=== PATIENT | male | born 1960 | race Caucasian/White ===

== ENCOUNTER 2017-09-08 15:10 | Inpatient (IN) | payer MEDICARE, OTHER ==
[2017-09-08 15:58] LABS: % BASOPHILS 0.9 % (0.0-2.0); % LYMPHOCYTES 25.8 % (20.0-50.0); % MONOCYTES 7.9 % (2.0-10.0); % NEUTROPHILS 64.4 % (40.0-80.0); HEMATOCRIT 43.3 % (41.0-60); HEMOGLOBIN 14.8 gm/dL (12-16); MEAN CELL VOLUME 91.2 fl (80-99); MEAN CORPUSCULAR HEMOGLOBIN 31.1 pg (26.0-30.0); MEAN CORPUSCULAR HGB CONC 34.1 pg (28.0-36.0); PLATELET COUNT 166 Th/cmm (150-400); RED BLOOD COUNT 4.75 Mil/cmm (4.30-5.70); RED CELL DISTRIBUTION WIDTH 12.4 % (11.5-20.0); WHITE BLOOD COUNT 9.5 Th/cmm (4.8-10.8)
--- NOTE | 2017-09-08 16:01 | ED Physician Chart ---
ED Chief Complaint/HPI - Patient Information Date Seen:: 09/08/17 Time Seen:: 15:30 Chief Complaint:: Agitation History of Present Illness:: onset x one day of aggression, anxiety, combativeness, and agitation; no SIs, hallucinations, H/As, neck pain, C/P, SOB, Abd/flank pain, or urinary s/s Allergies:: Allergies Allergy/AdvReac Type Severity Reaction Status Date / Time cefazolin Allergy Verified 09/08/17 15:22 gemfibrozil Allergy Verified 09/08/17 15:24 simvastatin Allergy Verified 09/08/17 15:23 Vitals:: Vital Signs - 8 hr 09/08/17 15:30 Temp 98.3 F HR 68 RR 16 BP 174/98 O2 Sat % 96 Historian:: Patient Review:: Nurse's Note Reviewed, Old Chart Reviewed ED Review of Systems - Review of Systems General/Constitutional: No fever, No chills, No weight loss, No weakness, No diaphoresis, No edema, No loss of appetite Skin: No skin lesions, No rash, No bruising Head: No headache, No light-headedness Eyes: No loss of vision, No pain, No diplopia ENT: No earache, No nasal drainage, No sore throat, No tinnitus Neck: No neck pain, No swelling, No thyromegaly, No stiffness, No mass noted Cardio Vascular: No chest pain, No palpitations, No PND, No orthopnea, No edema Pulmonary: No SOB, No cough, No sputum, No wheezing GI: Nausea, Vomiting, Diarrhea, Pain, No melena, No hematochezia, No constipation, No hematemesis G/U: No dysuria, No frequency, No hematuria Musculoskeletal: No bone or joint pain, No back pain, No muscle pain Endocrine: No polyuria, No polydipsia Psychiatric: Prior psych history, Depression, Anxiety, No suicidal ideation, No homicidal ideation, Auditory hallucination, No visual hallucination Hematopoietic: No bruising, No lymphadenopathy Allergic/Immuno: No urticaria, No angioedema Neurological: No syncope, No focal symptoms, No weakness, No paresthesia, No headache, No seizure, No dizziness, No confusion, No vertigo ED Past Medical History - Past Medical History Obtainable: Yes Past Medical History: HTN, Dyslipidemia, PUD/GERD, Dementia Family History: Diabetes Melitus, HTN Social History: Smoker, Alcohol, No Drug Use, Single Surgical History: None Psychiatricy History: Depression, Schizophrenia, Bipolar, Dementia Medication: Reviewed Family Medical History - Family Member Mother History Unknown: Yes ED Physical Exam - Physical Examination General/Constitutional: Awake, Well-developed, well-nourished, Alert, No distress, GCS 15, Non-toxic appearing, Ambulatory Head: Atraumatic Eyes: Lids, conjuctiva normal, PERRL, EOMI Skin: Nl inspection, No rash, No skin lesions, No ecchymosis, Well hydrated, No lymphadenopathy ENMT: External ears, nose nl, Nasal exam nl, Lips, teeth, gums nl Neck: Nontender, Full ROM w/o pain, No JVD, No nuchal rigidity, No bruit, No mass, No stridor Respiratory: Nl effort/Exclusion, Clear to Auscultation, No Wheeze/Rhonchi/Rales Cardio Vascular: RRR, No murmur, gallop, rubs, NL S1 S2 GI: No tenderness/rebounding/guarding, No organomegaly, No hernia, Normal BS's, Nondistended, No mass/bruits, No McBurney tenderness : No CVA tenderness Extremities: No tenderness or effusion, Full ROM, normal strength in all extremities, No edema, Normal digits & nails Neuro/Psych: Alert/oriented, DTR's symmetric, Normal sensory exam, Normal motor strength, Judgement/insight normal, Normal gait, No focal deficits Other Neuro/Psych comments:: + Psychomotor Agitation; Mood/Affect: Labile; no SIs Misc: Normal back, No paraspinal tenderness ED Labs/Radiology/EKG Results - Lab Results Comments:: unremarkable - EKG Interpretations Rate & Rhythm: NSR Comments:: non-specific st-t changes ED Septic Shock - . Is Septic Shock (SBP<90, OR Lactate>4 mmol\L) present?: No - <6hrs of presentation: Vital Signs: Vital Signs - 8 hr 09/08/17 15:30 Temp 98.3 F HR 68 RR 16 BP 174/98 O2 Sat % 96 ED Reassessment (Disposition) - Reassessment Reassessment Condition:: Improved - Diagnosis Diagnosis:: Agitation; BiPolar Disoder; Manic-Depression - Aftercare/Follow up Instructions Aftercare/Follow-Up Instructions:: Counseled pt regarding lab results/diagnosis & need follow up, Counseled pt & family regarding lab results/diagnosis & need follow up - Patient Disposition Discharge/Transfer:: Acute Care w/in this hosp Admitted to:: [facility] Condition at Disposition:: Stable, Improved
[2017-09-08 16:11] LABS: URINE BILIRUBIN NEGATIVE (NEGATIVE); URINE BLOOD NEGATIVE (NEGATIVE); URINE GLUCOSE (UA) NEGATIVE (NEGATIVE); URINE KETONE NEGATIVE (NEGATIVE); URINE PROTEIN NEGATIVE (NEGATIVE); URINE UROBILINOGEN 0.2 E.U./dL (0.2 - 1.0)
[2017-09-08 16:14] LABS: URINE COLOR YELLOW
[2017-09-08 16:16] LABS: URINE BACTERIA NONE SEEN /hpf (NONE SEEN); URINE EPITHELIAL CELLS NONE SEEN /lpf (FEW); URINE RBC NONE SEEN /hpf (0-5); URINE WBC NONE SEEN /hpf (0-5)
[2017-09-08 16:21] LABS: ALB/GLOB RATIO 1.5 (1.0-1.8); ALKALINE PHOSPHATASE 119 U/L (34-104); ANION GAP 9.3 (7.0-16.0); BILIRUBIN,TOTAL 0.5 mg/dL (0.3-1.0); BUN - UREA NITROGEN 21 mg/dL (7-25); BUN/CREATININE RATIO 26.3; CARBON DIOXIDE 26.7 mEq/L (21.0-31.0); CHLORIDE 105 mEq/L (98-107); CHOLESTEROL 116 mg/dL (<200); CREATININE - SERUM 0.8 mg/dL (0.7-1.3); GLUCOSE 132 mg/dL (70-105); SGOT 27 U/L (13-39); SGPT/ALT 23 U/L (7-52); SODIUM SERUM 137 mEq/L (136-145); TRIGLYCERIDES 77 mg/dL (<150)
[2017-09-08 18:32] VITALS: BP 179/86
[2017-09-08] MEDS ORDERED: Magnesium Hydroxide (MOM) 30 mL UDC PO PRN (20:32)
[2017-09-08] MEDS ORDERED: Maalox 30 mL Cup PO PRN (20:32)
[2017-09-09] MEDS: Multivitamin Tab PO SCH (08:56)
[2017-09-09] MEDS ORDERED: Non-Formulary Item 1 EA (Acetaminophen [Acetaminophen Er] 650 MG) PO PRN (22:52)
[2017-09-09] MEDS ORDERED: Magnesium Hydroxide (MOM) 30 mL UDC PO PRN (22:52)
[2017-09-09] MEDS ORDERED: Fleet Enema 135 mL RC PRN (22:52)
--- NOTE | 2017-09-10 00:47 | History & Physical ---
ADMIT DATE: 09/08/2017 HISTORY OF PRESENT ILLNESS: The patient is a 57-year-old male with long history of hypertension, benign prostatic hypertrophy, degenerative joint disease, chronic constipation, dementia, psychosis, admitted to Geropsych Department at [facility] under Dr. Franklin's service. The patient resumed his medication and diet. PAST MEDICAL HISTORY: Significant for hypertension, benign prostatic hypertrophy, degenerative joint disease, dementia, and psychosis. PAST SURGICAL HISTORY: No recent surgery. ALLERGIES: CEFAZOLIN, GEMFIBROZIL, SIMVASTATIN. SOCIAL HISTORY: No smoking, alcohol or drug use. FAMILY HISTORY: Noncontributory. MEDICATIONS: Follow admission reconciliation. REVIEW OF SYSTEMS: RENAL SYSTEM: No history of chronic renal disorder. CARDIOVASCULAR SYSTEM: He has history of hypertension. ENDOCRINE SYSTEM: No diabetes or thyroid problem. GASTROINTESTINAL SYSTEM: No upper or lower gastrointestinal bleed. NEUROLOGICAL: He has history of dementia, psychosis. PHYSICAL EXAMINATION: GENERAL: He is awake, not coherent. VITAL SIGNS: Temperature 97.8, heart rate 61, blood pressure 135/85. HEENT: Normocephalic. Pupils reactive to light and accommodation. Sclerae clear. NECK: Supple. Negative for lymphadenopathy, JVD or bruit. CHEST: ____ bilateral normal. No rhonchi or wheezing. HEART: S1, S2 normal. ABDOMEN: Soft, bowel sounds positive. EXTREMITIES: No edema. NEUROLOGIC: Awake, not fully oriented. LABORATORY DATA: White blood cells 9.5, hemoglobin is 14.8, hematocrit 43.3, platelet is 166. Sodium 132, potassium ____, BUN is 21, creatinine 0.9. Urinalysis within normal limits, RPR is negative. ASSESSMENT: 1. Hypertension. 2. Benign prostatic hypertrophy. 3. Hyponatremia. 4. Dementia. 5. Psychosis. PLAN: The patient is in the hospital under Dr. Franklin's service. PROBLEMS TO BE ADDRESSED DURING THE HOSPITALIZATION: Psychosis, dementia. MEDICAL PROBLEMS TO BE ADDRESSED AT DISCHARGE: Hypertension, benign prostatic hypertrophy. The patient is medically stable for activity. The patient is a full code. Thank you, Dr. Franklin for asking me to see your patient. JOB# [id number]
--- NOTE | 2017-09-10 01:49 | Psychosocial Evaluation ---
DATE OF SERVICE: 09/09/2017 IDENTIFYING DATA: The patient is a 57-year-old male resident of a jail facility. Information obtained by directly interviewing the patient as well as papers and they are reliable. JUSTIFICATION OF HOSPITALIZATION: The patient is admitted here on a voluntary basis in view of his acute agitation. CHIEF COMPLAINT: "I am having some problems at the facility, I don't know what to do." HISTORY OF PRESENT ILLNESS: This is the first psychiatric hospitalization to [facility] for this patient who is reported to have been asked is a resident of the jail facility. The patient is reported to have been getting easily agitated, screaming and yelling and hence he has been transferred over here for stabilization. Prior to the hospitalization, the patient has been getting the Depakote and Seroquel. The patient has been able to tolerate the medication. The patient's mother has been stating that the patient needs to be refer to a jail facility close to the hospital and she does not want to go back to the same facility. PAST PSYCHIATRIC HISTORY: The patient is not able to provide much of information. The patient stating that he has been diagnosed with dementia. MEDICAL HISTORY AND PHYSICAL EXAMINATION: Requested to be done by Dr. Alves. SUBSTANCE ABUSE HISTORY: None. PHYSICAL OR SEXUAL ABUSE HISTORY: None. LEGAL PROBLEMS: None at this time. STRENGTH AND ASSETS: The patient is motivated. MENTAL STATUS EXAMINATION: The patient is a 57-year-old, looking his stated age, well built, superficially cooperative. Eye contact is poor. Mood is noted to be irritable. Affect is constricted. Insight and judgment at this time are noted to be still impaired. Impulse control is noted to be limited. The patient is insisting that he has to go to a different place and he is not able to get along with the people at the facility. The patient coping skills at this time are noted to be very poor. The patient has been denying any paranoia, delusions noted, no hallucinations are reported. The patient, however, has been mentioned repeatedly that he has dementia. The patient, however, is noted to be alert and is fully aware that he is in the hospital. DIAGNOSTIC IMPRESSION: 1a. Psychotic disorder, not otherwise specified. 1b. Dementia and behavioral changes secondary to it. AXIS II: None. AXIS III: As per Dr. Alves. IMMEDIATE TREATMENT PLAN: The patient is going to be continued with the current medications and encouraged to participate in the groups and verbalize the concerns. Once stabilized, the patient is going to be discharged to self to be followed up on an outpatient basis. [facility]# [id number]
[2017-09-10] MEDS: Multivitamin Tab PO SCH (09:36)
--- NOTE | 2017-09-10 19:14 | Internal Medicine Prog Note ---
Internal Medicine Subjective - Subjective Service Date: 09/10/17 Patient seen and examined:: with staff Patient is:: awake, in bed, confused Per staff patient has:: no adverse event Internal Medicine Objective - Results Result Diagrams: 09/08/17 15:51 09/08/17 15:51 Recent Labs: Laboratory Last Values WBC 9.5 Th/cmm (4.8-10.8) 09/08/17 15:51 RBC 4.75 Mil/cmm (4.30-5.70) 09/08/17 15:51 Hgb 14.8 gm/dL (12-16) 09/08/17 15:51 Hct 43.3 % (41.0-60) 09/08/17 15:51 MCV 91.2 fl (80-99) 09/08/17 15:51 MCH 31.1 pg (26.0-30.0) H 09/08/17 15:51 MCHC Differential 34.1 pg (28.0-36.0) 09/08/17 15:51 RDW 12.4 % (11.5-20.0) 09/08/17 15:51 Plt Count 166 Th/cmm (150-400) 09/08/17 15:51 MPV 10.0 fl 09/08/17 15:51 Neutrophils % 64.4 % (40.0-80.0) 09/08/17 15:51 Lymphocytes % 25.8 % (20.0-50.0) 09/08/17 15:51 Monocytes % 7.9 % (2.0-10.0) 09/08/17 15:51 Eosinophils % 1.0 % (0.0-5.0) 09/08/17 15:51 Basophils % 0.9 % (0.0-2.0) 09/08/17 15:51 Sodium 137 mEq/L (136-145) 09/08/17 15:51 Potassium 4.0 mEq/L (3.5-5.1) 09/08/17 15:51 Chloride 105 mEq/L (98-107) 09/08/17 15:51 Carbon Dioxide 26.7 mEq/L (21.0-31.0) 09/08/17 15:51 Anion Gap 9.3 (7.0-16.0) 09/08/17 15:51 BUN 21 mg/dL (7-25) 09/08/17 15:51 Creatinine 0.8 mg/dL (0.7-1.3) 09/08/17 15:51 Est GFR ( Amer) > 60.0 ml/min (>90) 09/08/17 15:51 Est GFR (Non-Af Amer) > 60.0 ml/min 09/08/17 15:51 BUN/Creatinine Ratio 26.3 09/08/17 15:51 Glucose 132 mg/dL (70-105) H 09/08/17 15:51 Calcium 9.0 mg/dL (8.6-10.3) 09/08/17 15:51 Total Bilirubin 0.5 mg/dL (0.3-1.0) 09/08/17 15:51 AST 27 U/L (13-39) 09/08/17 15:51 ALT 23 U/L (7-52) 09/08/17 15:51 Alkaline Phosphatase 119 U/L (34-104) H 09/08/17 15:51 Total Protein 7.1 gm/dL (6.0-8.3) 09/08/17 15:51 Albumin 4.2 gm/dL (4.2-5.5) 09/08/17 15:51 Globulin 2.9 gm/dL 09/08/17 15:51 Albumin/Globulin Ratio 1.5 (1.0-1.8) 09/08/17 15:51 Triglycerides 77 mg/dL (<150) 09/08/17 15:51 Cholesterol 116 mg/dL (<200) 09/08/17 15:51 LDL Cholesterol Direct 65 mg/dL (75-193) L 09/08/17 15:51 HDL Cholesterol 41 mg/dL (23-92) 09/08/17 15:51 TSH 2.37 uIU/ml (0.34-5.60) 09/08/17 15:51 Urine Source CLEAN C 09/08/17 15:45 Urine Color YELLOW 09/08/17 15:45 Urine Clarity CLEAR (CLEAR) 09/08/17 15:45 Urine pH 6.0 (4.6 - 8.0) 09/08/17 15:45 Ur Specific [place] >= 1.030 (1.005-1.030) 09/08/17 15:45 Urine Protein NEGATIVE mg/dL (NEGATIVE) 09/08/17 15:45 Urine Glucose (UA) NEGATIVE mg/dL (NEGATIVE) 09/08/17 15:45 Urine Ketones NEGATIVE mg/dL (NEGATIVE) 09/08/17 15:45 Urine Blood NEGATIVE (NEGATIVE) 09/08/17 15:45 Urine Nitrate NEGATIVE (NEGATIVE) 09/08/17 15:45 Urine Bilirubin NEGATIVE (NEGATIVE) 09/08/17 15:45 Urine Urobilinogen 0.2 E.U./dL (0.2 - 1.0) 09/08/17 15:45 Ur Leukocyte Esterase NEGATIVE (NEGATIVE) 09/08/17 15:45 Urine RBC NONE SEEN /hpf (0-5) 09/08/17 15:45 Urine WBC NONE SEEN /hpf (0-5) 09/08/17 15:45 Ur Epithelial Cells NONE SEEN /lpf (FEW) 09/08/17 15:45 Urine Bacteria NONE SEEN /hpf (NONE SEEN) 09/08/17 15:45 RPR NONREACTIVE (NONREACTIVE) 09/08/17 15:51 - Physical Exam Vitals and I&O: Vital Signs Temp 97.9 F 09/10/17 06:31 Pulse 64 09/10/17 17:22 Resp 20 09/10/17 06:31 BP 128/75 09/10/17 17:22 Pulse Ox 96 09/10/17 06:31 Intake & Output 09/10/17 09/10/17 09/11/17 06:59 18:59 06:59 Intake Total 120 Balance 120 Intake: Oral 120 Other: # Voids 3 Active Medications: Current Medications Acetaminophen (Tylenol) 650 mg PO Q4HR PRN PRN Reason: Mild Pain / Temp above 100 Stop: 11/07/17 20:31 Al Hydrox/Mg Hydrox/Simethicone (Maalox) 30 ml PO Q4HR PRN PRN Reason: GI DISTRESS Stop: 11/07/17 20:31 Amlodipine Besylate (Norvasc) 10 mg PO DAILY [facility] Stop: 11/08/17 11:29 Last Admin: 09/10/17 09:33 Dose: 10 mg Aspirin (Aspirin) 325 mg PO DAILY [facility] Stop: 11/09/17 08:59 Last Admin: 09/10/17 09:34 Dose: 325 mg Bisacodyl (Dulcolax 10 Mg Supp) 10 mg RC DAILY PRN PRN Reason: Constipation Stop: 11/08/17 22:51 Divalproex Sodium (Depakote Sprinkle) 250 mg PO BID [facility] PRN Reason: Protocol Stop: 11/08/17 08:59 Last Admin: 09/09/17 16:36 Dose: 250 mg Divalproex Sodium (Depakote Sprinkle) 125 mg PO BID [facility] PRN Reason: Protocol Stop: 11/09/17 08:59 Last Admin: 09/10/17 17:23 Dose: 125 mg Docusate Sodium (Colace) 100 mg PO DAILY [facility] Stop: 11/08/17 08:59 Last Admin: 09/10/17 09:34 Dose: 100 mg Donepezil HCl (Aricept) 10 mg PO HS [facility] Stop: 11/07/17 20:59 Last Admin: 09/09/17 20:35 Dose: 10 mg Lorazepam (Ativan) 0.5 mg PO Q4HR PRN; Protocol PRN Reason: anxiety and agitation Stop: 10/08/17 20:31 Last Admin: 09/08/17 21:40 Dose: 0.5 mg Magnesium Hydroxide (Milk Of Magnesia) 30 ml PO HS PRN PRN Reason: Constipation Magnesium Hydroxide (Milk Of Magnesia) 30 ml PO HS PRN PRN Reason: Constipation Stop: 11/08/17 22:51 Memantine (Namenda) 10 mg PO Q12HR [facility] Stop: 11/07/17 20:59 Last Admin: 09/10/17 09:34 Dose: 10 mg Metoprolol Tartrate (Lopressor) 12.5 mg PO BID [facility] Stop: 11/09/17 08:59 Last Admin: 09/10/17 17:22 Dose: 12.5 mg Morphine Sulfate (Ms-Contin) 30 mg PO Q12HR [facility] Stop: 11/07/17 20:59 Last Admin: 09/10/17 09:36 Dose: 30 mg Multivitamins/Vitamin C (Theragran) 1 tab PO DAILY [facility] Stop: 11/08/17 08:59 Last Admin: 09/10/17 09:36 Dose: 1 tab Nitroglycerin (Nitrostat) 0.4 mg SL Q5MIN PRN PRN Reason: Chest Pain Stop: 11/08/17 22:51 Quetiapine Fumarate (Seroquel) 100 mg PO HS [facility] PRN Reason: Protocol Stop: 11/07/17 20:59 Last Admin: 09/09/17 20:37 Dose: 100 mg Quetiapine Fumarate (Seroquel) 25 mg PO DAILY [facility] PRN Reason: Protocol Stop: 11/08/17 08:59 Last Admin: 09/10/17 09:36 Dose: 25 mg Sodium Phosphate (Fleet Enema) 135 ml RC Q2D PRN PRN Reason: Constipation Stop: 11/08/17 22:51 Tamsulosin HCl (Flomax) 0.4 mg PO HS [facility] Stop: 11/08/17 20:59 Last Admin: 09/09/17 20:37 Dose: 0.4 mg Thiamine HCl (Vitamin B1) 200 mg PO DAILY [facility] Stop: 11/09/17 08:59 Last Admin: 09/10/17 09:34 Dose: 200 mg Zolpidem Tartrate (Ambien) 5 mg PO HS PRN PRN Reason: Insomnia Stop: 11/07/17 20:31 General: demented HEENT: NC/AT, PERRLA, EOMI, anicteric sclerae, throat clear Neck: Supple, No JVD, No thyromegaly Lungs: CTAB Cardiovascular: RRR, Normal S1, Normal S2, without murmur Abdomen: soft, non-tender, non-distended Extremities: clear Neurological: no change Internal Medicine Assmt/Plan - Assessment Assessment: 1.HTN. 2.BPH. 3.DEMENTIA. - Plan Plan: CONTINUE ON CURRENT MEDICATION AND DIET.
--- NOTE | 2017-09-11 04:41 | Progress Notes ---
DATE: 09/10/2017 SUBJECTIVE: Staff was spoken to. The patient is interviewed. Mood is noted to be irritable. Affect is constricted. Insight and judgment at this time are noted to be still impaired. Impulse control seems to be poor. Coping skills are also noted to be poor. The patient has been having difficult time to cope with the stress. The patient is currently on 25 mg of the Seroquel in the morning, 100 mg at bedtime and is also receiving Depakote 125 mg twice a day. Mood swings are still a concern and the patient is being closely monitored. ASSESSMENT: The patient is still impulsive and is not able to contract for safety. PLAN: To continue the patient with the current medications. I encouraged the patient to verbalize the concerns rather than to act out. JOB# [id number]
[2017-09-11] MEDS: Multivitamin Tab PO SCH (08:09)
--- NOTE | 2017-09-11 13:54 | Internal Medicine Prog Note ---
Internal Medicine Subjective - Subjective Service Date: 09/11/17 Patient seen and examined:: with staff Patient is:: awake, in bed, confused Per staff patient has:: no adverse event Internal Medicine Objective - Results Result Diagrams: 09/08/17 15:51 09/08/17 15:51 Recent Labs: Laboratory Last Values WBC 9.5 Th/cmm (4.8-10.8) 09/08/17 15:51 RBC 4.75 Mil/cmm (4.30-5.70) 09/08/17 15:51 Hgb 14.8 gm/dL (12-16) 09/08/17 15:51 Hct 43.3 % (41.0-60) 09/08/17 15:51 MCV 91.2 fl (80-99) 09/08/17 15:51 MCH 31.1 pg (26.0-30.0) H 09/08/17 15:51 MCHC Differential 34.1 pg (28.0-36.0) 09/08/17 15:51 RDW 12.4 % (11.5-20.0) 09/08/17 15:51 Plt Count 166 Th/cmm (150-400) 09/08/17 15:51 MPV 10.0 fl 09/08/17 15:51 Neutrophils % 64.4 % (40.0-80.0) 09/08/17 15:51 Lymphocytes % 25.8 % (20.0-50.0) 09/08/17 15:51 Monocytes % 7.9 % (2.0-10.0) 09/08/17 15:51 Eosinophils % 1.0 % (0.0-5.0) 09/08/17 15:51 Basophils % 0.9 % (0.0-2.0) 09/08/17 15:51 Sodium 137 mEq/L (136-145) 09/08/17 15:51 Potassium 4.0 mEq/L (3.5-5.1) 09/08/17 15:51 Chloride 105 mEq/L (98-107) 09/08/17 15:51 Carbon Dioxide 26.7 mEq/L (21.0-31.0) 09/08/17 15:51 Anion Gap 9.3 (7.0-16.0) 09/08/17 15:51 BUN 21 mg/dL (7-25) 09/08/17 15:51 Creatinine 0.8 mg/dL (0.7-1.3) 09/08/17 15:51 Est GFR ( Amer) > 60.0 ml/min (>90) 09/08/17 15:51 Est GFR (Non-Af Amer) > 60.0 ml/min 09/08/17 15:51 BUN/Creatinine Ratio 26.3 09/08/17 15:51 Glucose 132 mg/dL (70-105) H 09/08/17 15:51 Calcium 9.0 mg/dL (8.6-10.3) 09/08/17 15:51 Total Bilirubin 0.5 mg/dL (0.3-1.0) 09/08/17 15:51 AST 27 U/L (13-39) 09/08/17 15:51 ALT 23 U/L (7-52) 09/08/17 15:51 Alkaline Phosphatase 119 U/L (34-104) H 09/08/17 15:51 Total Protein 7.1 gm/dL (6.0-8.3) 09/08/17 15:51 Albumin 4.2 gm/dL (4.2-5.5) 09/08/17 15:51 Globulin 2.9 gm/dL 09/08/17 15:51 Albumin/Globulin Ratio 1.5 (1.0-1.8) 09/08/17 15:51 Triglycerides 77 mg/dL (<150) 09/08/17 15:51 Cholesterol 116 mg/dL (<200) 09/08/17 15:51 LDL Cholesterol Direct 65 mg/dL (75-193) L 09/08/17 15:51 HDL Cholesterol 41 mg/dL (23-92) 09/08/17 15:51 TSH 2.37 uIU/ml (0.34-5.60) 09/08/17 15:51 Urine Source CLEAN C 09/08/17 15:45 Urine Color YELLOW 09/08/17 15:45 Urine Clarity CLEAR (CLEAR) 09/08/17 15:45 Urine pH 6.0 (4.6 - 8.0) 09/08/17 15:45 Ur Specific [place] >= 1.030 (1.005-1.030) 09/08/17 15:45 Urine Protein NEGATIVE mg/dL (NEGATIVE) 09/08/17 15:45 Urine Glucose (UA) NEGATIVE mg/dL (NEGATIVE) 09/08/17 15:45 Urine Ketones NEGATIVE mg/dL (NEGATIVE) 09/08/17 15:45 Urine Blood NEGATIVE (NEGATIVE) 09/08/17 15:45 Urine Nitrate NEGATIVE (NEGATIVE) 09/08/17 15:45 Urine Bilirubin NEGATIVE (NEGATIVE) 09/08/17 15:45 Urine Urobilinogen 0.2 E.U./dL (0.2 - 1.0) 09/08/17 15:45 Ur Leukocyte Esterase NEGATIVE (NEGATIVE) 09/08/17 15:45 Urine RBC NONE SEEN /hpf (0-5) 09/08/17 15:45 Urine WBC NONE SEEN /hpf (0-5) 09/08/17 15:45 Ur Epithelial Cells NONE SEEN /lpf (FEW) 09/08/17 15:45 Urine Bacteria NONE SEEN /hpf (NONE SEEN) 09/08/17 15:45 RPR NONREACTIVE (NONREACTIVE) 09/08/17 15:51 - Physical Exam Vitals and I&O: Vital Signs Temp 98 F 09/11/17 06:46 Pulse 60 09/11/17 13:04 Resp 20 09/11/17 13:04 BP 156/85 09/11/17 08:10 Pulse Ox 98 09/11/17 06:46 Intake & Output 09/10/17 09/11/17 09/11/17 18:59 06:59 18:59 Intake Total 120 Balance 120 Intake: Oral 120 Other: # Voids 3 Active Medications: Current Medications Acetaminophen (Tylenol) 650 mg PO Q4HR PRN PRN Reason: Mild Pain / Temp above 100 Stop: 11/07/17 20:31 Al Hydrox/Mg Hydrox/Simethicone (Maalox) 30 ml PO Q4HR PRN PRN Reason: GI DISTRESS Stop: 11/07/17 20:31 Amlodipine Besylate (Norvasc) 10 mg PO DAILY [facility] Stop: 11/08/17 11:29 Last Admin: 09/11/17 08:10 Dose: 10 mg Aspirin (Aspirin) 325 mg PO DAILY [facility] Stop: 11/09/17 08:59 Last Admin: 09/11/17 08:09 Dose: 325 mg Bisacodyl (Dulcolax 10 Mg Supp) 10 mg RC DAILY PRN PRN Reason: Constipation Stop: 11/08/17 22:51 Divalproex Sodium (Depakote Sprinkle) 250 mg PO BID [facility] PRN Reason: Protocol Stop: 11/08/17 08:59 Last Admin: 09/11/17 08:11 Dose: 250 mg Divalproex Sodium (Depakote Sprinkle) 125 mg PO BID [facility] PRN Reason: Protocol Stop: 11/09/17 08:59 Last Admin: 09/10/17 17:23 Dose: 125 mg Docusate Sodium (Colace) 100 mg PO DAILY [facility] Stop: 11/08/17 08:59 Last Admin: 09/11/17 08:09 Dose: 100 mg Donepezil HCl (Aricept) 10 mg PO HS [facility] Stop: 11/07/17 20:59 Last Admin: 09/10/17 21:23 Dose: 10 mg Lorazepam (Ativan) 0.5 mg PO Q4HR PRN; Protocol PRN Reason: anxiety and agitation Stop: 10/08/17 20:31 Last Admin: 09/08/17 21:40 Dose: 0.5 mg Magnesium Hydroxide (Milk Of Magnesia) 30 ml PO HS PRN PRN Reason: Constipation Magnesium Hydroxide (Milk Of Magnesia) 30 ml PO HS PRN PRN Reason: Constipation Stop: 11/08/17 22:51 Memantine (Namenda) 10 mg PO Q12HR [facility] Stop: 11/07/17 20:59 Last Admin: 09/11/17 08:09 Dose: 10 mg Metoprolol Tartrate (Lopressor) 12.5 mg PO BID [facility] Stop: 11/09/17 08:59 Last Admin: 09/11/17 08:09 Dose: 12.5 mg Morphine Sulfate (Ms-Contin) 30 mg PO Q12HR [facility] Stop: 11/07/17 20:59 Last Admin: 09/11/17 08:11 Dose: 30 mg Multivitamins/Vitamin C (Theragran) 1 tab PO DAILY [facility] Stop: 11/08/17 08:59 Last Admin: 09/11/17 08:09 Dose: 1 tab Nitroglycerin (Nitrostat) 0.4 mg SL Q5MIN PRN PRN Reason: Chest Pain Stop: 11/08/17 22:51 Quetiapine Fumarate (Seroquel) 100 mg PO HS [facility] PRN Reason: Protocol Stop: 11/07/17 20:59 Last Admin: 09/10/17 21:23 Dose: 100 mg Quetiapine Fumarate (Seroquel) 25 mg PO DAILY [facility] PRN Reason: Protocol Stop: 11/08/17 08:59 Last Admin: 09/11/17 08:09 Dose: 25 mg Sodium Phosphate (Fleet Enema) 135 ml RC Q2D PRN PRN Reason: Constipation Stop: 11/08/17 22:51 Tamsulosin HCl (Flomax) 0.4 mg PO HS [facility] Stop: 11/08/17 20:59 Last Admin: 09/10/17 21:23 Dose: 0.4 mg Thiamine HCl (Vitamin B1) 200 mg PO DAILY [facility] Stop: 11/09/17 08:59 Last Admin: 09/11/17 08:09 Dose: 200 mg Zolpidem Tartrate (Ambien) 5 mg PO HS PRN PRN Reason: Insomnia Stop: 11/07/17 20:31 General: demented HEENT: NC/AT, PERRLA, EOMI, anicteric sclerae, throat clear Neck: Supple, No JVD, No thyromegaly Lungs: CTAB Cardiovascular: RRR, Normal S1, Normal S2, without murmur Abdomen: soft, non-tender, non-distended Extremities: clear Neurological: no change Internal Medicine Assmt/Plan - Assessment Assessment: 1.HTN. 2.BPH. 3.DEMENTIA. - Plan Plan: CONTINUE ON CURRENT MEDICATION AND DIET.
[2017-09-12] MEDS: Multivitamin Tab PO SCH (08:17)
--- NOTE | 2017-09-12 15:05 | Progress Notes ---
DATE: 09/11/2017 SUBJECTIVE: Staff was spoken to. The patient is interviewed. Mood is noted to be irritable. Affect is constricted. Insight and judgment are noted to be still impaired. Impulse control seems to be limited. Coping skills are also noted to be poor. No side effects to the medications are noted. The patient has been having difficult time to cope with the stress at this time. The patient has been stating he wants to go back and what is not very clear that he is going to be welcomed over there. The patient's mother has been requesting for the patient to be transferred to a different facility close to the [facility]. manager mba has been working on the same. The patient at this time is not able to contract for safety, continues to be paranoid and hence it is decided to increase the dose on the Seroquel by another 25 mg, make it 50 mg in the morning and continued at 100 mg at bedtime. JOB# [id number]
--- NOTE | 2017-09-13 01:19 | Progress Notes ---
DATE: 09/12/2017 SUBJECTIVE: Staff was spoken to. The patient is interviewed. Mood is noted to be irritable. Affect is constricted. The patient is demanding that he should be discharged. He can be there in his trailer and close to his mother. The patient is stating that mother is mainly concerned that he is going to be taking alcohol. The patient has been very belligerent last night and wanting that he should be discharged right away. ASSESSMENT: The patient is still impulsive. PLAN: To continue the patient with the supportive therapy and current medications and followup. JOB# [id number]
[2017-09-13] MEDS: Multivitamin Tab PO SCH (08:18)
[2017-09-13] MEDS ORDERED: Magnesium Hydroxide (MOM) 30 mL UDC PO PRN ×2 (15:55)
--- NOTE | 2017-09-13 20:54 | General Progress Note ---
Subjective - Review of Systems Service Date: 09/13/17 Subjective: resting comfortably no distress Objective - Results Result Diagrams: 09/08/17 15:51 09/08/17 15:51 Recent Labs: Laboratory Last Values WBC 9.5 Th/cmm (4.8-10.8) 09/08/17 15:51 RBC 4.75 Mil/cmm (4.30-5.70) 09/08/17 15:51 Hgb 14.8 gm/dL (12-16) 09/08/17 15:51 Hct 43.3 % (41.0-60) 09/08/17 15:51 MCV 91.2 fl (80-99) 09/08/17 15:51 MCH 31.1 pg (26.0-30.0) H 09/08/17 15:51 MCHC Differential 34.1 pg (28.0-36.0) 09/08/17 15:51 RDW 12.4 % (11.5-20.0) 09/08/17 15:51 Plt Count 166 Th/cmm (150-400) 09/08/17 15:51 MPV 10.0 fl 09/08/17 15:51 Neutrophils % 64.4 % (40.0-80.0) 09/08/17 15:51 Lymphocytes % 25.8 % (20.0-50.0) 09/08/17 15:51 Monocytes % 7.9 % (2.0-10.0) 09/08/17 15:51 Eosinophils % 1.0 % (0.0-5.0) 09/08/17 15:51 Basophils % 0.9 % (0.0-2.0) 09/08/17 15:51 Sodium 137 mEq/L (136-145) 09/08/17 15:51 Potassium 4.0 mEq/L (3.5-5.1) 09/08/17 15:51 Chloride 105 mEq/L (98-107) 09/08/17 15:51 Carbon Dioxide 26.7 mEq/L (21.0-31.0) 09/08/17 15:51 Anion Gap 9.3 (7.0-16.0) 09/08/17 15:51 BUN 21 mg/dL (7-25) 09/08/17 15:51 Creatinine 0.8 mg/dL (0.7-1.3) 09/08/17 15:51 Est GFR ( Amer) > 60.0 ml/min (>90) 09/08/17 15:51 Est GFR (Non-Af Amer) > 60.0 ml/min 09/08/17 15:51 BUN/Creatinine Ratio 26.3 09/08/17 15:51 Glucose 132 mg/dL (70-105) H 09/08/17 15:51 Calcium 9.0 mg/dL (8.6-10.3) 09/08/17 15:51 Total Bilirubin 0.5 mg/dL (0.3-1.0) 09/08/17 15:51 AST 27 U/L (13-39) 09/08/17 15:51 ALT 23 U/L (7-52) 09/08/17 15:51 Alkaline Phosphatase 119 U/L (34-104) H 09/08/17 15:51 Total Protein 7.1 gm/dL (6.0-8.3) 09/08/17 15:51 Albumin 4.2 gm/dL (4.2-5.5) 09/08/17 15:51 Globulin 2.9 gm/dL 09/08/17 15:51 Albumin/Globulin Ratio 1.5 (1.0-1.8) 09/08/17 15:51 Triglycerides 77 mg/dL (<150) 09/08/17 15:51 Cholesterol 116 mg/dL (<200) 09/08/17 15:51 LDL Cholesterol Direct 65 mg/dL (75-193) L 09/08/17 15:51 HDL Cholesterol 41 mg/dL (23-92) 09/08/17 15:51 TSH 2.37 uIU/ml (0.34-5.60) 09/08/17 15:51 Urine Source CLEAN C 09/08/17 15:45 Urine Color YELLOW 09/08/17 15:45 Urine Clarity CLEAR (CLEAR) 09/08/17 15:45 Urine pH 6.0 (4.6 - 8.0) 09/08/17 15:45 Ur Specific [place] >= 1.030 (1.005-1.030) 09/08/17 15:45 Urine Protein NEGATIVE mg/dL (NEGATIVE) 09/08/17 15:45 Urine Glucose (UA) NEGATIVE mg/dL (NEGATIVE) 09/08/17 15:45 Urine Ketones NEGATIVE mg/dL (NEGATIVE) 09/08/17 15:45 Urine Blood NEGATIVE (NEGATIVE) 09/08/17 15:45 Urine Nitrate NEGATIVE (NEGATIVE) 09/08/17 15:45 Urine Bilirubin NEGATIVE (NEGATIVE) 09/08/17 15:45 Urine Urobilinogen 0.2 E.U./dL (0.2 - 1.0) 09/08/17 15:45 Ur Leukocyte Esterase NEGATIVE (NEGATIVE) 09/08/17 15:45 Urine RBC NONE SEEN /hpf (0-5) 09/08/17 15:45 Urine WBC NONE SEEN /hpf (0-5) 09/08/17 15:45 Ur Epithelial Cells NONE SEEN /lpf (FEW) 09/08/17 15:45 Urine Bacteria NONE SEEN /hpf (NONE SEEN) 09/08/17 15:45 RPR NONREACTIVE (NONREACTIVE) 09/08/17 15:51 - Physical Exam Vitals and I&O: Vital Signs Temp 98.3 F 09/13/17 20:16 Pulse 61 09/13/17 20:16 Resp 20 09/13/17 20:16 BP 133/85 09/13/17 20:16 Pulse Ox 98 09/13/17 20:16 Intake & Output 09/13/17 09/13/17 09/14/17 06:59 18:59 06:59 Intake Total 720 1000 240 Balance 720 1000 240 Intake: Oral 720 1000 240 Other: # Voids 2 3 1 # Bowel Movements 1 Stool Characteristics Soft Formed Active Medications: Current Medications Acetaminophen (Tylenol) 650 mg PO Q4HR PRN PRN Reason: Mild Pain / Temp above 100 Stop: 11/07/17 20:31 Al Hydrox/Mg Hydrox/Simethicone (Maalox) 30 ml PO Q4HR PRN PRN Reason: GI DISTRESS Stop: 11/07/17 20:31 Amlodipine Besylate (Norvasc) 10 mg PO DAILY [facility] Stop: 11/08/17 11:29 Last Admin: 09/13/17 08:20 Dose: 10 mg Aspirin (Aspirin) 325 mg PO DAILY [facility] Stop: 11/09/17 08:59 Last Admin: 09/13/17 08:19 Dose: 325 mg Bisacodyl (Dulcolax 10 Mg Supp) 10 mg RC DAILY PRN PRN Reason: Constipation Stop: 11/08/17 22:51 Divalproex Sodium (Depakote Sprinkle) 500 mg PO BID [facility] PRN Reason: Protocol Stop: 11/08/17 08:59 Last Admin: 09/13/17 16:55 Dose: 500 mg Docusate Sodium (Colace) 100 mg PO DAILY [facility] Stop: 11/08/17 08:59 Last Admin: 09/13/17 08:19 Dose: 100 mg Donepezil HCl (Aricept) 10 mg PO HS [facility] Stop: 11/07/17 20:59 Last Admin: 09/13/17 20:25 Dose: 10 mg Lorazepam (Ativan) 0.5 mg PO Q4HR PRN; Protocol PRN Reason: anxiety and agitation Stop: 10/08/17 20:31 Last Admin: 09/08/17 21:40 Dose: 0.5 mg Magnesium Hydroxide (Milk Of Magnesia) 30 ml PO DAILY PRN PRN Reason: Constipation Magnesium Hydroxide (Milk Of Magnesia) 30 ml PO DAILY PRN PRN Reason: Constipation Stop: 11/12/17 15:52 Memantine (Namenda) 10 mg PO Q12HR [facility] Stop: 11/07/17 20:59 Last Admin: 09/13/17 20:25 Dose: 10 mg Metoprolol Tartrate (Lopressor) 12.5 mg PO BID [facility] Stop: 11/09/17 08:59 Last Admin: 09/13/17 16:56 Dose: 12.5 mg Morphine Sulfate (Ms-Contin) 30 mg PO Q12HR [facility] Stop: 11/07/17 20:59 Last Admin: 09/13/17 20:25 Dose: 30 mg Multivitamins/Vitamin C (Theragran) 1 tab PO DAILY [facility] Stop: 11/08/17 08:59 Last Admin: 09/13/17 08:18 Dose: 1 tab Nitroglycerin (Nitrostat) 0.4 mg SL Q5MIN PRN PRN Reason: Chest Pain Stop: 11/08/17 22:51 Quetiapine Fumarate (Seroquel) 100 mg PO HS [facility] PRN Reason: Protocol Stop: 11/07/17 20:59 Last Admin: 09/13/17 20:26 Dose: 100 mg Quetiapine Fumarate (Seroquel) 100 mg PO DAILY [facility] PRN Reason: Protocol Stop: 11/08/17 08:59 Sodium Phosphate (Fleet Enema) 135 ml RC Q2D PRN PRN Reason: Constipation Stop: 11/08/17 22:51 Tamsulosin HCl (Flomax) 0.4 mg PO HS [facility] Stop: 11/08/17 20:59 Last Admin: 09/13/17 20:26 Dose: 0.4 mg Thiamine HCl (Vitamin B1) 200 mg PO DAILY [facility] Stop: 11/09/17 08:59 Last Admin: 09/13/17 08:19 Dose: 200 mg Zolpidem Tartrate (Ambien) 5 mg PO HS PRN PRN Reason: Insomnia Stop: 11/07/17 20:31 General: Alert, No acute distress HEENT: Atraumatic, PERRLA Neck: Supple, JVD Cardiovascular: Regular rate, Normal S1, Normal S2 Lungs: Clear to auscultation Abdomen: Bowel sounds, Soft Assessment/Plan - Assessment Assessment: 1.HTN. 2.BPH. 3.DEMENTIA. - Plan Plan: cont current treatment
[2017-09-14] MEDS: Multivitamin Tab PO SCH (08:30)
--- NOTE | 2017-09-14 11:10 | Progress Notes ---
DATE: 09/13/2017 PSYCHIATRIC PROGRESS NOTE Staff was spoken to. The patient is interviewed. Mood is noted to be irritable. Affect is constricted. Insight and judgment are noted to be still impaired. Impulse control seems to be poor. Coping skills are also noted to be poor. The patient has been having difficult time to cope with the stress. The patient is still screaming and yelling in here stating that he needs to be discharged and his mother is okay with him coming home. The patient has no place to return to. health program manager is looking for placement for this patient. The patient's mother wants to be close to a [facility]. The patient has been presenting with the same question over and over. The patient is getting easily frustrated and agitated and hence it is decided to increase the dose on the Seroquel 200 mg twice a day and continue the Depakote at 500 mg twice a day and follow the patient with supportive therapy. JOB# [id number]
--- NOTE | 2017-09-14 18:51 | Internal Medicine Prog Note ---
Internal Medicine Subjective - Subjective Service Date: 09/14/17 Patient seen and examined:: without staff Patient is:: awake, in bed, confused Per staff patient has:: no adverse event Internal Medicine Objective - Results Result Diagrams: 09/08/17 15:51 09/08/17 15:51 Recent Labs: Laboratory Last Values WBC 9.5 Th/cmm (4.8-10.8) 09/08/17 15:51 RBC 4.75 Mil/cmm (4.30-5.70) 09/08/17 15:51 Hgb 14.8 gm/dL (12-16) 09/08/17 15:51 Hct 43.3 % (41.0-60) 09/08/17 15:51 MCV 91.2 fl (80-99) 09/08/17 15:51 MCH 31.1 pg (26.0-30.0) H 09/08/17 15:51 MCHC Differential 34.1 pg (28.0-36.0) 09/08/17 15:51 RDW 12.4 % (11.5-20.0) 09/08/17 15:51 Plt Count 166 Th/cmm (150-400) 09/08/17 15:51 MPV 10.0 fl 09/08/17 15:51 Neutrophils % 64.4 % (40.0-80.0) 09/08/17 15:51 Lymphocytes % 25.8 % (20.0-50.0) 09/08/17 15:51 Monocytes % 7.9 % (2.0-10.0) 09/08/17 15:51 Eosinophils % 1.0 % (0.0-5.0) 09/08/17 15:51 Basophils % 0.9 % (0.0-2.0) 09/08/17 15:51 Sodium 137 mEq/L (136-145) 09/08/17 15:51 Potassium 4.0 mEq/L (3.5-5.1) 09/08/17 15:51 Chloride 105 mEq/L (98-107) 09/08/17 15:51 Carbon Dioxide 26.7 mEq/L (21.0-31.0) 09/08/17 15:51 Anion Gap 9.3 (7.0-16.0) 09/08/17 15:51 BUN 21 mg/dL (7-25) 09/08/17 15:51 Creatinine 0.8 mg/dL (0.7-1.3) 09/08/17 15:51 Est GFR ( Amer) > 60.0 ml/min (>90) 09/08/17 15:51 Est GFR (Non-Af Amer) > 60.0 ml/min 09/08/17 15:51 BUN/Creatinine Ratio 26.3 09/08/17 15:51 Glucose 132 mg/dL (70-105) H 09/08/17 15:51 Calcium 9.0 mg/dL (8.6-10.3) 09/08/17 15:51 Total Bilirubin 0.5 mg/dL (0.3-1.0) 09/08/17 15:51 AST 27 U/L (13-39) 09/08/17 15:51 ALT 23 U/L (7-52) 09/08/17 15:51 Alkaline Phosphatase 119 U/L (34-104) H 09/08/17 15:51 Total Protein 7.1 gm/dL (6.0-8.3) 09/08/17 15:51 Albumin 4.2 gm/dL (4.2-5.5) 09/08/17 15:51 Globulin 2.9 gm/dL 09/08/17 15:51 Albumin/Globulin Ratio 1.5 (1.0-1.8) 09/08/17 15:51 Triglycerides 77 mg/dL (<150) 09/08/17 15:51 Cholesterol 116 mg/dL (<200) 09/08/17 15:51 LDL Cholesterol Direct 65 mg/dL (75-193) L 09/08/17 15:51 HDL Cholesterol 41 mg/dL (23-92) 09/08/17 15:51 TSH 2.37 uIU/ml (0.34-5.60) 09/08/17 15:51 Urine Source CLEAN C 09/08/17 15:45 Urine Color YELLOW 09/08/17 15:45 Urine Clarity CLEAR (CLEAR) 09/08/17 15:45 Urine pH 6.0 (4.6 - 8.0) 09/08/17 15:45 Ur Specific [place] >= 1.030 (1.005-1.030) 09/08/17 15:45 Urine Protein NEGATIVE mg/dL (NEGATIVE) 09/08/17 15:45 Urine Glucose (UA) NEGATIVE mg/dL (NEGATIVE) 09/08/17 15:45 Urine Ketones NEGATIVE mg/dL (NEGATIVE) 09/08/17 15:45 Urine Blood NEGATIVE (NEGATIVE) 09/08/17 15:45 Urine Nitrate NEGATIVE (NEGATIVE) 09/08/17 15:45 Urine Bilirubin NEGATIVE (NEGATIVE) 09/08/17 15:45 Urine Urobilinogen 0.2 E.U./dL (0.2 - 1.0) 09/08/17 15:45 Ur Leukocyte Esterase NEGATIVE (NEGATIVE) 09/08/17 15:45 Urine RBC NONE SEEN /hpf (0-5) 09/08/17 15:45 Urine WBC NONE SEEN /hpf (0-5) 09/08/17 15:45 Ur Epithelial Cells NONE SEEN /lpf (FEW) 09/08/17 15:45 Urine Bacteria NONE SEEN /hpf (NONE SEEN) 09/08/17 15:45 RPR NONREACTIVE (NONREACTIVE) 09/08/17 15:51 - Physical Exam Vitals and I&O: Vital Signs Temp 98.1 F 09/14/17 15:37 Pulse 60 09/14/17 17:20 Resp 19 09/14/17 15:37 BP 131/74 09/14/17 17:20 Pulse Ox 96 09/14/17 15:37 Intake & Output 09/13/17 09/14/17 09/14/17 18:59 06:59 18:59 Intake Total 9542 364 6871 Balance 0210 248 8641 Intake: Oral 0426 645 9417 Other: # Voids 3 3 4 # Bowel Movements 1 0 1 Stool Characteristics Soft Soft Soft Formed Formed Formed Active Medications: Current Medications Acetaminophen (Tylenol) 650 mg PO Q4HR PRN PRN Reason: Mild Pain / Temp above 100 Stop: 11/07/17 20:31 Al Hydrox/Mg Hydrox/Simethicone (Maalox) 30 ml PO Q4HR PRN PRN Reason: GI DISTRESS Stop: 11/07/17 20:31 Amlodipine Besylate (Norvasc) 10 mg PO DAILY [facility] Stop: 11/08/17 11:29 Last Admin: 09/14/17 08:31 Dose: 10 mg Aspirin (Aspirin) 325 mg PO DAILY [facility] Stop: 11/09/17 08:59 Last Admin: 09/14/17 08:30 Dose: 325 mg Bisacodyl (Dulcolax 10 Mg Supp) 10 mg RC DAILY PRN PRN Reason: Constipation Stop: 11/08/17 22:51 Divalproex Sodium (Depakote Sprinkle) 500 mg PO BID [facility] PRN Reason: Protocol Stop: 11/08/17 08:59 Last Admin: 09/14/17 17:20 Dose: 500 mg Docusate Sodium (Colace) 100 mg PO DAILY [facility] Stop: 11/08/17 08:59 Last Admin: 09/14/17 08:30 Dose: 100 mg Donepezil HCl (Aricept) 10 mg PO HS [facility] Stop: 11/07/17 20:59 Last Admin: 09/13/17 20:25 Dose: 10 mg Lorazepam (Ativan) 0.5 mg PO Q4HR PRN; Protocol PRN Reason: anxiety and agitation Stop: 10/08/17 20:31 Last Admin: 09/08/17 21:40 Dose: 0.5 mg Magnesium Hydroxide (Milk Of Magnesia) 30 ml PO DAILY PRN PRN Reason: Constipation Magnesium Hydroxide (Milk Of Magnesia) 30 ml PO DAILY PRN PRN Reason: Constipation Stop: 11/12/17 15:52 Memantine (Namenda) 10 mg PO Q12HR [facility] Stop: 11/07/17 20:59 Last Admin: 09/14/17 08:30 Dose: 10 mg Metoprolol Tartrate (Lopressor) 12.5 mg PO BID [facility] Stop: 11/09/17 08:59 Last Admin: 09/14/17 17:20 Dose: 12.5 mg Morphine Sulfate (Ms-Contin) 30 mg PO Q12HR [facility] Stop: 11/07/17 20:59 Last Admin: 09/14/17 08:28 Dose: 30 mg Multivitamins/Vitamin C (Theragran) 1 tab PO DAILY [facility] Stop: 11/08/17 08:59 Last Admin: 09/14/17 08:30 Dose: 1 tab Nitroglycerin (Nitrostat) 0.4 mg SL Q5MIN PRN PRN Reason: Chest Pain Stop: 11/08/17 22:51 Quetiapine Fumarate (Seroquel) 100 mg PO HS [facility] PRN Reason: Protocol Stop: 11/07/17 20:59 Last Admin: 09/13/17 20:26 Dose: 100 mg Quetiapine Fumarate (Seroquel) 100 mg PO DAILY [facility] PRN Reason: Protocol Stop: 11/08/17 08:59 Last Admin: 09/14/17 08:30 Dose: 100 mg Sodium Phosphate (Fleet Enema) 135 ml RC Q2D PRN PRN Reason: Constipation Stop: 11/08/17 22:51 Tamsulosin HCl (Flomax) 0.4 mg PO HS [facility] Stop: 11/08/17 20:59 Last Admin: 09/13/17 20:26 Dose: 0.4 mg Thiamine HCl (Vitamin B1) 200 mg PO DAILY [facility] Stop: 11/09/17 08:59 Last Admin: 09/14/17 08:30 Dose: 200 mg Zolpidem Tartrate (Ambien) 5 mg PO HS PRN PRN Reason: Insomnia Stop: 11/07/17 20:31 General: demented HEENT: NC/AT, PERRLA, EOMI, anicteric sclerae, throat clear Neck: Supple, No JVD, No thyromegaly Lungs: CTAB Cardiovascular: RRR, Normal S1, Normal S2, without murmur Abdomen: soft, non-tender, non-distended Extremities: clear Neurological: no change Internal Medicine Assmt/Plan - Assessment Assessment: 1.HTN. 2.BPH. 3.DEMENTIA. - Plan Plan: CONTINUE ON CURRENT MEDICATION AND DIET.
--- NOTE | 2017-09-15 07:13 | Progress Notes ---
DATE: 09/14/2017 PSYCHIATRIC PROGRESS NOTE SUBJECTIVE: Staff was spoken to. The patient is interviewed. Mood is noted to be irritable. Affect is constricted. Insight and judgment at this time are noted to be still impaired. Impulse control seems to be limited. Coping skills are noted to be limited. The patient is very irritable and angry and demanding that he should be discharged. The patient has a very ____ alcohol. ASSESSMENT: The patient is still impulsive. PLAN: To continue the patient with Depakote and Seroquel and follow him up. JOB# [id number]
[2017-09-15] MEDS: Multivitamin Tab PO SCH (08:34)
--- NOTE | 2017-09-15 19:21 | Internal Medicine Prog Note ---
Internal Medicine Subjective - Subjective Service Date: 09/15/17 Patient seen and examined:: without staff Patient is:: awake, in bed, confused Per staff patient has:: no adverse event Internal Medicine Objective - Results Result Diagrams: 09/08/17 15:51 09/08/17 15:51 Recent Labs: Laboratory Last Values WBC 9.5 Th/cmm (4.8-10.8) 09/08/17 15:51 RBC 4.75 Mil/cmm (4.30-5.70) 09/08/17 15:51 Hgb 14.8 gm/dL (12-16) 09/08/17 15:51 Hct 43.3 % (41.0-60) 09/08/17 15:51 MCV 91.2 fl (80-99) 09/08/17 15:51 MCH 31.1 pg (26.0-30.0) H 09/08/17 15:51 MCHC Differential 34.1 pg (28.0-36.0) 09/08/17 15:51 RDW 12.4 % (11.5-20.0) 09/08/17 15:51 Plt Count 166 Th/cmm (150-400) 09/08/17 15:51 MPV 10.0 fl 09/08/17 15:51 Neutrophils % 64.4 % (40.0-80.0) 09/08/17 15:51 Lymphocytes % 25.8 % (20.0-50.0) 09/08/17 15:51 Monocytes % 7.9 % (2.0-10.0) 09/08/17 15:51 Eosinophils % 1.0 % (0.0-5.0) 09/08/17 15:51 Basophils % 0.9 % (0.0-2.0) 09/08/17 15:51 Sodium 137 mEq/L (136-145) 09/08/17 15:51 Potassium 4.0 mEq/L (3.5-5.1) 09/08/17 15:51 Chloride 105 mEq/L (98-107) 09/08/17 15:51 Carbon Dioxide 26.7 mEq/L (21.0-31.0) 09/08/17 15:51 Anion Gap 9.3 (7.0-16.0) 09/08/17 15:51 BUN 21 mg/dL (7-25) 09/08/17 15:51 Creatinine 0.8 mg/dL (0.7-1.3) 09/08/17 15:51 Est GFR ( Amer) > 60.0 ml/min (>90) 09/08/17 15:51 Est GFR (Non-Af Amer) > 60.0 ml/min 09/08/17 15:51 BUN/Creatinine Ratio 26.3 09/08/17 15:51 Glucose 132 mg/dL (70-105) H 09/08/17 15:51 Calcium 9.0 mg/dL (8.6-10.3) 09/08/17 15:51 Total Bilirubin 0.5 mg/dL (0.3-1.0) 09/08/17 15:51 AST 27 U/L (13-39) 09/08/17 15:51 ALT 23 U/L (7-52) 09/08/17 15:51 Alkaline Phosphatase 119 U/L (34-104) H 09/08/17 15:51 Total Protein 7.1 gm/dL (6.0-8.3) 09/08/17 15:51 Albumin 4.2 gm/dL (4.2-5.5) 09/08/17 15:51 Globulin 2.9 gm/dL 09/08/17 15:51 Albumin/Globulin Ratio 1.5 (1.0-1.8) 09/08/17 15:51 Triglycerides 77 mg/dL (<150) 09/08/17 15:51 Cholesterol 116 mg/dL (<200) 09/08/17 15:51 LDL Cholesterol Direct 65 mg/dL (75-193) L 09/08/17 15:51 HDL Cholesterol 41 mg/dL (23-92) 09/08/17 15:51 TSH 2.37 uIU/ml (0.34-5.60) 09/08/17 15:51 Urine Source CLEAN C 09/08/17 15:45 Urine Color YELLOW 09/08/17 15:45 Urine Clarity CLEAR (CLEAR) 09/08/17 15:45 Urine pH 6.0 (4.6 - 8.0) 09/08/17 15:45 Ur Specific [place] >= 1.030 (1.005-1.030) 09/08/17 15:45 Urine Protein NEGATIVE mg/dL (NEGATIVE) 09/08/17 15:45 Urine Glucose (UA) NEGATIVE mg/dL (NEGATIVE) 09/08/17 15:45 Urine Ketones NEGATIVE mg/dL (NEGATIVE) 09/08/17 15:45 Urine Blood NEGATIVE (NEGATIVE) 09/08/17 15:45 Urine Nitrate NEGATIVE (NEGATIVE) 09/08/17 15:45 Urine Bilirubin NEGATIVE (NEGATIVE) 09/08/17 15:45 Urine Urobilinogen 0.2 E.U./dL (0.2 - 1.0) 09/08/17 15:45 Ur Leukocyte Esterase NEGATIVE (NEGATIVE) 09/08/17 15:45 Urine RBC NONE SEEN /hpf (0-5) 09/08/17 15:45 Urine WBC NONE SEEN /hpf (0-5) 09/08/17 15:45 Ur Epithelial Cells NONE SEEN /lpf (FEW) 09/08/17 15:45 Urine Bacteria NONE SEEN /hpf (NONE SEEN) 09/08/17 15:45 RPR NONREACTIVE (NONREACTIVE) 09/08/17 15:51 - Physical Exam Vitals and I&O: Vital Signs Temp 98.4 F 09/15/17 06:18 Pulse 58 09/15/17 16:32 Resp 18 09/15/17 06:18 BP 126/77 09/15/17 16:32 Pulse Ox 98 09/15/17 06:18 Intake & Output 09/15/17 09/15/17 09/16/17 06:59 18:59 06:59 Intake Total 240 Balance 240 Intake: Oral 240 Other: # Voids 2 Active Medications: Current Medications Acetaminophen (Tylenol) 650 mg PO Q4HR PRN PRN Reason: Mild Pain / Temp above 100 Stop: 11/07/17 20:31 Al Hydrox/Mg Hydrox/Simethicone (Maalox) 30 ml PO Q4HR PRN PRN Reason: GI DISTRESS Stop: 11/07/17 20:31 Amlodipine Besylate (Norvasc) 10 mg PO DAILY [facility] Stop: 11/08/17 11:29 Last Admin: 09/15/17 08:39 Dose: 10 mg Aspirin (Aspirin) 325 mg PO DAILY [facility] Stop: 11/09/17 08:59 Last Admin: 09/15/17 08:34 Dose: 325 mg Bisacodyl (Dulcolax 10 Mg Supp) 10 mg RC DAILY PRN PRN Reason: Constipation Stop: 11/08/17 22:51 Divalproex Sodium (Depakote Sprinkle) 500 mg PO BID [facility] PRN Reason: Protocol Stop: 11/08/17 08:59 Last Admin: 09/15/17 16:31 Dose: 500 mg Docusate Sodium (Colace) 100 mg PO DAILY [facility] Stop: 11/08/17 08:59 Last Admin: 09/15/17 08:36 Dose: 100 mg Donepezil HCl (Aricept) 10 mg PO HS [facility] Stop: 11/07/17 20:59 Last Admin: 09/14/17 21:10 Dose: Not Given Lorazepam (Ativan) 0.5 mg PO Q4HR PRN; Protocol PRN Reason: anxiety and agitation Stop: 10/08/17 20:31 Last Admin: 09/08/17 21:40 Dose: 0.5 mg Magnesium Hydroxide (Milk Of Magnesia) 30 ml PO DAILY PRN PRN Reason: Constipation Magnesium Hydroxide (Milk Of Magnesia) 30 ml PO DAILY PRN PRN Reason: Constipation Stop: 11/12/17 15:52 Memantine (Namenda) 10 mg PO Q12HR [facility] Stop: 11/07/17 20:59 Last Admin: 09/15/17 08:36 Dose: 10 mg Metoprolol Tartrate (Lopressor) 12.5 mg PO BID [facility] Stop: 11/09/17 08:59 Last Admin: 09/15/17 16:32 Dose: 12.5 mg Morphine Sulfate (Ms-Contin) 30 mg PO Q12HR [facility] Stop: 11/07/17 20:59 Last Admin: 09/15/17 08:35 Dose: 30 mg Multivitamins/Vitamin C (Theragran) 1 tab PO DAILY [facility] Stop: 11/08/17 08:59 Last Admin: 09/15/17 08:34 Dose: 1 tab Nitroglycerin (Nitrostat) 0.4 mg SL Q5MIN PRN PRN Reason: Chest Pain Stop: 11/08/17 22:51 Quetiapine Fumarate (Seroquel) 100 mg PO HS [facility] PRN Reason: Protocol Stop: 11/07/17 20:59 Last Admin: 09/14/17 21:10 Dose: Not Given Quetiapine Fumarate (Seroquel) 100 mg PO DAILY [facility] PRN Reason: Protocol Stop: 11/08/17 08:59 Last Admin: 09/15/17 08:35 Dose: 100 mg Sodium Phosphate (Fleet Enema) 135 ml RC Q2D PRN PRN Reason: Constipation Stop: 11/08/17 22:51 Tamsulosin HCl (Flomax) 0.4 mg PO HS [facility] Stop: 11/08/17 20:59 Last Admin: 09/14/17 21:10 Dose: Not Given Thiamine HCl (Vitamin B1) 200 mg PO DAILY [facility] Stop: 11/09/17 08:59 Last Admin: 09/15/17 08:36 Dose: 200 mg Zolpidem Tartrate (Ambien) 5 mg PO HS PRN PRN Reason: Insomnia Stop: 11/07/17 20:31 General: demented HEENT: NC/AT, PERRLA, EOMI, anicteric sclerae, throat clear Neck: Supple, No JVD, No thyromegaly Lungs: CTAB Cardiovascular: RRR, Normal S1, Normal S2, without murmur Abdomen: soft, non-tender, non-distended Extremities: clear Neurological: no change Internal Medicine Assmt/Plan - Assessment Assessment: 1.HTN. 2.BPH. 3.DEMENTIA. - Plan Plan: CONTINUE ON CURRENT MEDICATION AND DIET.
--- NOTE | 2017-09-16 02:45 | Progress Notes ---
DATE: 09/15/2017 PSYCHIATRIC PROGRESS NOTE SUBJECTIVE: Staff was spoken to. The patient is interviewed. Mood is noted to be irritable. Affect is constricted. The patient constantly demanding, stating that something or other is not going right in the facility. The patient has no insight into his illness. The patient has been having mood swings. The patient has been currently on Depakote 500 mg twice a day and the patient is also on Seroquel 100 mg twice a day. The patient with these medications have been able to tolerate. No side effects to the medications are noted at this time. ASSESSMENT: The patient is still impulsive. The patient has been awaiting placement. PLAN: To continue the patient with the supportive therapy. I encouraged the patient to verbalize the concerns rather than to act out. The patient is going to be scheduled to have a valproic acid level, this is going to be ordered for tomorrow. JOB# [id number]
[2017-09-16] MEDS: Multivitamin Tab PO SCH (08:26)
--- NOTE | 2017-09-16 19:34 | Internal Medicine Prog Note ---
Internal Medicine Subjective - Subjective Service Date: 09/16/17 Patient seen and examined:: without staff Patient is:: awake, in bed, confused Per staff patient has:: no adverse event Internal Medicine Objective - Results Result Diagrams: 09/08/17 15:51 09/08/17 15:51 Recent Labs: Laboratory Last Values WBC 9.5 Th/cmm (4.8-10.8) 09/08/17 15:51 RBC 4.75 Mil/cmm (4.30-5.70) 09/08/17 15:51 Hgb 14.8 gm/dL (12-16) 09/08/17 15:51 Hct 43.3 % (41.0-60) 09/08/17 15:51 MCV 91.2 fl (80-99) 09/08/17 15:51 MCH 31.1 pg (26.0-30.0) H 09/08/17 15:51 MCHC Differential 34.1 pg (28.0-36.0) 09/08/17 15:51 RDW 12.4 % (11.5-20.0) 09/08/17 15:51 Plt Count 166 Th/cmm (150-400) 09/08/17 15:51 MPV 10.0 fl 09/08/17 15:51 Neutrophils % 64.4 % (40.0-80.0) 09/08/17 15:51 Lymphocytes % 25.8 % (20.0-50.0) 09/08/17 15:51 Monocytes % 7.9 % (2.0-10.0) 09/08/17 15:51 Eosinophils % 1.0 % (0.0-5.0) 09/08/17 15:51 Basophils % 0.9 % (0.0-2.0) 09/08/17 15:51 Sodium 137 mEq/L (136-145) 09/08/17 15:51 Potassium 4.0 mEq/L (3.5-5.1) 09/08/17 15:51 Chloride 105 mEq/L (98-107) 09/08/17 15:51 Carbon Dioxide 26.7 mEq/L (21.0-31.0) 09/08/17 15:51 Anion Gap 9.3 (7.0-16.0) 09/08/17 15:51 BUN 21 mg/dL (7-25) 09/08/17 15:51 Creatinine 0.8 mg/dL (0.7-1.3) 09/08/17 15:51 Est GFR ( Amer) > 60.0 ml/min (>90) 09/08/17 15:51 Est GFR (Non-Af Amer) > 60.0 ml/min 09/08/17 15:51 BUN/Creatinine Ratio 26.3 09/08/17 15:51 Glucose 132 mg/dL (70-105) H 09/08/17 15:51 Calcium 9.0 mg/dL (8.6-10.3) 09/08/17 15:51 Total Bilirubin 0.5 mg/dL (0.3-1.0) 09/08/17 15:51 AST 27 U/L (13-39) 09/08/17 15:51 ALT 23 U/L (7-52) 09/08/17 15:51 Alkaline Phosphatase 119 U/L (34-104) H 09/08/17 15:51 Total Protein 7.1 gm/dL (6.0-8.3) 09/08/17 15:51 Albumin 4.2 gm/dL (4.2-5.5) 09/08/17 15:51 Globulin 2.9 gm/dL 09/08/17 15:51 Albumin/Globulin Ratio 1.5 (1.0-1.8) 09/08/17 15:51 Triglycerides 77 mg/dL (<150) 09/08/17 15:51 Cholesterol 116 mg/dL (<200) 09/08/17 15:51 LDL Cholesterol Direct 65 mg/dL (75-193) L 09/08/17 15:51 HDL Cholesterol 41 mg/dL (23-92) 09/08/17 15:51 TSH 2.37 uIU/ml (0.34-5.60) 09/08/17 15:51 Urine Source CLEAN C 09/08/17 15:45 Urine Color YELLOW 09/08/17 15:45 Urine Clarity CLEAR (CLEAR) 09/08/17 15:45 Urine pH 6.0 (4.6 - 8.0) 09/08/17 15:45 Ur Specific [place] >= 1.030 (1.005-1.030) 09/08/17 15:45 Urine Protein NEGATIVE mg/dL (NEGATIVE) 09/08/17 15:45 Urine Glucose (UA) NEGATIVE mg/dL (NEGATIVE) 09/08/17 15:45 Urine Ketones NEGATIVE mg/dL (NEGATIVE) 09/08/17 15:45 Urine Blood NEGATIVE (NEGATIVE) 09/08/17 15:45 Urine Nitrate NEGATIVE (NEGATIVE) 09/08/17 15:45 Urine Bilirubin NEGATIVE (NEGATIVE) 09/08/17 15:45 Urine Urobilinogen 0.2 E.U./dL (0.2 - 1.0) 09/08/17 15:45 Ur Leukocyte Esterase NEGATIVE (NEGATIVE) 09/08/17 15:45 Urine RBC NONE SEEN /hpf (0-5) 09/08/17 15:45 Urine WBC NONE SEEN /hpf (0-5) 09/08/17 15:45 Ur Epithelial Cells NONE SEEN /lpf (FEW) 09/08/17 15:45 Urine Bacteria NONE SEEN /hpf (NONE SEEN) 09/08/17 15:45 Valproic Acid 56.1 ug/mL (50.0-100.0) 09/15/17 19:50 RPR NONREACTIVE (NONREACTIVE) 09/08/17 15:51 - Physical Exam Vitals and I&O: Vital Signs Temp 97.9 F 09/16/17 14:00 Pulse 53 09/16/17 16:42 Resp 20 09/16/17 14:00 BP 127/72 09/16/17 16:42 Pulse Ox 97 09/16/17 14:00 Intake & Output 09/16/17 09/16/17 09/17/17 06:59 18:59 06:59 Intake Total 120 1200 Balance 120 1200 Intake: Oral 120 1200 Other: # Voids 3 # Bowel Movements 1 Active Medications: Current Medications Acetaminophen (Tylenol) 650 mg PO Q4HR PRN PRN Reason: Mild Pain / Temp above 100 Stop: 11/07/17 20:31 Al Hydrox/Mg Hydrox/Simethicone (Maalox) 30 ml PO Q4HR PRN PRN Reason: GI DISTRESS Stop: 11/07/17 20:31 Amlodipine Besylate (Norvasc) 10 mg PO DAILY [facility] Stop: 11/08/17 11:29 Last Admin: 09/16/17 08:26 Dose: 10 mg Aspirin (Aspirin) 325 mg PO DAILY [facility] Stop: 11/09/17 08:59 Last Admin: 09/16/17 08:26 Dose: 325 mg Bisacodyl (Dulcolax 10 Mg Supp) 10 mg RC DAILY PRN PRN Reason: Constipation Stop: 11/08/17 22:51 Divalproex Sodium (Depakote Sprinkle) 500 mg PO BID [facility] PRN Reason: Protocol Stop: 11/08/17 08:59 Last Admin: 09/16/17 16:41 Dose: 500 mg Docusate Sodium (Colace) 100 mg PO DAILY [facility] Stop: 11/08/17 08:59 Last Admin: 09/16/17 08:24 Dose: 100 mg Donepezil HCl (Aricept) 10 mg PO HS [facility] Stop: 11/07/17 20:59 Last Admin: 09/15/17 20:46 Dose: 10 mg Lorazepam (Ativan) 0.5 mg PO Q4HR PRN; Protocol PRN Reason: anxiety and agitation Stop: 10/08/17 20:31 Last Admin: 09/08/17 21:40 Dose: 0.5 mg Magnesium Hydroxide (Milk Of Magnesia) 30 ml PO DAILY PRN PRN Reason: Constipation Magnesium Hydroxide (Milk Of Magnesia) 30 ml PO DAILY PRN PRN Reason: Constipation Stop: 11/12/17 15:52 Memantine (Namenda) 10 mg PO Q12HR [facility] Stop: 11/07/17 20:59 Last Admin: 09/16/17 08:25 Dose: 10 mg Metoprolol Tartrate (Lopressor) 12.5 mg PO BID [facility] Stop: 11/09/17 08:59 Last Admin: 09/16/17 16:42 Dose: 12.5 mg Morphine Sulfate (Ms-Contin) 30 mg PO Q12HR [facility] Stop: 11/07/17 20:59 Last Admin: 09/16/17 08:26 Dose: 30 mg Multivitamins/Vitamin C (Theragran) 1 tab PO DAILY [facility] Stop: 11/08/17 08:59 Last Admin: 09/16/17 08:26 Dose: 1 tab Nitroglycerin (Nitrostat) 0.4 mg SL Q5MIN PRN PRN Reason: Chest Pain Stop: 11/08/17 22:51 Quetiapine Fumarate (Seroquel) 100 mg PO HS [facility] PRN Reason: Protocol Stop: 11/07/17 20:59 Last Admin: 09/15/17 20:46 Dose: 100 mg Quetiapine Fumarate (Seroquel) 100 mg PO DAILY [facility] PRN Reason: Protocol Stop: 11/08/17 08:59 Last Admin: 09/16/17 08:23 Dose: 100 mg Sodium Phosphate (Fleet Enema) 135 ml RC Q2D PRN PRN Reason: Constipation Stop: 11/08/17 22:51 Tamsulosin HCl (Flomax) 0.4 mg PO HS [facility] Stop: 11/08/17 20:59 Last Admin: 09/15/17 20:47 Dose: 0.4 mg Thiamine HCl (Vitamin B1) 200 mg PO DAILY [facility] Stop: 11/09/17 08:59 Last Admin: 09/16/17 08:27 Dose: 200 mg Zolpidem Tartrate (Ambien) 5 mg PO HS PRN PRN Reason: Insomnia Stop: 11/07/17 20:31 General: demented HEENT: NC/AT, PERRLA, EOMI, anicteric sclerae, throat clear Neck: Supple, No JVD, No thyromegaly Lungs: CTAB Cardiovascular: RRR, Normal S1, Normal S2, without murmur Abdomen: soft, non-tender, non-distended Extremities: clear Neurological: no change Internal Medicine Assmt/Plan - Assessment Assessment: 1.HTN. 2.BPH. 3.DEMENTIA. - Plan Plan: CONTINUE ON CURRENT MEDICATION AND DIET.
--- NOTE | 2017-09-16 20:53 | Progress Notes ---
DATE: 09/16/2017 PSYCHIATRIC PROGRESS NOTE TIME PATIENT SEEN: Staff was spoken to. Patient is interviewed. Mood is very irritable. Affect is constricted. The patient's coping skills are noted to be a concern. The patient has been demanding that he should be discharged, but mother wants him to be closer to a [facility]. public relations manager has been trying to look for placement for him. ASSESSMENT: The patient's mood swings are still a concern. PLAN: To continue the patient with Depakote and Seroquel. I encouraged the patient to verbalize the concerns rather than to act out. JOB# [id number]
[2017-09-17] MEDS: Multivitamin Tab PO SCH (08:45)
[2017-09-17] MEDS ORDERED: Haloperidol Lactate 5 mg/mL 1mL Vial IM ONE (15:47)
[2017-09-17] MEDS ORDERED: Haloperidol Lactate 5 mg/mL 1mL Vial ONE (15:47)
--- NOTE | 2017-09-17 17:38 | Internal Medicine Prog Note ---
Internal Medicine Subjective - Subjective Service Date: 09/17/17 Patient seen and examined:: with staff (HE IS DOING WELL) Patient is:: awake, in bed, confused Per staff patient has:: no adverse event Internal Medicine Objective - Results Result Diagrams: 09/08/17 15:51 09/08/17 15:51 Recent Labs: Laboratory Last Values WBC 9.5 Th/cmm (4.8-10.8) 09/08/17 15:51 RBC 4.75 Mil/cmm (4.30-5.70) 09/08/17 15:51 Hgb 14.8 gm/dL (12-16) 09/08/17 15:51 Hct 43.3 % (41.0-60) 09/08/17 15:51 MCV 91.2 fl (80-99) 09/08/17 15:51 MCH 31.1 pg (26.0-30.0) H 09/08/17 15:51 MCHC Differential 34.1 pg (28.0-36.0) 09/08/17 15:51 RDW 12.4 % (11.5-20.0) 09/08/17 15:51 Plt Count 166 Th/cmm (150-400) 09/08/17 15:51 MPV 10.0 fl 09/08/17 15:51 Neutrophils % 64.4 % (40.0-80.0) 09/08/17 15:51 Lymphocytes % 25.8 % (20.0-50.0) 09/08/17 15:51 Monocytes % 7.9 % (2.0-10.0) 09/08/17 15:51 Eosinophils % 1.0 % (0.0-5.0) 09/08/17 15:51 Basophils % 0.9 % (0.0-2.0) 09/08/17 15:51 Sodium 137 mEq/L (136-145) 09/08/17 15:51 Potassium 4.0 mEq/L (3.5-5.1) 09/08/17 15:51 Chloride 105 mEq/L (98-107) 09/08/17 15:51 Carbon Dioxide 26.7 mEq/L (21.0-31.0) 09/08/17 15:51 Anion Gap 9.3 (7.0-16.0) 09/08/17 15:51 BUN 21 mg/dL (7-25) 09/08/17 15:51 Creatinine 0.8 mg/dL (0.7-1.3) 09/08/17 15:51 Est GFR ( Amer) > 60.0 ml/min (>90) 09/08/17 15:51 Est GFR (Non-Af Amer) > 60.0 ml/min 09/08/17 15:51 BUN/Creatinine Ratio 26.3 09/08/17 15:51 Glucose 132 mg/dL (70-105) H 09/08/17 15:51 Calcium 9.0 mg/dL (8.6-10.3) 09/08/17 15:51 Total Bilirubin 0.5 mg/dL (0.3-1.0) 09/08/17 15:51 AST 27 U/L (13-39) 09/08/17 15:51 ALT 23 U/L (7-52) 09/08/17 15:51 Alkaline Phosphatase 119 U/L (34-104) H 09/08/17 15:51 Total Protein 7.1 gm/dL (6.0-8.3) 09/08/17 15:51 Albumin 4.2 gm/dL (4.2-5.5) 09/08/17 15:51 Globulin 2.9 gm/dL 09/08/17 15:51 Albumin/Globulin Ratio 1.5 (1.0-1.8) 09/08/17 15:51 Triglycerides 77 mg/dL (<150) 09/08/17 15:51 Cholesterol 116 mg/dL (<200) 09/08/17 15:51 LDL Cholesterol Direct 65 mg/dL (75-193) L 09/08/17 15:51 HDL Cholesterol 41 mg/dL (23-92) 09/08/17 15:51 TSH 2.37 uIU/ml (0.34-5.60) 09/08/17 15:51 Urine Source CLEAN C 09/08/17 15:45 Urine Color YELLOW 09/08/17 15:45 Urine Clarity CLEAR (CLEAR) 09/08/17 15:45 Urine pH 6.0 (4.6 - 8.0) 09/08/17 15:45 Ur Specific [place] >= 1.030 (1.005-1.030) 09/08/17 15:45 Urine Protein NEGATIVE mg/dL (NEGATIVE) 09/08/17 15:45 Urine Glucose (UA) NEGATIVE mg/dL (NEGATIVE) 09/08/17 15:45 Urine Ketones NEGATIVE mg/dL (NEGATIVE) 09/08/17 15:45 Urine Blood NEGATIVE (NEGATIVE) 09/08/17 15:45 Urine Nitrate NEGATIVE (NEGATIVE) 09/08/17 15:45 Urine Bilirubin NEGATIVE (NEGATIVE) 09/08/17 15:45 Urine Urobilinogen 0.2 E.U./dL (0.2 - 1.0) 09/08/17 15:45 Ur Leukocyte Esterase NEGATIVE (NEGATIVE) 09/08/17 15:45 Urine RBC NONE SEEN /hpf (0-5) 09/08/17 15:45 Urine WBC NONE SEEN /hpf (0-5) 09/08/17 15:45 Ur Epithelial Cells NONE SEEN /lpf (FEW) 09/08/17 15:45 Urine Bacteria NONE SEEN /hpf (NONE SEEN) 09/08/17 15:45 Valproic Acid 56.1 ug/mL (50.0-100.0) 09/15/17 19:50 RPR NONREACTIVE (NONREACTIVE) 09/08/17 15:51 - Physical Exam Vitals and I&O: Vital Signs Temp 98.2 F 09/17/17 14:00 Pulse 65 09/17/17 16:31 Resp 20 09/17/17 14:00 BP 120/74 09/17/17 16:31 Pulse Ox 96 09/17/17 14:00 Intake & Output 09/16/17 09/17/17 09/17/17 18:59 06:59 18:59 Intake Total 1200 120 Balance 1200 120 Weight (lbs) 117.208 kg Intake: Oral 1200 120 Other: # Voids 3 # Bowel Movements 1 Active Medications: Current Medications Acetaminophen (Tylenol) 650 mg PO Q4HR PRN PRN Reason: Mild Pain / Temp above 100 Stop: 11/07/17 20:31 Al Hydrox/Mg Hydrox/Simethicone (Maalox) 30 ml PO Q4HR PRN PRN Reason: GI DISTRESS Stop: 11/07/17 20:31 Amlodipine Besylate (Norvasc) 10 mg PO DAILY [facility] Stop: 11/08/17 11:29 Last Admin: 09/17/17 08:45 Dose: 10 mg Aspirin (Aspirin) 325 mg PO DAILY [facility] Stop: 11/09/17 08:59 Last Admin: 09/17/17 08:45 Dose: 325 mg Bisacodyl (Dulcolax 10 Mg Supp) 10 mg RC DAILY PRN PRN Reason: Constipation Stop: 11/08/17 22:51 Divalproex Sodium (Depakote Sprinkle) 500 mg PO BID [facility] PRN Reason: Protocol Stop: 11/08/17 08:59 Last Admin: 09/17/17 16:31 Dose: 500 mg Docusate Sodium (Colace) 100 mg PO DAILY [facility] Stop: 11/08/17 08:59 Last Admin: 09/17/17 08:45 Dose: 100 mg Donepezil HCl (Aricept) 10 mg PO HS [facility] Stop: 11/07/17 20:59 Last Admin: 09/16/17 21:10 Dose: 10 mg Lorazepam (Ativan) 0.5 mg PO Q4HR PRN; Protocol PRN Reason: anxiety and agitation Stop: 10/08/17 20:31 Last Admin: 09/08/17 21:40 Dose: 0.5 mg Magnesium Hydroxide (Milk Of Magnesia) 30 ml PO DAILY PRN PRN Reason: Constipation Magnesium Hydroxide (Milk Of Magnesia) 30 ml PO DAILY PRN PRN Reason: Constipation Stop: 11/12/17 15:52 Memantine (Namenda) 10 mg PO Q12HR [facility] Stop: 11/07/17 20:59 Last Admin: 09/17/17 08:46 Dose: 10 mg Metoprolol Tartrate (Lopressor) 12.5 mg PO BID [facility] Stop: 11/09/17 08:59 Last Admin: 09/17/17 16:31 Dose: 12.5 mg Morphine Sulfate (Ms-Contin) 30 mg PO Q12HR [facility] Stop: 11/07/17 20:59 Last Admin: 09/17/17 08:46 Dose: 30 mg Multivitamins/Vitamin C (Theragran) 1 tab PO DAILY [facility] Stop: 11/08/17 08:59 Last Admin: 09/17/17 08:45 Dose: 1 tab Nitroglycerin (Nitrostat) 0.4 mg SL Q5MIN PRN PRN Reason: Chest Pain Stop: 11/08/17 22:51 Quetiapine Fumarate (Seroquel) 100 mg PO HS [facility] PRN Reason: Protocol Stop: 11/07/17 20:59 Last Admin: 09/16/17 21:10 Dose: 100 mg Quetiapine Fumarate (Seroquel) 100 mg PO DAILY [facility] PRN Reason: Protocol Stop: 11/08/17 08:59 Last Admin: 09/17/17 09:46 Dose: 100 mg Sodium Phosphate (Fleet Enema) 135 ml RC Q2D PRN PRN Reason: Constipation Stop: 11/08/17 22:51 Tamsulosin HCl (Flomax) 0.4 mg PO HS [facility] Stop: 11/08/17 20:59 Last Admin: 09/16/17 21:10 Dose: 0.4 mg Thiamine HCl (Vitamin B1) 200 mg PO DAILY [facility] Stop: 11/09/17 08:59 Last Admin: 09/17/17 08:46 Dose: 200 mg Zolpidem Tartrate (Ambien) 5 mg PO HS PRN PRN Reason: Insomnia Stop: 11/07/17 20:31 General: demented HEENT: NC/AT, PERRLA, EOMI, anicteric sclerae, throat clear Neck: Supple, No JVD, No thyromegaly Lungs: CTAB Cardiovascular: RRR, Normal S1, Normal S2, without murmur Abdomen: soft, non-tender, non-distended Extremities: clear Neurological: no change Internal Medicine Assmt/Plan - Assessment Assessment: 1.HTN. 2.BPH. 3.DEMENTIA. - Plan Plan: CONTINUE ON CURRENT MEDICATION AND DIET. Nutritional Asmnt/Malnutr-PDOC - Dietary Evaluation Malnutrition Findings (Please click <Entered> for more info): Nutritional Asmnt/Malnutrition Start: 09/17/17 11: 20 Text: Status: Complete Freq: Document 09/17/17 11:20 GSUN (Rec: 09/17/17 11:36 [email or web address]) Nutritional Asmnt/Malnutrition Patient General Information Nutritional Screening Diagnosis Diagnosis Psychotic disorder NOS, dementia and behavioral changes Pertinent Medical Hx/Surgical Hx HTN, benign prostatic hypertrophy, DJD, chronic constipation, dementia, psychosis Subjective Information 57 year old male. Pt is ambulatory and alert. Per nursing staff, pt may be violent at times. Spoke to pt in rec room, pt was pleasant. Pt denied nutritinoal concerns , stated food is good, good appetite, denied GI problems, denied difficulties eating. Accompanied pt to room, [facility] calibrated, CBW 258. 4lb. Pt does appear obese with big belly, no wasting noted. Avg PO intake 100% of meals since adm, meeting nturitinoal needs. Current Diet Order/ Nutrition Support Regular Pertinent Medications Dulcolax, Colace, MOM, Theragran, Ms-Contin, Seroquel , Fleet Enema, vitamin B1 Pertinent Labs 09/08: glucose 132H Nutritional Hx/Data Height 1.73 m Height (Calculated Centimeters) 172.7 Current Weight (lbs) 117.208 kg Weight (Calculated Kilograms) 117.2 Weight (Calculated Grams) 184918.3 [place] Body Weight 154 Recent Weight Change No Weight Status Obese GI Symptoms Food Allergies No Skin Integrity/Comment: Esdras Salazar. Skin intact. Current %PO Good (75-100%) Estimated Nutritional Goals BEE in Kcals: Adj wt of IBW Calories/Kcals/Kg AdjBW 180.1lb/81.9kg Kcals Calculated 2048-2457kcal (25-30kcal/kg) Protein: Adj wt of IBW Protein Calculated 82g (1g/kg) Fluid: ml 2048-2457ml (1ml/kcal) Nutritional Problem 1. Problem Problem Overweight related to Etiology unknwon, energy imablance, possibly excessive PO intake aeb Signs/Symptoms: BMI 39.9, avg PO intake 100 of meals sicne adm Intervention/Recommendation Comments 1. Continue with current diet order. Avg PO intake is adequate. 2. Monitor weight, BMI 39.3. Expected Outcomes/Goals Expected Outcomes/Goals 1. PO intake continue to meet at least 75% of estimated nutritinoal needs.
--- NOTE | 2017-09-17 23:03 | Progress Notes ---
DATE: 09/17/[address] Franklin. SUBJECTIVE: The patient is currently in the hospital with history of violent and aggressive behaviors. He tells me that he has a history of dementia. Per documentation, the patient was agitated, yelling, and screaming. Apparently, the patient has been physical and violent toward others. On [id number], the patient is angry and upset. He is going to get a Haldol injection because he is escalating, threatening staff, and staff concerned of his escalations. The patient notes he is sleeping well, eating well. He states he is upset right now because of "mom problems." Apparently, he speaks with his mother and is quite close with his mother. ASSESSMENT: The patient remains symptomatic, irritable, wants to go, but staff is stating that he still has mood swings, aggressive behaviors, requiring emergency medications. PLAN: We will continue to monitor. The patient will be getting Haldol today x 1, continue Seroquel and Depakote. JOB# [id number]
[2017-09-18] MEDS: Multivitamin Tab PO SCH (08:36)
--- NOTE | 2017-09-18 20:32 | Internal Medicine Prog Note ---
Internal Medicine Subjective - Subjective Service Date: 09/18/17 Patient seen and examined:: without staff Patient is:: awake, in bed, confused Per staff patient has:: no adverse event Internal Medicine Objective - Results Result Diagrams: 09/08/17 15:51 09/08/17 15:51 Recent Labs: Laboratory Last Values WBC 9.5 Th/cmm (4.8-10.8) 09/08/17 15:51 RBC 4.75 Mil/cmm (4.30-5.70) 09/08/17 15:51 Hgb 14.8 gm/dL (12-16) 09/08/17 15:51 Hct 43.3 % (41.0-60) 09/08/17 15:51 MCV 91.2 fl (80-99) 09/08/17 15:51 MCH 31.1 pg (26.0-30.0) H 09/08/17 15:51 MCHC Differential 34.1 pg (28.0-36.0) 09/08/17 15:51 RDW 12.4 % (11.5-20.0) 09/08/17 15:51 Plt Count 166 Th/cmm (150-400) 09/08/17 15:51 MPV 10.0 fl 09/08/17 15:51 Neutrophils % 64.4 % (40.0-80.0) 09/08/17 15:51 Lymphocytes % 25.8 % (20.0-50.0) 09/08/17 15:51 Monocytes % 7.9 % (2.0-10.0) 09/08/17 15:51 Eosinophils % 1.0 % (0.0-5.0) 09/08/17 15:51 Basophils % 0.9 % (0.0-2.0) 09/08/17 15:51 Sodium 137 mEq/L (136-145) 09/08/17 15:51 Potassium 4.0 mEq/L (3.5-5.1) 09/08/17 15:51 Chloride 105 mEq/L (98-107) 09/08/17 15:51 Carbon Dioxide 26.7 mEq/L (21.0-31.0) 09/08/17 15:51 Anion Gap 9.3 (7.0-16.0) 09/08/17 15:51 BUN 21 mg/dL (7-25) 09/08/17 15:51 Creatinine 0.8 mg/dL (0.7-1.3) 09/08/17 15:51 Est GFR ( Amer) > 60.0 ml/min (>90) 09/08/17 15:51 Est GFR (Non-Af Amer) > 60.0 ml/min 09/08/17 15:51 BUN/Creatinine Ratio 26.3 09/08/17 15:51 Glucose 132 mg/dL (70-105) H 09/08/17 15:51 Calcium 9.0 mg/dL (8.6-10.3) 09/08/17 15:51 Total Bilirubin 0.5 mg/dL (0.3-1.0) 09/08/17 15:51 AST 27 U/L (13-39) 09/08/17 15:51 ALT 23 U/L (7-52) 09/08/17 15:51 Alkaline Phosphatase 119 U/L (34-104) H 09/08/17 15:51 Total Protein 7.1 gm/dL (6.0-8.3) 09/08/17 15:51 Albumin 4.2 gm/dL (4.2-5.5) 09/08/17 15:51 Globulin 2.9 gm/dL 09/08/17 15:51 Albumin/Globulin Ratio 1.5 (1.0-1.8) 09/08/17 15:51 Triglycerides 77 mg/dL (<150) 09/08/17 15:51 Cholesterol 116 mg/dL (<200) 09/08/17 15:51 LDL Cholesterol Direct 65 mg/dL (75-193) L 09/08/17 15:51 HDL Cholesterol 41 mg/dL (23-92) 09/08/17 15:51 TSH 2.37 uIU/ml (0.34-5.60) 09/08/17 15:51 Urine Source CLEAN C 09/08/17 15:45 Urine Color YELLOW 09/08/17 15:45 Urine Clarity CLEAR (CLEAR) 09/08/17 15:45 Urine pH 6.0 (4.6 - 8.0) 09/08/17 15:45 Ur Specific [place] >= 1.030 (1.005-1.030) 09/08/17 15:45 Urine Protein NEGATIVE mg/dL (NEGATIVE) 09/08/17 15:45 Urine Glucose (UA) NEGATIVE mg/dL (NEGATIVE) 09/08/17 15:45 Urine Ketones NEGATIVE mg/dL (NEGATIVE) 09/08/17 15:45 Urine Blood NEGATIVE (NEGATIVE) 09/08/17 15:45 Urine Nitrate NEGATIVE (NEGATIVE) 09/08/17 15:45 Urine Bilirubin NEGATIVE (NEGATIVE) 09/08/17 15:45 Urine Urobilinogen 0.2 E.U./dL (0.2 - 1.0) 09/08/17 15:45 Ur Leukocyte Esterase NEGATIVE (NEGATIVE) 09/08/17 15:45 Urine RBC NONE SEEN /hpf (0-5) 09/08/17 15:45 Urine WBC NONE SEEN /hpf (0-5) 09/08/17 15:45 Ur Epithelial Cells NONE SEEN /lpf (FEW) 09/08/17 15:45 Urine Bacteria NONE SEEN /hpf (NONE SEEN) 09/08/17 15:45 Valproic Acid 56.1 ug/mL (50.0-100.0) 09/15/17 19:50 RPR NONREACTIVE (NONREACTIVE) 09/08/17 15:51 - Physical Exam Vitals and I&O: Vital Signs Temp 98.2 F 09/18/17 16:11 Pulse 60 09/18/17 16:25 Resp 20 09/18/17 16:11 BP 139/72 09/18/17 16:25 Pulse Ox 97 09/18/17 16:11 Intake & Output 09/18/17 09/18/17 09/19/17 06:59 18:59 06:59 Intake Total 1200 Balance 1200 Intake: Oral 1200 Other: # Voids 4 # Bowel Movements 1 Active Medications: Current Medications Acetaminophen (Tylenol) 650 mg PO Q4HR PRN PRN Reason: Mild Pain / Temp above 100 Stop: 11/07/17 20:31 Al Hydrox/Mg Hydrox/Simethicone (Maalox) 30 ml PO Q4HR PRN PRN Reason: GI DISTRESS Stop: 11/07/17 20:31 Amlodipine Besylate (Norvasc) 10 mg PO DAILY [facility] Stop: 11/08/17 11:29 Last Admin: 09/18/17 08:37 Dose: 10 mg Aspirin (Aspirin) 325 mg PO DAILY [facility] Stop: 11/09/17 08:59 Last Admin: 09/18/17 08:36 Dose: 325 mg Bisacodyl (Dulcolax 10 Mg Supp) 10 mg RC DAILY PRN PRN Reason: Constipation Stop: 11/08/17 22:51 Divalproex Sodium (Depakote Sprinkle) 500 mg PO BID [facility] PRN Reason: Protocol Stop: 11/08/17 08:59 Last Admin: 09/18/17 16:25 Dose: 500 mg Docusate Sodium (Colace) 100 mg PO DAILY [facility] Stop: 11/08/17 08:59 Last Admin: 09/18/17 08:36 Dose: 100 mg Donepezil HCl (Aricept) 10 mg PO HS [facility] Stop: 11/07/17 20:59 Last Admin: 09/17/17 21:23 Dose: 10 mg Lorazepam (Ativan) 0.5 mg PO Q4HR PRN; Protocol PRN Reason: anxiety and agitation Stop: 10/08/17 20:31 Last Admin: 09/08/17 21:40 Dose: 0.5 mg Magnesium Hydroxide (Milk Of Magnesia) 30 ml PO DAILY PRN PRN Reason: Constipation Stop: 11/12/17 15:52 Memantine (Namenda) 10 mg PO Q12HR [facility] Stop: 11/07/17 20:59 Last Admin: 09/18/17 08:30 Dose: 10 mg Metoprolol Tartrate (Lopressor) 12.5 mg PO BID [facility] Stop: 11/09/17 08:59 Last Admin: 09/18/17 16:25 Dose: 12.5 mg Morphine Sulfate (Ms-Contin) 30 mg PO Q12HR [facility] Stop: 11/07/17 20:59 Last Admin: 09/18/17 08:33 Dose: 30 mg Multivitamins/Vitamin C (Theragran) 1 tab PO DAILY [facility] Stop: 11/08/17 08:59 Last Admin: 09/18/17 08:36 Dose: 1 tab Nitroglycerin (Nitrostat) 0.4 mg SL Q5MIN PRN PRN Reason: Chest Pain Stop: 11/08/17 22:51 Quetiapine Fumarate (Seroquel) 100 mg PO HS [facility] PRN Reason: Protocol Stop: 11/07/17 20:59 Last Admin: 09/17/17 21:23 Dose: 100 mg Quetiapine Fumarate (Seroquel) 100 mg PO DAILY [facility] Stop: 11/17/17 08:59 Last Admin: 09/18/17 08:35 Dose: 100 mg Sodium Phosphate (Fleet Enema) 135 ml RC Q2D PRN PRN Reason: Constipation Stop: 11/08/17 22:51 Tamsulosin HCl (Flomax) 0.4 mg PO HS [facility] Stop: 11/08/17 20:59 Last Admin: 09/17/17 21:23 Dose: 0.4 mg Thiamine HCl (Vitamin B1) 200 mg PO DAILY [facility] Stop: 11/09/17 08:59 Last Admin: 09/18/17 08:34 Dose: 200 mg Zolpidem Tartrate (Ambien) 5 mg PO HS PRN PRN Reason: Insomnia Stop: 11/07/17 20:31 General: demented HEENT: NC/AT, PERRLA, EOMI, anicteric sclerae, throat clear Neck: Supple, No JVD, No thyromegaly Lungs: CTAB Cardiovascular: RRR, Normal S1, Normal S2, without murmur Abdomen: soft, non-tender, non-distended Extremities: clear Neurological: no change Internal Medicine Assmt/Plan - Assessment Assessment: 1.HTN. 2.BPH. 3.DEMENTIA.. - Plan Plan: CONTINUE ON CURRENT MEDICATION AND DIET. Nutritional Asmnt/Malnutr-PDOC - Dietary Evaluation Malnutrition Findings (Please click <Entered> for more info): Nutritional Asmnt/Malnutrition Start: 09/17/17 11: 20 Text: Status: Complete Freq: Document 09/17/17 11:20 GSUN (Rec: 09/17/17 11:36 GSUN [email or web address]) Nutritional Asmnt/Malnutrition Patient General Information Nutritional Screening Diagnosis Diagnosis Psychotic disorder NOS, dementia and behavioral changes Pertinent Medical Hx/Surgical Hx HTN, benign prostatic hypertrophy, DJD, chronic constipation, dementia, psychosis Subjective Information 57 year old male. Pt is ambulatory and alert. Per nursing staff, pt may be violent at times. Spoke to pt in rec room, pt was pleasant. Pt denied nutritinoal concerns , stated food is good, good appetite, denied GI problems, denied difficulties eating. Accompanied pt to room, bedscale calibrated, CBW 258. 4lb. Pt does appear obese with big belly, no wasting noted. Avg PO intake 100% of meals since adm, meeting nturitinoal needs. Current Diet Order/ Nutrition Support Regular Pertinent Medications Dulcolax, Colace, MOM, Theragran, Ms-Contin, Seroquel , Fleet Enema, vitamin B1 Pertinent Labs 09/08: glucose 132H Nutritional Hx/Data Height 1.73 m Height (Calculated Centimeters) 172.7 Current Weight (lbs) 117.208 kg Weight (Calculated Kilograms) 117.2 Weight (Calculated Grams) 838229.3 [place] Body Weight 154 Recent Weight Change No Weight Status Obese GI Symptoms Food Allergies No Skin Integrity/Comment: Esdras 22. Skin intact. Current %PO Good (75-100%) Estimated Nutritional Goals BEE in Kcals: Adj wt of IBW Calories/Kcals/Kg AdjBW 180.1lb/81.9kg Kcals Calculated 2048-2457kcal (25-30kcal/kg) Protein: Adj wt of IBW Protein Calculated 82g (1g/kg) Fluid: ml 2048-2457ml (1ml/kcal) Nutritional Problem 1. Problem Problem Overweight related to Etiology unknwon, energy imablance, possibly excessive PO intake aeb Signs/Symptoms: BMI 39.9, avg PO intake 100 of meals sicne adm Intervention/Recommendation Comments 1. Continue with current diet order. Avg PO intake is adequate. 2. Monitor weight, BMI 39.3. Expected Outcomes/Goals Expected Outcomes/Goals 1. PO intake continue to meet at least 75% of estimated nutritinoal needs.
--- NOTE | 2017-09-19 02:12 | Progress Notes ---
DATE: Covering for Dr. Franklin. SUBJECTIVE: The patient was seen, chart reviewed, and discussed with staff. The patient remains irritable, upset. He required emergency medications within the past 24 hours. He was agitated and combative. Staff was concerned. He has calmed down. He does have some bouts of confusion, poor memory, remains impulsive and unpredictable. Sleeping fairly well. Eating fairly well. He still _talks to___ his mother every day. He states that he lives in [place] near his mother and is visiting his mother quite often. The patient with an apparent history of aggressive behaviors before I came to the hospital. ASSESSMENT: The patient remains symptomatic, still with agitation, requiring emergency medications, still not safe for discharge, poor coping, and poor stress tolerance. PLAN: We will continue to monitor and titrate medications as needed. The patient is not safe for a lower level of care. JOB# [id number] DANIEL
[2017-09-19] MEDS: Multivitamin Tab PO SCH (09:14)
--- NOTE | 2017-09-19 10:41 | Progress Notes ---
DATE: SUBJECTIVE: The patient seen, chart reviewed, discussed with staff. The patient remains impulsive, unpredictable, but calmer, seems more redirectable, still talking to his mom. States he wants to go home soon, still with some bouts of confusion and poor memory. The patient has been aggressive in the hospital. However, at the same time, he has been taking his medications. No side effects noted and medications were reviewed. The patient is sleeping fairly well, eating well. No episodes last night. He needs some redirection. ASSESSMENT: The patient remains symptomatic, still impulsive, unpredictable, history of aggression. PLAN: We will continue to monitor given his ongoing symptoms, he is not safe for discharge, but improvement has been noted. [facility]# [id number]
--- NOTE | 2017-09-19 15:59 | Internal Medicine Prog Note ---
Internal Medicine Subjective - Subjective Service Date: 09/19/17 Patient seen and examined:: with staff Patient is:: awake, in bed, confused Per staff patient has:: no adverse event Internal Medicine Objective - Results Result Diagrams: 09/08/17 15:51 09/08/17 15:51 Recent Labs: Laboratory Last Values WBC 9.5 Th/cmm (4.8-10.8) 09/08/17 15:51 RBC 4.75 Mil/cmm (4.30-5.70) 09/08/17 15:51 Hgb 14.8 gm/dL (12-16) 09/08/17 15:51 Hct 43.3 % (41.0-60) 09/08/17 15:51 MCV 91.2 fl (80-99) 09/08/17 15:51 MCH 31.1 pg (26.0-30.0) H 09/08/17 15:51 MCHC Differential 34.1 pg (28.0-36.0) 09/08/17 15:51 RDW 12.4 % (11.5-20.0) 09/08/17 15:51 Plt Count 166 Th/cmm (150-400) 09/08/17 15:51 MPV 10.0 fl 09/08/17 15:51 Neutrophils % 64.4 % (40.0-80.0) 09/08/17 15:51 Lymphocytes % 25.8 % (20.0-50.0) 09/08/17 15:51 Monocytes % 7.9 % (2.0-10.0) 09/08/17 15:51 Eosinophils % 1.0 % (0.0-5.0) 09/08/17 15:51 Basophils % 0.9 % (0.0-2.0) 09/08/17 15:51 Sodium 137 mEq/L (136-145) 09/08/17 15:51 Potassium 4.0 mEq/L (3.5-5.1) 09/08/17 15:51 Chloride 105 mEq/L (98-107) 09/08/17 15:51 Carbon Dioxide 26.7 mEq/L (21.0-31.0) 09/08/17 15:51 Anion Gap 9.3 (7.0-16.0) 09/08/17 15:51 BUN 21 mg/dL (7-25) 09/08/17 15:51 Creatinine 0.8 mg/dL (0.7-1.3) 09/08/17 15:51 Est GFR ( Amer) > 60.0 ml/min (>90) 09/08/17 15:51 Est GFR (Non-Af Amer) > 60.0 ml/min 09/08/17 15:51 BUN/Creatinine Ratio 26.3 09/08/17 15:51 Glucose 132 mg/dL (70-105) H 09/08/17 15:51 Calcium 9.0 mg/dL (8.6-10.3) 09/08/17 15:51 Total Bilirubin 0.5 mg/dL (0.3-1.0) 09/08/17 15:51 AST 27 U/L (13-39) 09/08/17 15:51 ALT 23 U/L (7-52) 09/08/17 15:51 Alkaline Phosphatase 119 U/L (34-104) H 09/08/17 15:51 Total Protein 7.1 gm/dL (6.0-8.3) 09/08/17 15:51 Albumin 4.2 gm/dL (4.2-5.5) 09/08/17 15:51 Globulin 2.9 gm/dL 09/08/17 15:51 Albumin/Globulin Ratio 1.5 (1.0-1.8) 09/08/17 15:51 Triglycerides 77 mg/dL (<150) 09/08/17 15:51 Cholesterol 116 mg/dL (<200) 09/08/17 15:51 LDL Cholesterol Direct 65 mg/dL (75-193) L 09/08/17 15:51 HDL Cholesterol 41 mg/dL (23-92) 09/08/17 15:51 TSH 2.37 uIU/ml (0.34-5.60) 09/08/17 15:51 Urine Source CLEAN C 09/08/17 15:45 Urine Color YELLOW 09/08/17 15:45 Urine Clarity CLEAR (CLEAR) 09/08/17 15:45 Urine pH 6.0 (4.6 - 8.0) 09/08/17 15:45 Ur Specific [place] >= 1.030 (1.005-1.030) 09/08/17 15:45 Urine Protein NEGATIVE mg/dL (NEGATIVE) 09/08/17 15:45 Urine Glucose (UA) NEGATIVE mg/dL (NEGATIVE) 09/08/17 15:45 Urine Ketones NEGATIVE mg/dL (NEGATIVE) 09/08/17 15:45 Urine Blood NEGATIVE (NEGATIVE) 09/08/17 15:45 Urine Nitrate NEGATIVE (NEGATIVE) 09/08/17 15:45 Urine Bilirubin NEGATIVE (NEGATIVE) 09/08/17 15:45 Urine Urobilinogen 0.2 E.U./dL (0.2 - 1.0) 09/08/17 15:45 Ur Leukocyte Esterase NEGATIVE (NEGATIVE) 09/08/17 15:45 Urine RBC NONE SEEN /hpf (0-5) 09/08/17 15:45 Urine WBC NONE SEEN /hpf (0-5) 09/08/17 15:45 Ur Epithelial Cells NONE SEEN /lpf (FEW) 09/08/17 15:45 Urine Bacteria NONE SEEN /hpf (NONE SEEN) 09/08/17 15:45 Valproic Acid 56.1 ug/mL (50.0-100.0) 09/15/17 19:50 RPR NONREACTIVE (NONREACTIVE) 09/08/17 15:51 - Physical Exam Vitals and I&O: Vital Signs Temp 98.2 F 09/19/17 06:20 Pulse 54 09/19/17 09:12 Resp 17 09/19/17 06:20 BP 125/69 09/19/17 09:12 Pulse Ox 99 09/19/17 06:20 Intake & Output 09/18/17 09/19/17 09/19/17 18:59 06:59 18:59 Intake Total 1200 Balance 1200 Intake: Oral 1200 Other: # Voids 4 # Bowel Movements 1 Active Medications: Current Medications Acetaminophen (Tylenol) 650 mg PO Q4HR PRN PRN Reason: Mild Pain / Temp above 100 Stop: 11/07/17 20:31 Al Hydrox/Mg Hydrox/Simethicone (Maalox) 30 ml PO Q4HR PRN PRN Reason: GI DISTRESS Stop: 11/07/17 20:31 Amlodipine Besylate (Norvasc) 10 mg PO DAILY [facility] Stop: 11/08/17 11:29 Last Admin: 09/19/17 09:11 Dose: 10 mg Aspirin (Aspirin) 325 mg PO DAILY [facility] Stop: 11/09/17 08:59 Last Admin: 09/19/17 09:14 Dose: 325 mg Bisacodyl (Dulcolax 10 Mg Supp) 10 mg RC DAILY PRN PRN Reason: Constipation Stop: 11/08/17 22:51 Divalproex Sodium (Depakote Sprinkle) 500 mg PO BID [facility] PRN Reason: Protocol Stop: 11/08/17 08:59 Last Admin: 09/19/17 09:09 Dose: 500 mg Docusate Sodium (Colace) 100 mg PO DAILY [facility] Stop: 11/08/17 08:59 Last Admin: 09/19/17 09:09 Dose: 100 mg Donepezil HCl (Aricept) 10 mg PO HS [facility] Stop: 11/07/17 20:59 Last Admin: 09/18/17 20:53 Dose: 10 mg Lorazepam (Ativan) 0.5 mg PO Q4HR PRN; Protocol PRN Reason: anxiety and agitation Stop: 10/08/17 20:31 Last Admin: 09/08/17 21:40 Dose: 0.5 mg Magnesium Hydroxide (Milk Of Magnesia) 30 ml PO DAILY PRN PRN Reason: Constipation Stop: 11/12/17 15:52 Memantine (Namenda) 10 mg PO Q12HR [facility] Stop: 11/07/17 20:59 Last Admin: 09/19/17 09:11 Dose: 10 mg Metoprolol Tartrate (Lopressor) 12.5 mg PO BID [facility] Stop: 11/09/17 08:59 Last Admin: 09/19/17 09:12 Dose: 12.5 mg Morphine Sulfate (Ms-Contin) 30 mg PO Q12HR [facility] Stop: 11/07/17 20:59 Last Admin: 09/19/17 09:10 Dose: 30 mg Multivitamins/Vitamin C (Theragran) 1 tab PO DAILY [facility] Stop: 11/08/17 08:59 Last Admin: 09/19/17 09:14 Dose: 1 tab Nitroglycerin (Nitrostat) 0.4 mg SL Q5MIN PRN PRN Reason: Chest Pain Stop: 11/08/17 22:51 Quetiapine Fumarate (Seroquel) 100 mg PO HS [facility] PRN Reason: Protocol Stop: 11/07/17 20:59 Last Admin: 09/18/17 20:57 Dose: 100 mg Quetiapine Fumarate (Seroquel) 100 mg PO DAILY [facility] Stop: 11/17/17 08:59 Last Admin: 09/19/17 09:14 Dose: 100 mg Sodium Phosphate (Fleet Enema) 135 ml RC Q2D PRN PRN Reason: Constipation Stop: 11/08/17 22:51 Tamsulosin HCl (Flomax) 0.4 mg PO HS [facility] Stop: 11/08/17 20:59 Last Admin: 09/18/17 20:52 Dose: 0.4 mg Thiamine HCl (Vitamin B1) 200 mg PO DAILY [facility] Stop: 11/09/17 08:59 Last Admin: 09/19/17 09:14 Dose: 200 mg Zolpidem Tartrate (Ambien) 5 mg PO HS PRN PRN Reason: Insomnia Stop: 11/07/17 20:31 General: demented HEENT: NC/AT, PERRLA, EOMI, anicteric sclerae, throat clear Neck: Supple, No JVD, No thyromegaly Lungs: CTAB Cardiovascular: RRR, Normal S1, Normal S2, without murmur Abdomen: soft, non-tender, non-distended Extremities: clear Neurological: no change Internal Medicine Assmt/Plan - Assessment Assessment: 1.HTN. 2.BPH. 3.DEMENTIA.. - Plan Plan: CONTINUE ON CURRENT MEDICATION AND DIET. Nutritional Asmnt/Malnutr-PDOC - Dietary Evaluation Malnutrition Findings (Please click <Entered> for more info): Nutritional Asmnt/Malnutrition Start: 09/17/17 11: 20 Text: Status: Complete Freq: Document 09/17/17 11:20 GSUN (Rec: 09/17/17 11:36 GSUN [email or web address]) Nutritional Asmnt/Malnutrition Patient General Information Nutritional Screening Diagnosis Diagnosis Psychotic disorder NOS, dementia and behavioral changes Pertinent Medical Hx/Surgical Hx HTN, benign prostatic hypertrophy, DJD, chronic constipation, dementia, psychosis Subjective Information 57 year old male. Pt is ambulatory and alert. Per nursing staff, pt may be violent at times. Spoke to pt in rec room, pt was pleasant. Pt denied nutritinoal concerns , stated food is good, good appetite, denied GI problems, denied difficulties eating. Accompanied pt to room, bedscale calibrated, CBW 258. 4lb. Pt does appear obese with big belly, no wasting noted. Avg PO intake 100% of meals since adm, meeting nturitinoal needs. Current Diet Order/ Nutrition Support Regular Pertinent Medications Dulcolax, Colace, MOM, Theragran, Ms-Contin, Seroquel , Fleet Enema, vitamin B1 Pertinent Labs 09/08: glucose 132H Nutritional Hx/Data Height 1.73 m Height (Calculated Centimeters) 172.7 Current Weight (lbs) 117.208 kg Weight (Calculated Kilograms) 117.2 Weight (Calculated Grams) 086569.3 [place] Body Weight 154 Recent Weight Change No Weight Status Obese GI Symptoms Food Allergies No Skin Integrity/Comment: Esdras 22. Skin intact. Current %PO Good (75-100%) Estimated Nutritional Goals BEE in Kcals: Adj wt of IBW Calories/Kcals/Kg AdjBW 180.1lb/81.9kg Kcals Calculated 2048-2457kcal (25-30kcal/kg) Protein: Adj wt of IBW Protein Calculated 82g (1g/kg) Fluid: ml 2048-2457ml (1ml/kcal) Nutritional Problem 1. Problem Problem Overweight related to Etiology unknwon, energy imablance, possibly excessive PO intake aeb Signs/Symptoms: BMI 39.9, avg PO intake 100 of meals sicne adm Intervention/Recommendation Comments 1. Continue with current diet order. Avg PO intake is adequate. 2. Monitor weight, BMI 39.3. Expected Outcomes/Goals Expected Outcomes/Goals 1. PO intake continue to meet at least 75% of estimated nutritinoal needs.
[2017-09-20] MEDS: Multivitamin Tab PO SCH (08:59)
--- NOTE | 2017-09-20 11:59 | Progress Notes ---
DATE: SUBJECTIVE: The patient seen, chart reviewed, discussed with staff. The patient was in a residential, agitated, screaming, unruly yelling, transferred to the hospital, could not be cared for at a lower level of care. On [id number], the patient remains confused, impulsive behaviors, still unpredictable. He is calm at this time. He slept fairly well last night. He is taking his medications. No noted side effects. Currently on Seroquel. ASSESSMENT: The patient remains symptomatic, still impulsive, unpredictable, confusion, but calm this morning. PLAN: We will continue to monitor, given the patient's ongoing symptoms, he is not currently safe for discharge at this time. [facility]# [id number]
--- NOTE | 2017-09-20 17:43 | Internal Medicine Prog Note ---
Internal Medicine Subjective - Subjective Service Date: 09/20/17 Patient seen and examined:: without staff Patient is:: awake, in bed, confused Per staff patient has:: no adverse event Internal Medicine Objective - Results Result Diagrams: 09/08/17 15:51 09/08/17 15:51 Recent Labs: Laboratory Last Values WBC 9.5 Th/cmm (4.8-10.8) 09/08/17 15:51 RBC 4.75 Mil/cmm (4.30-5.70) 09/08/17 15:51 Hgb 14.8 gm/dL (12-16) 09/08/17 15:51 Hct 43.3 % (41.0-60) 09/08/17 15:51 MCV 91.2 fl (80-99) 09/08/17 15:51 MCH 31.1 pg (26.0-30.0) H 09/08/17 15:51 MCHC Differential 34.1 pg (28.0-36.0) 09/08/17 15:51 RDW 12.4 % (11.5-20.0) 09/08/17 15:51 Plt Count 166 Th/cmm (150-400) 09/08/17 15:51 MPV 10.0 fl 09/08/17 15:51 Neutrophils % 64.4 % (40.0-80.0) 09/08/17 15:51 Lymphocytes % 25.8 % (20.0-50.0) 09/08/17 15:51 Monocytes % 7.9 % (2.0-10.0) 09/08/17 15:51 Eosinophils % 1.0 % (0.0-5.0) 09/08/17 15:51 Basophils % 0.9 % (0.0-2.0) 09/08/17 15:51 Sodium 137 mEq/L (136-145) 09/08/17 15:51 Potassium 4.0 mEq/L (3.5-5.1) 09/08/17 15:51 Chloride 105 mEq/L (98-107) 09/08/17 15:51 Carbon Dioxide 26.7 mEq/L (21.0-31.0) 09/08/17 15:51 Anion Gap 9.3 (7.0-16.0) 09/08/17 15:51 BUN 21 mg/dL (7-25) 09/08/17 15:51 Creatinine 0.8 mg/dL (0.7-1.3) 09/08/17 15:51 Est GFR ( Amer) > 60.0 ml/min (>90) 09/08/17 15:51 Est GFR (Non-Af Amer) > 60.0 ml/min 09/08/17 15:51 BUN/Creatinine Ratio 26.3 09/08/17 15:51 Glucose 132 mg/dL (70-105) H 09/08/17 15:51 Calcium 9.0 mg/dL (8.6-10.3) 09/08/17 15:51 Total Bilirubin 0.5 mg/dL (0.3-1.0) 09/08/17 15:51 AST 27 U/L (13-39) 09/08/17 15:51 ALT 23 U/L (7-52) 09/08/17 15:51 Alkaline Phosphatase 119 U/L (34-104) H 09/08/17 15:51 Total Protein 7.1 gm/dL (6.0-8.3) 09/08/17 15:51 Albumin 4.2 gm/dL (4.2-5.5) 09/08/17 15:51 Globulin 2.9 gm/dL 09/08/17 15:51 Albumin/Globulin Ratio 1.5 (1.0-1.8) 09/08/17 15:51 Triglycerides 77 mg/dL (<150) 09/08/17 15:51 Cholesterol 116 mg/dL (<200) 09/08/17 15:51 LDL Cholesterol Direct 65 mg/dL (75-193) L 09/08/17 15:51 HDL Cholesterol 41 mg/dL (23-92) 09/08/17 15:51 TSH 2.37 uIU/ml (0.34-5.60) 09/08/17 15:51 Urine Source CLEAN C 09/08/17 15:45 Urine Color YELLOW 09/08/17 15:45 Urine Clarity CLEAR (CLEAR) 09/08/17 15:45 Urine pH 6.0 (4.6 - 8.0) 09/08/17 15:45 Ur Specific [place] >= 1.030 (1.005-1.030) 09/08/17 15:45 Urine Protein NEGATIVE mg/dL (NEGATIVE) 09/08/17 15:45 Urine Glucose (UA) NEGATIVE mg/dL (NEGATIVE) 09/08/17 15:45 Urine Ketones NEGATIVE mg/dL (NEGATIVE) 09/08/17 15:45 Urine Blood NEGATIVE (NEGATIVE) 09/08/17 15:45 Urine Nitrate NEGATIVE (NEGATIVE) 09/08/17 15:45 Urine Bilirubin NEGATIVE (NEGATIVE) 09/08/17 15:45 Urine Urobilinogen 0.2 E.U./dL (0.2 - 1.0) 09/08/17 15:45 Ur Leukocyte Esterase NEGATIVE (NEGATIVE) 09/08/17 15:45 Urine RBC NONE SEEN /hpf (0-5) 09/08/17 15:45 Urine WBC NONE SEEN /hpf (0-5) 09/08/17 15:45 Ur Epithelial Cells NONE SEEN /lpf (FEW) 09/08/17 15:45 Urine Bacteria NONE SEEN /hpf (NONE SEEN) 09/08/17 15:45 Valproic Acid 56.1 ug/mL (50.0-100.0) 09/15/17 19:50 RPR NONREACTIVE (NONREACTIVE) 09/08/17 15:51 - Physical Exam Vitals and I&O: Vital Signs Temp 98.2 F 09/20/17 14:59 Pulse 56 09/20/17 16:50 Resp 20 09/20/17 14:59 BP 125/70 09/20/17 16:50 Pulse Ox 97 09/20/17 14:59 Intake & Output 09/19/17 09/20/17 09/20/17 18:59 06:59 18:59 Intake Total 1200 Balance 1200 Intake: Oral 1200 Other: # Voids 4 # Bowel Movements 1 Active Medications: Current Medications Acetaminophen (Tylenol) 650 mg PO Q4HR PRN PRN Reason: Mild Pain / Temp above 100 Stop: 11/07/17 20:31 Al Hydrox/Mg Hydrox/Simethicone (Maalox) 30 ml PO Q4HR PRN PRN Reason: GI DISTRESS Stop: 11/07/17 20:31 Amlodipine Besylate (Norvasc) 10 mg PO DAILY [facility] Stop: 11/08/17 11:29 Last Admin: 09/20/17 09:03 Dose: 10 mg Aspirin (Aspirin) 325 mg PO DAILY [facility] Stop: 11/09/17 08:59 Last Admin: 09/20/17 09:00 Dose: 325 mg Bisacodyl (Dulcolax 10 Mg Supp) 10 mg RC DAILY PRN PRN Reason: Constipation Stop: 11/08/17 22:51 Divalproex Sodium (Depakote Sprinkle) 500 mg PO BID [facility] PRN Reason: Protocol Stop: 11/08/17 08:59 Last Admin: 09/20/17 16:48 Dose: 500 mg Docusate Sodium (Colace) 100 mg PO DAILY [facility] Stop: 11/08/17 08:59 Last Admin: 09/20/17 08:59 Dose: 100 mg Donepezil HCl (Aricept) 10 mg PO HS [facility] Stop: 11/07/17 20:59 Last Admin: 09/19/17 21:00 Dose: 10 mg Lorazepam (Ativan) 0.5 mg PO Q4HR PRN; Protocol PRN Reason: anxiety and agitation Stop: 10/08/17 20:31 Last Admin: 09/08/17 21:40 Dose: 0.5 mg Magnesium Hydroxide (Milk Of Magnesia) 30 ml PO DAILY PRN PRN Reason: Constipation Stop: 11/12/17 15:52 Memantine (Namenda) 10 mg PO Q12HR [facility] Stop: 11/07/17 20:59 Last Admin: 09/20/17 09:01 Dose: 10 mg Metoprolol Tartrate (Lopressor) 12.5 mg PO BID [facility] Stop: 11/09/17 08:59 Last Admin: 09/20/17 16:50 Dose: Not Given Morphine Sulfate (Ms-Contin) 30 mg PO Q12HR [facility] Stop: 11/07/17 20:59 Last Admin: 09/20/17 09:00 Dose: 30 mg Multivitamins/Vitamin C (Theragran) 1 tab PO DAILY [facility] Stop: 11/08/17 08:59 Last Admin: 09/20/17 08:59 Dose: 1 tab Nitroglycerin (Nitrostat) 0.4 mg SL Q5MIN PRN PRN Reason: Chest Pain Stop: 11/08/17 22:51 Quetiapine Fumarate (Seroquel) 100 mg PO HS [facility] PRN Reason: Protocol Stop: 11/07/17 20:59 Last Admin: 09/19/17 21:00 Dose: 100 mg Quetiapine Fumarate (Seroquel) 100 mg PO DAILY [facility] Stop: 11/17/17 08:59 Last Admin: 09/20/17 09:01 Dose: 100 mg Sodium Phosphate (Fleet Enema) 135 ml RC Q2D PRN PRN Reason: Constipation Stop: 11/08/17 22:51 Tamsulosin HCl (Flomax) 0.4 mg PO HS [facility] Stop: 11/08/17 20:59 Last Admin: 09/19/17 20:58 Dose: 0.4 mg Thiamine HCl (Vitamin B1) 200 mg PO DAILY [facility] Stop: 11/09/17 08:59 Last Admin: 09/20/17 09:02 Dose: 200 mg Zolpidem Tartrate (Ambien) 5 mg PO HS PRN PRN Reason: Insomnia Stop: 11/07/17 20:31 General: demented HEENT: NC/AT, PERRLA, EOMI, anicteric sclerae, throat clear Neck: Supple, No JVD, No thyromegaly Lungs: CTAB Cardiovascular: RRR, Normal S1, Normal S2, without murmur Abdomen: soft, non-tender, non-distended Extremities: clear Neurological: no change Internal Medicine Assmt/Plan - Assessment Assessment: 1.HTN. 2.BPH. 3.DEMENTIA.. - Plan Plan: CONTINUE ON CURRENT MEDICATION AND DIET. Nutritional Asmnt/Malnutr-PDOC - Dietary Evaluation Malnutrition Findings (Please click <Entered> for more info): Nutritional Asmnt/Malnutrition Start: 09/17/17 11: 20 Text: Status: Complete Freq: Document 09/17/17 11:20 GSUN (Rec: 09/17/17 11:36 [email or web address] [email or web address]) Nutritional Asmnt/Malnutrition Patient General Information Nutritional Screening Diagnosis Diagnosis Psychotic disorder NOS, dementia and behavioral changes Pertinent Medical Hx/Surgical Hx HTN, benign prostatic hypertrophy, DJD, chronic constipation, dementia, psychosis Subjective Information 57 year old male. Pt is ambulatory and alert. Per nursing staff, pt may be violent at times. Spoke to pt in rec room, pt was pleasant. Pt denied nutritinoal concerns , stated food is good, good appetite, denied GI problems, denied difficulties eating. Accompanied pt to room, bedscale calibrated, CBW 258. 4lb. Pt does appear obese with big belly, no wasting noted. Avg PO intake 100% of meals since adm, meeting nturitinoal needs. Current Diet Order/ Nutrition Support Regular Pertinent Medications Dulcolax, Colace, MOM, Theragran, Ms-Contin, Seroquel , Fleet Enema, vitamin B1 Pertinent Labs 09/08: glucose 132H Nutritional Hx/Data Height 1.73 m Height (Calculated Centimeters) 172.7 Current Weight (lbs) 117.208 kg Weight (Calculated Kilograms) 117.2 Weight (Calculated Grams) 796552.3 [place] Body Weight 154 Recent Weight Change No Weight Status Obese GI Symptoms Food Allergies No Skin Integrity/Comment: Esdras 22. Skin intact. Current %PO Good (75-100%) Estimated Nutritional Goals BEE in Kcals: Adj wt of IBW Calories/Kcals/Kg AdjBW 180.1lb/81.9kg Kcals Calculated 2048-2457kcal (25-30kcal/kg) Protein: Adj wt of IBW Protein Calculated 82g (1g/kg) Fluid: ml 2048-2457ml (1ml/kcal) Nutritional Problem 1. Problem Problem Overweight related to Etiology unknwon, energy imablance, possibly excessive PO intake aeb Signs/Symptoms: BMI 39.9, avg PO intake 100 of meals sicne adm Intervention/Recommendation Comments 1. Continue with current diet order. Avg PO intake is adequate. 2. Monitor weight, BMI 39.3. Expected Outcomes/Goals Expected Outcomes/Goals 1. PO intake continue to meet at least 75% of estimated nutritinoal needs.
[2017-09-21] MEDS: Multivitamin Tab PO SCH (09:24)
--- NOTE | 2017-09-21 17:22 | Internal Medicine Prog Note ---
Internal Medicine Subjective - Subjective Service Date: 09/21/17 Patient seen and examined:: without staff Patient is:: awake, in bed, confused Per staff patient has:: no adverse event Internal Medicine Objective - Results Result Diagrams: 09/08/17 15:51 09/08/17 15:51 Recent Labs: Laboratory Last Values WBC 9.5 Th/cmm (4.8-10.8) 09/08/17 15:51 RBC 4.75 Mil/cmm (4.30-5.70) 09/08/17 15:51 Hgb 14.8 gm/dL (12-16) 09/08/17 15:51 Hct 43.3 % (41.0-60) 09/08/17 15:51 MCV 91.2 fl (80-99) 09/08/17 15:51 MCH 31.1 pg (26.0-30.0) H 09/08/17 15:51 MCHC Differential 34.1 pg (28.0-36.0) 09/08/17 15:51 RDW 12.4 % (11.5-20.0) 09/08/17 15:51 Plt Count 166 Th/cmm (150-400) 09/08/17 15:51 MPV 10.0 fl 09/08/17 15:51 Neutrophils % 64.4 % (40.0-80.0) 09/08/17 15:51 Lymphocytes % 25.8 % (20.0-50.0) 09/08/17 15:51 Monocytes % 7.9 % (2.0-10.0) 09/08/17 15:51 Eosinophils % 1.0 % (0.0-5.0) 09/08/17 15:51 Basophils % 0.9 % (0.0-2.0) 09/08/17 15:51 Sodium 137 mEq/L (136-145) 09/08/17 15:51 Potassium 4.0 mEq/L (3.5-5.1) 09/08/17 15:51 Chloride 105 mEq/L (98-107) 09/08/17 15:51 Carbon Dioxide 26.7 mEq/L (21.0-31.0) 09/08/17 15:51 Anion Gap 9.3 (7.0-16.0) 09/08/17 15:51 BUN 21 mg/dL (7-25) 09/08/17 15:51 Creatinine 0.8 mg/dL (0.7-1.3) 09/08/17 15:51 Est GFR ( Amer) > 60.0 ml/min (>90) 09/08/17 15:51 Est GFR (Non-Af Amer) > 60.0 ml/min 09/08/17 15:51 BUN/Creatinine Ratio 26.3 09/08/17 15:51 Glucose 132 mg/dL (70-105) H 09/08/17 15:51 Calcium 9.0 mg/dL (8.6-10.3) 09/08/17 15:51 Total Bilirubin 0.5 mg/dL (0.3-1.0) 09/08/17 15:51 AST 27 U/L (13-39) 09/08/17 15:51 ALT 23 U/L (7-52) 09/08/17 15:51 Alkaline Phosphatase 119 U/L (34-104) H 09/08/17 15:51 Total Protein 7.1 gm/dL (6.0-8.3) 09/08/17 15:51 Albumin 4.2 gm/dL (4.2-5.5) 09/08/17 15:51 Globulin 2.9 gm/dL 09/08/17 15:51 Albumin/Globulin Ratio 1.5 (1.0-1.8) 09/08/17 15:51 Triglycerides 77 mg/dL (<150) 09/08/17 15:51 Cholesterol 116 mg/dL (<200) 09/08/17 15:51 LDL Cholesterol Direct 65 mg/dL (75-193) L 09/08/17 15:51 HDL Cholesterol 41 mg/dL (23-92) 09/08/17 15:51 TSH 2.37 uIU/ml (0.34-5.60) 09/08/17 15:51 Urine Source CLEAN C 09/08/17 15:45 Urine Color YELLOW 09/08/17 15:45 Urine Clarity CLEAR (CLEAR) 09/08/17 15:45 Urine pH 6.0 (4.6 - 8.0) 09/08/17 15:45 Ur Specific [place] >= 1.030 (1.005-1.030) 09/08/17 15:45 Urine Protein NEGATIVE mg/dL (NEGATIVE) 09/08/17 15:45 Urine Glucose (UA) NEGATIVE mg/dL (NEGATIVE) 09/08/17 15:45 Urine Ketones NEGATIVE mg/dL (NEGATIVE) 09/08/17 15:45 Urine Blood NEGATIVE (NEGATIVE) 09/08/17 15:45 Urine Nitrate NEGATIVE (NEGATIVE) 09/08/17 15:45 Urine Bilirubin NEGATIVE (NEGATIVE) 09/08/17 15:45 Urine Urobilinogen 0.2 E.U./dL (0.2 - 1.0) 09/08/17 15:45 Ur Leukocyte Esterase NEGATIVE (NEGATIVE) 09/08/17 15:45 Urine RBC NONE SEEN /hpf (0-5) 09/08/17 15:45 Urine WBC NONE SEEN /hpf (0-5) 09/08/17 15:45 Ur Epithelial Cells NONE SEEN /lpf (FEW) 09/08/17 15:45 Urine Bacteria NONE SEEN /hpf (NONE SEEN) 09/08/17 15:45 Valproic Acid 54.0 ug/mL (50.0-100.0) 09/21/17 11:30 RPR NONREACTIVE (NONREACTIVE) 09/08/17 15:51 - Physical Exam Vitals and I&O: Vital Signs Temp 98.4 F 09/21/17 15:22 Pulse 66 09/21/17 16:30 Resp 20 09/21/17 15:22 BP 154/80 09/21/17 16:30 Pulse Ox 97 09/21/17 15:22 Intake & Output 09/20/17 09/21/17 09/21/17 18:59 06:59 18:59 Intake Total 800 120 Balance 800 120 Intake: Oral 800 120 Other: # Voids 3 3 # Bowel Movements 2 0 Active Medications: Current Medications Acetaminophen (Tylenol) 650 mg PO Q4HR PRN PRN Reason: Mild Pain / Temp above 100 Stop: 11/07/17 20:31 Al Hydrox/Mg Hydrox/Simethicone (Maalox) 30 ml PO Q4HR PRN PRN Reason: GI DISTRESS Stop: 11/07/17 20:31 Amlodipine Besylate (Norvasc) 10 mg PO DAILY [facility] Stop: 11/08/17 11:29 Last Admin: 09/21/17 09:23 Dose: Not Given Aspirin (Aspirin) 325 mg PO DAILY [facility] Stop: 11/09/17 08:59 Last Admin: 09/21/17 09:23 Dose: 325 mg Bisacodyl (Dulcolax 10 Mg Supp) 10 mg RC DAILY PRN PRN Reason: Constipation Stop: 11/08/17 22:51 Divalproex Sodium (Depakote Sprinkle) 500 mg PO BID [facility] PRN Reason: Protocol Stop: 11/08/17 08:59 Last Admin: 09/21/17 16:30 Dose: 500 mg Docusate Sodium (Colace) 100 mg PO DAILY [facility] Stop: 11/08/17 08:59 Last Admin: 09/21/17 09:24 Dose: 100 mg Donepezil HCl (Aricept) 10 mg PO HS [facility] Stop: 11/07/17 20:59 Last Admin: 09/20/17 21:05 Dose: 10 mg Lorazepam (Ativan) 0.5 mg PO Q4HR PRN; Protocol PRN Reason: anxiety and agitation Stop: 10/08/17 20:31 Last Admin: 09/08/17 21:40 Dose: 0.5 mg Magnesium Hydroxide (Milk Of Magnesia) 30 ml PO DAILY PRN PRN Reason: Constipation Stop: 11/12/17 15:52 Memantine (Namenda) 10 mg PO Q12HR [facility] Stop: 11/07/17 20:59 Last Admin: 09/21/17 09:24 Dose: 10 mg Metoprolol Tartrate (Lopressor) 12.5 mg PO BID [facility] Stop: 11/09/17 08:59 Last Admin: 09/21/17 16:30 Dose: 12.5 mg Morphine Sulfate (Ms-Contin) 30 mg PO Q12HR [facility] Stop: 11/07/17 20:59 Last Admin: 09/21/17 09:24 Dose: 30 mg Multivitamins/Vitamin C (Theragran) 1 tab PO DAILY [facility] Stop: 11/08/17 08:59 Last Admin: 09/21/17 09:24 Dose: 1 tab Nitroglycerin (Nitrostat) 0.4 mg SL Q5MIN PRN PRN Reason: Chest Pain Stop: 11/08/17 22:51 Quetiapine Fumarate (Seroquel) 100 mg PO HS [facility] PRN Reason: Protocol Stop: 11/07/17 20:59 Last Admin: 09/20/17 21:06 Dose: 100 mg Quetiapine Fumarate (Seroquel) 100 mg PO DAILY [facility] Stop: 11/17/17 08:59 Last Admin: 09/21/17 09:25 Dose: 100 mg Sodium Phosphate (Fleet Enema) 135 ml RC Q2D PRN PRN Reason: Constipation Stop: 11/08/17 22:51 Tamsulosin HCl (Flomax) 0.4 mg PO HS [facility] Stop: 11/08/17 20:59 Last Admin: 09/20/17 21:06 Dose: 0.4 mg Thiamine HCl (Vitamin B1) 200 mg PO DAILY [facility] Stop: 11/09/17 08:59 Last Admin: 09/21/17 09:25 Dose: 200 mg Zolpidem Tartrate (Ambien) 5 mg PO HS PRN PRN Reason: Insomnia Stop: 11/07/17 20:31 General: demented HEENT: NC/AT, PERRLA, EOMI, anicteric sclerae, throat clear Neck: Supple, No JVD, No thyromegaly Lungs: CTAB Cardiovascular: RRR, Normal S1, Normal S2, without murmur Abdomen: soft, non-tender, non-distended Extremities: clear Neurological: no change Internal Medicine Assmt/Plan - Assessment Assessment: 1.HTN. 2.BPH. 3.DEMENTIA.. - Plan Plan: CONTINUE ON CURRENT MEDICATION AND DIET. Nutritional Asmnt/Malnutr-PDOC - Dietary Evaluation Malnutrition Findings (Please click <Entered> for more info): Nutritional Asmnt/Malnutrition Start: 09/17/17 11: 20 Text: Status: Complete Freq: Document 09/17/17 11:20 GSUN (Rec: 09/17/17 11:36 [email or web address] [email or web address]) Nutritional Asmnt/Malnutrition Patient General Information Nutritional Screening Diagnosis Diagnosis Psychotic disorder NOS, dementia and behavioral changes Pertinent Medical Hx/Surgical Hx HTN, benign prostatic hypertrophy, DJD, chronic constipation, dementia, psychosis Subjective Information 57 year old male. Pt is ambulatory and alert. Per nursing staff, pt may be violent at times. Spoke to pt in rec room, pt was pleasant. Pt denied nutritinoal concerns , stated food is good, good appetite, denied GI problems, denied difficulties eating. Accompanied pt to room, bedscale calibrated, CBW 258. 4lb. Pt does appear obese with big belly, no wasting noted. Avg PO intake 100% of meals since adm, meeting nturitinoal needs. Current Diet Order/ Nutrition Support Regular Pertinent Medications Dulcolax, Colace, MOM, Theragran, Ms-Contin, Seroquel , Fleet Enema, vitamin B1 Pertinent Labs 09/08: glucose 132H Nutritional Hx/Data Height 1.73 m Height (Calculated Centimeters) 172.7 Current Weight (lbs) 117.208 kg Weight (Calculated Kilograms) 117.2 Weight (Calculated Grams) 124130.3 [place] Body Weight 154 Recent Weight Change No Weight Status Obese GI Symptoms Food Allergies No Skin Integrity/Comment: Esdras 22. Skin intact. Current %PO Good (75-100%) Estimated Nutritional Goals BEE in Kcals: Adj wt of IBW Calories/Kcals/Kg AdjBW 180.1lb/81.9kg Kcals Calculated 2048-2457kcal (25-30kcal/kg) Protein: Adj wt of IBW Protein Calculated 82g (1g/kg) Fluid: ml 2048-2457ml (1ml/kcal) Nutritional Problem 1. Problem Problem Overweight related to Etiology unknwon, energy imablance, possibly excessive PO intake aeb Signs/Symptoms: BMI 39.9, avg PO intake 100 of meals sicne adm Intervention/Recommendation Comments 1. Continue with current diet order. Avg PO intake is adequate. 2. Monitor weight, BMI 39.3. Expected Outcomes/Goals Expected Outcomes/Goals 1. PO intake continue to meet at least 75% of estimated nutritinoal needs.
--- NOTE | 2017-09-21 23:44 | Progress Notes ---
DATE: 09/21/2017 SUBJECTIVE: Staff was spoken to. The patient is interviewed. Mood is noted to be depressed. Affect is constricted. The patient is isolative and withdrawn. The patient's coping skills at this time are noted to be very poor. The patient is stating that he has been trying to figure it out when he can be discharged, but he states that he is not getting any answers. The patient feels frustrated at this time. No side effects to the medications are noted at this time. The patient is being closely monitored. The patient's last valproic acid level on 09/15/2017 is noted to be 56.1. Plan to repeat the valproic acid level and work with the manager of case management with regards to placement options for this patient. ASSESSMENT: The patient is stabilizing and awaiting placement. PLAN: To continue the patient with the supportive therapy. I encouraged the patient to verbalize the concerns rather than to act out. JOB# [id number]
[2017-09-22] MEDS: Multivitamin Tab PO SCH (08:28)
--- NOTE | 2017-09-22 10:40 | Internal Medicine Prog Note ---
Internal Medicine Subjective - Subjective Service Date: 09/22/17 Patient seen and examined:: with staff (he is doing better.) Patient is:: awake, in bed, confused Per staff patient has:: no adverse event Internal Medicine Objective - Results Result Diagrams: 09/08/17 15:51 09/08/17 15:51 Recent Labs: Laboratory Last Values WBC 9.5 Th/cmm (4.8-10.8) 09/08/17 15:51 RBC 4.75 Mil/cmm (4.30-5.70) 09/08/17 15:51 Hgb 14.8 gm/dL (12-16) 09/08/17 15:51 Hct 43.3 % (41.0-60) 09/08/17 15:51 MCV 91.2 fl (80-99) 09/08/17 15:51 MCH 31.1 pg (26.0-30.0) H 09/08/17 15:51 MCHC Differential 34.1 pg (28.0-36.0) 09/08/17 15:51 RDW 12.4 % (11.5-20.0) 09/08/17 15:51 Plt Count 166 Th/cmm (150-400) 09/08/17 15:51 MPV 10.0 fl 09/08/17 15:51 Neutrophils % 64.4 % (40.0-80.0) 09/08/17 15:51 Lymphocytes % 25.8 % (20.0-50.0) 09/08/17 15:51 Monocytes % 7.9 % (2.0-10.0) 09/08/17 15:51 Eosinophils % 1.0 % (0.0-5.0) 09/08/17 15:51 Basophils % 0.9 % (0.0-2.0) 09/08/17 15:51 Sodium 137 mEq/L (136-145) 09/08/17 15:51 Potassium 4.0 mEq/L (3.5-5.1) 09/08/17 15:51 Chloride 105 mEq/L (98-107) 09/08/17 15:51 Carbon Dioxide 26.7 mEq/L (21.0-31.0) 09/08/17 15:51 Anion Gap 9.3 (7.0-16.0) 09/08/17 15:51 BUN 21 mg/dL (7-25) 09/08/17 15:51 Creatinine 0.8 mg/dL (0.7-1.3) 09/08/17 15:51 Est GFR ( Amer) > 60.0 ml/min (>90) 09/08/17 15:51 Est GFR (Non-Af Amer) > 60.0 ml/min 09/08/17 15:51 BUN/Creatinine Ratio 26.3 09/08/17 15:51 Glucose 132 mg/dL (70-105) H 09/08/17 15:51 Calcium 9.0 mg/dL (8.6-10.3) 09/08/17 15:51 Total Bilirubin 0.5 mg/dL (0.3-1.0) 09/08/17 15:51 AST 27 U/L (13-39) 09/08/17 15:51 ALT 23 U/L (7-52) 09/08/17 15:51 Alkaline Phosphatase 119 U/L (34-104) H 09/08/17 15:51 Total Protein 7.1 gm/dL (6.0-8.3) 09/08/17 15:51 Albumin 4.2 gm/dL (4.2-5.5) 09/08/17 15:51 Globulin 2.9 gm/dL 09/08/17 15:51 Albumin/Globulin Ratio 1.5 (1.0-1.8) 09/08/17 15:51 Triglycerides 77 mg/dL (<150) 09/08/17 15:51 Cholesterol 116 mg/dL (<200) 09/08/17 15:51 LDL Cholesterol Direct 65 mg/dL (75-193) L 09/08/17 15:51 HDL Cholesterol 41 mg/dL (23-92) 09/08/17 15:51 TSH 2.37 uIU/ml (0.34-5.60) 09/08/17 15:51 Urine Source CLEAN C 09/08/17 15:45 Urine Color YELLOW 09/08/17 15:45 Urine Clarity CLEAR (CLEAR) 09/08/17 15:45 Urine pH 6.0 (4.6 - 8.0) 09/08/17 15:45 Ur Specific [place] >= 1.030 (1.005-1.030) 09/08/17 15:45 Urine Protein NEGATIVE mg/dL (NEGATIVE) 09/08/17 15:45 Urine Glucose (UA) NEGATIVE mg/dL (NEGATIVE) 09/08/17 15:45 Urine Ketones NEGATIVE mg/dL (NEGATIVE) 09/08/17 15:45 Urine Blood NEGATIVE (NEGATIVE) 09/08/17 15:45 Urine Nitrate NEGATIVE (NEGATIVE) 09/08/17 15:45 Urine Bilirubin NEGATIVE (NEGATIVE) 09/08/17 15:45 Urine Urobilinogen 0.2 E.U./dL (0.2 - 1.0) 09/08/17 15:45 Ur Leukocyte Esterase NEGATIVE (NEGATIVE) 09/08/17 15:45 Urine RBC NONE SEEN /hpf (0-5) 09/08/17 15:45 Urine WBC NONE SEEN /hpf (0-5) 09/08/17 15:45 Ur Epithelial Cells NONE SEEN /lpf (FEW) 09/08/17 15:45 Urine Bacteria NONE SEEN /hpf (NONE SEEN) 09/08/17 15:45 Valproic Acid 54.0 ug/mL (50.0-100.0) 09/21/17 11:30 RPR NONREACTIVE (NONREACTIVE) 09/08/17 15:51 - Physical Exam Vitals and I&O: Vital Signs Temp 97.9 F 09/22/17 06:17 Pulse 50 09/22/17 06:17 Resp 20 09/22/17 06:17 BP 124/78 09/22/17 06:17 Pulse Ox 96 09/22/17 06:17 Intake & Output 09/21/17 09/22/17 09/22/17 18:59 06:59 18:59 Intake Total 700 360 Output Total 1 Balance 700 359 Intake: Oral 700 360 Output: Urine 1 Other: # Voids 4 1 # Bowel Movements 2 0 Active Medications: Current Medications Acetaminophen (Tylenol) 650 mg PO Q4HR PRN PRN Reason: Mild Pain / Temp above 100 Stop: 11/07/17 20:31 Al Hydrox/Mg Hydrox/Simethicone (Maalox) 30 ml PO Q4HR PRN PRN Reason: GI DISTRESS Stop: 11/07/17 20:31 Amlodipine Besylate (Norvasc) 10 mg PO DAILY [facility] Stop: 11/08/17 11:29 Last Admin: 09/22/17 08:28 Dose: Not Given Aspirin (Aspirin) 325 mg PO DAILY [facility] Stop: 11/09/17 08:59 Last Admin: 09/22/17 08:28 Dose: 325 mg Bisacodyl (Dulcolax 10 Mg Supp) 10 mg RC DAILY PRN PRN Reason: Constipation Stop: 11/08/17 22:51 Divalproex Sodium (Depakote Sprinkle) 500 mg PO BID [facility] PRN Reason: Protocol Stop: 11/08/17 08:59 Last Admin: 09/22/17 08:28 Dose: 500 mg Docusate Sodium (Colace) 100 mg PO DAILY [facility] Stop: 11/08/17 08:59 Last Admin: 09/22/17 08:28 Dose: 100 mg Donepezil HCl (Aricept) 10 mg PO HS [facility] Stop: 11/07/17 20:59 Last Admin: 09/21/17 20:57 Dose: 10 mg Lorazepam (Ativan) 0.5 mg PO Q4HR PRN; Protocol PRN Reason: anxiety and agitation Stop: 10/08/17 20:31 Last Admin: 09/08/17 21:40 Dose: 0.5 mg Magnesium Hydroxide (Milk Of Magnesia) 30 ml PO DAILY PRN PRN Reason: Constipation Stop: 11/12/17 15:52 Memantine (Namenda) 10 mg PO Q12HR [facility] Stop: 11/07/17 20:59 Last Admin: 09/22/17 08:28 Dose: 10 mg Metoprolol Tartrate (Lopressor) 12.5 mg PO BID [facility] Stop: 11/09/17 08:59 Last Admin: 09/22/17 08:29 Dose: Not Given Morphine Sulfate (Ms-Contin) 30 mg PO Q12HR [facility] Stop: 11/07/17 20:59 Last Admin: 09/22/17 08:28 Dose: 30 mg Multivitamins/Vitamin C (Theragran) 1 tab PO DAILY [facility] Stop: 11/08/17 08:59 Last Admin: 09/22/17 08:28 Dose: 1 tab Nitroglycerin (Nitrostat) 0.4 mg SL Q5MIN PRN PRN Reason: Chest Pain Stop: 11/08/17 22:51 Quetiapine Fumarate (Seroquel) 100 mg PO HS [facility] PRN Reason: Protocol Stop: 11/07/17 20:59 Last Admin: 09/21/17 20:57 Dose: 100 mg Quetiapine Fumarate (Seroquel) 100 mg PO DAILY [facility] Stop: 11/17/17 08:59 Last Admin: 09/22/17 08:28 Dose: 100 mg Sodium Phosphate (Fleet Enema) 135 ml RC Q2D PRN PRN Reason: Constipation Stop: 11/08/17 22:51 Tamsulosin HCl (Flomax) 0.4 mg PO HS [facility] Stop: 11/08/17 20:59 Last Admin: 09/21/17 20:57 Dose: 0.4 mg Thiamine HCl (Vitamin B1) 200 mg PO DAILY [facility] Stop: 11/09/17 08:59 Last Admin: 09/22/17 08:28 Dose: 200 mg Zolpidem Tartrate (Ambien) 5 mg PO HS PRN PRN Reason: Insomnia Stop: 11/07/17 20:31 General: demented HEENT: NC/AT, PERRLA, EOMI, anicteric sclerae, throat clear Neck: Supple, No JVD, No thyromegaly Lungs: CTAB Cardiovascular: RRR, Normal S1, Normal S2, without murmur Abdomen: soft, non-tender, non-distended Extremities: clear Neurological: no change Internal Medicine Assmt/Plan - Assessment Assessment: 1.HTN. 2.BPH. 3.DEMENTIA.. - Plan Plan: CONTINUE ON CURRENT MEDICATION AND DIET. Nutritional Asmnt/Malnutr-PDOC - Dietary Evaluation Malnutrition Findings (Please click <Entered> for more info): Nutritional Asmnt/Malnutrition Start: 09/17/17 11: 20 Text: Status: Complete Freq: Document 09/17/17 11:20 GSUN (Rec: 09/17/17 11:36 [email or web address] [email or web address]) Nutritional Asmnt/Malnutrition Patient General Information Nutritional Screening Diagnosis Diagnosis Psychotic disorder NOS, dementia and behavioral changes Pertinent Medical Hx/Surgical Hx HTN, benign prostatic hypertrophy, DJD, chronic constipation, dementia, psychosis Subjective Information 57 year old male. Pt is ambulatory and alert. Per nursing staff, pt may be violent at times. Spoke to pt in rec room, pt was pleasant. Pt denied nutritinoal concerns , stated food is good, good appetite, denied GI problems, denied difficulties eating. Accompanied pt to room, bedscale calibrated, CBW 258. 4lb. Pt does appear obese with big belly, no wasting noted. Avg PO intake 100% of meals since adm, meeting nturitinoal needs. Current Diet Order/ Nutrition Support Regular Pertinent Medications Dulcolax, Colace, MOM, Theragran, Ms-Contin, Seroquel , Fleet Enema, vitamin B1 Pertinent Labs 09/08: glucose 132H Nutritional Hx/Data Height 1.73 m Height (Calculated Centimeters) 172.7 Current Weight (lbs) 117.208 kg Weight (Calculated Kilograms) 117.2 Weight (Calculated Grams) 175090.3 [place] Body Weight 154 Recent Weight Change No Weight Status Obese GI Symptoms Food Allergies No Skin Integrity/Comment: Esdras 22. Skin intact. Current %PO Good (75-100%) Estimated Nutritional Goals BEE in Kcals: Adj wt of IBW Calories/Kcals/Kg AdjBW 180.1lb/81.9kg Kcals Calculated 2048-2457kcal (25-30kcal/kg) Protein: Adj wt of IBW Protein Calculated 82g (1g/kg) Fluid: ml 2048-2457ml (1ml/kcal) Nutritional Problem 1. Problem Problem Overweight related to Etiology unknwon, energy imablance, possibly excessive PO intake aeb Signs/Symptoms: BMI 39.9, avg PO intake 100 of meals sicne adm Intervention/Recommendation Comments 1. Continue with current diet order. Avg PO intake is adequate. 2. Monitor weight, BMI 39.3. Expected Outcomes/Goals Expected Outcomes/Goals 1. PO intake continue to meet at least 75% of estimated nutritinoal needs.
--- NOTE | 2017-09-23 02:06 | Progress Notes ---
DATE: 09/22/2017 SUBJECTIVE: Staff was spoken to. The patient is interviewed. Mood is noted to be anxious. Affect is appropriate. Not suicidal or homicidal. Insight and judgment noted to be improving. Impulse control seems to be fair. Coping skills are also noted fair. The patient is motivated for treatment. The patient has been able to verbalize the concerns rather than to act out at this time. ASSESSMENT: The patient is stabilizing. PLAN: To discharge the patient today for followup on outpatient basis. JOB# [id number]
--- NOTE | 2017-09-23 13:42 | Discharge Summary ---
DATE OF DISCHARGE: 09/22/2017 IDENTIFYING DATA: The patient is a 57-year-old male resident of a senior living facility. JUSTIFICATION OF HOSPITALIZATION: The patient is admitted on a voluntary basis in view of his acute agitation. CHIEF COMPLAINT: "I am having some problems at the facility, I do not know what I can do." DIAGNOSIS AT THE TIME OF ADMISSION: AXIS I: A. Psychotic disorder, not otherwise specified. B. Dementia and behavioral change secondary to it. AXIS II: None. AXIS III: As per Dr. Alves. HISTORY OF PRESENT ILLNESS: Please refer to the 09/09/2017 dictation done by me. Physical examination was done by Dr. Alves and is noted to be significant for hypertension, BPH and hyponatremia. HOSPITAL COURSE AND RESPONSE TO TREATMENT: The patient has been observed on the inpatient unit, provided with supportive psychotherapy. The patient has been closely monitored. The patient has been placed on the valproic acid, which was gradually increased to 500 mg twice a day in view of his mood swings. The patient also has been placed on the Seroquel, which was given at 100 mg twice a day. The patient has with these medications has been observed and placement became an issue. The patient was finally discharged with recommendation that he is going to be seeking treatment on an outpatient basis. MENTAL STATUS EXAMINATION: At the time of discharge, the patient noted to be less irritable. Affect is appropriate. Not suicidal or homicidal. Insight and judgment noted to be improving. Impulse control seems to be fair. Coping skills are also noted to be fair. No major concerns to the medications are noted at the time of the discharge. CONDITION: At the time of discharge is noted to be stable. DIAGNOSES AT THE TIME OF DISCHARGE: AXIS I: Psychotic disorder, not otherwise specified. AXIS II: None. AXIS III: Hypertension, benign prostatic hypertrophy. AFTERCARE PLAN: The patient is discharged to [facility], to be followed up on an outpatient basis. PROGNOSIS: At the time of discharge noted to be guarded. JOB# [id number]
== END 2017-09-22 18:20 | disposition home or self-care (01) | DRG 885 ==
LOC: ER 15:10 → GERO 17:30
PROVIDERS: ADMIT Psychiatry & Neurology Psychiatry; ATTEND Psychiatry & Neurology Psychiatry
DX: F29 Unspecified psychosis not due to a substance or known physiological condition (principal); F03.91 Unspecified dementia, unspecified severity, with behavioral disturbance; E87.1 Hypo-osmolality and hyponatremia; F20.9 Schizophrenia, unspecified; I10 Essential (primary) hypertension; N40.0 Benign prostatic hyperplasia without lower urinary tract symptoms; M19.90 Unspecified osteoarthritis, unspecified site; E78.5 Hyperlipidemia, unspecified; K21.9 Gastro-esophageal reflux disease without esophagitis; F17.210 Nicotine dependence, cigarettes, uncomplicated; F31.9 Bipolar disorder, unspecified; K59.00 Constipation, unspecified; Z88.8 Allergy status to other drugs, medicaments and biological substances; Z83.3 Family history of diabetes mellitus; Z82.49 Family history of ischemic heart disease and other diseases of the circulatory system
CPT/HCPCS: 36415-UA; 80053-TC; 80061-TC; 80164-TC; 81001-TC; 84443-TC; 85025-TC; 86592-TC; 90899; 93005; G0410; J1200; J1630; J2060; Z7610

== ENCOUNTER 2017-11-25 18:34 | Inpatient (IN) | payer MEDICARE, OTHER ==
--- NOTE | 2017-11-25 18:50 | ED Physician Chart ---
ED Chief Complaint/HPI - Patient Information Date Seen:: 11/25/17 Time Seen:: 18:45 Chief Complaint:: aggressive and disruptive behavior History of Present Illness:: Patient according to report has been exhibiting aggressive and disruptive behavior at his long-term care facility. Patient states he has a history of dementia but he knows exact date. Allergies:: Allergies Allergy/AdvReac Type Severity Reaction Status Date / Time cefazolin Allergy Verified 09/08/17 15:22 gemfibrozil Allergy Verified 09/08/17 15:24 simvastatin Allergy Verified 09/08/17 15:23 Historian:: Patient Review:: Nurse's Note Reviewed ED Review of Systems - Review of Systems General/Constitutional: No fever, No chills Skin: No skin lesions Head: No headache Eyes: No loss of vision ENT: No earache Neck: No neck pain Cardio Vascular: No chest pain Pulmonary: No SOB GI: No nausea, No vomiting, No diarrhea G/U: No dysuria Musculoskeletal: No bone or joint pain Endocrine: No polyuria, No polydipsia Psychiatric: Prior psych history Hematopoietic: No bruising ED Past Medical History - Past Medical History Past Medical History: HTN, Dementia Family History: HTN Social History: Non Smoker, Other (formerly drank alcohol but not for many years ) Surgical History: None Psychiatricy History: Dementia Family Medical History - Family Member Mother History Unknown: Yes Father History Unknown: Yes ED Physical Exam - Physical Examination General/Constitutional: Well-developed, well-nourished, Alert, No distress Other Gen/Cons comments:: Patient alert and oriented to the exact date Head: Atraumatic Eyes: Lids, conjuctiva normal, PERRL Skin: Nl inspection, No rash, No skin lesions, No ecchymosis ENMT: External ears, nose nl, Lips, teeth, gums nl, Oropharynx nl Neck: No nuchal rigidity Respiratory: Nl effort/Exclusion, Clear to Auscultation Cardio Vascular: RRR, No murmur, gallop, rubs GI: No tenderness/rebounding/guarding Extremities: Normal digits & nails Other Extremities comments:: 2 out of 4 pretibial pitting edema Neuro/Psych: No focal deficits Misc: Normal back
[2017-11-25 19:08] LABS: % BASOPHILS 0.5 % (0.0-2.0); % EOSINOPHILS 1.2 % (0.0-5.0); % LYMPHOCYTES 30.2 % (20.0-50.0); % MONOCYTES 7.1 % (2.0-10.0); EOSINOPHILE ABSOLUTE 0.1 Th/cmm (0.1-0.4); HEMOGLOBIN 15.5 gm/dL (12-16); MEAN CELL VOLUME 90.6 fl (80-99); MEAN CORPUSCULAR HEMOGLOBIN 30.6 pg (26.0-30.0); MEAN CORPUSCULAR HGB CONC 33.8 pg (28.0-36.0); MEAN PLATELET VOLUME 9.3 fl; MONOCYTE ABSOLUTE 0.7 Th/cmm (0.3-1.0); NEUTROPHILE ABSOLUTE 6.2 Th/cmm (1.8-8.0); PLATELET COUNT 196 Th/cmm (150-400); RED BLOOD COUNT 5.08 Mil/cmm (4.30-5.70); RED CELL DISTRIBUTION WIDTH 12.7 % (11.5-20.0)
[2017-11-25 19:22] LABS: ALB/GLOB RATIO 1.6 (1.0-1.8); ALBUMIN 4.7 gm/dL (4.2-5.5); ALKALINE PHOSPHATASE 116 U/L (34-104); ANION GAP 9.9 (7.0-16.0); BILIRUBIN,TOTAL 0.5 mg/dL (0.3-1.0); BUN - UREA NITROGEN 22 mg/dL (7-25); CALCIUM SERUM 9.8 mg/dL (8.6-10.3); CARBON DIOXIDE 26.2 mEq/L (21.0-31.0); CHLORIDE 108 mEq/L (98-107); CHOLESTEROL 150 mg/dL (<200); CREATININE - SERUM 0.8 mg/dL (0.7-1.3); GFR AFRICAN-AMERICAN > 60.0 ml/min (>90); GFR NON AFRICAN-AMERICAN > 60.0 ml/min; GLUCOSE 100 mg/dL (70-105); HDL -HIGH DENSITY LIPOPROTEIN 51 mg/dL (23-92); POTASSIUM SERUM 4.1 mEq/L (3.5-5.1); SGOT 23 U/L (13-39); SGPT/ALT 24 U/L (7-52); SODIUM SERUM 140 mEq/L (136-145); TOTAL PROTEIN,SERUM 7.6 gm/dL (6.0-8.3); TRIGLYCERIDES 128 mg/dL (<150)
[2017-11-25 22:15] VITALS: BP 169/98
[2017-11-25] MEDS ORDERED: Maalox 30 mL Cup PO PRN (22:15)
[2017-11-25] MEDS ORDERED: Magnesium Hydroxide (MOM) 30 mL UDC PO PRN (22:15)
[2017-11-26] MEDS ORDERED: Magnesium Hydroxide (MOM) 30 mL UDC PO PRN ×2 (02:50→15:47)
[2017-11-26] MEDS ORDERED: Maalox 30 mL Cup PO PRN ×2 (02:50→15:47)
[2017-11-26] MEDS ORDERED: Multivitamin Tab PO SCH (09:00)
[2017-11-26] MEDS: Multivitamin Tab PO SCH (09:33)
--- NOTE | 2017-11-26 10:24 | Psychosocial Evaluation ---
DATE OF SERVICE: 11/25/2017 IDENTIFYING DATA: The patient is a 57-year-old male, resident of [facility]. Information obtained by directly interviewing the patient as well as reviewing the admission papers and they are reliable. JUSTIFICATION OF HOSPITALIZATION: The patient is admitted over here for aggression and disruptive behavior. CHIEF COMPLAINT: "I don't care, they brought me in here for no reason." HISTORY OF PRESENT ILLNESS: This is the second psychiatric hospitalization for this patient who was hospitalized under my care in August. The patient is reported to have been out of control, has been screaming and yelling and could not be contained at a lower level of care. At the time of the hospitalization, the patient has been on Depakote 500 mg twice a day and the patient also has been getting the Aricept and Namenda. The patient has also been on 100 mg twice a day of the Seroquel, even with all the medications patient has been having difficult time to cope with the stress. The patient has been testing the limits, screaming and yelling and getting easily agitated. Sleep and appetite prior to the hospitalization are reported to be poor. The patient could not be contained and hence has been referred at higher level of care. PAST PSYCHIATRIC HISTORY: Please refer to the above. The patient was here in August of this year. MEDICAL HISTORY AND PHYSICAL EXAMINATION: Requested and done by Dr. Alves. SUBSTANCE ABUSE HISTORY: None. PHYSICAL OR SEXUAL ABUSE HISTORY: None. LEGAL PROBLEMS: None at this time. STRENGTH AND ASSETS: The patient seems to be in good physical health. MENTAL STATUS EXAMINATION: The patient is a 57-year-old male, well built, superficially cooperative. The patient is screaming and yelling and stating that for no reason he was brought over here. The patient has no insight into his illness. The patient is paranoid at this time and is testing the limits. The patient is stating that he does not want to go to a different place but he wants to go to the same place, but the patient is stating that they are trying to force him to leave the place. The patient is alert and oriented x 3. Short and long-term are noted to be intact. DIAGNOSTIC IMPRESSION: AXIS I: 1a. Psychotic disorder, not otherwise specified. 1b. Rule out schizoaffective disorder. AXIS II: None. AXIS III: As per Dr. Alves. IMMEDIATE TREATMENT PLAN: The patient is going to be observed on inpatient unit, provided with supportive psychotherapy. The patient is going to be closely monitored and encouraged to participate in the groups and verbalize the concerns. The patient is going to be continued on the current medications such as the Seroquel and Depakote. ESTIMATED LENGTH OF STAY: Three to five days. DISCHARGE CRITERIA: When patient is no longer a threat to self or others and be able to cope up with the stress. [facility]# [id number]
[2017-11-26] MEDS ORDERED: Fleet Enema 135 mL RC PRN (15:47)
--- NOTE | 2017-11-26 18:46 | History & Physical ---
ADMIT DATE: 11/26/2017 HISTORY OF PRESENT ILLNESS: The patient is a 57-year-old male with long history of dementia, psychosis, hypertension, degenerative joint disease, chronic back pain, admitted to [facility] under Dr. Franklin's service for evaluation and treatment. The patient denies any pain, shortness of breath, nausea, vomiting, fever or chills. PAST MEDICAL HISTORY: Significant for hypertension, chronic back pain, degenerative joint disease, dementia and psychosis. PAST SURGICAL HISTORY: Left knee surgery. ALLERGIES: CEFAZOLIN, GEMFIBROZIL, SIMVASTATIN. SOCIAL HISTORY: No smoking, no alcohol, no drugs. FAMILY HISTORY: Noncontributory. REVIEW OF SYSTEMS: RENAL SYSTEM: No history of chronic renal disorder. CARDIOVASCULAR SYSTEM: He has history of hypertension. ENDOCRINE SYSTEM: No diabetes or thyroid problem. GASTROINTESTINAL SYSTEM: No upper or lower gastrointestinal bleed. NEUROLOGICAL SYSTEM: History of mild dementia, psychosis. MUSCULOSKELETAL SYSTEM: Has degenerative joint disease, chronic back pain. HEMATOLOGIC SYSTEM: No bleeding tendencies. RESPIRATORY SYSTEM: No asthma. GENITOURINARY: He has benign prostatic hypertrophy. PHYSICAL EXAMINATION: GENERAL: He is awake, alert, mildly confused. VITAL SIGNS: His temperature is 98, heart rate 60, blood pressure 146/84. HEENT: Normocephalic. Pupils reactive to light and accommodation. Sclerae clear. NECK: Supple. Negative for lymphadenopathy, JVD or bruit. CHEST: Bilaterally normal. No rhonchi or wheezing. HEART: S1, S2 normal. No murmur or gallop. ABDOMEN: Soft, bowel sounds positive. EXTREMITIES: No edema. BACK: . SKIN: Intact. GENITALIA AND RECTAL: Done by primary physician. No complaint. NEUROLOGIC: Awake, alert, oriented. Cranial nerves 2-12 is intact. ASSESSMENT: 1. Hypertension. 2. Benign prostatic hypertrophy. 3. Degenerative joint disease. 4. Dementia. 5. Psychosis. PLAN: The patient in the hospital under Dr. Franklin's service. MEDICAL PROBLEMS ADDRESSED DURING HOSPITALIZATION: Dementia, psychosis. MEDICAL PROBLEMS ADDRESSED AT DISCHARGE: Hypertension, benign prostatic hypertrophy, degenerative joint disease, chronic back pain. The patient is cleared for treatment. [facility]# [id number]
[2017-11-27] MEDS ORDERED: Multivitamin Tab PO SCH (09:00)
[2017-11-27] MEDS: Multivitamin Tab PO SCH (10:15)
--- NOTE | 2017-11-27 18:57 | Internal Medicine Prog Note ---
Internal Medicine Subjective - Subjective Service Date: 11/27/17 Patient seen and examined:: without staff Patient is:: awake, verbal, talking, confused Per staff patient has:: no adverse event Internal Medicine Objective - Results Result Diagrams: 11/25/17 18:59 11/25/17 18:59 Recent Labs: Laboratory Last Values WBC 10.0 Th/cmm (4.8-10.8) 11/25/17 18:59 RBC 5.08 Mil/cmm (4.30-5.70) 11/25/17 18:59 Hgb 15.5 gm/dL (12-16) 11/25/17 18:59 Hct 46.0 % (41.0-60) 11/25/17 18:59 MCV 90.6 fl (80-99) 11/25/17 18:59 MCH 30.6 pg (26.0-30.0) H 11/25/17 18:59 MCHC Differential 33.8 pg (28.0-36.0) 11/25/17 18:59 RDW 12.7 % (11.5-20.0) 11/25/17 18:59 Plt Count 196 Th/cmm (150-400) 11/25/17 18:59 MPV 9.3 fl 11/25/17 18:59 Neutrophils % 61.0 % (40.0-80.0) 11/25/17 18:59 Lymphocytes % 30.2 % (20.0-50.0) 11/25/17 18:59 Monocytes % 7.1 % (2.0-10.0) 11/25/17 18:59 Eosinophils % 1.2 % (0.0-5.0) 11/25/17 18:59 Basophils % 0.5 % (0.0-2.0) 11/25/17 18:59 Sodium 140 mEq/L (136-145) 11/25/17 18:59 Potassium 4.1 mEq/L (3.5-5.1) 11/25/17 18:59 Chloride 108 mEq/L (98-107) H 11/25/17 18:59 Carbon Dioxide 26.2 mEq/L (21.0-31.0) 11/25/17 18:59 Anion Gap 9.9 (7.0-16.0) 11/25/17 18:59 BUN 22 mg/dL (7-25) 11/25/17 18:59 Creatinine 0.8 mg/dL (0.7-1.3) 11/25/17 18:59 Est GFR ( Amer) > 60.0 ml/min (>90) 11/25/17 18:59 Est GFR (Non-Af Amer) > 60.0 ml/min 11/25/17 18:59 BUN/Creatinine Ratio 27.5 11/25/17 18:59 Glucose 100 mg/dL (70-105) 11/25/17 18:59 Calcium 9.8 mg/dL (8.6-10.3) 11/25/17 18:59 Total Bilirubin 0.5 mg/dL (0.3-1.0) 11/25/17 18:59 AST 23 U/L (13-39) 11/25/17 18:59 ALT 24 U/L (7-52) 11/25/17 18:59 Alkaline Phosphatase 116 U/L (34-104) H 11/25/17 18:59 Total Protein 7.6 gm/dL (6.0-8.3) 11/25/17 18:59 Albumin 4.7 gm/dL (4.2-5.5) 11/25/17 18:59 Globulin 2.9 gm/dL 11/25/17 18:59 Albumin/Globulin Ratio 1.6 (1.0-1.8) 11/25/17 18:59 Triglycerides 128 mg/dL (<150) 11/25/17 18:59 Cholesterol 150 mg/dL (<200) 11/25/17 18:59 LDL Cholesterol Direct 91 mg/dL (75-193) 11/25/17 18:59 HDL Cholesterol 51 mg/dL (23-92) 11/25/17 18:59 TSH 4.03 uIU/ml (0.34-5.60) 11/25/17 18:59 - Physical Exam Vitals and I&O: Vital Signs Temp 97.6 F 11/27/17 15:20 Pulse 58 11/27/17 16:52 Resp 20 11/27/17 15:20 BP 119/81 11/27/17 16:52 Pulse Ox 99 11/27/17 15:20 Intake & Output 11/26/17 11/27/17 11/27/17 18:59 06:59 18:59 Intake Total 9755 454 3103 Balance 7126 197 4063 Intake: Oral 5920 055 7667 Other: # Voids 3 3 3 Active Medications: Current Medications Acetaminophen (Tylenol) 650 mg PO Q4HR PRN PRN Reason: Mild Pain / Temp above 100 Stop: 01/25/18 15:46 Al Hydrox/Mg Hydrox/Simethicone (Maalox) 30 ml PO Q4HR PRN PRN Reason: GI DISTRESS Stop: 01/25/18 15:46 Amlodipine Besylate (Norvasc) 10 mg PO DAILY [facility] Stop: 01/26/18 08:59 Last Admin: 11/27/17 10:14 Dose: 10 mg Aspirin (Aspirin) 325 mg PO DAILY [facility] Stop: 01/26/18 08:59 Last Admin: 11/27/17 10:14 Dose: 325 mg Bisacodyl (Dulcolax 10 Mg Supp) 10 mg RC DAILY PRN PRN Reason: Constipation Stop: 01/25/18 15:46 Divalproex Sodium (Depakote Dr) 500 mg PO BID [facility] PRN Reason: Protocol Stop: 01/25/18 08:59 Last Admin: 11/27/17 16:53 Dose: 500 mg Docusate Sodium (Colace) 100 mg PO DAILY [facility] Stop: 01/25/18 08:59 Last Admin: 11/27/17 10:15 Dose: 100 mg Lorazepam (Ativan) 0.5 mg PO Q6HR PRN; Protocol PRN Reason: Anxiety Stop: 12/26/17 02:49 Magnesium Hydroxide (Milk Of Magnesia) 30 ml PO HS PRN PRN Reason: Constipation Metoprolol Tartrate (Lopressor) 12.5 mg PO BID [facility] Stop: 01/25/18 16:59 Last Admin: 11/27/17 16:52 Dose: 12.5 mg Morphine Sulfate (Ms-Contin) 30 mg PO Q12HR [facility] Stop: 01/25/18 20:59 Last Admin: 11/27/17 10:15 Dose: 30 mg Multivitamins/Vitamin C (Theragran) 1 tab PO DAILY [facility] Stop: 01/25/18 08:59 Last Admin: 11/27/17 10:15 Dose: 1 tab Nitroglycerin (Nitrostat) 0.4 mg SL Q5MIN PRN PRN Reason: Chest Pain Stop: 01/25/18 15:46 Quetiapine Fumarate (Seroquel) 100 mg PO DAILY [facility] PRN Reason: Protocol Stop: 01/25/18 08:59 Last Admin: 11/27/17 10:15 Dose: 100 mg Quetiapine Fumarate (Seroquel) 100 mg PO HS [facility] PRN Reason: Protocol Stop: 01/25/18 20:59 Last Admin: 11/26/17 20:40 Dose: 100 mg Sodium Phosphate (Fleet Enema) 135 ml RC Q2D PRN PRN Reason: Constipation Stop: 01/25/18 15:46 Tamsulosin HCl (Flomax) 0.4 mg PO HS [facility] Stop: 01/25/18 20:59 Last Admin: 11/26/17 20:40 Dose: 0.4 mg Thiamine HCl (Vitamin B1) 200 mg PO DAILY [facility] Stop: 01/26/18 08:59 Last Admin: 11/27/17 10:15 Dose: 200 mg Zolpidem Tartrate (Ambien) 5 mg PO HS PRN PRN Reason: Insomnia Stop: 01/25/18 15:46 Last Admin: 11/26/17 20:41 Dose: 5 mg General: obese HEENT: PERRLA, EOMI, anicteric sclerae, throat clear Neck: Supple, No JVD, No thyromegaly, +2 carotid pulse wo bruit Lungs: CTAB Cardiovascular: Normal S1, Normal S2, without murmur Abdomen: soft, non-tender, non-distended Neurological: no change Internal Medicine Assmt/Plan - Assessment Assessment: 1.HTN. 2.BPH. 3.DJD. 4.DEMENTIA. - Plan Plan: CONTINUE ON CURRENT MEDICATION AND DIET.
--- NOTE | 2017-11-27 21:32 | Progress Notes ---
DATE: 11/27/2017 SUBJECTIVE: Staff was spoken to. The patient is interviewed. Mood is noted to be irritable. Affect is constricted. The patient is still testing the limits. Insight and judgment at this time are noted to be very much impaired. Impulse control is noted to be poor. Coping skills are also noted to be poor. The patient has no coping skills. The patient is still testing the limits. The patient needs to be redirected at this time. The patient is currently on the amlodipine for his blood pressure and getting the Depakote 500 mg twice a day and Seroquel 100 mg in the morning and 100 mg at bedtime. With these medications, the patient is observed. The patient has been mentioned that we will be working with the placement to see if they are going to be taking him back or not. ASSESSMENT AND PLAN: The patient is still psychotic and impulsive. PLAN: To continue the patient with the supportive therapy and followup. JOB# [id number]
[2017-11-28] MEDS: Multivitamin Tab PO SCH (09:13)
--- NOTE | 2017-11-28 12:37 | Internal Medicine Prog Note ---
Internal Medicine Subjective - Subjective Service Date: 11/28/17 Patient seen and examined:: without staff Patient is:: awake, verbal, talking, confused Per staff patient has:: no adverse event Internal Medicine Objective - Results Result Diagrams: 11/25/17 18:59 11/25/17 18:59 Recent Labs: Laboratory Last Values WBC 10.0 Th/cmm (4.8-10.8) 11/25/17 18:59 RBC 5.08 Mil/cmm (4.30-5.70) 11/25/17 18:59 Hgb 15.5 gm/dL (12-16) 11/25/17 18:59 Hct 46.0 % (41.0-60) 11/25/17 18:59 MCV 90.6 fl (80-99) 11/25/17 18:59 MCH 30.6 pg (26.0-30.0) H 11/25/17 18:59 MCHC Differential 33.8 pg (28.0-36.0) 11/25/17 18:59 RDW 12.7 % (11.5-20.0) 11/25/17 18:59 Plt Count 196 Th/cmm (150-400) 11/25/17 18:59 MPV 9.3 fl 11/25/17 18:59 Neutrophils % 61.0 % (40.0-80.0) 11/25/17 18:59 Lymphocytes % 30.2 % (20.0-50.0) 11/25/17 18:59 Monocytes % 7.1 % (2.0-10.0) 11/25/17 18:59 Eosinophils % 1.2 % (0.0-5.0) 11/25/17 18:59 Basophils % 0.5 % (0.0-2.0) 11/25/17 18:59 Sodium 140 mEq/L (136-145) 11/25/17 18:59 Potassium 4.1 mEq/L (3.5-5.1) 11/25/17 18:59 Chloride 108 mEq/L (98-107) H 11/25/17 18:59 Carbon Dioxide 26.2 mEq/L (21.0-31.0) 11/25/17 18:59 Anion Gap 9.9 (7.0-16.0) 11/25/17 18:59 BUN 22 mg/dL (7-25) 11/25/17 18:59 Creatinine 0.8 mg/dL (0.7-1.3) 11/25/17 18:59 Est GFR ( Amer) > 60.0 ml/min (>90) 11/25/17 18:59 Est GFR (Non-Af Amer) > 60.0 ml/min 11/25/17 18:59 BUN/Creatinine Ratio 27.5 11/25/17 18:59 Glucose 100 mg/dL (70-105) 11/25/17 18:59 Calcium 9.8 mg/dL (8.6-10.3) 11/25/17 18:59 Total Bilirubin 0.5 mg/dL (0.3-1.0) 11/25/17 18:59 AST 23 U/L (13-39) 11/25/17 18:59 ALT 24 U/L (7-52) 11/25/17 18:59 Alkaline Phosphatase 116 U/L (34-104) H 11/25/17 18:59 Total Protein 7.6 gm/dL (6.0-8.3) 11/25/17 18:59 Albumin 4.7 gm/dL (4.2-5.5) 11/25/17 18:59 Globulin 2.9 gm/dL 11/25/17 18:59 Albumin/Globulin Ratio 1.6 (1.0-1.8) 11/25/17 18:59 Triglycerides 128 mg/dL (<150) 11/25/17 18:59 Cholesterol 150 mg/dL (<200) 11/25/17 18:59 LDL Cholesterol Direct 91 mg/dL (75-193) 11/25/17 18:59 HDL Cholesterol 51 mg/dL (23-92) 11/25/17 18:59 TSH 4.03 uIU/ml (0.34-5.60) 11/25/17 18:59 RPR NONREACTIVE (NONREACTIVE) 11/25/17 18:59 - Physical Exam Vitals and I&O: Vital Signs Temp 97.6 F 11/27/17 15:20 Pulse 84 11/28/17 09:12 Resp 20 11/27/17 15:20 BP 120/68 11/28/17 09:12 Pulse Ox 99 11/27/17 15:20 Intake & Output 11/27/17 11/28/17 11/28/17 18:59 06:59 18:59 Intake Total 1200 Balance 1200 Intake: Oral 1200 Other: # Voids 3 Active Medications: Current Medications Acetaminophen (Tylenol) 650 mg PO Q4HR PRN PRN Reason: Mild Pain / Temp above 100 Stop: 01/25/18 15:46 Al Hydrox/Mg Hydrox/Simethicone (Maalox) 30 ml PO Q4HR PRN PRN Reason: GI DISTRESS Stop: 01/25/18 15:46 Amlodipine Besylate (Norvasc) 10 mg PO DAILY [facility] Stop: 01/26/18 08:59 Last Admin: 11/28/17 09:09 Dose: 10 mg Aspirin (Aspirin) 325 mg PO DAILY [facility] Stop: 01/26/18 08:59 Last Admin: 11/28/17 09:12 Dose: 325 mg Bisacodyl (Dulcolax 10 Mg Supp) 10 mg RC DAILY PRN PRN Reason: Constipation Stop: 01/25/18 15:46 Divalproex Sodium (Depakote Dr) 500 mg PO BID [facility] PRN Reason: Protocol Stop: 01/25/18 08:59 Last Admin: 11/28/17 09:10 Dose: 500 mg Docusate Sodium (Colace) 100 mg PO DAILY [facility] Stop: 01/25/18 08:59 Last Admin: 11/28/17 09:14 Dose: 100 mg Lorazepam (Ativan) 0.5 mg PO Q6HR PRN; Protocol PRN Reason: Anxiety Stop: 12/26/17 02:49 Magnesium Hydroxide (Milk Of Magnesia) 30 ml PO HS PRN PRN Reason: Constipation Metoprolol Tartrate (Lopressor) 12.5 mg PO BID [facility] Stop: 01/25/18 16:59 Last Admin: 11/28/17 09:12 Dose: 12.5 mg Morphine Sulfate (Ms-Contin) 30 mg PO Q12HR [facility] Stop: 01/25/18 20:59 Last Admin: 11/28/17 09:10 Dose: 30 mg Multivitamins/Vitamin C (Theragran) 1 tab PO DAILY [facility] Stop: 01/25/18 08:59 Last Admin: 11/28/17 09:13 Dose: 1 tab Mupirocin (Bactroban Oint) 1 appl NS BID [facility] Stop: 12/02/17 09:01 Last Admin: 11/28/17 10:05 Dose: Not Given Nitroglycerin (Nitrostat) 0.4 mg SL Q5MIN PRN PRN Reason: Chest Pain Stop: 01/25/18 15:46 Quetiapine Fumarate (Seroquel) 100 mg PO DAILY [facility] PRN Reason: Protocol Stop: 01/25/18 08:59 Last Admin: 11/28/17 09:10 Dose: 100 mg Quetiapine Fumarate (Seroquel) 100 mg PO HS [facility] PRN Reason: Protocol Stop: 01/25/18 20:59 Last Admin: 11/27/17 20:24 Dose: 100 mg Sodium Phosphate (Fleet Enema) 135 ml RC Q2D PRN PRN Reason: Constipation Stop: 01/25/18 15:46 Tamsulosin HCl (Flomax) 0.4 mg PO HS [facility] Stop: 01/25/18 20:59 Last Admin: 11/27/17 20:22 Dose: 0.4 mg Thiamine HCl (Vitamin B1) 200 mg PO DAILY [facility] Stop: 01/26/18 08:59 Last Admin: 11/28/17 09:12 Dose: 200 mg Zolpidem Tartrate (Ambien) 5 mg PO HS PRN PRN Reason: Insomnia Stop: 01/25/18 15:46 Last Admin: 11/26/17 20:41 Dose: 5 mg General: alert, obese HEENT: PERRLA, EOMI, anicteric sclerae, throat clear Neck: Supple, No JVD, No thyromegaly, +2 carotid pulse wo bruit Lungs: CTAB Cardiovascular: Normal S1, Normal S2, without murmur Abdomen: soft, non-tender, non-distended Neurological: no change Internal Medicine Assmt/Plan - Assessment Assessment: 1.HTN. 2.BPH. 3.DJD. 4.DEMENTIA. - Plan Plan: CONTINUE ON CURRENT MEDICATION AND DIET.
--- NOTE | 2017-11-28 15:48 | Progress Notes ---
DATE: 11/28/2017 SUBJECTIVE: Staff was spoken to. The patient is interviewed. Mood is ____. Affect is constricted. Coping skills are noted to be very poor. Sleep and appetite are also noted to be very poor. The patient has been having difficult time with the stress. The patient is irritable and angry at this time. The patient is stating that she could not figure it out why they have to send him over here. ASSESSMENT: The patient is still impulsive and not able to contract for safety. PLAN: To continue the patient with the supportive therapy and encouraged the patient to verbalize the concerns rather than to act out. JOB# [id number]
[2017-11-29] MEDS: Multivitamin Tab PO SCH (08:08)
--- NOTE | 2017-11-29 17:13 | Internal Medicine Prog Note ---
Internal Medicine Subjective - Subjective Service Date: 11/29/17 Patient seen and examined:: with staff (HE FEELS BETTER) Patient is:: awake, verbal, talking, confused Per staff patient has:: no adverse event Internal Medicine Objective - Results Result Diagrams: 11/25/17 18:59 11/25/17 18:59 Recent Labs: Laboratory Last Values WBC 10.0 Th/cmm (4.8-10.8) 11/25/17 18:59 RBC 5.08 Mil/cmm (4.30-5.70) 11/25/17 18:59 Hgb 15.5 gm/dL (12-16) 11/25/17 18:59 Hct 46.0 % (41.0-60) 11/25/17 18:59 MCV 90.6 fl (80-99) 11/25/17 18:59 MCH 30.6 pg (26.0-30.0) H 11/25/17 18:59 MCHC Differential 33.8 pg (28.0-36.0) 11/25/17 18:59 RDW 12.7 % (11.5-20.0) 11/25/17 18:59 Plt Count 196 Th/cmm (150-400) 11/25/17 18:59 MPV 9.3 fl 11/25/17 18:59 Neutrophils % 61.0 % (40.0-80.0) 11/25/17 18:59 Lymphocytes % 30.2 % (20.0-50.0) 11/25/17 18:59 Monocytes % 7.1 % (2.0-10.0) 11/25/17 18:59 Eosinophils % 1.2 % (0.0-5.0) 11/25/17 18:59 Basophils % 0.5 % (0.0-2.0) 11/25/17 18:59 Sodium 140 mEq/L (136-145) 11/25/17 18:59 Potassium 4.1 mEq/L (3.5-5.1) 11/25/17 18:59 Chloride 108 mEq/L (98-107) H 11/25/17 18:59 Carbon Dioxide 26.2 mEq/L (21.0-31.0) 11/25/17 18:59 Anion Gap 9.9 (7.0-16.0) 11/25/17 18:59 BUN 22 mg/dL (7-25) 11/25/17 18:59 Creatinine 0.8 mg/dL (0.7-1.3) 11/25/17 18:59 Est GFR ( Amer) > 60.0 ml/min (>90) 11/25/17 18:59 Est GFR (Non-Af Amer) > 60.0 ml/min 11/25/17 18:59 BUN/Creatinine Ratio 27.5 11/25/17 18:59 Glucose 100 mg/dL (70-105) 11/25/17 18:59 Calcium 9.8 mg/dL (8.6-10.3) 11/25/17 18:59 Total Bilirubin 0.5 mg/dL (0.3-1.0) 11/25/17 18:59 AST 23 U/L (13-39) 11/25/17 18:59 ALT 24 U/L (7-52) 11/25/17 18:59 Alkaline Phosphatase 116 U/L (34-104) H 11/25/17 18:59 Total Protein 7.6 gm/dL (6.0-8.3) 11/25/17 18:59 Albumin 4.7 gm/dL (4.2-5.5) 11/25/17 18:59 Globulin 2.9 gm/dL 11/25/17 18:59 Albumin/Globulin Ratio 1.6 (1.0-1.8) 11/25/17 18:59 Triglycerides 128 mg/dL (<150) 11/25/17 18:59 Cholesterol 150 mg/dL (<200) 11/25/17 18:59 LDL Cholesterol Direct 91 mg/dL (75-193) 11/25/17 18:59 HDL Cholesterol 51 mg/dL (23-92) 11/25/17 18:59 TSH 4.03 uIU/ml (0.34-5.60) 11/25/17 18:59 RPR NONREACTIVE (NONREACTIVE) 11/25/17 18:59 - Physical Exam Vitals and I&O: Vital Signs Temp 99.6 F 11/29/17 15:07 Pulse 62 11/29/17 16:56 Resp 18 11/29/17 15:07 BP 142/74 11/29/17 16:56 Pulse Ox 97 11/29/17 15:07 Intake & Output 11/28/17 11/29/17 11/29/17 18:59 06:59 18:59 Intake Total 2400 120 Balance 2400 120 Intake: Oral 2400 120 Other: # Voids 4 3 # Bowel Movements 1 Active Medications: Current Medications Acetaminophen (Tylenol) 650 mg PO Q4HR PRN PRN Reason: Mild Pain / Temp above 100 Stop: 01/25/18 15:46 Al Hydrox/Mg Hydrox/Simethicone (Maalox) 30 ml PO Q4HR PRN PRN Reason: GI DISTRESS Stop: 01/25/18 15:46 Amlodipine Besylate (Norvasc) 10 mg PO DAILY [facility] Stop: 01/26/18 08:59 Last Admin: 11/29/17 08:08 Dose: 10 mg Aspirin (Aspirin) 325 mg PO DAILY [facility] Stop: 01/26/18 08:59 Last Admin: 11/29/17 08:10 Dose: 325 mg Bisacodyl (Dulcolax 10 Mg Supp) 10 mg RC DAILY PRN PRN Reason: Constipation Stop: 01/25/18 15:46 Divalproex Sodium (Depakote Dr) 500 mg PO BID [facility] PRN Reason: Protocol Stop: 01/25/18 08:59 Last Admin: 11/29/17 16:56 Dose: 500 mg Docusate Sodium (Colace) 100 mg PO DAILY [facility] Stop: 01/25/18 08:59 Last Admin: 11/29/17 08:07 Dose: 100 mg Lorazepam (Ativan) 0.5 mg PO Q6HR PRN; Protocol PRN Reason: Anxiety Stop: 12/26/17 02:49 Magnesium Hydroxide (Milk Of Magnesia) 30 ml PO HS PRN PRN Reason: Constipation Metoprolol Tartrate (Lopressor) 12.5 mg PO BID [facility] Stop: 01/25/18 16:59 Last Admin: 11/29/17 16:56 Dose: 12.5 mg Morphine Sulfate (Ms-Contin) 30 mg PO Q12HR [facility] Stop: 01/25/18 20:59 Last Admin: 11/29/17 08:10 Dose: 30 mg Multivitamins/Vitamin C (Theragran) 1 tab PO DAILY [facility] Stop: 01/25/18 08:59 Last Admin: 11/29/17 08:08 Dose: 1 tab Mupirocin (Bactroban Oint) 1 appl NS BID [facility] Stop: 12/02/17 09:01 Last Admin: 11/29/17 17:06 Dose: 1 appl Nitroglycerin (Nitrostat) 0.4 mg SL Q5MIN PRN PRN Reason: Chest Pain Stop: 01/25/18 15:46 Quetiapine Fumarate (Seroquel) 100 mg PO DAILY [facility] PRN Reason: Protocol Stop: 01/25/18 08:59 Last Admin: 11/29/17 08:08 Dose: 100 mg Quetiapine Fumarate (Seroquel) 100 mg PO HS [facility] PRN Reason: Protocol Stop: 01/25/18 20:59 Last Admin: 11/28/17 20:34 Dose: 100 mg Sodium Phosphate (Fleet Enema) 135 ml RC Q2D PRN PRN Reason: Constipation Stop: 01/25/18 15:46 Tamsulosin HCl (Flomax) 0.4 mg PO HS [facility] Stop: 01/25/18 20:59 Last Admin: 11/28/17 20:34 Dose: 0.4 mg Thiamine HCl (Vitamin B1) 200 mg PO DAILY [facility] Stop: 01/26/18 08:59 Last Admin: 11/29/17 08:10 Dose: 200 mg Zolpidem Tartrate (Ambien) 5 mg PO HS PRN PRN Reason: Insomnia Stop: 01/25/18 15:46 Last Admin: 11/26/17 20:41 Dose: 5 mg General: alert, obese HEENT: PERRLA, EOMI, anicteric sclerae, throat clear Neck: Supple, No JVD, No thyromegaly, +2 carotid pulse wo bruit Lungs: CTAB Cardiovascular: Normal S1, Normal S2, without murmur Abdomen: soft, non-tender, non-distended Neurological: no change Internal Medicine Assmt/Plan - Assessment Assessment: 1.HTN. 2.BPH. 3.DJD. 4.DEMENTIA. - Plan Plan: CONTINUE ON CURRENT MEDICATION AND DIET.
--- NOTE | 2017-11-29 23:05 | Progress Notes ---
DATE: 11/29/2017 SUBJECTIVE: Staff was spoken to. The patient is interviewed. Mood is noted to be irritable. Affect is constricted. Insight and judgment at this time are noted to be still impaired. Impulse control is poor. The patient is still testing the limits. The patient is currently on 100 mg twice a day of the Seroquel and has been able to tolerate the medications. No side effects to the medications are noted. Aggressive behavior is a concern at this time. ASSESSMENT: The patient is still impulsive. Coping skills are noted to be very poor. PLAN: The patient is being closely monitored and we are going to follow up on the Depakote level of this patient. JOB# [id number]
[2017-11-30] MEDS: Multivitamin Tab PO SCH (10:41)
--- NOTE | 2017-11-30 14:10 | Progress Notes ---
DATE: 11/30/2017 SUBJECTIVE: Staff was spoken to. The patient is interviewed. Mood is noted to be irritable. Affect is constricted. Coping skills are noted to be poor. The patient is still testing the limits. The patient gets easily agitated. No side effects to the medications are noted. The patient has been pacing on the unit most of the time. The patient is currently on the valproic acid and Seroquel 100 mg in the morning and 100 mg at bedtime. In view of his impulsivity and paranoia, it is decided to change the Seroquel nighttime dose to 200 mg and continue the patient with the supportive therapy, encouraged the patient to verbalize the concerns rather than to act out. Please note that the patient is not ready to be discharged to a lower level of care yet. [facility]# [id number]
--- NOTE | 2017-11-30 23:27 | Internal Medicine Prog Note ---
Internal Medicine Subjective - Subjective Service Date: 11/30/17 Patient seen and examined:: without staff Patient is:: awake, verbal, talking, confused Per staff patient has:: no adverse event Internal Medicine Objective - Results Result Diagrams: 11/25/17 18:59 11/25/17 18:59 Recent Labs: Laboratory Last Values WBC 10.0 Th/cmm (4.8-10.8) 11/25/17 18:59 RBC 5.08 Mil/cmm (4.30-5.70) 11/25/17 18:59 Hgb 15.5 gm/dL (12-16) 11/25/17 18:59 Hct 46.0 % (41.0-60) 11/25/17 18:59 MCV 90.6 fl (80-99) 11/25/17 18:59 MCH 30.6 pg (26.0-30.0) H 11/25/17 18:59 MCHC Differential 33.8 pg (28.0-36.0) 11/25/17 18:59 RDW 12.7 % (11.5-20.0) 11/25/17 18:59 Plt Count 196 Th/cmm (150-400) 11/25/17 18:59 MPV 9.3 fl 11/25/17 18:59 Neutrophils % 61.0 % (40.0-80.0) 11/25/17 18:59 Lymphocytes % 30.2 % (20.0-50.0) 11/25/17 18:59 Monocytes % 7.1 % (2.0-10.0) 11/25/17 18:59 Eosinophils % 1.2 % (0.0-5.0) 11/25/17 18:59 Basophils % 0.5 % (0.0-2.0) 11/25/17 18:59 Sodium 140 mEq/L (136-145) 11/25/17 18:59 Potassium 4.1 mEq/L (3.5-5.1) 11/25/17 18:59 Chloride 108 mEq/L (98-107) H 11/25/17 18:59 Carbon Dioxide 26.2 mEq/L (21.0-31.0) 11/25/17 18:59 Anion Gap 9.9 (7.0-16.0) 11/25/17 18:59 BUN 22 mg/dL (7-25) 11/25/17 18:59 Creatinine 0.8 mg/dL (0.7-1.3) 11/25/17 18:59 Est GFR ( Amer) > 60.0 ml/min (>90) 11/25/17 18:59 Est GFR (Non-Af Amer) > 60.0 ml/min 11/25/17 18:59 BUN/Creatinine Ratio 27.5 11/25/17 18:59 Glucose 100 mg/dL (70-105) 11/25/17 18:59 Calcium 9.8 mg/dL (8.6-10.3) 11/25/17 18:59 Total Bilirubin 0.5 mg/dL (0.3-1.0) 11/25/17 18:59 AST 23 U/L (13-39) 11/25/17 18:59 ALT 24 U/L (7-52) 11/25/17 18:59 Alkaline Phosphatase 116 U/L (34-104) H 11/25/17 18:59 Total Protein 7.6 gm/dL (6.0-8.3) 11/25/17 18:59 Albumin 4.7 gm/dL (4.2-5.5) 11/25/17 18:59 Globulin 2.9 gm/dL 11/25/17 18:59 Albumin/Globulin Ratio 1.6 (1.0-1.8) 11/25/17 18:59 Triglycerides 128 mg/dL (<150) 11/25/17 18:59 Cholesterol 150 mg/dL (<200) 11/25/17 18:59 LDL Cholesterol Direct 91 mg/dL (75-193) 11/25/17 18:59 HDL Cholesterol 51 mg/dL (23-92) 11/25/17 18:59 TSH 4.03 uIU/ml (0.34-5.60) 11/25/17 18:59 RPR NONREACTIVE (NONREACTIVE) 11/25/17 18:59 - Physical Exam Vitals and I&O: Vital Signs Temp 98.3 F 11/30/17 19:52 Pulse 63 11/30/17 19:52 Resp 20 11/30/17 19:52 BP 141/80 11/30/17 19:52 Pulse Ox 96 11/30/17 19:52 Intake & Output 11/30/17 11/30/17 12/01/17 06:59 18:59 06:59 Intake Total 120 880 240 Balance 120 880 240 Intake: Oral 120 880 240 Other: # Voids 3 3 2 # Bowel Movements 2 Active Medications: Current Medications Acetaminophen (Tylenol) 650 mg PO Q4HR PRN PRN Reason: Mild Pain / Temp above 100 Stop: 01/25/18 15:46 Al Hydrox/Mg Hydrox/Simethicone (Maalox) 30 ml PO Q4HR PRN PRN Reason: GI DISTRESS Stop: 01/25/18 15:46 Amlodipine Besylate (Norvasc) 10 mg PO DAILY [facility] Stop: 01/26/18 08:59 Last Admin: 11/30/17 10:37 Dose: 10 mg Aspirin (Aspirin) 325 mg PO DAILY [facility] Stop: 01/26/18 08:59 Last Admin: 11/30/17 10:38 Dose: 325 mg Bisacodyl (Dulcolax 10 Mg Supp) 10 mg RC DAILY PRN PRN Reason: Constipation Stop: 01/25/18 15:46 Divalproex Sodium (Depakote Dr) 500 mg PO BID [facility] PRN Reason: Protocol Stop: 01/25/18 08:59 Last Admin: 11/30/17 16:15 Dose: 500 mg Docusate Sodium (Colace) 100 mg PO DAILY [facility] Stop: 01/25/18 08:59 Last Admin: 11/30/17 10:38 Dose: 100 mg Lorazepam (Ativan) 0.5 mg PO Q6HR PRN; Protocol PRN Reason: Anxiety Stop: 12/26/17 02:49 Magnesium Hydroxide (Milk Of Magnesia) 30 ml PO HS PRN PRN Reason: Constipation Metoprolol Tartrate (Lopressor) 12.5 mg PO BID [facility] Stop: 01/25/18 16:59 Last Admin: 11/30/17 16:13 Dose: 12.5 mg Morphine Sulfate (Ms-Contin) 30 mg PO Q12HR [facility] Stop: 01/25/18 20:59 Last Admin: 11/30/17 20:17 Dose: 30 mg Multivitamins/Vitamin C (Theragran) 1 tab PO DAILY [facility] Stop: 01/25/18 08:59 Last Admin: 11/30/17 10:41 Dose: 1 tab Mupirocin (Bactroban Oint) 1 appl NS BID [facility] Stop: 12/02/17 09:01 Last Admin: 11/30/17 16:14 Dose: Not Given Nitroglycerin (Nitrostat) 0.4 mg SL Q5MIN PRN PRN Reason: Chest Pain Stop: 01/25/18 15:46 Quetiapine Fumarate (Seroquel) 100 mg PO DAILY [facility] PRN Reason: Protocol Stop: 01/25/18 08:59 Last Admin: 11/30/17 10:42 Dose: 100 mg Quetiapine Fumarate (Seroquel) 200 mg PO HS [facility] PRN Reason: Protocol Stop: 01/25/18 20:59 Last Admin: 11/30/17 20:17 Dose: 200 mg Sodium Phosphate (Fleet Enema) 135 ml RC Q2D PRN PRN Reason: Constipation Stop: 01/25/18 15:46 Tamsulosin HCl (Flomax) 0.4 mg PO HS [facility] Stop: 01/25/18 20:59 Last Admin: 11/30/17 20:17 Dose: 0.4 mg Thiamine HCl (Vitamin B1) 200 mg PO DAILY [facility] Stop: 01/26/18 08:59 Last Admin: 11/30/17 10:36 Dose: 200 mg Zolpidem Tartrate (Ambien) 5 mg PO HS PRN PRN Reason: Insomnia Stop: 01/25/18 15:46 Last Admin: 11/26/17 20:41 Dose: 5 mg General: alert, obese HEENT: PERRLA, EOMI, anicteric sclerae, throat clear Neck: Supple, No JVD, No thyromegaly, +2 carotid pulse wo bruit Lungs: CTAB Cardiovascular: Normal S1, Normal S2, without murmur Abdomen: soft, non-tender, non-distended Neurological: no change Internal Medicine Assmt/Plan - Assessment Assessment: 1.HTN. 2.BPH. 3.DJD. 4.DEMENTIA. - Plan Plan: CONTINUE ON CURRENT MEDICATION AND DIET. Nutritional Asmnt/Malnutr-PDOC - Dietary Evaluation Malnutrition Findings (Please click <Entered> for more info): Nutritional Asmnt/Malnutrition Start: 11/30/17 10: 48 Text: Status: Complete Freq: Document 11/30/17 10:48 ANKUR (Rec: 11/30/17 11:02 ANKUR JUSTINE- [id number]) Nutritional Asmnt/Malnutrition Patient General Information Nutritional Screening Moderate Risk Diagnosis Psychosis NOS (Reason for visit) Pertinent Medical Hx/Surgical Hx insomnia, dementia with behavioral disturbance, alcoholic cirrhosis of liver, osteoarthritis, difficulty in walking, generalized muscle weakness, hyperlipidemia, BPH , hypertensive emergency, pain in right knee, GERD Subjective Information Patient was admitted from SNF. Patient was lying in bed at time of visit. Current Diet Order/ Nutrition Support No added salt Patient / S.O Not Indicated Pertinent Medications maalox, Dulcolax, colace, MOM, Theragran, Fleet enema, Vitamin B1 Pertinent Labs (11/25) Nutrition related labs WNL Nutritional Hx/Data Height 1.73 m Height (Calculated Centimeters) 172.7 Current Weight (lbs) 117.027 kg Weight (Calculated Kilograms) 117.0 Weight (Calculated Grams) 240105.8 [place] Body Weight 154 % [place] Body Weight 167 Body Mass Index (BMI) 39.2 Recent Weight Change No Weight Status Morbidly Obese GI Symptoms GI Symptoms None Last BM 11/28 x 1 Difficult in: None Food Allergies No Cultural/Ethnic/Jewish Belief None indicated Usual diet at home Unknown Skin Integrity/Comment: Esdras 20, SKin with dryness, intact Current %PO Good (75-100%) Estimated Nutritional Goals BEE in Kcals: Adj wt of IBW Calories/Kcals/Kg Adj weight 180lb/81.8 kg (25- 30 kcal/kg) Kcals Calculated ~4476-9141 kcal/day Protein: Adj wt of IBW Protein g/k-1.2 gm/kg - due to dereased caloric feed with using Adj weight Protein Calculated ~80-100 gm/day Fluid: ml ~7460-2877 ml/day (30-35 ml/kg ) Nutritional Problem 1. Problem Problem Obesity related to Etiology possible excessive intake prior to arrival aeb Signs/Symptoms: BMI 39.2 Intervention/Recommendation Comments 1. Continue No added salt diet as tolerated by patient due to episodes of hypertension. Expected Outcomes/Goals Expected Outcomes/Goals Oral intake to meet >75% Of nutrient needs, weight stable or trends toward ideal body weight, Nutrition related labs remanin WNL, continued skin integrity.
[2017-12-01] MEDS: Multivitamin Tab PO SCH (08:47)
--- NOTE | 2017-12-01 13:34 | Progress Notes ---
DATE: 12/01/2017 SUBJECTIVE: Staff was spoken to. The patient is interviewed. Mood is noted to be still irritable and angry. Affect is constricted. The patient continues to have mood swings. The patient is testing the limits. The patient is currently on Seroquel. The dose of the Seroquel was discontinued yesterday. No side effects to the medications are noted at this time. The patient has been pacing in the unit. ASSESSMENT: The patient is still impulsive. PLAN: To continue the patient with the current medications and follow up with the supportive therapy. JOB# [id number]
--- NOTE | 2017-12-01 13:51 | Internal Medicine Prog Note ---
Internal Medicine Subjective - Subjective Service Date: 12/01/17 Patient seen and examined:: without staff Patient is:: awake, verbal, talking, confused Per staff patient has:: no adverse event Internal Medicine Objective - Results Result Diagrams: 11/25/17 18:59 11/25/17 18:59 Recent Labs: Laboratory Last Values WBC 10.0 Th/cmm (4.8-10.8) 11/25/17 18:59 RBC 5.08 Mil/cmm (4.30-5.70) 11/25/17 18:59 Hgb 15.5 gm/dL (12-16) 11/25/17 18:59 Hct 46.0 % (41.0-60) 11/25/17 18:59 MCV 90.6 fl (80-99) 11/25/17 18:59 MCH 30.6 pg (26.0-30.0) H 11/25/17 18:59 MCHC Differential 33.8 pg (28.0-36.0) 11/25/17 18:59 RDW 12.7 % (11.5-20.0) 11/25/17 18:59 Plt Count 196 Th/cmm (150-400) 11/25/17 18:59 MPV 9.3 fl 11/25/17 18:59 Neutrophils % 61.0 % (40.0-80.0) 11/25/17 18:59 Lymphocytes % 30.2 % (20.0-50.0) 11/25/17 18:59 Monocytes % 7.1 % (2.0-10.0) 11/25/17 18:59 Eosinophils % 1.2 % (0.0-5.0) 11/25/17 18:59 Basophils % 0.5 % (0.0-2.0) 11/25/17 18:59 Sodium 140 mEq/L (136-145) 11/25/17 18:59 Potassium 4.1 mEq/L (3.5-5.1) 11/25/17 18:59 Chloride 108 mEq/L (98-107) H 11/25/17 18:59 Carbon Dioxide 26.2 mEq/L (21.0-31.0) 11/25/17 18:59 Anion Gap 9.9 (7.0-16.0) 11/25/17 18:59 BUN 22 mg/dL (7-25) 11/25/17 18:59 Creatinine 0.8 mg/dL (0.7-1.3) 11/25/17 18:59 Est GFR ( Amer) > 60.0 ml/min (>90) 11/25/17 18:59 Est GFR (Non-Af Amer) > 60.0 ml/min 11/25/17 18:59 BUN/Creatinine Ratio 27.5 11/25/17 18:59 Glucose 100 mg/dL (70-105) 11/25/17 18:59 Calcium 9.8 mg/dL (8.6-10.3) 11/25/17 18:59 Total Bilirubin 0.5 mg/dL (0.3-1.0) 11/25/17 18:59 AST 23 U/L (13-39) 11/25/17 18:59 ALT 24 U/L (7-52) 11/25/17 18:59 Alkaline Phosphatase 116 U/L (34-104) H 11/25/17 18:59 Total Protein 7.6 gm/dL (6.0-8.3) 11/25/17 18:59 Albumin 4.7 gm/dL (4.2-5.5) 11/25/17 18:59 Globulin 2.9 gm/dL 11/25/17 18:59 Albumin/Globulin Ratio 1.6 (1.0-1.8) 11/25/17 18:59 Triglycerides 128 mg/dL (<150) 11/25/17 18:59 Cholesterol 150 mg/dL (<200) 11/25/17 18:59 LDL Cholesterol Direct 91 mg/dL (75-193) 11/25/17 18:59 HDL Cholesterol 51 mg/dL (23-92) 11/25/17 18:59 TSH 4.03 uIU/ml (0.34-5.60) 11/25/17 18:59 RPR NONREACTIVE (NONREACTIVE) 11/25/17 18:59 - Physical Exam Vitals and I&O: Vital Signs Temp 98.0 F 12/01/17 05:58 Pulse 61 12/01/17 08:48 Resp 20 12/01/17 05:58 BP 129/75 12/01/17 08:48 Pulse Ox 95 12/01/17 05:58 Intake & Output 11/30/17 12/01/17 12/01/17 18:59 06:59 18:59 Intake Total 880 360 Balance 880 360 Intake: Oral 880 360 Other: # Voids 3 1 # Bowel Movements 2 0 Active Medications: Current Medications Acetaminophen (Tylenol) 650 mg PO Q4HR PRN PRN Reason: Mild Pain / Temp above 100 Stop: 01/25/18 15:46 Al Hydrox/Mg Hydrox/Simethicone (Maalox) 30 ml PO Q4HR PRN PRN Reason: GI DISTRESS Stop: 01/25/18 15:46 Amlodipine Besylate (Norvasc) 10 mg PO DAILY [facility] Stop: 01/26/18 08:59 Last Admin: 12/01/17 08:45 Dose: 10 mg Aspirin (Aspirin) 325 mg PO DAILY [facility] Stop: 01/26/18 08:59 Last Admin: 12/01/17 08:47 Dose: 325 mg Bisacodyl (Dulcolax 10 Mg Supp) 10 mg RC DAILY PRN PRN Reason: Constipation Stop: 01/25/18 15:46 Divalproex Sodium (Depakote Dr) 500 mg PO BID [facility] PRN Reason: Protocol Stop: 01/25/18 08:59 Last Admin: 12/01/17 08:47 Dose: 500 mg Docusate Sodium (Colace) 100 mg PO DAILY [facility] Stop: 01/25/18 08:59 Last Admin: 12/01/17 08:45 Dose: 100 mg Lorazepam (Ativan) 0.5 mg PO Q6HR PRN; Protocol PRN Reason: Anxiety Stop: 12/26/17 02:49 Magnesium Hydroxide (Milk Of Magnesia) 30 ml PO HS PRN PRN Reason: Constipation Metoprolol Tartrate (Lopressor) 12.5 mg PO BID [facility] Stop: 01/25/18 16:59 Last Admin: 12/01/17 08:48 Dose: 12.5 mg Morphine Sulfate (Ms-Contin) 30 mg PO Q12HR [facility] Stop: 01/25/18 20:59 Last Admin: 12/01/17 08:51 Dose: 30 mg Multivitamins/Vitamin C (Theragran) 1 tab PO DAILY [facility] Stop: 01/25/18 08:59 Last Admin: 12/01/17 08:47 Dose: 1 tab Mupirocin (Bactroban Oint) 1 appl NS BID [facility] Stop: 12/02/17 09:01 Last Admin: 12/01/17 09:08 Dose: 1 appl Nitroglycerin (Nitrostat) 0.4 mg SL Q5MIN PRN PRN Reason: Chest Pain Stop: 01/25/18 15:46 Quetiapine Fumarate (Seroquel) 100 mg PO DAILY [facility] PRN Reason: Protocol Stop: 01/25/18 08:59 Last Admin: 12/01/17 08:50 Dose: 100 mg Quetiapine Fumarate (Seroquel) 200 mg PO HS [facility] PRN Reason: Protocol Stop: 01/25/18 20:59 Last Admin: 11/30/17 20:17 Dose: 200 mg Sodium Phosphate (Fleet Enema) 135 ml RC Q2D PRN PRN Reason: Constipation Stop: 01/25/18 15:46 Tamsulosin HCl (Flomax) 0.4 mg PO HS [facility] Stop: 01/25/18 20:59 Last Admin: 11/30/17 20:17 Dose: 0.4 mg Thiamine HCl (Vitamin B1) 200 mg PO DAILY [facility] Stop: 01/26/18 08:59 Last Admin: 12/01/17 08:48 Dose: 200 mg Zolpidem Tartrate (Ambien) 5 mg PO HS PRN PRN Reason: Insomnia Stop: 01/25/18 15:46 Last Admin: 11/26/17 20:41 Dose: 5 mg General: alert, obese HEENT: PERRLA, EOMI, anicteric sclerae, throat clear Neck: Supple, No JVD, No thyromegaly, +2 carotid pulse wo bruit Lungs: CTAB Cardiovascular: Normal S1, Normal S2, without murmur Abdomen: soft, non-tender, non-distended Neurological: no change Internal Medicine Assmt/Plan - Assessment Assessment: 1.HTN. 2.BPH. 3.DJD. 4.DEMENTIA. - Plan Plan: CONTINUE ON CURRENT MEDICATION AND DIET. Nutritional Asmnt/Malnutr-PDOC - Dietary Evaluation Malnutrition Findings (Please click <Entered> for more info): Nutritional Asmnt/Malnutrition Start: 11/30/17 10: 48 Text: Status: Complete Freq: Document 11/30/17 10:48 [email or web address] (Rec: 11/30/17 11:02 ANKUR FLETCHER- [id number]) Nutritional Asmnt/Malnutrition Patient General Information Nutritional Screening Moderate Risk Diagnosis Psychosis NOS (Reason for visit) Pertinent Medical Hx/Surgical Hx insomnia, dementia with behavioral disturbance, alcoholic cirrhosis of liver, osteoarthritis, difficulty in walking, generalized muscle weakness, hyperlipidemia, BPH , hypertensive emergency, pain in right knee, GERD Subjective Information Patient was admitted from SNF. Patient was lying in bed at time of visit. Current Diet Order/ Nutrition Support No added salt Patient / S.O Not Indicated Pertinent Medications maalox, Dulcolax, colace, MOM, Theragran, Fleet enema, Vitamin B1 Pertinent Labs (11/25) Nutrition related labs WNL Nutritional Hx/Data Height 1.73 m Height (Calculated Centimeters) 172.7 Current Weight (lbs) 117.027 kg Weight (Calculated Kilograms) 117.0 Weight (Calculated Grams) 651022.8 [place] Body Weight 154 % [place] Body Weight 167 Body Mass Index (BMI) 39.2 Recent Weight Change No Weight Status Morbidly Obese GI Symptoms GI Symptoms None Last BM 11/28 x 1 Difficult in: None Food Allergies No Cultural/Ethnic/Jainism Belief None indicated Usual diet at home Unknown Skin Integrity/Comment: Esdras 20, SKin with dryness, intact Current %PO Good (75-100%) Estimated Nutritional Goals BEE in Kcals: Adj wt of IBW Calories/Kcals/Kg Adj weight 180lb/81.8 kg (25- 30 kcal/kg) Kcals Calculated ~5434-7107 kcal/day Protein: Adj wt of IBW Protein g/k-1.2 gm/kg - due to dereased caloric feed with using Adj weight Protein Calculated ~80-100 gm/day Fluid: ml ~9977-5090 ml/day (30-35 ml/kg ) Nutritional Problem 1. Problem Problem Obesity related to Etiology possible excessive intake prior to arrival aeb Signs/Symptoms: BMI 39.2 Intervention/Recommendation Comments 1. Continue No added salt diet as tolerated by patient due to episodes of hypertension. Expected Outcomes/Goals Expected Outcomes/Goals Oral intake to meet >75% Of nutrient needs, weight stable or trends toward ideal body weight, Nutrition related labs remanin WNL, continued skin integrity.
--- NOTE | 2017-12-02 10:25 | Internal Medicine Prog Note ---
Internal Medicine Subjective - Subjective Service Date: 12/02/17 Patient seen and examined:: without staff Patient is:: awake, verbal, talking, confused Per staff patient has:: no adverse event Internal Medicine Objective - Results Result Diagrams: 11/25/17 18:59 11/25/17 18:59 Recent Labs: Laboratory Last Values WBC 10.0 Th/cmm (4.8-10.8) 11/25/17 18:59 RBC 5.08 Mil/cmm (4.30-5.70) 11/25/17 18:59 Hgb 15.5 gm/dL (12-16) 11/25/17 18:59 Hct 46.0 % (41.0-60) 11/25/17 18:59 MCV 90.6 fl (80-99) 11/25/17 18:59 MCH 30.6 pg (26.0-30.0) H 11/25/17 18:59 MCHC Differential 33.8 pg (28.0-36.0) 11/25/17 18:59 RDW 12.7 % (11.5-20.0) 11/25/17 18:59 Plt Count 196 Th/cmm (150-400) 11/25/17 18:59 MPV 9.3 fl 11/25/17 18:59 Neutrophils % 61.0 % (40.0-80.0) 11/25/17 18:59 Lymphocytes % 30.2 % (20.0-50.0) 11/25/17 18:59 Monocytes % 7.1 % (2.0-10.0) 11/25/17 18:59 Eosinophils % 1.2 % (0.0-5.0) 11/25/17 18:59 Basophils % 0.5 % (0.0-2.0) 11/25/17 18:59 Sodium 140 mEq/L (136-145) 11/25/17 18:59 Potassium 4.1 mEq/L (3.5-5.1) 11/25/17 18:59 Chloride 108 mEq/L (98-107) H 11/25/17 18:59 Carbon Dioxide 26.2 mEq/L (21.0-31.0) 11/25/17 18:59 Anion Gap 9.9 (7.0-16.0) 11/25/17 18:59 BUN 22 mg/dL (7-25) 11/25/17 18:59 Creatinine 0.8 mg/dL (0.7-1.3) 11/25/17 18:59 Est GFR ( Amer) > 60.0 ml/min (>90) 11/25/17 18:59 Est GFR (Non-Af Amer) > 60.0 ml/min 11/25/17 18:59 BUN/Creatinine Ratio 27.5 11/25/17 18:59 Glucose 100 mg/dL (70-105) 11/25/17 18:59 Calcium 9.8 mg/dL (8.6-10.3) 11/25/17 18:59 Total Bilirubin 0.5 mg/dL (0.3-1.0) 11/25/17 18:59 AST 23 U/L (13-39) 11/25/17 18:59 ALT 24 U/L (7-52) 11/25/17 18:59 Alkaline Phosphatase 116 U/L (34-104) H 11/25/17 18:59 Total Protein 7.6 gm/dL (6.0-8.3) 11/25/17 18:59 Albumin 4.7 gm/dL (4.2-5.5) 11/25/17 18:59 Globulin 2.9 gm/dL 11/25/17 18:59 Albumin/Globulin Ratio 1.6 (1.0-1.8) 11/25/17 18:59 Triglycerides 128 mg/dL (<150) 11/25/17 18:59 Cholesterol 150 mg/dL (<200) 11/25/17 18:59 LDL Cholesterol Direct 91 mg/dL (75-193) 11/25/17 18:59 HDL Cholesterol 51 mg/dL (23-92) 11/25/17 18:59 TSH 4.03 uIU/ml (0.34-5.60) 11/25/17 18:59 RPR NONREACTIVE (NONREACTIVE) 11/25/17 18:59 - Physical Exam Vitals and I&O: Vital Signs Temp 97.7 F 12/02/17 06:06 Pulse 50 12/02/17 06:06 Resp 20 12/02/17 06:06 BP 117/67 12/02/17 06:06 Pulse Ox 96 12/02/17 06:06 Intake & Output 12/01/17 12/02/17 12/02/17 18:59 06:59 18:59 Intake Total 1200 420 Balance 1200 420 Intake: Oral 1200 420 Other: # Voids 4 2 # Bowel Movements 1 0 Active Medications: Current Medications Acetaminophen (Tylenol) 650 mg PO Q4HR PRN PRN Reason: Mild Pain / Temp above 100 Stop: 01/25/18 15:46 Al Hydrox/Mg Hydrox/Simethicone (Maalox) 30 ml PO Q4HR PRN PRN Reason: GI DISTRESS Stop: 01/25/18 15:46 Amlodipine Besylate (Norvasc) 10 mg PO DAILY [facility] Stop: 01/26/18 08:59 Last Admin: 12/01/17 08:45 Dose: 10 mg Aspirin (Aspirin) 325 mg PO DAILY [facility] Stop: 01/26/18 08:59 Last Admin: 12/01/17 08:47 Dose: 325 mg Bisacodyl (Dulcolax 10 Mg Supp) 10 mg RC DAILY PRN PRN Reason: Constipation Stop: 01/25/18 15:46 Divalproex Sodium (Depakote Dr) 500 mg PO BID [facility] PRN Reason: Protocol Stop: 01/25/18 08:59 Last Admin: 12/01/17 16:42 Dose: 500 mg Docusate Sodium (Colace) 100 mg PO DAILY [facility] Stop: 01/25/18 08:59 Last Admin: 12/01/17 08:45 Dose: 100 mg Lorazepam (Ativan) 0.5 mg PO Q6HR PRN; Protocol PRN Reason: Anxiety Stop: 12/26/17 02:49 Magnesium Hydroxide (Milk Of Magnesia) 30 ml PO HS PRN PRN Reason: Constipation Metoprolol Tartrate (Lopressor) 12.5 mg PO BID [facility] Stop: 01/25/18 16:59 Last Admin: 12/01/17 16:42 Dose: 12.5 mg Morphine Sulfate (Ms-Contin) 30 mg PO Q12HR [facility] Stop: 01/25/18 20:59 Last Admin: 12/01/17 20:07 Dose: 30 mg Multivitamins/Vitamin C (Theragran) 1 tab PO DAILY [facility] Stop: 01/25/18 08:59 Last Admin: 12/01/17 08:47 Dose: 1 tab Nitroglycerin (Nitrostat) 0.4 mg SL Q5MIN PRN PRN Reason: Chest Pain Stop: 01/25/18 15:46 Quetiapine Fumarate (Seroquel) 100 mg PO DAILY [facility] PRN Reason: Protocol Stop: 01/25/18 08:59 Last Admin: 12/01/17 08:50 Dose: 100 mg Quetiapine Fumarate (Seroquel) 200 mg PO HS [facility]LEY PRN Reason: Protocol Stop: 01/25/18 20:59 Last Admin: 12/01/17 20:07 Dose: 200 mg Sodium Phosphate (Fleet Enema) 135 ml RC Q2D PRN PRN Reason: Constipation Stop: 01/25/18 15:46 Tamsulosin HCl (Flomax) 0.4 mg PO HS [facility] Stop: 01/25/18 20:59 Last Admin: 12/01/17 20:07 Dose: 0.4 mg Thiamine HCl (Vitamin B1) 200 mg PO DAILY [facility] Stop: 01/26/18 08:59 Last Admin: 12/01/17 08:48 Dose: 200 mg Zolpidem Tartrate (Ambien) 5 mg PO HS PRN PRN Reason: Insomnia Stop: 01/25/18 15:46 Last Admin: 11/26/17 20:41 Dose: 5 mg General: alert, obese HEENT: PERRLA, EOMI, anicteric sclerae, throat clear Neck: Supple, No JVD, No thyromegaly, +2 carotid pulse wo bruit Lungs: CTAB Cardiovascular: Normal S1, Normal S2, without murmur Abdomen: soft, non-tender, non-distended Neurological: no change Internal Medicine Assmt/Plan - Assessment Assessment: 1.HTN. 2.BPH. 3.DJD. 4.DEMENTIA. - Plan Plan: CONTINUE ON CURRENT MEDICATION AND DIET. Nutritional Asmnt/Malnutr-PDOC - Dietary Evaluation Malnutrition Findings (Please click <Entered> for more info): Nutritional Asmnt/Malnutrition Start: 11/30/17 10: 48 Text: Status: Complete Freq: Document 11/30/17 10:48 ANKUR (Rec: 11/30/17 11:02 ANKUR FLETCHER- [id number]) Nutritional Asmnt/Malnutrition Patient General Information Nutritional Screening Moderate Risk Diagnosis Psychosis NOS (Reason for visit) Pertinent Medical Hx/Surgical Hx insomnia, dementia with behavioral disturbance, alcoholic cirrhosis of liver, osteoarthritis, difficulty in walking, generalized muscle weakness, hyperlipidemia, BPH , hypertensive emergency, pain in right knee, GERD Subjective Information Patient was admitted from SNF. Patient was lying in bed at time of visit. Current Diet Order/ Nutrition Support No added salt Patient / S.O Not Indicated Pertinent Medications maalox, Dulcolax, colace, MOM, Theragran, Fleet enema, Vitamin B1 Pertinent Labs (11/25) Nutrition related labs WNL Nutritional Hx/Data Height 1.73 m Height (Calculated Centimeters) 172.7 Current Weight (lbs) 117.027 kg Weight (Calculated Kilograms) 117.0 Weight (Calculated Grams) 568713.8 [place] Body Weight 154 % [place] Body Weight 167 Body Mass Index (BMI) 39.2 Recent Weight Change No Weight Status Morbidly Obese GI Symptoms GI Symptoms None Last BM 11/28 x 1 Difficult in: None Food Allergies No Cultural/Ethnic/Voodoo Belief None indicated Usual diet at home Unknown Skin Integrity/Comment: Esdras 20, SKin with dryness, intact Current %PO Good (75-100%) Estimated Nutritional Goals BEE in Kcals: Adj wt of IBW Calories/Kcals/Kg Adj weight 180lb/81.8 kg (25- 30 kcal/kg) Kcals Calculated ~6340-6608 kcal/day Protein: Adj wt of IBW Protein g/k-1.2 gm/kg - due to dereased caloric feed with using Adj weight Protein Calculated ~80-100 gm/day Fluid: ml ~1811-9722 ml/day (30-35 ml/kg ) Nutritional Problem 1. Problem Problem Obesity related to Etiology possible excessive intake prior to arrival aeb Signs/Symptoms: BMI 39.2 Intervention/Recommendation Comments 1. Continue No added salt diet as tolerated by patient due to episodes of hypertension. Expected Outcomes/Goals Expected Outcomes/Goals Oral intake to meet >75% Of nutrient needs, weight stable or trends toward ideal body weight, Nutrition related labs remanin WNL, continued skin integrity.
[2017-12-02] MEDS: Multivitamin Tab PO SCH (11:14)
--- NOTE | 2017-12-03 01:54 | Progress Notes ---
DATE: 12/02/2017 PSYCHIATRIC PROGRESS NOTE SUBJECTIVE: Staff was spoken to. The patient is interviewed. Mood is noted to be irritable. Affect is constricted. Coping skills are noted to be still poor. Insight and judgment are noted to be very limited. The patient has been having difficult time to cope with the stress. No side effects to medications are noted. The patient has been pacing his time on the unit. ASSESSMENT: The patient is still impulsive. PLAN: To continue the patient with the supportive therapy, encouraged the patient to verbalize the concerns. The patient is currently on the valproic acid 500 mg twice a day along with the Seroquel, which is being given at 100 mg in the morning and 200 mg at bedtime. The patient has been able to tolerate. Plan to closely monitor the patient and I encouraged the patient to verbalize the concerns rather than to act out. JOB# [id number]
[2017-12-03] MEDS: Multivitamin Tab PO SCH (09:33)
--- NOTE | 2017-12-03 22:43 | Internal Medicine Prog Note ---
Internal Medicine Subjective - Subjective Service Date: 12/03/17 Patient seen and examined:: without staff Patient is:: awake, verbal, talking, confused Per staff patient has:: no adverse event Internal Medicine Objective - Results Result Diagrams: 11/25/17 18:59 11/25/17 18:59 Recent Labs: Laboratory Last Values WBC 10.0 Th/cmm (4.8-10.8) 11/25/17 18:59 RBC 5.08 Mil/cmm (4.30-5.70) 11/25/17 18:59 Hgb 15.5 gm/dL (12-16) 11/25/17 18:59 Hct 46.0 % (41.0-60) 11/25/17 18:59 MCV 90.6 fl (80-99) 11/25/17 18:59 MCH 30.6 pg (26.0-30.0) H 11/25/17 18:59 MCHC Differential 33.8 pg (28.0-36.0) 11/25/17 18:59 RDW 12.7 % (11.5-20.0) 11/25/17 18:59 Plt Count 196 Th/cmm (150-400) 11/25/17 18:59 MPV 9.3 fl 11/25/17 18:59 Neutrophils % 61.0 % (40.0-80.0) 11/25/17 18:59 Lymphocytes % 30.2 % (20.0-50.0) 11/25/17 18:59 Monocytes % 7.1 % (2.0-10.0) 11/25/17 18:59 Eosinophils % 1.2 % (0.0-5.0) 11/25/17 18:59 Basophils % 0.5 % (0.0-2.0) 11/25/17 18:59 Sodium 140 mEq/L (136-145) 11/25/17 18:59 Potassium 4.1 mEq/L (3.5-5.1) 11/25/17 18:59 Chloride 108 mEq/L (98-107) H 11/25/17 18:59 Carbon Dioxide 26.2 mEq/L (21.0-31.0) 11/25/17 18:59 Anion Gap 9.9 (7.0-16.0) 11/25/17 18:59 BUN 22 mg/dL (7-25) 11/25/17 18:59 Creatinine 0.8 mg/dL (0.7-1.3) 11/25/17 18:59 Est GFR ( Amer) > 60.0 ml/min (>90) 11/25/17 18:59 Est GFR (Non-Af Amer) > 60.0 ml/min 11/25/17 18:59 BUN/Creatinine Ratio 27.5 11/25/17 18:59 Glucose 100 mg/dL (70-105) 11/25/17 18:59 Calcium 9.8 mg/dL (8.6-10.3) 11/25/17 18:59 Total Bilirubin 0.5 mg/dL (0.3-1.0) 11/25/17 18:59 AST 23 U/L (13-39) 11/25/17 18:59 ALT 24 U/L (7-52) 11/25/17 18:59 Alkaline Phosphatase 116 U/L (34-104) H 11/25/17 18:59 Total Protein 7.6 gm/dL (6.0-8.3) 11/25/17 18:59 Albumin 4.7 gm/dL (4.2-5.5) 11/25/17 18:59 Globulin 2.9 gm/dL 11/25/17 18:59 Albumin/Globulin Ratio 1.6 (1.0-1.8) 11/25/17 18:59 Triglycerides 128 mg/dL (<150) 11/25/17 18:59 Cholesterol 150 mg/dL (<200) 11/25/17 18:59 LDL Cholesterol Direct 91 mg/dL (75-193) 11/25/17 18:59 HDL Cholesterol 51 mg/dL (23-92) 11/25/17 18:59 TSH 4.03 uIU/ml (0.34-5.60) 11/25/17 18:59 RPR NONREACTIVE (NONREACTIVE) 11/25/17 18:59 - Physical Exam Vitals and I&O: Vital Signs Temp 97.6 F 12/03/17 16:30 Pulse 53 12/03/17 17:11 Resp 20 12/03/17 16:30 BP 122/74 12/03/17 17:11 Pulse Ox 97 12/03/17 16:30 Intake & Output 12/03/17 12/03/17 12/04/17 06:59 18:59 06:59 Intake Total 120 1200 Balance 120 1200 Intake: Oral 120 1200 Other: # Voids 3 3 Active Medications: Current Medications Acetaminophen (Tylenol) 650 mg PO Q4HR PRN PRN Reason: Mild Pain / Temp above 100 Stop: 01/25/18 15:46 Al Hydrox/Mg Hydrox/Simethicone (Maalox) 30 ml PO Q4HR PRN PRN Reason: GI DISTRESS Stop: 01/25/18 15:46 Amlodipine Besylate (Norvasc) 10 mg PO DAILY [facility] Stop: 01/26/18 08:59 Last Admin: 12/03/17 09:35 Dose: 10 mg Aspirin (Aspirin) 325 mg PO DAILY [facility] Stop: 01/26/18 08:59 Last Admin: 12/03/17 09:33 Dose: 325 mg Bisacodyl (Dulcolax 10 Mg Supp) 10 mg RC DAILY PRN PRN Reason: Constipation Stop: 01/25/18 15:46 Divalproex Sodium (Depakote Dr) 500 mg PO BID [facility] PRN Reason: Protocol Stop: 01/25/18 08:59 Last Admin: 12/03/17 17:11 Dose: 500 mg Docusate Sodium (Colace) 100 mg PO DAILY [facility] Stop: 01/25/18 08:59 Last Admin: 12/03/17 09:31 Dose: 100 mg Magnesium Hydroxide (Milk Of Magnesia) 30 ml PO HS PRN PRN Reason: Constipation Metoprolol Tartrate (Lopressor) 12.5 mg PO BID [facility] Stop: 01/25/18 16:59 Last Admin: 12/03/17 17:11 Dose: 12.5 mg Morphine Sulfate (Ms-Contin) 30 mg PO Q12HR [facility] Stop: 01/25/18 20:59 Last Admin: 12/03/17 20:51 Dose: 30 mg Multivitamins/Vitamin C (Theragran) 1 tab PO DAILY [facility] Stop: 01/25/18 08:59 Last Admin: 12/03/17 09:33 Dose: 1 tab Nitroglycerin (Nitrostat) 0.4 mg SL Q5MIN PRN PRN Reason: Chest Pain Stop: 01/25/18 15:46 Quetiapine Fumarate (Seroquel) 100 mg PO DAILY [facility] PRN Reason: Protocol Stop: 01/25/18 08:59 Last Admin: 12/03/17 09:34 Dose: 100 mg Quetiapine Fumarate (Seroquel) 200 mg PO HS [facility] PRN Reason: Protocol Stop: 01/25/18 20:59 Last Admin: 12/03/17 20:52 Dose: 200 mg Sodium Phosphate (Fleet Enema) 135 ml RC Q2D PRN PRN Reason: Constipation Stop: 01/25/18 15:46 Tamsulosin HCl (Flomax) 0.4 mg PO HS [facility] Stop: 01/25/18 20:59 Last Admin: 12/03/17 20:52 Dose: 0.4 mg Thiamine HCl (Vitamin B1) 200 mg PO DAILY [facility] Stop: 01/26/18 08:59 Last Admin: 12/03/17 09:32 Dose: 200 mg Zolpidem Tartrate (Ambien) 5 mg PO HS PRN PRN Reason: Insomnia Stop: 01/25/18 15:46 Last Admin: 11/26/17 20:41 Dose: 5 mg General: alert, obese HEENT: PERRLA, EOMI, anicteric sclerae, throat clear Neck: Supple, No JVD, No thyromegaly, +2 carotid pulse wo bruit Lungs: CTAB Cardiovascular: Normal S1, Normal S2, without murmur Abdomen: soft, non-tender, non-distended Neurological: no change Internal Medicine Assmt/Plan - Assessment Assessment: 1.HTN. 2.BPH. 3.DJD. 4.DEMENTIA. - Plan Plan: CONTINUE ON CURRENT MEDICATION AND DIET. Nutritional Asmnt/Malnutr-PDOC - Dietary Evaluation Malnutrition Findings (Please click <Entered> for more info): Nutritional Asmnt/Malnutrition Start: 11/30/17 10: 48 Text: Status: Complete Freq: Document 11/30/17 10:48 ANKUR (Rec: 11/30/17 11:02 ANKUR FLETCHER- [id number]) Nutritional Asmnt/Malnutrition Patient General Information Nutritional Screening Moderate Risk Diagnosis Psychosis NOS (Reason for visit) Pertinent Medical Hx/Surgical Hx insomnia, dementia with behavioral disturbance, alcoholic cirrhosis of liver, osteoarthritis, difficulty in walking, generalized muscle weakness, hyperlipidemia, BPH , hypertensive emergency, pain in right knee, GERD Subjective Information Patient was admitted from SN[facility]. Patient was lying in bed at time of visit. Current Diet Order/ Nutrition Support No added salt Patient / S.O Not Indicated Pertinent Medications maalox, Dulcolax, colace, MOM, Theragran, Fleet enema, Vitamin B1 Pertinent Labs (11/25) Nutrition related labs WNL Nutritional Hx/Data Height 1.73 m Height (Calculated Centimeters) 172.7 Current Weight (lbs) 117.027 kg Weight (Calculated Kilograms) 117.0 Weight (Calculated Grams) 632734.8 Copen Body Weight 154 % Copen Body Weight 167 Body Mass Index (BMI) 39.2 Recent Weight Change No Weight Status Morbidly Obese GI Symptoms GI Symptoms None Last BM 11/28 x 1 Difficult in: None Food Allergies No Cultural/Ethnic/Holiness Belief None indicated Usual diet at home Unknown Skin Integrity/Comment: Esdras 20, SKin with dryness, intact Current %PO Good (75-100%) Estimated Nutritional Goals BEE in Kcals: Adj wt of IBW Calories/Kcals/Kg Adj weight 180lb/81.8 kg (25- 30 kcal/kg) Kcals Calculated ~3419-2185 kcal/day Protein: Adj wt of IBW Protein g/k-1.2 gm/kg - due to dereased caloric feed with using Adj weight Protein Calculated ~80-100 gm/day Fluid: ml ~1830-2055 ml/day (30-35 ml/kg ) Nutritional Problem 1. Problem Problem Obesity related to Etiology possible excessive intake prior to arrival aeb Signs/Symptoms: BMI 39.2 Intervention/Recommendation Comments 1. Continue No added salt diet as tolerated by patient due to episodes of hypertension. Expected Outcomes/Goals Expected Outcomes/Goals Oral intake to meet >75% Of nutrient needs, weight stable or trends toward ideal body weight, Nutrition related labs remanin WNL, continued skin integrity.
--- NOTE | 2017-12-03 23:46 | Progress Notes ---
DATE: 12/03/2017 Staff was spoken to. Patient is interviewed. Mood is noted to be less irritable. Affect is appropriate. Insight and judgment at this time are noted to be improving. No side effects to the medications are noted. The patient has been able to participate in the groups. ASSESSMENT: The patient's impulsivity is coming under control. PLAN: To continue the patient with the supportive therapy. Encouraged the patient to verbalize the concerns rather than to act out. JOB# [id number]
[2017-12-04] MEDS: Multivitamin Tab PO SCH (08:41)
--- NOTE | 2017-12-04 12:38 | Internal Medicine Prog Note ---
Internal Medicine Subjective - Subjective Service Date: 12/04/17 Patient seen and examined:: with staff Patient is:: awake, verbal, talking, confused Per staff patient has:: no adverse event Internal Medicine Objective - Results Result Diagrams: 11/25/17 18:59 11/25/17 18:59 Recent Labs: Laboratory Last Values WBC 10.0 Th/cmm (4.8-10.8) 11/25/17 18:59 RBC 5.08 Mil/cmm (4.30-5.70) 11/25/17 18:59 Hgb 15.5 gm/dL (12-16) 11/25/17 18:59 Hct 46.0 % (41.0-60) 11/25/17 18:59 MCV 90.6 fl (80-99) 11/25/17 18:59 MCH 30.6 pg (26.0-30.0) H 11/25/17 18:59 MCHC Differential 33.8 pg (28.0-36.0) 11/25/17 18:59 RDW 12.7 % (11.5-20.0) 11/25/17 18:59 Plt Count 196 Th/cmm (150-400) 11/25/17 18:59 MPV 9.3 fl 11/25/17 18:59 Neutrophils % 61.0 % (40.0-80.0) 11/25/17 18:59 Lymphocytes % 30.2 % (20.0-50.0) 11/25/17 18:59 Monocytes % 7.1 % (2.0-10.0) 11/25/17 18:59 Eosinophils % 1.2 % (0.0-5.0) 11/25/17 18:59 Basophils % 0.5 % (0.0-2.0) 11/25/17 18:59 Sodium 140 mEq/L (136-145) 11/25/17 18:59 Potassium 4.1 mEq/L (3.5-5.1) 11/25/17 18:59 Chloride 108 mEq/L (98-107) H 11/25/17 18:59 Carbon Dioxide 26.2 mEq/L (21.0-31.0) 11/25/17 18:59 Anion Gap 9.9 (7.0-16.0) 11/25/17 18:59 BUN 22 mg/dL (7-25) 11/25/17 18:59 Creatinine 0.8 mg/dL (0.7-1.3) 11/25/17 18:59 Est GFR ( Amer) > 60.0 ml/min (>90) 11/25/17 18:59 Est GFR (Non-Af Amer) > 60.0 ml/min 11/25/17 18:59 BUN/Creatinine Ratio 27.5 11/25/17 18:59 Glucose 100 mg/dL (70-105) 11/25/17 18:59 Calcium 9.8 mg/dL (8.6-10.3) 11/25/17 18:59 Total Bilirubin 0.5 mg/dL (0.3-1.0) 11/25/17 18:59 AST 23 U/L (13-39) 11/25/17 18:59 ALT 24 U/L (7-52) 11/25/17 18:59 Alkaline Phosphatase 116 U/L (34-104) H 11/25/17 18:59 Total Protein 7.6 gm/dL (6.0-8.3) 11/25/17 18:59 Albumin 4.7 gm/dL (4.2-5.5) 11/25/17 18:59 Globulin 2.9 gm/dL 11/25/17 18:59 Albumin/Globulin Ratio 1.6 (1.0-1.8) 11/25/17 18:59 Triglycerides 128 mg/dL (<150) 11/25/17 18:59 Cholesterol 150 mg/dL (<200) 11/25/17 18:59 LDL Cholesterol Direct 91 mg/dL (75-193) 11/25/17 18:59 HDL Cholesterol 51 mg/dL (23-92) 11/25/17 18:59 TSH 4.03 uIU/ml (0.34-5.60) 11/25/17 18:59 RPR NONREACTIVE (NONREACTIVE) 11/25/17 18:59 - Physical Exam Vitals and I&O: Vital Signs Temp 97.8 F 12/04/17 06:37 Pulse 59 12/04/17 08:45 Resp 20 12/04/17 06:37 BP 126/75 12/04/17 08:45 Pulse Ox 97 12/04/17 06:37 Intake & Output 12/03/17 12/04/17 12/04/17 18:59 06:59 18:59 Intake Total 1200 120 Balance 1200 120 Intake: Oral 1200 120 Other: # Voids 3 3 Active Medications: Current Medications Acetaminophen (Tylenol) 650 mg PO Q4HR PRN PRN Reason: Mild Pain / Temp above 100 Stop: 01/25/18 15:46 Al Hydrox/Mg Hydrox/Simethicone (Maalox) 30 ml PO Q4HR PRN PRN Reason: GI DISTRESS Stop: 01/25/18 15:46 Amlodipine Besylate (Norvasc) 10 mg PO DAILY [facility] Stop: 01/26/18 08:59 Last Admin: 12/04/17 08:45 Dose: 10 mg Aspirin (Aspirin) 325 mg PO DAILY [facility] Stop: 01/26/18 08:59 Last Admin: 12/04/17 08:40 Dose: 325 mg Bisacodyl (Dulcolax 10 Mg Supp) 10 mg RC DAILY PRN PRN Reason: Constipation Stop: 01/25/18 15:46 Divalproex Sodium (Depakote Dr) 500 mg PO BID [facility] PRN Reason: Protocol Stop: 01/25/18 08:59 Last Admin: 12/04/17 08:44 Dose: 500 mg Docusate Sodium (Colace) 100 mg PO DAILY [facility] Stop: 01/25/18 08:59 Last Admin: 12/04/17 08:45 Dose: 100 mg Magnesium Hydroxide (Milk Of Magnesia) 30 ml PO HS PRN PRN Reason: Constipation Metoprolol Tartrate (Lopressor) 12.5 mg PO BID [facility] Stop: 01/25/18 16:59 Last Admin: 12/04/17 08:41 Dose: 12.5 mg Multivitamins/Vitamin C (Theragran) 1 tab PO DAILY [facility] Stop: 01/25/18 08:59 Last Admin: 12/04/17 08:41 Dose: 1 tab Nitroglycerin (Nitrostat) 0.4 mg SL Q5MIN PRN PRN Reason: Chest Pain Stop: 01/25/18 15:46 Quetiapine Fumarate (Seroquel) 100 mg PO DAILY [facility] PRN Reason: Protocol Stop: 01/25/18 08:59 Last Admin: 12/04/17 08:45 Dose: 100 mg Quetiapine Fumarate (Seroquel) 200 mg PO HS [facility] PRN Reason: Protocol Stop: 01/25/18 20:59 Last Admin: 12/03/17 20:52 Dose: 200 mg Sodium Phosphate (Fleet Enema) 135 ml RC Q2D PRN PRN Reason: Constipation Stop: 01/25/18 15:46 Tamsulosin HCl (Flomax) 0.4 mg PO HS [facility] Stop: 01/25/18 20:59 Last Admin: 12/03/17 20:52 Dose: 0.4 mg Thiamine HCl (Vitamin B1) 200 mg PO DAILY [facility] Stop: 01/26/18 08:59 Last Admin: 12/04/17 08:40 Dose: 200 mg General: alert, obese HEENT: PERRLA, EOMI, anicteric sclerae, throat clear Neck: Supple, No JVD, No thyromegaly, +2 carotid pulse wo bruit Lungs: CTAB Cardiovascular: Normal S1, Normal S2, without murmur Abdomen: soft, non-tender, non-distended Neurological: no change Internal Medicine Assmt/Plan - Assessment Assessment: 1.HTN. 2.BPH. 3.DJD. 4.DEMENTIA. - Plan Plan: CONTINUE ON CURRENT MEDICATION AND DIET. Nutritional Asmnt/Malnutr-PDOC - Dietary Evaluation Malnutrition Findings (Please click <Entered> for more info): Nutritional Asmnt/Malnutrition Start: 11/30/17 10: 48 Text: Status: Complete Freq: Document 11/30/17 10:48 [email or web address] (Rec: 11/30/17 11:02 MMVIRGIL FLETCHER- FNS4) Nutritional Asmnt/Malnutrition Patient General Information Nutritional Screening Moderate Risk Diagnosis Psychosis NOS (Reason for visit) Pertinent Medical Hx/Surgical Hx insomnia, dementia with behavioral disturbance, alcoholic cirrhosis of liver, osteoarthritis, difficulty in walking, generalized muscle weakness, hyperlipidemia, BPH , hypertensive emergency, pain in right knee, GERD Subjective Information Patient was admitted from SNF. Patient was lying in bed at time of visit. Current Diet Order/ Nutrition Support No added salt Patient / S.O Not Indicated Pertinent Medications maalox, Dulcolax, colace, MOM, Theragran, Fleet enema, Vitamin B1 Pertinent Labs (11/25) Nutrition related labs WNL Nutritional Hx/Data Height 1.73 m Height (Calculated Centimeters) 172.7 Current Weight (lbs) 117.027 kg Weight (Calculated Kilograms) 117.0 Weight (Calculated Grams) 848299.8 [place] Body Weight 154 % [place] Body Weight 167 Body Mass Index (BMI) 39.2 Recent Weight Change No Weight Status Morbidly Obese GI Symptoms GI Symptoms None Last BM 11/28 x 1 Difficult in: None Food Allergies No Cultural/Ethnic/Sabianism Belief None indicated Usual diet at home Unknown Skin Integrity/Comment: Esdras 20, SKin with dryness, intact Current %PO Good (75-100%) Estimated Nutritional Goals BEE in Kcals: Adj wt of IBW Calories/Kcals/Kg Adj weight 180lb/81.8 kg (25- 30 kcal/kg) Kcals Calculated ~8685-8711 kcal/day Protein: Adj wt of IBW Protein g/k-1.2 gm/kg - due to dereased caloric feed with using Adj weight Protein Calculated ~80-100 gm/day Fluid: ml ~2829-8790 ml/day (30-35 ml/kg ) Nutritional Problem 1. Problem Problem Obesity related to Etiology possible excessive intake prior to arrival aeb Signs/Symptoms: BMI 39.2 Intervention/Recommendation Comments 1. Continue No added salt diet as tolerated by patient due to episodes of hypertension. Expected Outcomes/Goals Expected Outcomes/Goals Oral intake to meet >75% Of nutrient needs, weight stable or trends toward ideal body weight, Nutrition related labs remanin WNL, continued skin integrity.
--- NOTE | 2017-12-04 22:23 | Progress Notes ---
DATE: 12/04/2017 PSYCHIATRIC PROGRESS NOTE SUBJECTIVE: Staff was spoken to. The patient is interviewed, noted to be irritable. Affect is constricted. The patient is stating that he has been trying his best to attend the groups, but no one is giving him any credit. Coping skills are noted to be very poor at this time. No side effects to the medications are noted. ASSESSMENT: The patient is still having mood swings. PLAN: To continue the patient with the supportive therapy, encouraged the patient to verbalize the concerns. The patient is currently on 10 mg of the Seroquel in the morning and 200 mg at bedtime and the Depakote 500 mg twice a day. The patient has been able to verbalize the concerns rather than to act out. JOB# [id number]
[2017-12-05] MEDS: Multivitamin Tab PO SCH (08:45)
--- NOTE | 2017-12-05 18:34 | General Progress Note ---
Subjective - Review of Systems Service Date: 12/05/17 Subjective: resting comfortably no distress Objective - Results Result Diagrams: 11/25/17 18:59 11/25/17 18:59 Recent Labs: Laboratory Last Values WBC 10.0 Th/cmm (4.8-10.8) 11/25/17 18:59 RBC 5.08 Mil/cmm (4.30-5.70) 11/25/17 18:59 Hgb 15.5 gm/dL (12-16) 11/25/17 18:59 Hct 46.0 % (41.0-60) 11/25/17 18:59 MCV 90.6 fl (80-99) 11/25/17 18:59 MCH 30.6 pg (26.0-30.0) H 11/25/17 18:59 MCHC Differential 33.8 pg (28.0-36.0) 11/25/17 18:59 RDW 12.7 % (11.5-20.0) 11/25/17 18:59 Plt Count 196 Th/cmm (150-400) 11/25/17 18:59 MPV 9.3 fl 11/25/17 18:59 Neutrophils % 61.0 % (40.0-80.0) 11/25/17 18:59 Lymphocytes % 30.2 % (20.0-50.0) 11/25/17 18:59 Monocytes % 7.1 % (2.0-10.0) 11/25/17 18:59 Eosinophils % 1.2 % (0.0-5.0) 11/25/17 18:59 Basophils % 0.5 % (0.0-2.0) 11/25/17 18:59 Sodium 140 mEq/L (136-145) 11/25/17 18:59 Potassium 4.1 mEq/L (3.5-5.1) 11/25/17 18:59 Chloride 108 mEq/L (98-107) H 11/25/17 18:59 Carbon Dioxide 26.2 mEq/L (21.0-31.0) 11/25/17 18:59 Anion Gap 9.9 (7.0-16.0) 11/25/17 18:59 BUN 22 mg/dL (7-25) 11/25/17 18:59 Creatinine 0.8 mg/dL (0.7-1.3) 11/25/17 18:59 Est GFR ( Amer) > 60.0 ml/min (>90) 11/25/17 18:59 Est GFR (Non-Af Amer) > 60.0 ml/min 11/25/17 18:59 BUN/Creatinine Ratio 27.5 11/25/17 18:59 Glucose 100 mg/dL (70-105) 11/25/17 18:59 Calcium 9.8 mg/dL (8.6-10.3) 11/25/17 18:59 Total Bilirubin 0.5 mg/dL (0.3-1.0) 11/25/17 18:59 AST 23 U/L (13-39) 11/25/17 18:59 ALT 24 U/L (7-52) 11/25/17 18:59 Alkaline Phosphatase 116 U/L (34-104) H 11/25/17 18:59 Total Protein 7.6 gm/dL (6.0-8.3) 11/25/17 18:59 Albumin 4.7 gm/dL (4.2-5.5) 11/25/17 18:59 Globulin 2.9 gm/dL 11/25/17 18:59 Albumin/Globulin Ratio 1.6 (1.0-1.8) 11/25/17 18:59 Triglycerides 128 mg/dL (<150) 11/25/17 18:59 Cholesterol 150 mg/dL (<200) 11/25/17 18:59 LDL Cholesterol Direct 91 mg/dL (75-193) 11/25/17 18:59 HDL Cholesterol 51 mg/dL (23-92) 11/25/17 18:59 TSH 4.03 uIU/ml (0.34-5.60) 11/25/17 18:59 RPR NONREACTIVE (NONREACTIVE) 11/25/17 18:59 - Physical Exam Vitals and I&O: Vital Signs Temp 97.2 F 12/05/17 15:17 Pulse 60 12/05/17 17:09 Resp 20 12/05/17 15:17 BP 130/78 12/05/17 17:09 Pulse Ox 97 12/05/17 15:17 Intake & Output 12/04/17 12/05/17 12/05/17 18:59 06:59 18:59 Intake Total 0822 823 2436 Balance 0788 214 3969 Intake: Oral 1697 747 3013 Other: # Voids 4 3 3 # Bowel Movements 1 1 Active Medications: Current Medications Acetaminophen (Tylenol) 650 mg PO Q4HR PRN PRN Reason: Mild Pain / Temp above 100 Stop: 01/25/18 15:46 Al Hydrox/Mg Hydrox/Simethicone (Maalox) 30 ml PO Q4HR PRN PRN Reason: GI DISTRESS Stop: 01/25/18 15:46 Amlodipine Besylate (Norvasc) 10 mg PO DAILY [facility] Stop: 01/26/18 08:59 Last Admin: 12/05/17 08:45 Dose: 10 mg Aspirin (Aspirin) 325 mg PO DAILY [facility] Stop: 01/26/18 08:59 Last Admin: 12/05/17 08:44 Dose: 325 mg Bisacodyl (Dulcolax 10 Mg Supp) 10 mg RC DAILY PRN PRN Reason: Constipation Stop: 01/25/18 15:46 Divalproex Sodium (Depakote Dr) 500 mg PO BID [facility] PRN Reason: Protocol Stop: 01/25/18 08:59 Last Admin: 12/05/17 17:11 Dose: 500 mg Docusate Sodium (Colace) 100 mg PO DAILY [facility] Stop: 01/25/18 08:59 Last Admin: 12/05/17 08:45 Dose: 100 mg Magnesium Hydroxide (Milk Of Magnesia) 30 ml PO HS PRN PRN Reason: Constipation Metoprolol Tartrate (Lopressor) 12.5 mg PO BID [facility] Stop: 01/25/18 16:59 Last Admin: 12/05/17 17:09 Dose: 12.5 mg Morphine Sulfate (Ms-Contin) 30 mg PO Q12HR [facility] Stop: 02/02/18 20:59 Last Admin: 12/05/17 08:44 Dose: 30 mg Multivitamins/Vitamin C (Theragran) 1 tab PO DAILY [facility] Stop: 01/25/18 08:59 Last Admin: 12/05/17 08:45 Dose: 1 tab Nitroglycerin (Nitrostat) 0.4 mg SL Q5MIN PRN PRN Reason: Chest Pain Stop: 01/25/18 15:46 Quetiapine Fumarate (Seroquel) 100 mg PO DAILY [facility] PRN Reason: Protocol Stop: 01/25/18 08:59 Last Admin: 12/05/17 08:44 Dose: 100 mg Quetiapine Fumarate (Seroquel) 200 mg PO HS [facility] PRN Reason: Protocol Stop: 01/25/18 20:59 Last Admin: 12/04/17 21:21 Dose: 200 mg Sodium Phosphate (Fleet Enema) 135 ml RC Q2D PRN PRN Reason: Constipation Stop: 01/25/18 15:46 Tamsulosin HCl (Flomax) 0.4 mg PO HS [facility] Stop: 01/25/18 20:59 Last Admin: 12/04/17 21:21 Dose: 0.4 mg Thiamine HCl (Vitamin B1) 200 mg PO DAILY [facility] Stop: 01/26/18 08:59 Last Admin: 12/05/17 08:45 Dose: 200 mg General: Alert, No acute distress HEENT: Atraumatic, PERRLA, EOMI Neck: Supple, JVD, Thyromegaly Cardiovascular: Regular rate, Normal S1, Normal S2 Lungs: Clear to auscultation Abdomen: Bowel sounds, Soft Assessment/Plan - Assessment Assessment: dementia BPH HTN DJD - Plan Plan: cont current treatment Nutritional Asmnt/Malnutr-PDOC - Dietary Evaluation Malnutrition Findings (Please click <Entered> for more info): Nutritional Asmnt/Malnutrition Start: 11/30/17 10: 48 Text: Status: Complete Freq: Document 11/30/17 10:48 ANKUR (Rec: 11/30/17 11:02 ANKUR FLETCHER- FNS4) Nutritional Asmnt/Malnutrition Patient General Information Nutritional Screening Moderate Risk Diagnosis Psychosis NOS (Reason for visit) Pertinent Medical Hx/Surgical Hx insomnia, dementia with behavioral disturbance, alcoholic cirrhosis of liver, osteoarthritis, difficulty in walking, generalized muscle weakness, hyperlipidemia, BPH , hypertensive emergency, pain in right knee, GERD Subjective Information Patient was admitted from SNF. Patient was lying in bed at time of visit. Current Diet Order/ Nutrition Support No added salt Patient / S.O Not Indicated Pertinent Medications maalox, Dulcolax, colace, MOM, Theragran, Fleet enema, Vitamin B1 Pertinent Labs (11/25) Nutrition related labs WNL Nutritional Hx/Data Height 1.73 m Height (Calculated Centimeters) 172.7 Current Weight (lbs) 117.027 kg Weight (Calculated Kilograms) 117.0 Weight (Calculated Grams) 090578.8 [place] Body Weight 154 % [place] Body Weight 167 Body Mass Index (BMI) 39.2 Recent Weight Change No Weight Status Morbidly Obese GI Symptoms GI Symptoms None Last BM 11/28 x 1 Difficult in: None Food Allergies No Cultural/Ethnic/Mandaeism Belief None indicated Usual diet at home Unknown Skin Integrity/Comment: Esdras 20, SKin with dryness, intact Current %PO Good (75-100%) Estimated Nutritional Goals BEE in Kcals: Adj wt of IBW Calories/Kcals/Kg Adj weight 180lb/81.8 kg (25- 30 kcal/kg) Kcals Calculated ~9882-7862 kcal/day Protein: Adj wt of IBW Protein g/k-1.2 gm/kg - due to dereased caloric feed with using Adj weight Protein Calculated ~80-100 gm/day Fluid: ml ~9499-6355 ml/day (30-35 ml/kg ) Nutritional Problem 1. Problem Problem Obesity related to Etiology possible excessive intake prior to arrival aeb Signs/Symptoms: BMI 39.2 Intervention/Recommendation Comments 1. Continue No added salt diet as tolerated by patient due to episodes of hypertension. Expected Outcomes/Goals Expected Outcomes/Goals Oral intake to meet >75% Of nutrient needs, weight stable or trends toward ideal body weight, Nutrition related labs remanin WNL, continued skin integrity.
--- NOTE | 2017-12-05 20:24 | Progress Notes ---
DATE: 12/05/2017 SUBJECTIVE: Staff was spoken to. The patient is interviewed. Mood is noted to be irritable. Affect is constricted. Coping skills are noted to be still poor. Sleep and appetite are also noted to be very poor. The patient is getting easily irritable, screaming and yelling today. No side effects to the medications are noted. ASSESSMENT: The patient is still grossly psychotic and impulsive. PLAN: To continue the patient with the current medications. I encouraged the patient to verbalize the concerns rather than to act out. Please note that the patient is now ready to be discharged to a low level of care, yet the patient has been able to tolerate the Seroquel. [facility]# [id number]
[2017-12-06] MEDS: Multivitamin Tab PO SCH (08:53)
--- NOTE | 2017-12-06 13:29 | Progress Notes ---
DATE: 12/06/2017 SUBJECTIVE: Staff are spoken to. The patient is interviewed. Mood is noted to be irritable. Affect is constricted. The patient's coping skills are noted to be very poor. The patient is getting easily agitated. The patient is currently on Seroquel 300 mg, plan to increase to 400 mg. I encouraged the patient to verbalize the concerns rather than to act out. [facility]# [id number]
--- NOTE | 2017-12-06 16:57 | General Progress Note ---
Subjective - Review of Systems Service Date: 12/06/17 Subjective: resting comfortably no distress Objective - Results Result Diagrams: 11/25/17 18:59 11/25/17 18:59 Recent Labs: Laboratory Last Values WBC 10.0 Th/cmm (4.8-10.8) 11/25/17 18:59 RBC 5.08 Mil/cmm (4.30-5.70) 11/25/17 18:59 Hgb 15.5 gm/dL (12-16) 11/25/17 18:59 Hct 46.0 % (41.0-60) 11/25/17 18:59 MCV 90.6 fl (80-99) 11/25/17 18:59 MCH 30.6 pg (26.0-30.0) H 11/25/17 18:59 MCHC Differential 33.8 pg (28.0-36.0) 11/25/17 18:59 RDW 12.7 % (11.5-20.0) 11/25/17 18:59 Plt Count 196 Th/cmm (150-400) 11/25/17 18:59 MPV 9.3 fl 11/25/17 18:59 Neutrophils % 61.0 % (40.0-80.0) 11/25/17 18:59 Lymphocytes % 30.2 % (20.0-50.0) 11/25/17 18:59 Monocytes % 7.1 % (2.0-10.0) 11/25/17 18:59 Eosinophils % 1.2 % (0.0-5.0) 11/25/17 18:59 Basophils % 0.5 % (0.0-2.0) 11/25/17 18:59 Sodium 140 mEq/L (136-145) 11/25/17 18:59 Potassium 4.1 mEq/L (3.5-5.1) 11/25/17 18:59 Chloride 108 mEq/L (98-107) H 11/25/17 18:59 Carbon Dioxide 26.2 mEq/L (21.0-31.0) 11/25/17 18:59 Anion Gap 9.9 (7.0-16.0) 11/25/17 18:59 BUN 22 mg/dL (7-25) 11/25/17 18:59 Creatinine 0.8 mg/dL (0.7-1.3) 11/25/17 18:59 Est GFR ( Amer) > 60.0 ml/min (>90) 11/25/17 18:59 Est GFR (Non-Af Amer) > 60.0 ml/min 11/25/17 18:59 BUN/Creatinine Ratio 27.5 11/25/17 18:59 Glucose 100 mg/dL (70-105) 11/25/17 18:59 Calcium 9.8 mg/dL (8.6-10.3) 11/25/17 18:59 Total Bilirubin 0.5 mg/dL (0.3-1.0) 11/25/17 18:59 AST 23 U/L (13-39) 11/25/17 18:59 ALT 24 U/L (7-52) 11/25/17 18:59 Alkaline Phosphatase 116 U/L (34-104) H 11/25/17 18:59 Total Protein 7.6 gm/dL (6.0-8.3) 11/25/17 18:59 Albumin 4.7 gm/dL (4.2-5.5) 11/25/17 18:59 Globulin 2.9 gm/dL 11/25/17 18:59 Albumin/Globulin Ratio 1.6 (1.0-1.8) 11/25/17 18:59 Triglycerides 128 mg/dL (<150) 11/25/17 18:59 Cholesterol 150 mg/dL (<200) 11/25/17 18:59 LDL Cholesterol Direct 91 mg/dL (75-193) 11/25/17 18:59 HDL Cholesterol 51 mg/dL (23-92) 11/25/17 18:59 TSH 4.03 uIU/ml (0.34-5.60) 11/25/17 18:59 RPR NONREACTIVE (NONREACTIVE) 11/25/17 18:59 - Physical Exam Vitals and I&O: Vital Signs Temp 98.1 F 12/06/17 15:49 Pulse 53 12/06/17 16:21 Resp 21 12/06/17 15:49 BP 113/63 12/06/17 16:21 Pulse Ox 95 12/06/17 15:49 Intake & Output 12/05/17 12/06/17 12/06/17 18:59 06:59 18:59 Intake Total 1200 720 Balance 1200 720 Intake: Oral 1200 720 Other: # Voids 3 2 # Bowel Movements 1 Active Medications: Current Medications Acetaminophen (Tylenol) 650 mg PO Q4HR PRN PRN Reason: Mild Pain / Temp above 100 Stop: 01/25/18 15:46 Al Hydrox/Mg Hydrox/Simethicone (Maalox) 30 ml PO Q4HR PRN PRN Reason: GI DISTRESS Stop: 01/25/18 15:46 Amlodipine Besylate (Norvasc) 10 mg PO DAILY [facility] Stop: 01/26/18 08:59 Last Admin: 12/06/17 08:49 Dose: 10 mg Aspirin (Aspirin) 325 mg PO DAILY [facility] Stop: 01/26/18 08:59 Last Admin: 12/06/17 08:48 Dose: 325 mg Bisacodyl (Dulcolax 10 Mg Supp) 10 mg RC DAILY PRN PRN Reason: Constipation Stop: 01/25/18 15:46 Divalproex Sodium (Depakote Dr) 500 mg PO BID [facility] PRN Reason: Protocol Stop: 01/25/18 08:59 Last Admin: 12/06/17 16:20 Dose: 500 mg Docusate Sodium (Colace) 100 mg PO DAILY [facility] Stop: 01/25/18 08:59 Last Admin: 12/06/17 08:48 Dose: 100 mg Magnesium Hydroxide (Milk Of Magnesia) 30 ml PO HS PRN PRN Reason: Constipation Metoprolol Tartrate (Lopressor) 12.5 mg PO BID [facility] Stop: 01/25/18 16:59 Last Admin: 12/06/17 16:21 Dose: 12.5 mg Morphine Sulfate (Ms-Contin) 30 mg PO Q12HR [facility] Stop: 02/02/18 20:59 Last Admin: 12/06/17 08:48 Dose: 30 mg Multivitamins/Vitamin C (Theragran) 1 tab PO DAILY [facility] Stop: 01/25/18 08:59 Last Admin: 12/06/17 08:53 Dose: 1 tab Nitroglycerin (Nitrostat) 0.4 mg SL Q5MIN PRN PRN Reason: Chest Pain Stop: 01/25/18 15:46 Quetiapine Fumarate (Seroquel) 200 mg PO HS [facility] PRN Reason: Protocol Stop: 01/25/18 20:59 Last Admin: 12/05/17 21:41 Dose: 200 mg Quetiapine Fumarate (Seroquel) 200 mg PO DAILY [facility] PRN Reason: Protocol Stop: 01/25/18 08:59 Sodium Phosphate (Fleet Enema) 135 ml RC Q2D PRN PRN Reason: Constipation Stop: 01/25/18 15:46 Tamsulosin HCl (Flomax) 0.4 mg PO HS [facility] Stop: 01/25/18 20:59 Last Admin: 12/05/17 21:41 Dose: 0.4 mg Thiamine HCl (Vitamin B1) 200 mg PO DAILY [facility] Stop: 01/26/18 08:59 Last Admin: 12/06/17 08:55 Dose: 200 mg General: Alert, No acute distress HEENT: Atraumatic, PERRLA, EOMI Neck: Supple, JVD, Thyromegaly Cardiovascular: Regular rate, Normal S1, Normal S2 Lungs: Clear to auscultation Abdomen: Bowel sounds, Soft Assessment/Plan - Assessment Assessment: dementia BPH HTN DJD - Plan Plan: cont current treatment Nutritional Asmnt/Malnutr-PDOC - Dietary Evaluation Malnutrition Findings (Please click <Entered> for more info): Nutritional Asmnt/Malnutrition Start: 11/30/17 10: 48 Text: Status: Complete Freq: Document 11/30/17 10:48 ANKUR (Rec: 11/30/17 11:02 ANKUR FLETCHER- [id number]) Nutritional Asmnt/Malnutrition Patient General Information Nutritional Screening Moderate Risk Diagnosis Psychosis NOS (Reason for visit) Pertinent Medical Hx/Surgical Hx insomnia, dementia with behavioral disturbance, alcoholic cirrhosis of liver, osteoarthritis, difficulty in walking, generalized muscle weakness, hyperlipidemia, BPH , hypertensive emergency, pain in right knee, GERD Subjective Information Patient was admitted from SNF. Patient was lying in bed at time of visit. Current Diet Order/ Nutrition Support No added salt Patient / S.O Not Indicated Pertinent Medications maalox, Dulcolax, colace, MOM, Theragran, Fleet enema, Vitamin B1 Pertinent Labs (11/25) Nutrition related labs WNL Nutritional Hx/Data Height 1.73 m Height (Calculated Centimeters) 172.7 Current Weight (lbs) 117.027 kg Weight (Calculated Kilograms) 117.0 Weight (Calculated Grams) 129089.8 [place] Body Weight 154 % [place] Body Weight 167 Body Mass Index (BMI) 39.2 Recent Weight Change No Weight Status Morbidly Obese GI Symptoms GI Symptoms None Last BM 11/28 x 1 Difficult in: None Food Allergies No Cultural/Ethnic/Hinduism Belief None indicated Usual diet at home Unknown Skin Integrity/Comment: Esdras Reyes, SKin with dryness, intact Current %PO Good (75-100%) Estimated Nutritional Goals BEE in Kcals: Adj wt of IBW Calories/Kcals/Kg Adj weight 180lb/81.8 kg (25- 30 kcal/kg) Kcals Calculated ~5176-6620 kcal/day Protein: Adj wt of IBW Protein g/k-1.2 gm/kg - due to dereased caloric feed with using Adj weight Protein Calculated ~80-100 gm/day Fluid: ml ~0434-6166 ml/day (30-35 ml/kg ) Nutritional Problem 1. Problem Problem Obesity related to Etiology possible excessive intake prior to arrival aeb Signs/Symptoms: BMI 39.2 Intervention/Recommendation Comments 1. Continue No added salt diet as tolerated by patient due to episodes of hypertension. Expected Outcomes/Goals Expected Outcomes/Goals Oral intake to meet >75% Of nutrient needs, weight stable or trends toward ideal body weight, Nutrition related labs remanin WNL, continued skin integrity.
[2017-12-07] MEDS: Multivitamin Tab PO SCH (08:46)
--- NOTE | 2017-12-07 16:21 | Internal Medicine Prog Note ---
Internal Medicine Subjective - Subjective Service Date: 12/07/17 Patient seen and examined:: without staff Patient is:: awake, verbal, talking, confused Per staff patient has:: no adverse event Internal Medicine Objective - Results Result Diagrams: 11/25/17 18:59 11/25/17 18:59 Recent Labs: Laboratory Last Values WBC 10.0 Th/cmm (4.8-10.8) 11/25/17 18:59 RBC 5.08 Mil/cmm (4.30-5.70) 11/25/17 18:59 Hgb 15.5 gm/dL (12-16) 11/25/17 18:59 Hct 46.0 % (41.0-60) 11/25/17 18:59 MCV 90.6 fl (80-99) 11/25/17 18:59 MCH 30.6 pg (26.0-30.0) H 11/25/17 18:59 MCHC Differential 33.8 pg (28.0-36.0) 11/25/17 18:59 RDW 12.7 % (11.5-20.0) 11/25/17 18:59 Plt Count 196 Th/cmm (150-400) 11/25/17 18:59 MPV 9.3 fl 11/25/17 18:59 Neutrophils % 61.0 % (40.0-80.0) 11/25/17 18:59 Lymphocytes % 30.2 % (20.0-50.0) 11/25/17 18:59 Monocytes % 7.1 % (2.0-10.0) 11/25/17 18:59 Eosinophils % 1.2 % (0.0-5.0) 11/25/17 18:59 Basophils % 0.5 % (0.0-2.0) 11/25/17 18:59 Sodium 140 mEq/L (136-145) 11/25/17 18:59 Potassium 4.1 mEq/L (3.5-5.1) 11/25/17 18:59 Chloride 108 mEq/L (98-107) H 11/25/17 18:59 Carbon Dioxide 26.2 mEq/L (21.0-31.0) 11/25/17 18:59 Anion Gap 9.9 (7.0-16.0) 11/25/17 18:59 BUN 22 mg/dL (7-25) 11/25/17 18:59 Creatinine 0.8 mg/dL (0.7-1.3) 11/25/17 18:59 Est GFR ( Amer) > 60.0 ml/min (>90) 11/25/17 18:59 Est GFR (Non-Af Amer) > 60.0 ml/min 11/25/17 18:59 BUN/Creatinine Ratio 27.5 11/25/17 18:59 Glucose 100 mg/dL (70-105) 11/25/17 18:59 Calcium 9.8 mg/dL (8.6-10.3) 11/25/17 18:59 Total Bilirubin 0.5 mg/dL (0.3-1.0) 11/25/17 18:59 AST 23 U/L (13-39) 11/25/17 18:59 ALT 24 U/L (7-52) 11/25/17 18:59 Alkaline Phosphatase 116 U/L (34-104) H 11/25/17 18:59 Total Protein 7.6 gm/dL (6.0-8.3) 11/25/17 18:59 Albumin 4.7 gm/dL (4.2-5.5) 11/25/17 18:59 Globulin 2.9 gm/dL 11/25/17 18:59 Albumin/Globulin Ratio 1.6 (1.0-1.8) 11/25/17 18:59 Triglycerides 128 mg/dL (<150) 11/25/17 18:59 Cholesterol 150 mg/dL (<200) 11/25/17 18:59 LDL Cholesterol Direct 91 mg/dL (75-193) 11/25/17 18:59 HDL Cholesterol 51 mg/dL (23-92) 11/25/17 18:59 TSH 4.03 uIU/ml (0.34-5.60) 11/25/17 18:59 RPR NONREACTIVE (NONREACTIVE) 11/25/17 18:59 - Physical Exam Vitals and I&O: Vital Signs Temp 97.0 F 12/07/17 15:37 Pulse 53 12/07/17 15:37 Resp 19 12/07/17 15:37 BP 121/80 12/07/17 15:37 Pulse Ox 97 12/07/17 15:37 Intake & Output 12/06/17 12/07/17 12/07/17 18:59 06:59 18:59 Intake Total 1200 360 Balance 1200 360 Intake: Oral 1200 360 Other: # Voids 2 2 # Bowel Movements 1 1 Active Medications: Current Medications Acetaminophen (Tylenol) 650 mg PO Q4HR PRN PRN Reason: Mild Pain / Temp above 100 Stop: 01/25/18 15:46 Al Hydrox/Mg Hydrox/Simethicone (Maalox) 30 ml PO Q4HR PRN PRN Reason: GI DISTRESS Stop: 01/25/18 15:46 Amlodipine Besylate (Norvasc) 10 mg PO DAILY [facility] Stop: 01/26/18 08:59 Last Admin: 12/07/17 08:45 Dose: 10 mg Aspirin (Aspirin) 325 mg PO DAILY [facility] Stop: 01/26/18 08:59 Last Admin: 12/07/17 08:46 Dose: 325 mg Bisacodyl (Dulcolax 10 Mg Supp) 10 mg RC DAILY PRN PRN Reason: Constipation Stop: 01/25/18 15:46 Divalproex Sodium (Depakote Dr) 500 mg PO BID [facility] PRN Reason: Protocol Stop: 01/25/18 08:59 Last Admin: 12/07/17 16:02 Dose: 500 mg Docusate Sodium (Colace) 100 mg PO DAILY [facility] Stop: 01/25/18 08:59 Last Admin: 12/07/17 08:45 Dose: 100 mg Magnesium Hydroxide (Milk Of Magnesia) 30 ml PO HS PRN PRN Reason: Constipation Metoprolol Tartrate (Lopressor) 12.5 mg PO BID [facility] Stop: 01/25/18 16:59 Last Admin: 12/07/17 16:02 Dose: Not Given Morphine Sulfate (Ms-Contin) 30 mg PO Q12HR [facility] Stop: 02/02/18 20:59 Last Admin: 12/07/17 08:48 Dose: 30 mg Multivitamins/Vitamin C (Theragran) 1 tab PO DAILY [facility] Stop: 01/25/18 08:59 Last Admin: 12/07/17 08:46 Dose: 1 tab Nitroglycerin (Nitrostat) 0.4 mg SL Q5MIN PRN PRN Reason: Chest Pain Stop: 01/25/18 15:46 Quetiapine Fumarate (Seroquel) 200 mg PO HS [facility] PRN Reason: Protocol Stop: 01/25/18 20:59 Last Admin: 12/06/17 20:26 Dose: 200 mg Quetiapine Fumarate (Seroquel) 200 mg PO DAILY [facility] PRN Reason: Protocol Stop: 01/25/18 08:59 Last Admin: 12/07/17 08:48 Dose: 200 mg Sodium Phosphate (Fleet Enema) 135 ml RC Q2D PRN PRN Reason: Constipation Stop: 01/25/18 15:46 Tamsulosin HCl (Flomax) 0.4 mg PO HS [facility] Stop: 01/25/18 20:59 Last Admin: 12/06/17 20:25 Dose: 0.4 mg Thiamine HCl (Vitamin B1) 200 mg PO DAILY [facility] Stop: 01/26/18 08:59 Last Admin: 12/07/17 08:46 Dose: 200 mg General: alert, obese HEENT: PERRLA, EOMI, anicteric sclerae, throat clear Neck: Supple, No JVD, No thyromegaly, +2 carotid pulse wo bruit Lungs: CTAB Cardiovascular: Normal S1, Normal S2, without murmur Abdomen: soft, non-tender, non-distended Neurological: no change Internal Medicine Assmt/Plan - Assessment Assessment: 1.HTN. 2.BPH. 3.DJD. 4.DEMENTIA. - Plan Plan: CONTINUE ON CURRENT MEDICATION AND DIET. Nutritional Asmnt/Malnutr-PDOC - Dietary Evaluation Malnutrition Findings (Please click <Entered> for more info): Nutritional Asmnt/Malnutrition Start: 11/30/17 10: 48 Text: Status: Complete Freq: Document 11/30/17 10:48 ANKUR (Rec: 11/30/17 11:02 ANKUR FLETCHER- [id number]) Nutritional Asmnt/Malnutrition Patient General Information Nutritional Screening Moderate Risk Diagnosis Psychosis NOS (Reason for visit) Pertinent Medical Hx/Surgical Hx insomnia, dementia with behavioral disturbance, alcoholic cirrhosis of liver, osteoarthritis, difficulty in walking, generalized muscle weakness, hyperlipidemia, BPH , hypertensive emergency, pain in right knee, GERD Subjective Information Patient was admitted from SNF. Patient was lying in bed at time of visit. Current Diet Order/ Nutrition Support No added salt Patient / S.O Not Indicated Pertinent Medications maalox, Dulcolax, colace, MOM, Theragran, Fleet enema, Vitamin B1 Pertinent Labs (11/25) Nutrition related labs WNL Nutritional Hx/Data Height 1.73 m Height (Calculated Centimeters) 172.7 Current Weight (lbs) 117.027 kg Weight (Calculated Kilograms) 117.0 Weight (Calculated Grams) 994012.8 [place] Body Weight 154 % [place] Body Weight 167 Body Mass Index (BMI) 39.2 Recent Weight Change No Weight Status Morbidly Obese GI Symptoms GI Symptoms None Last BM 11/28 x 1 Difficult in: None Food Allergies No Cultural/Ethnic/Caodaism Belief None indicated Usual diet at home Unknown Skin Integrity/Comment: Esdras 20, SKin with dryness, intact Current %PO Good (75-100%) Estimated Nutritional Goals BEE in Kcals: Adj wt of IBW Calories/Kcals/Kg Adj weight 180lb/81.8 kg (25- 30 kcal/kg) Kcals Calculated ~2130-6715 kcal/day Protein: Adj wt of IBW Protein g/k-1.2 gm/kg - due to dereased caloric feed with using Adj weight Protein Calculated ~80-100 gm/day Fluid: ml ~4845-0921 ml/day (30-35 ml/kg ) Nutritional Problem 1. Problem Problem Obesity related to Etiology possible excessive intake prior to arrival aeb Signs/Symptoms: BMI 39.2 Intervention/Recommendation Comments 1. Continue No added salt diet as tolerated by patient due to episodes of hypertension. Expected Outcomes/Goals Expected Outcomes/Goals Oral intake to meet >75% Of nutrient needs, weight stable or trends toward ideal body weight, Nutrition related labs remanin WNL, continued skin integrity.
--- NOTE | 2017-12-07 21:12 | Progress Notes ---
DATE: 12/07/2017 PSYCHIATRIC PROGRESS NOTE SUBJECTIVE: Staff was spoken to. The patient is interviewed. Mood is noted to be irritable. Affect is constricted. The patient has been isolative and withdrawn today. Coping skills are noted to be very poor. The patient gets easily frustrated. The patient is currently on Seroquel and Depakote, and has been able to tolerate the medications. No side effects to the medications are noted. ASSESSMENT: The patient is still psychotic. PLAN: To continue the patient with the supportive therapy and followup. JOB# [id number]
[2017-12-08] MEDS: Multivitamin Tab PO SCH (09:17)
--- NOTE | 2017-12-08 23:27 | Internal Medicine Prog Note ---
Internal Medicine Subjective - Subjective Service Date: 12/08/17 Patient seen and examined:: without staff Patient is:: awake, verbal, talking, confused Per staff patient has:: no adverse event Internal Medicine Objective - Results Result Diagrams: 11/25/17 18:59 11/25/17 18:59 Recent Labs: Laboratory Last Values WBC 10.0 Th/cmm (4.8-10.8) 11/25/17 18:59 RBC 5.08 Mil/cmm (4.30-5.70) 11/25/17 18:59 Hgb 15.5 gm/dL (12-16) 11/25/17 18:59 Hct 46.0 % (41.0-60) 11/25/17 18:59 MCV 90.6 fl (80-99) 11/25/17 18:59 MCH 30.6 pg (26.0-30.0) H 11/25/17 18:59 MCHC Differential 33.8 pg (28.0-36.0) 11/25/17 18:59 RDW 12.7 % (11.5-20.0) 11/25/17 18:59 Plt Count 196 Th/cmm (150-400) 11/25/17 18:59 MPV 9.3 fl 11/25/17 18:59 Neutrophils % 61.0 % (40.0-80.0) 11/25/17 18:59 Lymphocytes % 30.2 % (20.0-50.0) 11/25/17 18:59 Monocytes % 7.1 % (2.0-10.0) 11/25/17 18:59 Eosinophils % 1.2 % (0.0-5.0) 11/25/17 18:59 Basophils % 0.5 % (0.0-2.0) 11/25/17 18:59 Sodium 140 mEq/L (136-145) 11/25/17 18:59 Potassium 4.1 mEq/L (3.5-5.1) 11/25/17 18:59 Chloride 108 mEq/L (98-107) H 11/25/17 18:59 Carbon Dioxide 26.2 mEq/L (21.0-31.0) 11/25/17 18:59 Anion Gap 9.9 (7.0-16.0) 11/25/17 18:59 BUN 22 mg/dL (7-25) 11/25/17 18:59 Creatinine 0.8 mg/dL (0.7-1.3) 11/25/17 18:59 Est GFR ( Amer) > 60.0 ml/min (>90) 11/25/17 18:59 Est GFR (Non-Af Amer) > 60.0 ml/min 11/25/17 18:59 BUN/Creatinine Ratio 27.5 11/25/17 18:59 Glucose 100 mg/dL (70-105) 11/25/17 18:59 Calcium 9.8 mg/dL (8.6-10.3) 11/25/17 18:59 Total Bilirubin 0.5 mg/dL (0.3-1.0) 11/25/17 18:59 AST 23 U/L (13-39) 11/25/17 18:59 ALT 24 U/L (7-52) 11/25/17 18:59 Alkaline Phosphatase 116 U/L (34-104) H 11/25/17 18:59 Total Protein 7.6 gm/dL (6.0-8.3) 11/25/17 18:59 Albumin 4.7 gm/dL (4.2-5.5) 11/25/17 18:59 Globulin 2.9 gm/dL 11/25/17 18:59 Albumin/Globulin Ratio 1.6 (1.0-1.8) 11/25/17 18:59 Triglycerides 128 mg/dL (<150) 11/25/17 18:59 Cholesterol 150 mg/dL (<200) 11/25/17 18:59 LDL Cholesterol Direct 91 mg/dL (75-193) 11/25/17 18:59 HDL Cholesterol 51 mg/dL (23-92) 11/25/17 18:59 TSH 4.03 uIU/ml (0.34-5.60) 11/25/17 18:59 RPR NONREACTIVE (NONREACTIVE) 11/25/17 18:59 - Physical Exam Vitals and I&O: Vital Signs Temp 98.2 F 12/08/17 16:49 Pulse 72 12/08/17 17:07 Resp 18 12/08/17 16:49 BP 109/64 12/08/17 17:07 Pulse Ox 96 12/08/17 16:49 Intake & Output 12/08/17 12/08/17 12/09/17 06:59 18:59 06:59 Intake Total 120 240 Balance 120 240 Intake: Oral 120 240 Other: # Voids 1 2 # Bowel Movements 0 Active Medications: Current Medications Acetaminophen (Tylenol) 650 mg PO Q4HR PRN PRN Reason: Mild Pain / Temp above 100 Stop: 01/25/18 15:46 Al Hydrox/Mg Hydrox/Simethicone (Maalox) 30 ml PO Q4HR PRN PRN Reason: GI DISTRESS Stop: 01/25/18 15:46 Amlodipine Besylate (Norvasc) 10 mg PO DAILY [facility] Stop: 01/26/18 08:59 Last Admin: 12/08/17 09:15 Dose: Not Given Aspirin (Aspirin) 325 mg PO DAILY [facility] Stop: 01/26/18 08:59 Last Admin: 12/08/17 09:17 Dose: 325 mg Bisacodyl (Dulcolax 10 Mg Supp) 10 mg RC DAILY PRN PRN Reason: Constipation Stop: 01/25/18 15:46 Divalproex Sodium (Depakote Dr) 500 mg PO BID [facility] PRN Reason: Protocol Stop: 01/25/18 08:59 Last Admin: 12/08/17 16:59 Dose: 500 mg Docusate Sodium (Colace) 100 mg PO DAILY [facility] Stop: 01/25/18 08:59 Last Admin: 12/08/17 09:17 Dose: Not Given Magnesium Hydroxide (Milk Of Magnesia) 30 ml PO HS PRN PRN Reason: Constipation Metoprolol Tartrate (Lopressor) 12.5 mg PO BID [facility] Stop: 01/25/18 16:59 Last Admin: 12/08/17 17:07 Dose: Not Given Morphine Sulfate (Ms-Contin) 30 mg PO Q12HR [facility] Stop: 02/02/18 20:59 Last Admin: 12/08/17 20:22 Dose: 30 mg Multivitamins/Vitamin C (Theragran) 1 tab PO DAILY [facility] Stop: 01/25/18 08:59 Last Admin: 12/08/17 09:17 Dose: 1 tab Nitroglycerin (Nitrostat) 0.4 mg SL Q5MIN PRN PRN Reason: Chest Pain Stop: 01/25/18 15:46 Quetiapine Fumarate (Seroquel) 200 mg PO HS [facility] PRN Reason: Protocol Stop: 01/25/18 20:59 Last Admin: 12/08/17 20:22 Dose: 200 mg Quetiapine Fumarate (Seroquel) 200 mg PO DAILY [facility] PRN Reason: Protocol Stop: 01/25/18 08:59 Last Admin: 12/08/17 09:17 Dose: 200 mg Sodium Phosphate (Fleet Enema) 135 ml RC Q2D PRN PRN Reason: Constipation Stop: 01/25/18 15:46 Tamsulosin HCl (Flomax) 0.4 mg PO HS [facility] Stop: 01/25/18 20:59 Last Admin: 12/08/17 20:22 Dose: 0.4 mg Thiamine HCl (Vitamin B1) 200 mg PO DAILY [facility] Stop: 01/26/18 08:59 Last Admin: 12/08/17 09:15 Dose: 200 mg General: alert, obese HEENT: PERRLA, EOMI, anicteric sclerae, throat clear Neck: Supple, No JVD, No thyromegaly, +2 carotid pulse wo bruit Lungs: CTAB Cardiovascular: Normal S1, Normal S2, without murmur Abdomen: soft, non-tender, non-distended Neurological: no change Internal Medicine Assmt/Plan - Assessment Assessment: 1.HTN. 2.BPH. 3.DJD. 4.DEMENTIA. - Plan Plan: CONTINUE ON CURRENT MEDICATION AND DIET. Nutritional Asmnt/Malnutr-PDOC - Dietary Evaluation Malnutrition Findings (Please click <Entered> for more info): Nutritional Asmnt/Malnutrition Start: 11/30/17 10: 48 Text: Status: Complete Freq: Document 11/30/17 10:48 ANKUR (Rec: 11/30/17 11:02 ANKUR FLETCHER- [id number]) Nutritional Asmnt/Malnutrition Patient General Information Nutritional Screening Moderate Risk Diagnosis Psychosis NOS (Reason for visit) Pertinent Medical Hx/Surgical Hx insomnia, dementia with behavioral disturbance, alcoholic cirrhosis of liver, osteoarthritis, difficulty in walking, generalized muscle weakness, hyperlipidemia, BPH , hypertensive emergency, pain in right knee, GERD Subjective Information Patient was admitted from SNF. Patient was lying in bed at time of visit. Current Diet Order/ Nutrition Support No added salt Patient / S.O Not Indicated Pertinent Medications maalox, Dulcolax, colace, MOM, Theragran, Fleet enema, Vitamin B1 Pertinent Labs (11/25) Nutrition related labs WNL Nutritional Hx/Data Height 1.73 m Height (Calculated Centimeters) 172.7 Current Weight (lbs) 117.027 kg Weight (Calculated Kilograms) 117.0 Weight (Calculated Grams) 522281.8 [place] Body Weight 154 % [place] Body Weight 167 Body Mass Index (BMI) 39.2 Recent Weight Change No Weight Status Morbidly Obese GI Symptoms GI Symptoms None Last BM 11/28 x 1 Difficult in: None Food Allergies No Cultural/Ethnic/Sikh Belief None indicated Usual diet at home Unknown Skin Integrity/Comment: Esdras 20, SKin with dryness, intact Current %PO Good (75-100%) Estimated Nutritional Goals BEE in Kcals: Adj wt of IBW Calories/Kcals/Kg Adj weight 180lb/81.8 kg (25- 30 kcal/kg) Kcals Calculated ~6657-0407 kcal/day Protein: Adj wt of IBW Protein g/k-1.2 gm/kg - due to dereased caloric feed with using Adj weight Protein Calculated ~80-100 gm/day Fluid: ml ~5272-0048 ml/day (30-35 ml/kg ) Nutritional Problem 1. Problem Problem Obesity related to Etiology possible excessive intake prior to arrival aeb Signs/Symptoms: BMI 39.2 Intervention/Recommendation Comments 1. Continue No added salt diet as tolerated by patient due to episodes of hypertension. Expected Outcomes/Goals Expected Outcomes/Goals Oral intake to meet >75% Of nutrient needs, weight stable or trends toward ideal body weight, Nutrition related labs remanin WNL, continued skin integrity.
--- NOTE | 2017-12-08 23:29 | Progress Notes ---
DATE: 12/08/2017 SUBJECTIVE: Staff was spoken to. The patient is interviewed. Mood is noted to be irritable. Affect is constricted. The patient is still having difficult time to cope with the stress. The patient's Seroquel was increased recently to 200 mg twice a day and the patient is also on Depakote 500 mg twice a day. The patient has been able to tolerate the medications. No side effects to medications are noted. ASSESSMENT: The patient is still impulsive. PLAN: To continue the patient with the supportive therapy and followup. JOB# [id number]
[2017-12-09] MEDS: Multivitamin Tab PO SCH (10:18)
--- NOTE | 2017-12-09 12:47 | Internal Medicine Prog Note ---
Internal Medicine Subjective - Subjective Service Date: 12/09/17 Patient seen and examined:: with staff (he feels better) Patient is:: awake, verbal, talking, confused Per staff patient has:: no adverse event Internal Medicine Objective - Results Result Diagrams: 11/25/17 18:59 11/25/17 18:59 Recent Labs: Laboratory Last Values WBC 10.0 Th/cmm (4.8-10.8) 11/25/17 18:59 RBC 5.08 Mil/cmm (4.30-5.70) 11/25/17 18:59 Hgb 15.5 gm/dL (12-16) 11/25/17 18:59 Hct 46.0 % (41.0-60) 11/25/17 18:59 MCV 90.6 fl (80-99) 11/25/17 18:59 MCH 30.6 pg (26.0-30.0) H 11/25/17 18:59 MCHC Differential 33.8 pg (28.0-36.0) 11/25/17 18:59 RDW 12.7 % (11.5-20.0) 11/25/17 18:59 Plt Count 196 Th/cmm (150-400) 11/25/17 18:59 MPV 9.3 fl 11/25/17 18:59 Neutrophils % 61.0 % (40.0-80.0) 11/25/17 18:59 Lymphocytes % 30.2 % (20.0-50.0) 11/25/17 18:59 Monocytes % 7.1 % (2.0-10.0) 11/25/17 18:59 Eosinophils % 1.2 % (0.0-5.0) 11/25/17 18:59 Basophils % 0.5 % (0.0-2.0) 11/25/17 18:59 Sodium 140 mEq/L (136-145) 11/25/17 18:59 Potassium 4.1 mEq/L (3.5-5.1) 11/25/17 18:59 Chloride 108 mEq/L (98-107) H 11/25/17 18:59 Carbon Dioxide 26.2 mEq/L (21.0-31.0) 11/25/17 18:59 Anion Gap 9.9 (7.0-16.0) 11/25/17 18:59 BUN 22 mg/dL (7-25) 11/25/17 18:59 Creatinine 0.8 mg/dL (0.7-1.3) 11/25/17 18:59 Est GFR ( Amer) > 60.0 ml/min (>90) 11/25/17 18:59 Est GFR (Non-Af Amer) > 60.0 ml/min 11/25/17 18:59 BUN/Creatinine Ratio 27.5 11/25/17 18:59 Glucose 100 mg/dL (70-105) 11/25/17 18:59 Calcium 9.8 mg/dL (8.6-10.3) 11/25/17 18:59 Total Bilirubin 0.5 mg/dL (0.3-1.0) 11/25/17 18:59 AST 23 U/L (13-39) 11/25/17 18:59 ALT 24 U/L (7-52) 11/25/17 18:59 Alkaline Phosphatase 116 U/L (34-104) H 11/25/17 18:59 Total Protein 7.6 gm/dL (6.0-8.3) 11/25/17 18:59 Albumin 4.7 gm/dL (4.2-5.5) 11/25/17 18:59 Globulin 2.9 gm/dL 11/25/17 18:59 Albumin/Globulin Ratio 1.6 (1.0-1.8) 11/25/17 18:59 Triglycerides 128 mg/dL (<150) 11/25/17 18:59 Cholesterol 150 mg/dL (<200) 11/25/17 18:59 LDL Cholesterol Direct 91 mg/dL (75-193) 11/25/17 18:59 HDL Cholesterol 51 mg/dL (23-92) 11/25/17 18:59 TSH 4.03 uIU/ml (0.34-5.60) 11/25/17 18:59 RPR NONREACTIVE (NONREACTIVE) 11/25/17 18:59 - Physical Exam Vitals and I&O: Vital Signs Temp 98.6 F 12/09/17 06:16 Pulse 62 12/09/17 10:19 Resp 20 12/09/17 06:16 BP 145/82 12/09/17 10:19 Pulse Ox 99 12/09/17 06:16 Intake & Output 12/08/17 12/09/17 12/09/17 18:59 06:59 18:59 Intake Total 240 310 Balance 240 310 Intake: Oral 240 310 Other: # Voids 2 1 # Bowel Movements 0 Active Medications: Current Medications Acetaminophen (Tylenol) 650 mg PO Q4HR PRN PRN Reason: Mild Pain / Temp above 100 Stop: 01/25/18 15:46 Al Hydrox/Mg Hydrox/Simethicone (Maalox) 30 ml PO Q4HR PRN PRN Reason: GI DISTRESS Stop: 01/25/18 15:46 Amlodipine Besylate (Norvasc) 10 mg PO DAILY [facility] Stop: 01/26/18 08:59 Last Admin: 12/09/17 10:19 Dose: 10 mg Aspirin (Aspirin) 325 mg PO DAILY [facility] Stop: 01/26/18 08:59 Last Admin: 12/09/17 10:17 Dose: 325 mg Bisacodyl (Dulcolax 10 Mg Supp) 10 mg RC DAILY PRN PRN Reason: Constipation Stop: 01/25/18 15:46 Divalproex Sodium (Depakote Dr) 500 mg PO BID [facility] PRN Reason: Protocol Stop: 01/25/18 08:59 Last Admin: 12/09/17 10:19 Dose: 500 mg Docusate Sodium (Colace) 100 mg PO DAILY [facility] Stop: 01/25/18 08:59 Last Admin: 12/09/17 10:17 Dose: 100 mg Magnesium Hydroxide (Milk Of Magnesia) 30 ml PO HS PRN PRN Reason: Constipation Metoprolol Tartrate (Lopressor) 12.5 mg PO BID [facility] Stop: 01/25/18 16:59 Last Admin: 12/09/17 10:18 Dose: 12.5 mg Morphine Sulfate (Ms-Contin) 30 mg PO Q12HR [facility] Stop: 02/02/18 20:59 Last Admin: 12/09/17 10:18 Dose: 30 mg Multivitamins/Vitamin C (Theragran) 1 tab PO DAILY [facility] Stop: 01/25/18 08:59 Last Admin: 12/09/17 10:18 Dose: 1 tab Nitroglycerin (Nitrostat) 0.4 mg SL Q5MIN PRN PRN Reason: Chest Pain Stop: 01/25/18 15:46 Quetiapine Fumarate (Seroquel) 200 mg PO HS [facility] PRN Reason: Protocol Stop: 01/25/18 20:59 Last Admin: 12/08/17 20:22 Dose: 200 mg Quetiapine Fumarate (Seroquel) 200 mg PO DAILY [facility] PRN Reason: Protocol Stop: 01/25/18 08:59 Last Admin: 12/09/17 10:20 Dose: 200 mg Sodium Phosphate (Fleet Enema) 135 ml RC Q2D PRN PRN Reason: Constipation Stop: 01/25/18 15:46 Tamsulosin HCl (Flomax) 0.4 mg PO HS [facility] Stop: 01/25/18 20:59 Last Admin: 12/08/17 20:22 Dose: 0.4 mg Thiamine HCl (Vitamin B1) 200 mg PO DAILY [facility] Stop: 01/26/18 08:59 Last Admin: 12/09/17 10:17 Dose: 200 mg General: alert, obese HEENT: PERRLA, EOMI, anicteric sclerae, throat clear Neck: Supple, No JVD, No thyromegaly, +2 carotid pulse wo bruit Lungs: CTAB Cardiovascular: Normal S1, Normal S2, without murmur Abdomen: soft, non-tender, non-distended Neurological: no change Internal Medicine Assmt/Plan - Assessment Assessment: 1.HTN. 2.BPH. 3.DJD. 4.DEMENTIA. - Plan Plan: CONTINUE ON CURRENT MEDICATION AND DIET. Nutritional Asmnt/Malnutr-PDOC - Dietary Evaluation Malnutrition Findings (Please click <Entered> for more info): Nutritional Asmnt/Malnutrition Start: 11/30/17 10: 48 Text: Status: Complete Freq: Document 11/30/17 10:48 ANKUR (Rec: 11/30/17 11:02 ANKUR FLETCHER- [id number]) Nutritional Asmnt/Malnutrition Patient General Information Nutritional Screening Moderate Risk Diagnosis Psychosis NOS (Reason for visit) Pertinent Medical Hx/Surgical Hx insomnia, dementia with behavioral disturbance, alcoholic cirrhosis of liver, osteoarthritis, difficulty in walking, generalized muscle weakness, hyperlipidemia, BPH , hypertensive emergency, pain in right knee, GERD Subjective Information Patient was admitted from SNF. Patient was lying in bed at time of visit. Current Diet Order/ Nutrition Support No added salt Patient / S.O Not Indicated Pertinent Medications maalox, Dulcolax, colace, MOM, Theragran, Fleet enema, Vitamin B1 Pertinent Labs (11/25) Nutrition related labs WNL Nutritional Hx/Data Height 1.73 m Height (Calculated Centimeters) 172.7 Current Weight (lbs) 117.027 kg Weight (Calculated Kilograms) 117.0 Weight (Calculated Grams) 042659.8 [place] Body Weight 154 % [place] Body Weight 167 Body Mass Index (BMI) 39.2 Recent Weight Change No Weight Status Morbidly Obese GI Symptoms GI Symptoms None Last BM 11/28 x 1 Difficult in: None Food Allergies No Cultural/Ethnic/Congregational Belief None indicated Usual diet at home Unknown Skin Integrity/Comment: Esdras 20, SKin with dryness, intact Current %PO Good (75-100%) Estimated Nutritional Goals BEE in Kcals: Adj wt of IBW Calories/Kcals/Kg Adj weight 180lb/81.8 kg (25- 30 kcal/kg) Kcals Calculated ~7881-6183 kcal/day Protein: Adj wt of IBW Protein g/k-1.2 gm/kg - due to dereased caloric feed with using Adj weight Protein Calculated ~80-100 gm/day Fluid: ml ~3141-4637 ml/day (30-35 ml/kg ) Nutritional Problem 1. Problem Problem Obesity related to Etiology possible excessive intake prior to arrival aeb Signs/Symptoms: BMI 39.2 Intervention/Recommendation Comments 1. Continue No added salt diet as tolerated by patient due to episodes of hypertension. Expected Outcomes/Goals Expected Outcomes/Goals Oral intake to meet >75% Of nutrient needs, weight stable or trends toward ideal body weight, Nutrition related labs remanin WNL, continued skin integrity.
--- NOTE | 2017-12-09 17:21 | Progress Notes ---
DATE: 12/09/2017 SUBJECTIVE: Staff was spoken to. The patient is interviewed. Mood is noted to be irritable. Affect is constricted. The patient's coping skills are noted to be poor. The patient has been becoming difficult placement because the placement that she was at did not want to take him back and they want the patient to be looking for a different placement. The patient at this time has been having poor coping skills. The patient, however, has been able to tolerate the medications. The patient is currently on Seroquel and Depakote. ASSESSMENT: The patient is still impulsive and awaiting placement. PLAN: Continue the patient with the supportive therapy and followup. JOB# [id number]
[2017-12-10] MEDS: Multivitamin Tab PO SCH (08:31)
--- NOTE | 2017-12-10 18:37 | Internal Medicine Prog Note ---
Internal Medicine Subjective - Subjective Service Date: 12/10/17 Patient seen and examined:: with staff (HE FEELS WELL) Patient is:: awake, verbal, talking, confused Per staff patient has:: no adverse event Internal Medicine Objective - Results Result Diagrams: 11/25/17 18:59 11/25/17 18:59 Recent Labs: Laboratory Last Values WBC 10.0 Th/cmm (4.8-10.8) 11/25/17 18:59 RBC 5.08 Mil/cmm (4.30-5.70) 11/25/17 18:59 Hgb 15.5 gm/dL (12-16) 11/25/17 18:59 Hct 46.0 % (41.0-60) 11/25/17 18:59 MCV 90.6 fl (80-99) 11/25/17 18:59 MCH 30.6 pg (26.0-30.0) H 11/25/17 18:59 MCHC Differential 33.8 pg (28.0-36.0) 11/25/17 18:59 RDW 12.7 % (11.5-20.0) 11/25/17 18:59 Plt Count 196 Th/cmm (150-400) 11/25/17 18:59 MPV 9.3 fl 11/25/17 18:59 Neutrophils % 61.0 % (40.0-80.0) 11/25/17 18:59 Lymphocytes % 30.2 % (20.0-50.0) 11/25/17 18:59 Monocytes % 7.1 % (2.0-10.0) 11/25/17 18:59 Eosinophils % 1.2 % (0.0-5.0) 11/25/17 18:59 Basophils % 0.5 % (0.0-2.0) 11/25/17 18:59 Sodium 140 mEq/L (136-145) 11/25/17 18:59 Potassium 4.1 mEq/L (3.5-5.1) 11/25/17 18:59 Chloride 108 mEq/L (98-107) H 11/25/17 18:59 Carbon Dioxide 26.2 mEq/L (21.0-31.0) 11/25/17 18:59 Anion Gap 9.9 (7.0-16.0) 11/25/17 18:59 BUN 22 mg/dL (7-25) 11/25/17 18:59 Creatinine 0.8 mg/dL (0.7-1.3) 11/25/17 18:59 Est GFR ( Amer) > 60.0 ml/min (>90) 11/25/17 18:59 Est GFR (Non-Af Amer) > 60.0 ml/min 11/25/17 18:59 BUN/Creatinine Ratio 27.5 11/25/17 18:59 Glucose 100 mg/dL (70-105) 11/25/17 18:59 Calcium 9.8 mg/dL (8.6-10.3) 11/25/17 18:59 Total Bilirubin 0.5 mg/dL (0.3-1.0) 11/25/17 18:59 AST 23 U/L (13-39) 11/25/17 18:59 ALT 24 U/L (7-52) 11/25/17 18:59 Alkaline Phosphatase 116 U/L (34-104) H 11/25/17 18:59 Total Protein 7.6 gm/dL (6.0-8.3) 11/25/17 18:59 Albumin 4.7 gm/dL (4.2-5.5) 11/25/17 18:59 Globulin 2.9 gm/dL 11/25/17 18:59 Albumin/Globulin Ratio 1.6 (1.0-1.8) 11/25/17 18:59 Triglycerides 128 mg/dL (<150) 11/25/17 18:59 Cholesterol 150 mg/dL (<200) 11/25/17 18:59 LDL Cholesterol Direct 91 mg/dL (75-193) 11/25/17 18:59 HDL Cholesterol 51 mg/dL (23-92) 11/25/17 18:59 TSH 4.03 uIU/ml (0.34-5.60) 11/25/17 18:59 RPR NONREACTIVE (NONREACTIVE) 11/25/17 18:59 - Physical Exam Vitals and I&O: Vital Signs Temp 98.0 F 12/10/17 14:00 Pulse 56 12/10/17 16:07 Resp 20 12/10/17 14:00 BP 124/79 12/10/17 16:07 Pulse Ox 96 12/10/17 14:00 Intake & Output 12/09/17 12/10/17 12/10/17 18:59 06:59 18:59 Intake Total 010 175 0695 Balance 090 545 8711 Intake: Oral 051 150 4442 Other: # Voids 4 3 4 # Bowel Movements 1 1 Active Medications: Current Medications Acetaminophen (Tylenol) 650 mg PO Q4HR PRN PRN Reason: Mild Pain / Temp above 100 Stop: 01/25/18 15:46 Al Hydrox/Mg Hydrox/Simethicone (Maalox) 30 ml PO Q4HR PRN PRN Reason: GI DISTRESS Stop: 01/25/18 15:46 Amlodipine Besylate (Norvasc) 10 mg PO DAILY [facility] Stop: 01/26/18 08:59 Last Admin: 12/10/17 08:29 Dose: 10 mg Aspirin (Aspirin) 325 mg PO DAILY [facility] Stop: 01/26/18 08:59 Last Admin: 12/10/17 08:28 Dose: 325 mg Bisacodyl (Dulcolax 10 Mg Supp) 10 mg RC DAILY PRN PRN Reason: Constipation Stop: 01/25/18 15:46 Divalproex Sodium (Depakote Dr) 500 mg PO BID [facility] PRN Reason: Protocol Stop: 01/25/18 08:59 Last Admin: 12/10/17 16:07 Dose: 500 mg Docusate Sodium (Colace) 100 mg PO DAILY [facility] Stop: 01/25/18 08:59 Last Admin: 12/10/17 08:30 Dose: 100 mg Magnesium Hydroxide (Milk Of Magnesia) 30 ml PO HS PRN PRN Reason: Constipation Metoprolol Tartrate (Lopressor) 12.5 mg PO BID [facility] Stop: 01/25/18 16:59 Last Admin: 12/10/17 16:07 Dose: Not Given Morphine Sulfate (Ms-Contin) 30 mg PO Q12HR [facility] Stop: 02/02/18 20:59 Last Admin: 12/10/17 08:28 Dose: 30 mg Multivitamins/Vitamin C (Theragran) 1 tab PO DAILY [facility] Stop: 01/25/18 08:59 Last Admin: 12/10/17 08:31 Dose: 1 tab Nitroglycerin (Nitrostat) 0.4 mg SL Q5MIN PRN PRN Reason: Chest Pain Stop: 01/25/18 15:46 Quetiapine Fumarate (Seroquel) 200 mg PO HS [facility] PRN Reason: Protocol Stop: 01/25/18 20:59 Last Admin: 12/09/17 21:26 Dose: 200 mg Quetiapine Fumarate (Seroquel) 200 mg PO DAILY [facility] PRN Reason: Protocol Stop: 01/25/18 08:59 Last Admin: 12/10/17 08:32 Dose: 200 mg Sodium Phosphate (Fleet Enema) 135 ml RC Q2D PRN PRN Reason: Constipation Stop: 01/25/18 15:46 Tamsulosin HCl (Flomax) 0.4 mg PO HS [facility] Stop: 01/25/18 20:59 Last Admin: 12/09/17 21:26 Dose: 0.4 mg Thiamine HCl (Vitamin B1) 200 mg PO DAILY [facility] Stop: 01/26/18 08:59 Last Admin: 12/10/17 08:29 Dose: 200 mg General: alert, obese HEENT: PERRLA, EOMI, anicteric sclerae, throat clear Neck: Supple, No JVD, No thyromegaly, +2 carotid pulse wo bruit Lungs: CTAB Cardiovascular: Normal S1, Normal S2, without murmur Abdomen: soft, non-tender, non-distended Neurological: no change Internal Medicine Assmt/Plan - Assessment Assessment: 1.HTN. 2.BPH. 3.DJD. 4.DEMENTIA. - Plan Plan: CONTINUE ON CURRENT MEDICATION AND DIET. Nutritional Asmnt/Malnutr-PDOC - Dietary Evaluation Malnutrition Findings (Please click <Entered> for more info): Nutritional Asmnt/Malnutrition Start: 11/30/17 10: 48 Text: Status: Complete Freq: Document 11/30/17 10:48 ANKUR (Rec: 11/30/17 11:02 ANKUR FLETCHER- [id number]) Nutritional Asmnt/Malnutrition Patient General Information Nutritional Screening Moderate Risk Diagnosis Psychosis NOS (Reason for visit) Pertinent Medical Hx/Surgical Hx insomnia, dementia with behavioral disturbance, alcoholic cirrhosis of liver, osteoarthritis, difficulty in walking, generalized muscle weakness, hyperlipidemia, BPH , hypertensive emergency, pain in right knee, GERD Subjective Information Patient was admitted from SNF. Patient was lying in bed at time of visit. Current Diet Order/ Nutrition Support No added salt Patient / S.O Not Indicated Pertinent Medications maalox, Dulcolax, colace, MOM, Theragran, Fleet enema, Vitamin B1 Pertinent Labs (11/25) Nutrition related labs WNL Nutritional Hx/Data Height 1.73 m Height (Calculated Centimeters) 172.7 Current Weight (lbs) 117.027 kg Weight (Calculated Kilograms) 117.0 Weight (Calculated Grams) 782276.8 [place] Body Weight 154 % [place] Body Weight 167 Body Mass Index (BMI) 39.2 Recent Weight Change No Weight Status Morbidly Obese GI Symptoms GI Symptoms None Last BM 11/28 x 1 Difficult in: None Food Allergies No Cultural/Ethnic/Yarsanism Belief None indicated Usual diet at home Unknown Skin Integrity/Comment: Esdras 20, SKin with dryness, intact Current %PO Good (75-100%) Estimated Nutritional Goals BEE in Kcals: Adj wt of IBW Calories/Kcals/Kg Adj weight 180lb/81.8 kg (25- 30 kcal/kg) Kcals Calculated ~3402-8193 kcal/day Protein: Adj wt of IBW Protein g/k-1.2 gm/kg - due to dereased caloric feed with using Adj weight Protein Calculated ~80-100 gm/day Fluid: ml ~0732-2962 ml/day (30-35 ml/kg ) Nutritional Problem 1. Problem Problem Obesity related to Etiology possible excessive intake prior to arrival aeb Signs/Symptoms: BMI 39.2 Intervention/Recommendation Comments 1. Continue No added salt diet as tolerated by patient due to episodes of hypertension. Expected Outcomes/Goals Expected Outcomes/Goals Oral intake to meet >75% Of nutrient needs, weight stable or trends toward ideal body weight, Nutrition related labs remanin WNL, continued skin integrity.
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
[2017-12-11] MEDS: Multivitamin Tab PO SCH (09:34)
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
--- NOTE | 2017-12-11 19:51 | Internal Medicine Prog Note ---
Internal Medicine Subjective - Subjective Service Date: 12/11/17 Patient seen and examined:: with staff (HE FEELS BETTER) Patient is:: awake, verbal, talking, confused Per staff patient has:: no adverse event Internal Medicine Objective - Results Result Diagrams: 11/25/17 18:59 11/25/17 18:59 Recent Labs: Laboratory Last Values WBC 10.0 Th/cmm (4.8-10.8) 11/25/17 18:59 RBC 5.08 Mil/cmm (4.30-5.70) 11/25/17 18:59 Hgb 15.5 gm/dL (12-16) 11/25/17 18:59 Hct 46.0 % (41.0-60) 11/25/17 18:59 MCV 90.6 fl (80-99) 11/25/17 18:59 MCH 30.6 pg (26.0-30.0) H 11/25/17 18:59 MCHC Differential 33.8 pg (28.0-36.0) 11/25/17 18:59 RDW 12.7 % (11.5-20.0) 11/25/17 18:59 Plt Count 196 Th/cmm (150-400) 11/25/17 18:59 MPV 9.3 fl 11/25/17 18:59 Neutrophils % 61.0 % (40.0-80.0) 11/25/17 18:59 Lymphocytes % 30.2 % (20.0-50.0) 11/25/17 18:59 Monocytes % 7.1 % (2.0-10.0) 11/25/17 18:59 Eosinophils % 1.2 % (0.0-5.0) 11/25/17 18:59 Basophils % 0.5 % (0.0-2.0) 11/25/17 18:59 Sodium 140 mEq/L (136-145) 11/25/17 18:59 Potassium 4.1 mEq/L (3.5-5.1) 11/25/17 18:59 Chloride 108 mEq/L (98-107) H 11/25/17 18:59 Carbon Dioxide 26.2 mEq/L (21.0-31.0) 11/25/17 18:59 Anion Gap 9.9 (7.0-16.0) 11/25/17 18:59 BUN 22 mg/dL (7-25) 11/25/17 18:59 Creatinine 0.8 mg/dL (0.7-1.3) 11/25/17 18:59 Est GFR ( Amer) > 60.0 ml/min (>90) 11/25/17 18:59 Est GFR (Non-Af Amer) > 60.0 ml/min 11/25/17 18:59 BUN/Creatinine Ratio 27.5 11/25/17 18:59 Glucose 100 mg/dL (70-105) 11/25/17 18:59 Calcium 9.8 mg/dL (8.6-10.3) 11/25/17 18:59 Total Bilirubin 0.5 mg/dL (0.3-1.0) 11/25/17 18:59 AST 23 U/L (13-39) 11/25/17 18:59 ALT 24 U/L (7-52) 11/25/17 18:59 Alkaline Phosphatase 116 U/L (34-104) H 11/25/17 18:59 Total Protein 7.6 gm/dL (6.0-8.3) 11/25/17 18:59 Albumin 4.7 gm/dL (4.2-5.5) 11/25/17 18:59 Globulin 2.9 gm/dL 11/25/17 18:59 Albumin/Globulin Ratio 1.6 (1.0-1.8) 11/25/17 18:59 Triglycerides 128 mg/dL (<150) 11/25/17 18:59 Cholesterol 150 mg/dL (<200) 11/25/17 18:59 LDL Cholesterol Direct 91 mg/dL (75-193) 11/25/17 18:59 HDL Cholesterol 51 mg/dL (23-92) 11/25/17 18:59 TSH 4.03 uIU/ml (0.34-5.60) 11/25/17 18:59 RPR NONREACTIVE (NONREACTIVE) 11/25/17 18:59 - Physical Exam Vitals and I&O: Vital Signs Temp 98.6 F 12/11/17 15:09 Pulse 56 12/11/17 16:14 Resp 18 12/11/17 15:09 BP 127/67 12/11/17 16:14 Pulse Ox 97 12/11/17 15:09 Intake & Output 12/11/17 12/11/17 12/12/17 06:59 18:59 06:59 Intake Total 1200 Balance 1200 Intake: Oral 1200 Other: # Voids 4 Active Medications: Current Medications Acetaminophen (Tylenol) 650 mg PO Q4HR PRN PRN Reason: Mild Pain / Temp above 100 Stop: 01/25/18 15:46 Al Hydrox/Mg Hydrox/Simethicone (Maalox) 30 ml PO Q4HR PRN PRN Reason: GI DISTRESS Stop: 01/25/18 15:46 Amlodipine Besylate (Norvasc) 10 mg PO DAILY [facility] BEDS AT [facility] Stop: 01/26/18 08:59 Last Admin: 12/11/17 15:10 Dose: Not Given Aspirin (Aspirin) 325 mg PO DAILY [facility]S [facility]CLUDE 234 BEDS AT [facility] Stop: 01/26/18 08:59 Last Admin: 12/11/17 09:33 Dose: 325 mg Bisacodyl (Dulcolax 10 Mg Supp) 10 mg RC DAILY PRN PRN Reason: Constipation Stop: 01/25/18 15:46 Divalproex Sodium (Depakote Dr) 500 mg PO BID [facility]S [facility]CLUDE 234 BEDS AT [facility] PRN Reason: Protocol Stop: 01/25/18 08:59 Last Admin: 12/11/17 16:12 Dose: 500 mg Docusate Sodium (Colace) 100 mg PO DAILY [facility]CLUDE 234 BEDS AT [facility] Stop: 01/25/18 08:59 Last Admin: 12/11/17 09:33 Dose: 100 mg Magnesium Hydroxide (Milk Of Magnesia) 30 ml PO HS PRN PRN Reason: Constipation Metoprolol Tartrate (Lopressor) 12.5 mg PO BID COUNTS INCLUDE 234 BEDS AT [facility] Stop: 01/25/18 16:59 Last Admin: 12/11/17 16:14 Dose: Not Given Morphine Sulfate (Ms-Contin) 30 mg PO Q12HR COUNTS INCLUDE 234 BEDS AT [facility] Stop: 02/02/18 20:59 Last Admin: 12/11/17 15:11 Dose: Not Given Multivitamins/Vitamin C (Theragran) 1 tab PO DAILY [facility]CLUDE 234 BEDS AT [facility] Stop: 01/25/18 08:59 Last Admin: 12/11/17 09:34 Dose: 1 tab Nitroglycerin (Nitrostat) 0.4 mg SL Q5MIN PRN PRN Reason: Chest Pain Stop: 01/25/18 15:46 Quetiapine Fumarate (Seroquel) 200 mg PO HS [facility] PRN Reason: Protocol Stop: 01/25/18 20:59 Last Admin: 12/10/17 21:58 Dose: 200 mg Quetiapine Fumarate (Seroquel) 200 mg PO DAILY [facility] PRN Reason: Protocol Stop: 01/25/18 08:59 Last Admin: 12/11/17 09:30 Dose: 200 mg Sodium Phosphate (Fleet Enema) 135 ml RC Q2D PRN PRN Reason: Constipation Stop: 01/25/18 15:46 Tamsulosin HCl (Flomax) 0.4 mg PO HS COUNTS INCLUDE 234 BEDS AT [facility] Stop: 01/25/18 20:59 Last Admin: 12/10/17 21:58 Dose: 0.4 mg Thiamine HCl (Vitamin B1) 200 mg PO DAILY [facility]S INCLUDE 234 BEDS AT [facility] Stop: 01/26/18 08:59 Last Admin: 12/11/17 09:29 Dose: 200 mg General: alert, obese HEENT: PERRLA, EOMI, anicteric sclerae, throat clear Neck: Supple, No JVD, No thyromegaly, +2 carotid pulse wo bruit Lungs: CTAB Cardiovascular: Normal S1, Normal S2, without murmur Abdomen: soft, non-tender, non-distended Neurological: no change Internal Medicine Assmt/Plan - Assessment Assessment: 1.HTN. 2.BPH. 3.DJD. 4.DEMENTIA. - Plan Plan: CONTINUE ON CURRENT MEDICATION AND DIET. Nutritional Asmnt/Malnutr-PDOC - Dietary Evaluation Malnutrition Findings (Please click <Entered> for more info): Nutritional Asmnt/Malnutrition Start: 11/30/17 10: 48 Text: Status: Complete Freq: Document 11/30/17 10:48 ANKUR (Rec: 11/30/17 11:02 ANKUR FLETCHER- [email or web address]) Nutritional Asmnt/Malnutrition Patient General Information Nutritional Screening Moderate Risk Diagnosis Psychosis NOS (Reason for visit) Pertinent Medical Hx/Surgical Hx insomnia, dementia with behavioral disturbance, alcoholic cirrhosis of liver, osteoarthritis, difficulty in walking, generalized muscle weakness, hyperlipidemia, BPH , hypertensive emergency, pain in right knee, GERD Subjective Information Patient was admitted from SNF. Patient was lying in bed at time of visit. Current Diet Order/ Nutrition Support No added salt Patient / S.O Not Indicated Pertinent Medications maalox, Dulcolax, colace, MOM, Theragran, Fleet enema, Vitamin B1 Pertinent Labs (11/25) Nutrition related labs WNL Nutritional Hx/Data Height 1.73 m Height (Calculated Centimeters) 172.7 Current Weight (lbs) 117.027 kg Weight (Calculated Kilograms) 117.0 Weight (Calculated Grams) 635399.8 [place] Body Weight 154 % [place] Body Weight 167 Body Mass Index (BMI) 39.2 Recent Weight Change No Weight Status Morbidly Obese GI Symptoms GI Symptoms None Last BM 11/28 x 1 Difficult in: None Food Allergies No Cultural/Ethnic/[employer] Belief None indicated Usual diet at home Unknown Skin Integrity/Comment: Esdras 20, SKin with dryness, intact Current %PO Good (75-100%) Estimated Nutritional Goals BEE in Kcals: Adj wt of IBW Calories/Kcals/Kg Adj weight 180lb/81.8 kg (25- 30 kcal/kg) Kcals Calculated ~2362-4943 kcal/day Protein: Adj wt of IBW Protein g/k-1.2 gm/kg - due to dereased caloric feed with using Adj weight Protein Calculated ~80-100 gm/day Fluid: ml ~7075-5024 ml/day (30-35 ml/kg ) Nutritional Problem 1. Problem Problem Obesity related to Etiology possible excessive intake prior to arrival aeb Signs/Symptoms: BMI 39.2 Intervention/Recommendation Comments 1. Continue No added salt diet as tolerated by patient due to episodes of hypertension. Expected Outcomes/Goals Expected Outcomes/Goals Oral intake to meet >75% Of nutrient needs, weight stable or trends toward ideal body weight, Nutrition related labs remanin WNL, continued skin integrity.
[2017-12-12] MEDS: Multivitamin Tab PO SCH (08:17)
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
--- NOTE | 2017-12-12 22:17 | Internal Medicine Prog Note ---
Internal Medicine Subjective - Subjective Service Date: 12/12/17 Patient seen and examined:: with staff Patient is:: awake, verbal, talking, confused Per staff patient has:: no adverse event Internal Medicine Objective - Results Result Diagrams: 11/25/17 18:59 11/25/17 18:59 Recent Labs: Laboratory Last Values WBC 10.0 Th/cmm (4.8-10.8) 11/25/17 18:59 RBC 5.08 Mil/cmm (4.30-5.70) 11/25/17 18:59 Hgb 15.5 gm/dL (12-16) 11/25/17 18:59 Hct 46.0 % (41.0-60) 11/25/17 18:59 MCV 90.6 fl (80-99) 11/25/17 18:59 MCH 30.6 pg (26.0-30.0) H 11/25/17 18:59 MCHC Differential 33.8 pg (28.0-36.0) 11/25/17 18:59 RDW 12.7 % (11.5-20.0) 11/25/17 18:59 Plt Count 196 Th/cmm (150-400) 11/25/17 18:59 MPV 9.3 fl 11/25/17 18:59 Neutrophils % 61.0 % (40.0-80.0) 11/25/17 18:59 Lymphocytes % 30.2 % (20.0-50.0) 11/25/17 18:59 Monocytes % 7.1 % (2.0-10.0) 11/25/17 18:59 Eosinophils % 1.2 % (0.0-5.0) 11/25/17 18:59 Basophils % 0.5 % (0.0-2.0) 11/25/17 18:59 Sodium 140 mEq/L (136-145) 11/25/17 18:59 Potassium 4.1 mEq/L (3.5-5.1) 11/25/17 18:59 Chloride 108 mEq/L (98-107) H 11/25/17 18:59 Carbon Dioxide 26.2 mEq/L (21.0-31.0) 11/25/17 18:59 Anion Gap 9.9 (7.0-16.0) 11/25/17 18:59 BUN 22 mg/dL (7-25) 11/25/17 18:59 Creatinine 0.8 mg/dL (0.7-1.3) 11/25/17 18:59 Est GFR ( Amer) > 60.0 ml/min (>90) 11/25/17 18:59 Est GFR (Non-Af Amer) > 60.0 ml/min 11/25/17 18:59 BUN/Creatinine Ratio 27.5 11/25/17 18:59 Glucose 100 mg/dL (70-105) 11/25/17 18:59 Calcium 9.8 mg/dL (8.6-10.3) 11/25/17 18:59 Total Bilirubin 0.5 mg/dL (0.3-1.0) 11/25/17 18:59 AST 23 U/L (13-39) 11/25/17 18:59 ALT 24 U/L (7-52) 11/25/17 18:59 Alkaline Phosphatase 116 U/L (34-104) H 11/25/17 18:59 Total Protein 7.6 gm/dL (6.0-8.3) 11/25/17 18:59 Albumin 4.7 gm/dL (4.2-5.5) 11/25/17 18:59 Globulin 2.9 gm/dL 11/25/17 18:59 Albumin/Globulin Ratio 1.6 (1.0-1.8) 11/25/17 18:59 Triglycerides 128 mg/dL (<150) 11/25/17 18:59 Cholesterol 150 mg/dL (<200) 11/25/17 18:59 LDL Cholesterol Direct 91 mg/dL (75-193) 11/25/17 18:59 HDL Cholesterol 51 mg/dL (23-92) 11/25/17 18:59 TSH 4.03 uIU/ml (0.34-5.60) 11/25/17 18:59 RPR NONREACTIVE (NONREACTIVE) 11/25/17 18:59 - Physical Exam Vitals and I&O: Vital Signs Temp 97.0 F 12/12/17 21:25 Pulse 49 12/12/17 21:25 Resp 18 12/12/17 21:25 BP 127/76 12/12/17 21:25 Pulse Ox 98 12/12/17 21:25 Intake & Output 12/12/17 12/12/17 12/13/17 06:59 18:59 06:59 Intake Total 480 Balance 480 Intake: Oral 480 Other: # Voids 2 Active Medications: Current Medications Acetaminophen (Tylenol) 650 mg PO Q4HR PRN PRN Reason: Mild Pain / Temp above 100 Stop: 01/25/18 15:46 Al Hydrox/Mg Hydrox/Simethicone (Maalox) 30 ml PO Q4HR PRN PRN Reason: GI DISTRESS Stop: 01/25/18 15:46 Amlodipine Besylate (Norvasc) 10 mg PO DAILY [facility] Stop: 01/26/18 08:59 Last Admin: 12/12/17 08:19 Dose: 10 mg Aspirin (Aspirin) 325 mg PO DAILY [facility] Stop: 01/26/18 08:59 Last Admin: 12/12/17 08:19 Dose: 325 mg Bisacodyl (Dulcolax 10 Mg Supp) 10 mg RC DAILY PRN PRN Reason: Constipation Stop: 01/25/18 15:46 Divalproex Sodium (Depakote Dr) 500 mg PO BID [facility] PRN Reason: Protocol Stop: 01/25/18 08:59 Last Admin: 12/12/17 17:34 Dose: 500 mg Docusate Sodium (Colace) 100 mg PO DAILY [facility] Stop: 01/25/18 08:59 Last Admin: 12/12/17 08:19 Dose: 100 mg Magnesium Hydroxide (Milk Of Magnesia) 30 ml PO HS PRN PRN Reason: Constipation Metoprolol Tartrate (Lopressor) 12.5 mg PO BID [facility] Stop: 01/25/18 16:59 Last Admin: 12/12/17 17:34 Dose: 12.5 mg Morphine Sulfate (Ms-Contin) 30 mg PO Q12HR [facility] Stop: 02/02/18 20:59 Last Admin: 12/12/17 20:55 Dose: 30 mg Multivitamins/Vitamin C (Theragran) 1 tab PO DAILY [facility] Stop: 01/25/18 08:59 Last Admin: 12/12/17 08:17 Dose: 1 tab Nitroglycerin (Nitrostat) 0.4 mg SL Q5MIN PRN PRN Reason: Chest Pain Stop: 01/25/18 15:46 Quetiapine Fumarate (Seroquel) 200 mg PO HS [facility] PRN Reason: Protocol Stop: 01/25/18 20:59 Last Admin: 12/12/17 20:56 Dose: 200 mg Quetiapine Fumarate (Seroquel) 200 mg PO DAILY [facility] PRN Reason: Protocol Stop: 01/25/18 08:59 Last Admin: 12/12/17 08:17 Dose: 200 mg Sodium Phosphate (Fleet Enema) 135 ml RC Q2D PRN PRN Reason: Constipation Stop: 01/25/18 15:46 Tamsulosin HCl (Flomax) 0.4 mg PO HS [facility] Stop: 01/25/18 20:59 Last Admin: 12/12/17 20:56 Dose: 0.4 mg Thiamine HCl (Vitamin B1) 200 mg PO DAILY [facility] Stop: 01/26/18 08:59 Last Admin: 12/12/17 08:19 Dose: 200 mg General: alert, obese HEENT: PERRLA, EOMI, anicteric sclerae, throat clear Neck: Supple, No JVD, No thyromegaly, +2 carotid pulse wo bruit Lungs: CTAB Cardiovascular: Normal S1, Normal S2, without murmur Abdomen: soft, non-tender, non-distended Neurological: no change Internal Medicine Assmt/Plan - Assessment Assessment: 1.HTN. 2.BPH. 3.DJD. 4.DEMENTIA. - Plan Plan: CONTINUE ON CURRENT MEDICATION AND DIET. Nutritional Asmnt/Malnutr-PDOC - Dietary Evaluation Malnutrition Findings (Please click <Entered> for more info): Nutritional Asmnt/Malnutrition Start: 11/30/17 10: 48 Text: Status: Complete Freq: Document 11/30/17 10:48 ANKUR (Rec: 11/30/17 11:02 ANKUR HUDDLESTON [email or web address]) Nutritional Asmnt/Malnutrition Patient General Information Nutritional Screening Moderate Risk Diagnosis Psychosis NOS (Reason for visit) Pertinent Medical Hx/Surgical Hx insomnia, dementia with behavioral disturbance, alcoholic cirrhosis of liver, osteoarthritis, difficulty in walking, generalized muscle weakness, hyperlipidemia, BPH , hypertensive emergency, pain in right knee, GERD Subjective Information Patient was admitted from SNF. Patient was lying in bed at time of visit. Current Diet Order/ Nutrition Support No added salt Patient / S.O Not Indicated Pertinent Medications maalox, Dulcolax, colace, MOM, Theragran, Fleet enema, Vitamin B1 Pertinent Labs (11/25) Nutrition related labs WNL Nutritional Hx/Data Height 1.73 m Height (Calculated Centimeters) 172.7 Current Weight (lbs) 117.027 kg Weight (Calculated Kilograms) 117.0 Weight (Calculated Grams) 153724.8 [place] Body Weight 154 % [place] Body Weight 167 Body Mass Index (BMI) 39.2 Recent Weight Change No Weight Status Morbidly Obese GI Symptoms GI Symptoms None Last BM 11/28 x 1 Difficult in: None Food Allergies No Cultural/Ethnic/[place] Belief None indicated Usual diet at home Unknown Skin Integrity/Comment: Esdras 20, SKin with dryness, intact Current %PO Good (75-100%) Estimated Nutritional Goals BEE in Kcals: Adj wt of IBW Calories/Kcals/Kg Adj weight 180lb/81.8 kg (25- 30 kcal/kg) Kcals Calculated ~0714-3496 kcal/day Protein: Adj wt of IBW Protein g/k-1.2 gm/kg - due to dereased caloric feed with using Adj weight Protein Calculated ~80-100 gm/day Fluid: ml ~8881-0295 ml/day (30-35 ml/kg ) Nutritional Problem 1. Problem Problem Obesity related to Etiology possible excessive intake prior to arrival aeb Signs/Symptoms: BMI 39.2 Intervention/Recommendation Comments 1. Continue No added salt diet as tolerated by patient due to episodes of hypertension. Expected Outcomes/Goals Expected Outcomes/Goals Oral intake to meet >75% Of nutrient needs, weight stable or trends toward ideal body weight, Nutrition related labs remanin WNL, continued skin integrity.
[2017-12-13] MEDS: Multivitamin Tab PO SCH (08:45)
--- NOTE | 2017-12-13 19:03 | Internal Medicine Prog Note ---
Internal Medicine Subjective - Subjective Service Date: 12/13/17 Patient seen and examined:: with staff (HE FEELS WELL,NO COMPLAINS) Patient is:: awake, verbal, talking, confused Per staff patient has:: no adverse event Internal Medicine Objective - Results Result Diagrams: 11/25/17 18:59 11/25/17 18:59 Recent Labs: Laboratory Last Values WBC 10.0 Th/cmm (4.8-10.8) 11/25/17 18:59 RBC 5.08 Mil/cmm (4.30-5.70) 11/25/17 18:59 Hgb 15.5 gm/dL (12-16) 11/25/17 18:59 Hct 46.0 % (41.0-60) 11/25/17 18:59 MCV 90.6 fl (80-99) 11/25/17 18:59 MCH 30.6 pg (26.0-30.0) H 11/25/17 18:59 MCHC Differential 33.8 pg (28.0-36.0) 11/25/17 18:59 RDW 12.7 % (11.5-20.0) 11/25/17 18:59 Plt Count 196 Th/cmm (150-400) 11/25/17 18:59 MPV 9.3 fl 11/25/17 18:59 Neutrophils % 61.0 % (40.0-80.0) 11/25/17 18:59 Lymphocytes % 30.2 % (20.0-50.0) 11/25/17 18:59 Monocytes % 7.1 % (2.0-10.0) 11/25/17 18:59 Eosinophils % 1.2 % (0.0-5.0) 11/25/17 18:59 Basophils % 0.5 % (0.0-2.0) 11/25/17 18:59 Sodium 140 mEq/L (136-145) 11/25/17 18:59 Potassium 4.1 mEq/L (3.5-5.1) 11/25/17 18:59 Chloride 108 mEq/L (98-107) H 11/25/17 18:59 Carbon Dioxide 26.2 mEq/L (21.0-31.0) 11/25/17 18:59 Anion Gap 9.9 (7.0-16.0) 11/25/17 18:59 BUN 22 mg/dL (7-25) 11/25/17 18:59 Creatinine 0.8 mg/dL (0.7-1.3) 11/25/17 18:59 Est GFR ( Amer) > 60.0 ml/min (>90) 11/25/17 18:59 Est GFR (Non-Af Amer) > 60.0 ml/min 11/25/17 18:59 BUN/Creatinine Ratio 27.5 11/25/17 18:59 Glucose 100 mg/dL (70-105) 11/25/17 18:59 Calcium 9.8 mg/dL (8.6-10.3) 11/25/17 18:59 Total Bilirubin 0.5 mg/dL (0.3-1.0) 11/25/17 18:59 AST 23 U/L (13-39) 11/25/17 18:59 ALT 24 U/L (7-52) 11/25/17 18:59 Alkaline Phosphatase 116 U/L (34-104) H 11/25/17 18:59 Total Protein 7.6 gm/dL (6.0-8.3) 11/25/17 18:59 Albumin 4.7 gm/dL (4.2-5.5) 11/25/17 18:59 Globulin 2.9 gm/dL 11/25/17 18:59 Albumin/Globulin Ratio 1.6 (1.0-1.8) 11/25/17 18:59 Triglycerides 128 mg/dL (<150) 11/25/17 18:59 Cholesterol 150 mg/dL (<200) 11/25/17 18:59 LDL Cholesterol Direct 91 mg/dL (75-193) 11/25/17 18:59 HDL Cholesterol 51 mg/dL (23-92) 11/25/17 18:59 TSH 4.03 uIU/ml (0.34-5.60) 11/25/17 18:59 RPR NONREACTIVE (NONREACTIVE) 11/25/17 18:59 - Physical Exam Vitals and I&O: Vital Signs Temp 97.3 F 12/13/17 14:00 Pulse 63 12/13/17 16:30 Resp 20 12/13/17 14:00 BP 130/74 12/13/17 16:30 Pulse Ox 96 12/13/17 14:00 Intake & Output 12/13/17 12/13/17 12/14/17 06:59 18:59 06:59 Intake Total 120 900 Balance 120 900 Intake: Oral 120 900 Other: # Voids 3 3 # Bowel Movements 1 Active Medications: Current Medications Acetaminophen (Tylenol) 650 mg PO Q4HR PRN PRN Reason: Mild Pain / Temp above 100 Stop: 01/25/18 15:46 Al Hydrox/Mg Hydrox/Simethicone (Maalox) 30 ml PO Q4HR PRN PRN Reason: GI DISTRESS Stop: 01/25/18 15:46 Amlodipine Besylate (Norvasc) 10 mg PO DAILY [facility] Stop: 01/26/18 08:59 Last Admin: 12/13/17 08:45 Dose: 10 mg Aspirin (Aspirin) 325 mg PO DAILY [facility] Stop: 01/26/18 08:59 Last Admin: 12/13/17 08:45 Dose: 325 mg Bisacodyl (Dulcolax 10 Mg Supp) 10 mg RC DAILY PRN PRN Reason: Constipation Stop: 01/25/18 15:46 Divalproex Sodium (Depakote Dr) 500 mg PO BID [facility] PRN Reason: Protocol Stop: 01/25/18 08:59 Last Admin: 12/13/17 16:31 Dose: 500 mg Docusate Sodium (Colace) 100 mg PO DAILY [facility] Stop: 01/25/18 08:59 Last Admin: 12/13/17 08:44 Dose: 100 mg Magnesium Hydroxide (Milk Of Magnesia) 30 ml PO HS PRN PRN Reason: Constipation Metoprolol Tartrate (Lopressor) 12.5 mg PO BID [facility] Stop: 01/25/18 16:59 Last Admin: 12/13/17 16:30 Dose: 12.5 mg Morphine Sulfate (Ms-Contin) 30 mg PO Q12HR [facility] Stop: 02/02/18 20:59 Last Admin: 12/13/17 08:45 Dose: 30 mg Multivitamins/Vitamin C (Theragran) 1 tab PO DAILY [facility] Stop: 01/25/18 08:59 Last Admin: 12/13/17 08:45 Dose: 1 tab Nitroglycerin (Nitrostat) 0.4 mg SL Q5MIN PRN PRN Reason: Chest Pain Stop: 01/25/18 15:46 Quetiapine Fumarate (Seroquel) 200 mg PO HS [facility] PRN Reason: Protocol Stop: 01/25/18 20:59 Last Admin: 12/12/17 20:56 Dose: 200 mg Quetiapine Fumarate (Seroquel) 200 mg PO DAILY [facility] PRN Reason: Protocol Stop: 01/25/18 08:59 Last Admin: 12/13/17 08:45 Dose: 200 mg Sodium Phosphate (Fleet Enema) 135 ml RC Q2D PRN PRN Reason: Constipation Stop: 01/25/18 15:46 Tamsulosin HCl (Flomax) 0.4 mg PO HS [facility] Stop: 01/25/18 20:59 Last Admin: 12/12/17 20:56 Dose: 0.4 mg Thiamine HCl (Vitamin B1) 200 mg PO DAILY [facility] Stop: 01/26/18 08:59 Last Admin: 12/13/17 08:45 Dose: 200 mg General: alert, obese HEENT: PERRLA, EOMI, anicteric sclerae, throat clear Neck: Supple, No JVD, No thyromegaly, +2 carotid pulse wo bruit Lungs: CTAB Cardiovascular: Normal S1, Normal S2, without murmur Abdomen: soft, non-tender, non-distended Neurological: no change Internal Medicine Assmt/Plan - Assessment Assessment: 1.HTN. 2.BPH. 3.DJD. 4.DEMENTIA. - Plan Plan: CONTINUE ON CURRENT MEDICATION AND DIET. Nutritional Asmnt/Malnutr-PDOC - Dietary Evaluation Malnutrition Findings (Please click <Entered> for more info): Nutritional Asmnt/Malnutrition Start: 11/30/17 10: 48 Text: Status: Complete Freq: Document 11/30/17 10:48 ANKUR (Rec: 11/30/17 11:02 ANKUR FLETCHER- [email or web address]) Nutritional Asmnt/Malnutrition Patient General Information Nutritional Screening Moderate Risk Diagnosis Psychosis NOS (Reason for visit) Pertinent Medical Hx/Surgical Hx insomnia, dementia with behavioral disturbance, alcoholic cirrhosis of liver, osteoarthritis, difficulty in walking, generalized muscle weakness, hyperlipidemia, BPH , hypertensive emergency, pain in right knee, GERD Subjective Information Patient was admitted from SNF. Patient was lying in bed at time of visit. Current Diet Order/ Nutrition Support No added salt Patient / S.O Not Indicated Pertinent Medications maalox, Dulcolax, colace, MOM, Theragran, Fleet enema, Vitamin B1 Pertinent Labs (11/25) Nutrition related labs WNL Nutritional Hx/Data Height 1.73 m Height (Calculated Centimeters) 172.7 Current Weight (lbs) 117.027 kg Weight (Calculated Kilograms) 117.0 Weight (Calculated Grams) 835510.8 [place] Body Weight 154 % [place] Body Weight 167 Body Mass Index (BMI) 39.2 Recent Weight Change No Weight Status Morbidly Obese GI Symptoms GI Symptoms None Last BM 11/28 x 1 Difficult in: None Food Allergies No Cultural/Ethnic/Religion Belief None indicated Usual diet at home Unknown Skin Integrity/Comment: Esdras 20, SKin with dryness, intact Current %PO Good (75-100%) Estimated Nutritional Goals BEE in Kcals: Adj wt of IBW Calories/Kcals/Kg Adj weight 180lb/81.8 kg (25- 30 kcal/kg) Kcals Calculated ~6127-5301 kcal/day Protein: Adj wt of IBW Protein g/k-1.2 gm/kg - due to dereased caloric feed with using Adj weight Protein Calculated ~80-100 gm/day Fluid: ml ~5584-4882 ml/day (30-35 ml/kg ) Nutritional Problem 1. Problem Problem Obesity related to Etiology possible excessive intake prior to arrival aeb Signs/Symptoms: BMI 39.2 Intervention/Recommendation Comments 1. Continue No added salt diet as tolerated by patient due to episodes of hypertension. Expected Outcomes/Goals Expected Outcomes/Goals Oral intake to meet >75% Of nutrient needs, weight stable or trends toward ideal body weight, Nutrition related labs remanin WNL, continued skin integrity.
--- NOTE | 2017-12-13 19:59 | Progress Notes ---
DATE: 12/13/2017 PSYCHIATRIC PROGRESS NOTE SUBJECTIVE: Staff was spoken to. The patient is interviewed. Mood is irritable. Affect is constricted. Coping skills are noted to be poor. Sleep and appetite are also noted to be very poor. The patient is reported to have been getting easily agitated and since no placement has been available. No side effects to medications are noted at this time. ASSESSMENT: The patient is still impulsive. Placement is not available at this time. PLAN: To continue the patient with supportive therapy, I encouraged the patient to verbalize the concerns rather than to act out. JOB# [id number]
[2017-12-14] MEDS: Multivitamin Tab PO SCH (08:25)
--- NOTE | 2017-12-14 10:16 | Progress Notes ---
DATE: 12/14/2017 SUBJECTIVE: Staff was spoken to. The patient is interviewed. Mood is noted to be anxious. Affect is appropriate. The patient's insight and judgment noted to be improving. Impulse control seems to be fair. The patient is reported to have been willing to comply with the treatment. No side effects to the medications are noted and the patient has been able to verbalize the concerns rather than to act out at this time. ASSESSMENT: The patient is willing to comply with the treatment on an outpatient basis. No major behavioral problems are noted. The patient is stabilizing. PLAN: To discharge the patient today for followup on outpatient basis. [facility]# [id number]
== END 2017-12-14 13:15 | disposition home or self-care (01) | DRG 885 ==
LOC: ER 18:34 → GERO 19:30 → UNDODISIN 20:45
PROVIDERS: ADMIT Psychiatry & Neurology Psychiatry; ATTEND Psychiatry & Neurology Psychiatry
DX: F29 Unspecified psychosis not due to a substance or known physiological condition (principal); F03.91 Unspecified dementia, unspecified severity, with behavioral disturbance; I10 Essential (primary) hypertension; N40.0 Benign prostatic hyperplasia without lower urinary tract symptoms; F25.9 Schizoaffective disorder, unspecified; M19.90 Unspecified osteoarthritis, unspecified site; G89.29 Other chronic pain; M54.9 Dorsalgia, unspecified; Z88.8 Allergy status to other drugs, medicaments and biological substances
CPT/HCPCS: 36415-UA; 80053-TC; 80061-TC; 84443-TC; 85025-TC; 86592-TC; 93005; G0410; Z7610

== ENCOUNTER 2019-04-11 14:27 | Inpatient (IN) | payer MEDICARE, MEDICAID ==
--- NOTE | 2019-04-11 14:48 | ED Physician Chart ---
ED Chief Complaint/HPI - Patient Information Date Seen:: 04/11/19 Time Seen:: 14:30 Chief Complaint:: Agitation History of Present Illness:: onset x 3 days of agitation and aggressive behavior; no report of trauma, H/As, SIs, neck pain, C/P, SOB, Abd. Pain, or urinary s/s Allergies:: Allergies Allergy/AdvReac Type Severity Reaction Status Date / Time cefazolin Allergy Verified 09/08/17 15:22 gemfibrozil Allergy Verified 09/08/17 15:24 simvastatin Allergy Verified 09/08/17 15:23 Historian:: Patient, EMS Review:: Nurse's Note Reviewed, Old Chart Reviewed, EMS run form Reviewed ED Review of Systems - Review of Systems General/Constitutional: No fever, No chills, No weight loss, No weakness, No diaphoresis, No edema, No loss of appetite Skin: No skin lesions, No rash, No bruising Head: No headache, No light-headedness Eyes: No loss of vision, No pain, No diplopia ENT: No earache, No nasal drainage, No sore throat, No tinnitus Neck: No neck pain, No swelling, No thyromegaly, No stiffness, No mass noted Cardio Vascular: No chest pain, No palpitations, No PND, No orthopnea, No edema Pulmonary: No SOB, No cough, No sputum, No wheezing GI: No nausea, No vomiting, No diarrhea, No pain, No melena, No hematochezia, No constipation, No hematemesis G/U: No dysuria, No frequency, No hematuria, No nacturia Musculoskeletal: No bone or joint pain, No back pain, No muscle pain Endocrine: No polyuria, No polydipsia Psychiatric: Prior psych history, Depression, Anxiety, No suicidal ideation, No homicidal ideation, No auditory hallucination, No visual hallucination Hematopoietic: No bruising, No lymphadenopathy Allergic/Immuno: No urticaria, No angioedema Neurological: No syncope, No focal symptoms, No weakness, No paresthesia, No headache, No seizure, No dizziness, No confusion, No vertigo ED Past Medical History - Past Medical History Obtainable: Yes Past Medical History: HTN, Dyslipidemia, Seizures Family History: HTN Social History: Non Smoker, No Alcohol, No Drug Use, Single, Care Facility Surgical History: None Psychiatricy History: Depression, Bipolar Medication: Reviewed Family Medical History - Family Member Mother History Unknown: Yes Ethnicity: Unknown Living Status: Unknown Father History Unknown: Yes Ethnicity: Unknown Living Status: Unknown ED Physical Exam - Physical Examination General/Constitutional: Awake, Well-developed, well-nourished, Alert, No distress, GCS 15, Non-toxic appearing, Ambulatory Head: Atraumatic Eyes: Lids, conjuctiva normal, PERRL, EOMI Skin: Nl inspection, No rash, No skin lesions, No ecchymosis, Well hydrated, No lymphadenopathy ENMT: External ears, nose nl, TM canals nl, Nasal exam nl, Lips, teeth, gums nl , Oropharynx nl, Tonsils nl Neck: Nontender, Full ROM w/o pain, No JVD, No nuchal rigidity, No bruit, No mass, No stridor Respiratory: Nl effort/Exclusion, Clear to Auscultation, No Wheeze/Rhonchi/Rales Cardio Vascular: RRR, No murmur, gallop, rubs, NL S1 S2, Carotid/Femoral/Distal pulses equal bilaterally GI: No tenderness/rebounding/guarding, No organomegaly, No hernia, Normal BS's, Nondistended, No mass/bruits, No McBurney tenderness : No CVA tenderness Extremities: No tenderness or effusion, Full ROM, normal strength in all extremities, No edema, Normal digits & nails Neuro/Psych: Alert/oriented, DTR's symmetric, Normal sensory exam, Normal motor strength, Judgement/insight normal, Mood normal, Normal gait, No focal deficits Other Neuro/Psych comments:: + Psychomotor Agitation; no SIs; Mood/Affect: Labile Misc: Normal back, No paraspinal tenderness ED Labs/Radiology/EKG Results - Lab Results Comments:: Reviewed - EKG Interpretations Comments:: Reviewed ED Septic Shock - . Is Septic Shock (SBP<90, OR Lactate>4 mmol\L) present?: No ED Reassessment (Disposition) - Reassessment Reassessment Condition:: Improved - Diagnosis Diagnosis:: Agitation; Medical Clearance; Bipolar Disorder - Aftercare/Follow up Instructions Aftercare/Follow-Up Instructions:: Counseled pt regarding lab results/diagnosis & need follow up, Counseled pt & family regarding lab results/diagnosis & need follow up - Patient Disposition Discharge/Transfer:: Acute Care w/in this hosp Admitted to:: [facility] Condition at Disposition:: Stable, Improved
[2019-04-11 15:31] LABS: BASOPHILE ABSOLUTE 0.1 Th/cumm (0-0.2); EOSINOPHILE ABSOLUTE 0.3 Th/cmm (0.1-0.4); MEAN CORPUSCULAR HEMOGLOBIN 30.6 pg (26.0-30.0); MONOCYTE ABSOLUTE 0.6 Th/cmm (0.3-1.0); RED BLOOD COUNT 4.37 Mil/cmm (4.30-5.70)
[2019-04-11 15:34] LABS: % EOSINOPHILS 3.8 % (0.0-5.0); % LYMPHOCYTES 35.9 % (20.0-50.0); % MONOCYTES 6.7 % (2.0-10.0); % NEUTROPHILS 52.6 % (40.0-80.0); HEMATOCRIT 39.8 % (41.0-60); HEMOGLOBIN 13.4 gm/dL (12-16); LYMPHOCYTE ABSOLUTE 3.3 Th/cmm (1.5-3.0); MEAN CELL VOLUME 91.1 fl (80-99); MEAN CORPUSCULAR HGB CONC 33.6 pg (28.0-36.0); MEAN PLATELET VOLUME 10.4 fl; NEUTROPHILE ABSOLUTE 4.8 Th/cmm (1.8-8.0); PLATELET COUNT 245 Th/cmm (150-400); RED CELL DISTRIBUTION WIDTH 14.3 % (11.5-20.0); WHITE BLOOD COUNT 9.1 Th/cmm (4.8-10.8)
[2019-04-11 15:54] LABS: URINE SOURCE CLEAN C
[2019-04-11 16:07] LABS: URINE BILIRUBIN NEGATIVE (NEGATIVE); URINE BLOOD LARGE (NEGATIVE); URINE GLUCOSE (UA) NEGATIVE (NEGATIVE); URINE KETONE NEGATIVE (NEGATIVE); URINE LEUKOCYTE ESTERASE MODERATE (NEGATIVE); URINE MICROSCOPIC INDICATED? YES; URINE NITRATE NEGATIVE (NEGATIVE); URINE PH 5.5 (4.6 - 8.0); URINE PROTEIN TRACE mg/dL (NEGATIVE); URINE UROBILINOGEN 0.2 E.U./dL (0.2 - 1.0)
[2019-04-11 16:11] LABS: ACETAMINOPHEN < 10.0 ug/mL (10.0-30.0); ALB/GLOB RATIO 1.2 (1.0-1.8); ALBUMIN 4.2 gm/dL (4.2-5.5); ALKALINE PHOSPHATASE 78 U/L (34-104); ANION GAP 14.5 (7.0-16.0); BILIRUBIN,TOTAL 0.5 mg/dL (0.3-1.0); BUN - UREA NITROGEN 14 mg/dL (7-25); CALCIUM SERUM 9.9 mg/dL (8.6-10.3); CARBON DIOXIDE 27.6 mEq/L (21.0-31.0); CHLORIDE 102 mEq/L (98-107); CHOLESTEROL 146 mg/dL (<200); CREATININE - SERUM 0.9 mg/dL (0.7-1.3); GFR AFRICAN-AMERICAN > 60.0 ml/min (>90); GFR NON AFRICAN-AMERICAN > 60.0 ml/min; GLUCOSE 97 mg/dL (70-105); HDL -HIGH DENSITY LIPOPROTEIN 34 mg/dL (23-92); POTASSIUM SERUM 4.1 mEq/L (3.5-5.1); SALICYLATES (ASPIRIN) < 25.0 mg/L (30.0-100.0); SGOT 17 U/L (13-39); SGPT/ALT 15 U/L (7-52); SODIUM SERUM 140 mEq/L (136-145); TOTAL PROTEIN,SERUM 7.7 gm/dL (6.0-8.3); TRIGLYCERIDES 189 mg/dL (<150)
[2019-04-11 16:17] LABS: URINE COLOR YELLOW
[2019-04-11 16:20] LABS: URINE CLARITY HAZY (CLEAR)
[2019-04-11 16:22] VITALS: BP 150/94
[2019-04-11 16:22] LABS: URINE BACTERIA MODERATE /hpf (NONE SEEN); URINE EPITHELIAL CELLS NONE SEEN /lpf (FEW); URINE RBC 25-50 /hpf (0-5)
[2019-04-11] MEDS ORDERED: Maalox 30 mL Cup PO PRN (16:24)
[2019-04-11] MEDS ORDERED: Magnesium Hydroxide (MOM) 30 mL UDC PO PRN (16:24)
[2019-04-11 16:25] LABS: AMPHETAMINE URINE NEGATIVE (NEGATIVE); BARBITURATES URINE NEGATIVE (NEGATIVE); BENZODIAZEPINES QUAL URINE POSITIVE (NEGATIVE); CANNABINOID THC NEGATIVE (NEGATIVE); COCAINE METABOLITE QUAL URINE NEGATIVE (NEGATIVE); METHADONE URINE NEGATIVE (NEGATIVE); METHAMPHETAMINES QUAL URINE NEGATIVE (NEGATIVE); OPIATES (MORPHINE) QUAL. URINE NEGATIVE (NEGATIVE); PHENCYCLIDINE (PCP) URINE NEGATIVE (NEGATIVE); TRICYCLICS (TCA) QUAL. URINE POSITIVE (NEGATIVE)
[2019-04-11 16:54] LABS: CHOLESTEROL 152 mg/dL (<200); HDL -HIGH DENSITY LIPOPROTEIN 35 mg/dL (23-92); TRIGLYCERIDES 192 mg/dL (<150)
--- NOTE | 2019-04-11 22:40 | History & Physical ---
ADMIT DATE: 04/11/2019 HISTORY OF PRESENT ILLNESS: The patient is a 59-year-old male with long history of dementia, psychosis, hypertension, benign prostatic hypertrophy, admitted to [facility] under Dr. Franklin's service for evaluation and treatment. The patient is very confused, agitated, not coherent. PAST MEDICAL HISTORY: Significant for hypertension, benign prostatic hypertrophy, hyperlipidemia, psychosis, dementia. PAST SURGICAL HISTORY: No recent surgery. ALLERGIES: CEFAZOLIN, LOPID AND SIMVASTATIN. SOCIAL HISTORY: No smoking, no alcohol or drugs. FAMILY HISTORY: Noncontributory. MEDICATIONS: Follow admission reconciliation. REVIEW OF SYSTEMS: RENAL SYSTEM: No history of chronic renal disorder. CARDIOVASCULAR SYSTEM: No coronary artery disease. ENDOCRINE SYSTEM: No diabetes or thyroid problem. GASTROINTESTINAL SYSTEM: No upper or lower gastrointestinal bleed. NEUROLOGICAL SYSTEM: No seizure disorder. SKELETOMUSCULAR: No muscular dystrophy. HEMATOLOGICAL: No bleeding tendencies. RESPIRATORY SYSTEM: No asthma. GENITOURINARY: Benign prostatic hypertrophy. PHYSICAL EXAMINATION: GENERAL: He is awake, not coherent. VITAL SIGNS: Temperature is 98.3, height 74, blood pressure 150/84. HEENT: Normocephalic. Pupils are equal to light and accommodation. Sclerae clear. NECK: Supple. Negative for lymphadenopathy, JVD, or bruit. CHEST: Bilaterally normal. No rhonchi or wheezing. HEART: S1, S2 normal. No pericardial rub. ABDOMEN: Soft, bowel sounds positive. EXTREMITIES: No edema. NEUROLOGIC: He is awake, not coherent. No focal motor deficits. LABORATORY DATA: White blood cell 9.1, hemoglobin 13.4, hematocrit 39.8, platelet is 245. Sodium 140, potassium 4.1, BUN 14, creatinine 0.9, triglyceride 192. ASSESSMENT: 1. Hypertension. 2. Hyperlipidemia. 3. Benign prostatic hypertrophy. 4. Psychosis. PLAN: The patient admitted to the hospital under Dr. Franklin's service. MEDICAL PROBLEM ADDRESSED DURING HOSPITALIZATION: Psychosis. MEDICAL PROBLEMS ADDRESSED AT DISCHARGE: Hypertension, hyperlipidemia, benign prostatic hypertrophy. The patient is medically stable for activity. Thank you, Dr. Franklin for asking me to see your patient. The patient is a full code. JOB# [id number]
--- NOTE | 2019-04-12 03:41 | Psychiatric Evaluation ---
DATE OF SERVICE: 04/11/2019 IDENTIFYING DATA: The patient is a 59-year-old male, resident of [place] and [facility] in [place]. Information obtained by directly interviewing the patient as well as reviewing the admission papers. JUSTIFICATION OF HOSPITALIZATION: The patient is admitted on a voluntary basis in view of his out of control behavior. CHIEF COMPLAINT: "I do not know, I am becoming short tempered." HISTORY OF PRESENT ILLNESS: This is the second psychiatric hospitalization to this patient who was hospitalized under my care in 10/2017. The patient is stating that he has not been consistent with the medication and has been getting easily irritable and angry. The patient is reported to have been getting very aggressive at the time of the hospitalization, the patient has been on Depakote and Seroquel, but has not been continuing the medications. Sleep is noted to be poor. Appetite is noted to be poor. During the interview; the patient, however, has been noted to be cooperative. The patient is stating that he is not able to recall what has been going on. PAST PSYCHIATRIC HISTORY: Please refer to the above. MEDICAL HISTORY AND PHYSICAL EXAMINATION: Requested to be done by Dr. Alves. SUBSTANCE ABUSE HISTORY: The patient has a history of alcohol abuse. PHYSICAL OR SEXUAL ABUSE HISTORY: None. LEGAL PROBLEMS: None at this time. STRENGTH AND ASSETS: The patient is motivated. MENTAL STATUS EXAMINATION: The patient is a 59-year-old, looking his stated age, superficially cooperative. The patient is well built. The patient's personal hygiene is noted to be fair at this time. The patient is stating that he has been getting agitated and aggressive. The patient is stating that all these things are happening because he is losing his sleep. The patient has paranoid delusions, but denies any command hallucinations. The patient's insight and judgment at this time are noted to be very much impaired. The patient is alert and aware that he is in the hospital, but he states that he could not figure it out what time is it is and he is able to figure out over his date of . DIAGNOSTIC IMPRESSION: AXIS I: Psychotic disorder, not otherwise specified. AXIS I B: Rule out schizoaffective disorder. AXIS II: None. AXIS III: As per Dr. Alves. IMMEDIATE TREATMENT PLAN: The patient is going to be observed on inpatient unit, provided with supportive psychotherapy. The patient is going to be restarted on the Seroquel and Depakote. ESTIMATED LENGTH OF STAY: 5-7 days. DISCHARGE CRITERIA: When he no longer a threat to self or others and be able to cope up with the stress. The patient's mother is reporting that the patient had been hospitalized at [facility] and she is going to be sending the information, that the patient is reported to be out of control ____. JOB# [id number]
[2019-04-12] MEDS: Multivitamin Tab PO SCH ×2 (09:00)
--- NOTE | 2019-04-12 19:53 | Internal Medicine Prog Note ---
Internal Medicine Subjective - Subjective Service Date: 04/12/19 Patient seen and examined:: without staff Patient is:: awake, verbal, in bed, confused Per staff patient has:: no adverse event Internal Medicine Objective - Results Result Diagrams: 04/11/19 15:05 04/11/19 15:05 Recent Labs: Laboratory Last Values WBC 9.1 Th/cmm (4.8-10.8) 04/11/19 15:05 RBC 4.37 Mil/cmm (4.30-5.70) 04/11/19 15:05 Hgb 13.4 gm/dL (12-16) 04/11/19 15:05 Hct 39.8 % (41.0-60) L 04/11/19 15:05 MCV 91.1 fl (80-99) 04/11/19 15:05 MCH 30.6 pg (26.0-30.0) H 04/11/19 15:05 MCHC Differential 33.6 pg (28.0-36.0) 04/11/19 15:05 RDW 14.3 % (11.5-20.0) 04/11/19 15:05 Plt Count 245 Th/cmm (150-400) 04/11/19 15:05 MPV 10.4 fl 04/11/19 15:05 Neutrophils % 52.6 % (40.0-80.0) 04/11/19 15:05 Lymphocytes % 35.9 % (20.0-50.0) 04/11/19 15:05 Monocytes % 6.7 % (2.0-10.0) 04/11/19 15:05 Eosinophils % 3.8 % (0.0-5.0) 04/11/19 15:05 Basophils % 1.0 % (0.0-2.0) 04/11/19 15:05 Sodium 140 mEq/L (136-145) 04/11/19 15:05 Potassium 4.1 mEq/L (3.5-5.1) 04/11/19 15:05 Chloride 102 mEq/L (98-107) 04/11/19 15:05 Carbon Dioxide 27.6 mEq/L (21.0-31.0) 04/11/19 15:05 Anion Gap 14.5 (7.0-16.0) 04/11/19 15:05 BUN 14 mg/dL (7-25) 04/11/19 15:05 Creatinine 0.9 mg/dL (0.7-1.3) 04/11/19 15:05 Est GFR ( Amer) > 60.0 ml/min (>90) 04/11/19 15:05 Est GFR (Non-Af Amer) > 60.0 ml/min 04/11/19 15:05 BUN/Creatinine Ratio 15.6 04/11/19 15:05 Glucose 97 mg/dL (70-105) 04/11/19 15:05 Calcium 9.9 mg/dL (8.6-10.3) 04/11/19 15:05 Total Bilirubin 0.5 mg/dL (0.3-1.0) 04/11/19 15:05 AST 17 U/L (13-39) 04/11/19 15:05 ALT 15 U/L (7-52) 04/11/19 15:05 Alkaline Phosphatase 78 U/L (34-104) 04/11/19 15:05 Troponin I 0.01 ng/mL (0.01-0.05) 04/11/19 15:05 Total Protein 7.7 gm/dL (6.0-8.3) 04/11/19 15:05 Albumin 4.2 gm/dL (4.2-5.5) 04/11/19 15:05 Globulin 3.5 gm/dL 04/11/19 15:05 Albumin/Globulin Ratio 1.2 (1.0-1.8) 04/11/19 15:05 Triglycerides 192 mg/dL (<150) H 04/11/19 15:07 Cholesterol 152 mg/dL (<200) 04/11/19 15:07 LDL Cholesterol Direct 101 mg/dL (75-193) 04/11/19 15:07 HDL Cholesterol 35 mg/dL (23-92) 04/11/19 15:07 TSH 3.59 uIU/ml (0.34-5.60) 04/11/19 15:05 Urine Source CLEAN C 04/11/19 15:15 Urine Color YELLOW 04/11/19 15:15 Urine Clarity HAZY (CLEAR) 04/11/19 15:15 Urine pH 5.5 (4.6 - 8.0) 04/11/19 15:15 Ur Specific [place] 1.020 (1.005-1.030) 04/11/19 15:15 Urine Protein TRACE mg/dL (NEGATIVE) 04/11/19 15:15 Urine Glucose (UA) NEGATIVE mg/dL (NEGATIVE) 04/11/19 15:15 Urine Ketones NEGATIVE mg/dL (NEGATIVE) 04/11/19 15:15 Urine Blood LARGE (NEGATIVE) H 04/11/19 15:15 Urine Nitrate NEGATIVE (NEGATIVE) 04/11/19 15:15 Urine Bilirubin NEGATIVE (NEGATIVE) 04/11/19 15:15 Urine Urobilinogen 0.2 E.U./dL (0.2 - 1.0) 04/11/19 15:15 Ur Leukocyte Esterase MODERATE (NEGATIVE) H 04/11/19 15:15 Urine RBC 25-50 /hpf (0-5) H 04/11/19 15:15 Urine WBC 10-25 /hpf (0-5) H 04/11/19 15:15 Ur Epithelial Cells NONE SEEN /lpf (FEW) 04/11/19 15:15 Urine Bacteria MODERATE /hpf (NONE SEEN) H 04/11/19 15:15 Salicylates < 25.0 mg/L (30.0-100.0) L 04/11/19 15:05 Urine Opiates Screen NEGATIVE (NEGATIVE) 04/11/19 15:15 Urine Methadone Screen NEGATIVE (NEGATIVE) 04/11/19 15:15 Acetaminophen < 10.0 ug/mL (10.0-30.0) L 04/11/19 15:05 Ur Barbiturates Screen NEGATIVE (NEGATIVE) 04/11/19 15:15 Ur Tricyclics Screen POSITIVE (NEGATIVE) H 04/11/19 15:15 Ur Phencyclidine Scrn NEGATIVE (NEGATIVE) 04/11/19 15:15 Amphetamines Screen NEGATIVE (NEGATIVE) 04/11/19 15:15 U Methamphetamines Scrn NEGATIVE (NEGATIVE) 04/11/19 15:15 U Benzodiazepines Scrn POSITIVE (NEGATIVE) H 04/11/19 15:15 U Cocaine Metab Screen NEGATIVE (NEGATIVE) 04/11/19 15:15 U Cannabinoids Screen NEGATIVE (NEGATIVE) 04/11/19 15:15 Ethyl Alcohol < 10 mg/dL (0-10) 04/11/19 15:05 - Physical Exam Vitals and I&O: Vital Signs Temp 98.6 F 04/12/19 19:47 Pulse 64 04/12/19 19:47 Resp 20 04/12/19 19:47 BP 140/74 04/12/19 19:47 Pulse Ox 97 04/12/19 19:47 Intake & Output 04/12/19 04/12/19 04/13/19 06:59 18:59 06:59 Intake Total 120 200 Output Total 151 Balance 120 49 Intake: Oral 120 100 Other 100 Output: Urine 150 Stool 1 Other: # Voids 3 3 # Bowel Movements 0 Stool Characteristics Formed Brown Active Medications: Current Medications Acetaminophen (Tylenol) 650 mg PO Q4HR PRN PRN Reason: Mild Pain / Temp above 100 Stop: 06/10/19 16:23 Acetaminophen (Tylenol) 650 mg PO Q4HR PRN PRN Reason: pain(mild-mod) Stop: 06/10/19 18:58 Al Hydrox/Mg Hydrox/Simethicone (Maalox) 30 ml PO Q4HR PRN PRN Reason: GI DISTRESS Stop: 06/10/19 16:23 Aspirin (Ecotrin) 81 mg PO DAILY [facility] Stop: 06/11/19 08:59 Last Admin: 04/12/19 09:00 Dose: 81 mg Bisacodyl (Dulcolax 10 Mg Supp) 10 mg RC Q48H PRN PRN Reason: Constipation Stop: 06/10/19 18:58 Divalproex Sodium (Depakote Er) 500 mg PO HS [facility]; Protocol Stop: 06/10/19 20:59 Last Admin: 04/11/19 20:45 Dose: 500 mg Docusate Sodium (Colace) 100 mg PO DAILY [facility] Stop: 06/11/19 08:59 Last Admin: 04/12/19 08:58 Dose: 100 mg Finasteride (Proscar) 5 mg PO DAILY [facility]; Protocol Stop: 06/11/19 08:59 Last Admin: 04/12/19 08:58 Dose: 5 mg Folic Acid (Folate) 1 mg PO DAILY [facility] Stop: 06/11/19 08:59 Last Admin: 04/12/19 08:58 Dose: 1 mg Furosemide (Lasix) 20 mg PO DAILY [facility] Stop: 06/11/19 08:59 Last Admin: 04/12/19 08:59 Dose: 20 mg Lorazepam (Ativan) 0.5 mg PO Q4HR PRN; Protocol PRN Reason: Agitation Stop: 05/11/19 16:23 Last Admin: 04/12/19 09:00 Dose: 0.5 mg Magnesium Hydroxide (Milk Of Magnesia) 30 ml PO HS PRN PRN Reason: Constipation Metoprolol Tartrate (Lopressor) 50 mg PO BID [facility] Stop: 06/11/19 08:59 Last Admin: 04/12/19 16:40 Dose: 50 mg Multivitamins/Vitamin C (Theragran) 1 tab PO DAILY [facility] Stop: 06/11/19 08:59 Last Admin: 04/12/19 09:00 Dose: 1 tab Multivitamins/Vitamin C (Theragran) 1 tab PO DAILY [facility] Stop: 06/11/19 08:59 Last Admin: 04/12/19 09:00 Dose: 1 tab Nitroglycerin (Nitrostat) 0.4 mg SL Q5MIN PRN PRN Reason: Chest Pain Stop: 06/10/19 18:59 Quetiapine Fumarate (Seroquel) 100 mg PO BID [facility]; Protocol Stop: 06/11/19 08:59 Last Admin: 04/12/19 16:41 Dose: 100 mg Quetiapine Fumarate (Seroquel) 200 mg PO HS [facility]; Protocol Stop: 06/10/19 20:59 Last Admin: 04/11/19 20:45 Dose: 200 mg Thiamine HCl (Vitamin B1) 100 mg PO DAILY [facility] Stop: 06/11/19 08:59 Last Admin: 04/12/19 08:58 Dose: 100 mg Zolpidem Tartrate (Ambien) 5 mg PO HS PRN PRN Reason: Insomnia Stop: 06/10/19 16:23 General: demented HEENT: NC/AT, PERRLA, EOMI, anicteric sclerae, throat clear Neck: Supple, No JVD, No thyromegaly, +2 carotid pulse wo bruit, No LAD Lungs: CTAB Cardiovascular: RRR, Normal S1, Normal S2, without murmur Abdomen: soft, non-tender, non-distended Extremities: clear Neurological: no change Internal Medicine Assmt/Plan - Assessment Assessment: 1.HTN. 2.HYPERLIPIDEMIA. 3.BPH. 4.PSYCHOSIS - Plan Plan: CONTINUE ON CURRENT MEDICATION AND DIET.
--- NOTE | 2019-04-12 22:45 | Progress Notes ---
DATE: 04/12/2019 SUBJECTIVE: Staff was spoken to. The patient is interviewed. Mood is noted to be irritable. Affect is constricted. The patient is getting easily confused and has been getting agitated. The patient is stating that he could not figure it out how he ended up in here. The patient's mood swings are coming under control. The patient is currently on Depakote and the patient is also receiving the Seroquel 100 mg twice a day and 200 mg at bedtime. ASSESSMENT: The patient is still psychotic and impulsive. PLAN: To continue the patient with the current medications and follow. JOB# [id number]
[2019-04-13] MEDS: Multivitamin Tab PO SCH ×2 (08:46)
--- NOTE | 2019-04-13 22:27 | Internal Medicine Prog Note ---
Internal Medicine Subjective - Subjective Service Date: 04/13/19 Patient seen and examined:: without staff Patient is:: awake, verbal, in bed, confused Per staff patient has:: no adverse event Internal Medicine Objective - Results Result Diagrams: 04/11/19 15:05 04/11/19 15:05 Recent Labs: Laboratory Last Values WBC 9.1 Th/cmm (4.8-10.8) 04/11/19 15:05 RBC 4.37 Mil/cmm (4.30-5.70) 04/11/19 15:05 Hgb 13.4 gm/dL (12-16) 04/11/19 15:05 Hct 39.8 % (41.0-60) L 04/11/19 15:05 MCV 91.1 fl (80-99) 04/11/19 15:05 MCH 30.6 pg (26.0-30.0) H 04/11/19 15:05 MCHC Differential 33.6 pg (28.0-36.0) 04/11/19 15:05 RDW 14.3 % (11.5-20.0) 04/11/19 15:05 Plt Count 245 Th/cmm (150-400) 04/11/19 15:05 MPV 10.4 fl 04/11/19 15:05 Neutrophils % 52.6 % (40.0-80.0) 04/11/19 15:05 Lymphocytes % 35.9 % (20.0-50.0) 04/11/19 15:05 Monocytes % 6.7 % (2.0-10.0) 04/11/19 15:05 Eosinophils % 3.8 % (0.0-5.0) 04/11/19 15:05 Basophils % 1.0 % (0.0-2.0) 04/11/19 15:05 Sodium 140 mEq/L (136-145) 04/11/19 15:05 Potassium 4.1 mEq/L (3.5-5.1) 04/11/19 15:05 Chloride 102 mEq/L (98-107) 04/11/19 15:05 Carbon Dioxide 27.6 mEq/L (21.0-31.0) 04/11/19 15:05 Anion Gap 14.5 (7.0-16.0) 04/11/19 15:05 BUN 14 mg/dL (7-25) 04/11/19 15:05 Creatinine 0.9 mg/dL (0.7-1.3) 04/11/19 15:05 Est GFR ( Amer) > 60.0 ml/min (>90) 04/11/19 15:05 Est GFR (Non-Af Amer) > 60.0 ml/min 04/11/19 15:05 BUN/Creatinine Ratio 15.6 04/11/19 15:05 Glucose 97 mg/dL (70-105) 04/11/19 15:05 Calcium 9.9 mg/dL (8.6-10.3) 04/11/19 15:05 Total Bilirubin 0.5 mg/dL (0.3-1.0) 04/11/19 15:05 AST 17 U/L (13-39) 04/11/19 15:05 ALT 15 U/L (7-52) 04/11/19 15:05 Alkaline Phosphatase 78 U/L (34-104) 04/11/19 15:05 Troponin I 0.01 ng/mL (0.01-0.05) 04/11/19 15:05 Total Protein 7.7 gm/dL (6.0-8.3) 04/11/19 15:05 Albumin 4.2 gm/dL (4.2-5.5) 04/11/19 15:05 Globulin 3.5 gm/dL 04/11/19 15:05 Albumin/Globulin Ratio 1.2 (1.0-1.8) 04/11/19 15:05 Triglycerides 192 mg/dL (<150) H 04/11/19 15:07 Cholesterol 152 mg/dL (<200) 04/11/19 15:07 LDL Cholesterol Direct 101 mg/dL (75-193) 04/11/19 15:07 HDL Cholesterol 35 mg/dL (23-92) 04/11/19 15:07 TSH 3.59 uIU/ml (0.34-5.60) 04/11/19 15:05 Urine Source CLEAN C 04/11/19 15:15 Urine Color YELLOW 04/11/19 15:15 Urine Clarity HAZY (CLEAR) 04/11/19 15:15 Urine pH 5.5 (4.6 - 8.0) 04/11/19 15:15 Ur Specific [place] 1.020 (1.005-1.030) 04/11/19 15:15 Urine Protein TRACE mg/dL (NEGATIVE) 04/11/19 15:15 Urine Glucose (UA) NEGATIVE mg/dL (NEGATIVE) 04/11/19 15:15 Urine Ketones NEGATIVE mg/dL (NEGATIVE) 04/11/19 15:15 Urine Blood LARGE (NEGATIVE) H 04/11/19 15:15 Urine Nitrate NEGATIVE (NEGATIVE) 04/11/19 15:15 Urine Bilirubin NEGATIVE (NEGATIVE) 04/11/19 15:15 Urine Urobilinogen 0.2 E.U./dL (0.2 - 1.0) 04/11/19 15:15 Ur Leukocyte Esterase MODERATE (NEGATIVE) H 04/11/19 15:15 Urine RBC 25-50 /hpf (0-5) H 04/11/19 15:15 Urine WBC 10-25 /hpf (0-5) H 04/11/19 15:15 Ur Epithelial Cells NONE SEEN /lpf (FEW) 04/11/19 15:15 Urine Bacteria MODERATE /hpf (NONE SEEN) H 04/11/19 15:15 Salicylates < 25.0 mg/L (30.0-100.0) L 04/11/19 15:05 Urine Opiates Screen NEGATIVE (NEGATIVE) 04/11/19 15:15 Urine Methadone Screen NEGATIVE (NEGATIVE) 04/11/19 15:15 Acetaminophen < 10.0 ug/mL (10.0-30.0) L 04/11/19 15:05 Ur Barbiturates Screen NEGATIVE (NEGATIVE) 04/11/19 15:15 Ur Tricyclics Screen POSITIVE (NEGATIVE) H 04/11/19 15:15 Ur Phencyclidine Scrn NEGATIVE (NEGATIVE) 04/11/19 15:15 Amphetamines Screen NEGATIVE (NEGATIVE) 04/11/19 15:15 U Methamphetamines Scrn NEGATIVE (NEGATIVE) 04/11/19 15:15 U Benzodiazepines Scrn POSITIVE (NEGATIVE) H 04/11/19 15:15 U Cocaine Metab Screen NEGATIVE (NEGATIVE) 04/11/19 15:15 U Cannabinoids Screen NEGATIVE (NEGATIVE) 04/11/19 15:15 Ethyl Alcohol < 10 mg/dL (0-10) 04/11/19 15:05 - Physical Exam Vitals and I&O: Vital Signs Temp 98.9 F 04/13/19 19:54 Pulse 61 04/13/19 19:54 Resp 20 04/13/19 19:54 BP 143/68 04/13/19 19:54 Pulse Ox 96 04/13/19 19:54 Intake & Output 04/13/19 04/13/19 04/14/19 06:59 18:59 06:59 Intake Total 120 Balance 120 Intake: Oral 120 Other: # Voids 2 Active Medications: Current Medications Acetaminophen (Tylenol) 650 mg PO Q4HR PRN PRN Reason: Mild Pain / Temp above 100 Stop: 06/10/19 16:23 Acetaminophen (Tylenol) 650 mg PO Q4HR PRN PRN Reason: pain(mild-mod) Stop: 06/10/19 18:58 Al Hydrox/Mg Hydrox/Simethicone (Maalox) 30 ml PO Q4HR PRN PRN Reason: GI DISTRESS Stop: 06/10/19 16:23 Aspirin (Ecotrin) 81 mg PO DAILY [facility] Stop: 06/11/19 08:59 Last Admin: 04/13/19 08:42 Dose: 81 mg Bisacodyl (Dulcolax 10 Mg Supp) 10 mg RC Q48H PRN PRN Reason: Constipation Stop: 06/10/19 18:58 Divalproex Sodium (Depakote Er) 500 mg PO HS [facility]; Protocol Stop: 06/10/19 20:59 Last Admin: 04/13/19 20:16 Dose: 500 mg Docusate Sodium (Colace) 100 mg PO DAILY [facility] Stop: 06/11/19 08:59 Last Admin: 04/13/19 08:42 Dose: 100 mg Finasteride (Proscar) 5 mg PO DAILY [facility]; Protocol Stop: 06/11/19 08:59 Last Admin: 04/13/19 08:42 Dose: 5 mg Folic Acid (Folate) 1 mg PO DAILY [facility] Stop: 06/11/19 08:59 Last Admin: 04/13/19 08:42 Dose: 1 mg Furosemide (Lasix) 20 mg PO DAILY [facility] Stop: 06/11/19 08:59 Last Admin: 04/13/19 08:42 Dose: 20 mg Lorazepam (Ativan) 0.5 mg PO Q4HR PRN; Protocol PRN Reason: Agitation Stop: 05/11/19 16:23 Last Admin: 04/12/19 09:00 Dose: 0.5 mg Magnesium Hydroxide (Milk Of Magnesia) 30 ml PO HS PRN PRN Reason: Constipation Metoprolol Tartrate (Lopressor) 50 mg PO BID [facility] Stop: 06/11/19 08:59 Last Admin: 04/13/19 17:17 Dose: 50 mg Multivitamins/Vitamin C (Theragran) 1 tab PO DAILY [facility] Stop: 06/11/19 08:59 Last Admin: 04/13/19 08:46 Dose: 1 tab Nitroglycerin (Nitrostat) 0.4 mg SL Q5MIN PRN PRN Reason: Chest Pain Stop: 06/10/19 18:59 Quetiapine Fumarate (Seroquel) 100 mg PO BID [facility]; Protocol Stop: 06/11/19 08:59 Last Admin: 04/13/19 17:17 Dose: 100 mg Quetiapine Fumarate (Seroquel) 200 mg PO HS [facility]; Protocol Stop: 06/10/19 20:59 Last Admin: 04/13/19 20:16 Dose: 200 mg Thiamine HCl (Vitamin B1) 100 mg PO DAILY [facility] Stop: 06/11/19 08:59 Last Admin: 04/13/19 08:42 Dose: 100 mg Zolpidem Tartrate (Ambien) 5 mg PO HS PRN PRN Reason: Insomnia Stop: 06/10/19 16:23 General: demented HEENT: NC/AT, PERRLA, EOMI, anicteric sclerae, throat clear Neck: Supple, No JVD, No thyromegaly, +2 carotid pulse wo bruit, No LAD Lungs: CTAB Cardiovascular: RRR, Normal S1, Normal S2, without murmur Abdomen: soft, non-tender, non-distended Extremities: clear Neurological: no change Internal Medicine Assmt/Plan - Assessment Assessment: 1.HTN. 2.HYPERLIPIDEMIA. 3.BPH. 4.PSYCHOSIS - Plan Plan: CONTINUE ON CURRENT MEDICATION AND DIET.
--- NOTE | 2019-04-13 22:39 | Progress Notes ---
DATE: 04/13/2019 SUBJECTIVE: Staff was spoken to. The patient is interviewed. Mood is noted to be irritable. Affect is constricted. Insight and judgment is noted to be still impaired. Impulse control is noted to be limited. Coping skills are noted to be limited. The patient is confused and pacing most of the time on the unit. No side effects to medications are noted. The patient has been able to tolerate the Seroquel and the Depakote. In view of the patient's aggressive behavior, the patient needs to be closely monitored and redirected. The patient is not ready to be discharged to a lower level of care yet. JOB# [id number]
--- NOTE | 2019-04-14 01:20 | Consultation ---
DATE OF CONSULTATION: 04/13/2019 REFERRING PHYSICIAN: Tyesha Franklin MD TYPE OF CONSULTATION: Psychology. HISTORY OF PRESENT ILLNESS: The patient is a 59-year-old single male. The patient is a resident of [facility]. The following is by record review and by the patient's self-report. The patient is being admitted due to uncontrollable behavior. Upon interview, the patient states that he realizes he gets mad easily and is verbally aggressive and uses profanity. The patient is known to this typewriter tester from a previous hospitalization in 10/2017. The staff reports the patient had become aggressive and was intermittently noncompliant with his medication. The patient presents as cooperative and is stating that he prefers to be discharged and go to [place], [place] to live near his mother. PAST MEDICAL HISTORY: Please see history and physical by Dr. Alves. PAST PSYCHIATRIC HISTORY: The patient has previous psychiatric hospitalizations. He is under the care of a psychiatrist at his placement. The patient has a history of psychosis and possibly dementia. SUBSTANCE ABUSE HISTORY: The patient denied any history of tobacco use or illicit or recreational drug use. The patient states that he has a history of alcohol abuse, but has not had a drink in many years. PSYCHOSOCIAL HISTORY: The patient is single with no children. The patient lived with his mother in [place], [place] years ago. The patient has been in placement for approximately 6 or 7 years. The patient did not answer questions about occupational or educational history or uatsdin affiliation. The patient denied any history of physical or sexual abuse or any current legal problems. The patient is requesting to be discharged and placed near his biological mother. The patient has requested this before during a previous hospitalization. MENTAL STATUS EXAMINATION: The patient appears to be his stated age. The patient's attitude is superficially cooperative. Eye contact is fair. Speech is spontaneous and loud at times. Mood is irritable with mild anxiety. Speech is also pressured at times. Affect is mood congruent. Thought process shows to be linear but concrete. The patient denied any auditory or visual hallucinations or any delusions. The patient denied any suicidal ideation, plan or intention. The patient's behavior has been easily frustrated and agitated as well as aggressive on the unit. The patient may be experiencing paranoid ideation. This needs further evaluation. Impulse control is inadequate. Concentration is poor. The patient did not participate in the memory assessment. Sensorium is alert and oriented to self and place. The patient has poor insight into his illness. The patient did not participate in the interpretation of proverbs. Insight is impaired. Judgment is compromised. DIAGNOSTIC IMPRESSION: AXIS I: Psychotic disorder, not otherwise specified. AXIS II: Deferred. AXIS III: Per Dr. Alves. TREATMENT PLAN: The patient has been seen by Dr. Franklin for psychiatric evaluation and for the management of the patient's psychotropic medications. We will provide supportive psychotherapy to include reality orientation, differentiation and integration. We will provide de-escalation and limit setting. We will provide stress management to increase the patient's frustration tolerance. We will encourage the patient to demonstrate emotional and self-regulation and to verbalize his concerns appropriately versus acting out verbally and aggressively. We will provide coping strategies for phase of life issues. The patient is requesting a new placement. Case management and the attending psychiatrist are informed and the patient will discuss this with them. Thank you, Dr. Franklin for this consult and the opportunity to participate in this patient's care. JOB# [id number] DANIEL
[2019-04-14] MEDS: Multivitamin Tab PO SCH (08:22)
--- NOTE | 2019-04-14 17:04 | Internal Medicine Prog Note ---
Internal Medicine Subjective - Subjective Service Date: 04/14/19 Patient seen and examined:: with staff (HE FEELS WELL) Patient is:: awake, verbal, in bed, confused Per staff patient has:: no adverse event Internal Medicine Objective - Results Result Diagrams: 04/11/19 15:05 04/11/19 15:05 Recent Labs: Laboratory Last Values WBC 9.1 Th/cmm (4.8-10.8) 04/11/19 15:05 RBC 4.37 Mil/cmm (4.30-5.70) 04/11/19 15:05 Hgb 13.4 gm/dL (12-16) 04/11/19 15:05 Hct 39.8 % (41.0-60) L 04/11/19 15:05 MCV 91.1 fl (80-99) 04/11/19 15:05 MCH 30.6 pg (26.0-30.0) H 04/11/19 15:05 MCHC Differential 33.6 pg (28.0-36.0) 04/11/19 15:05 RDW 14.3 % (11.5-20.0) 04/11/19 15:05 Plt Count 245 Th/cmm (150-400) 04/11/19 15:05 MPV 10.4 fl 04/11/19 15:05 Neutrophils % 52.6 % (40.0-80.0) 04/11/19 15:05 Lymphocytes % 35.9 % (20.0-50.0) 04/11/19 15:05 Monocytes % 6.7 % (2.0-10.0) 04/11/19 15:05 Eosinophils % 3.8 % (0.0-5.0) 04/11/19 15:05 Basophils % 1.0 % (0.0-2.0) 04/11/19 15:05 Sodium 140 mEq/L (136-145) 04/11/19 15:05 Potassium 4.1 mEq/L (3.5-5.1) 04/11/19 15:05 Chloride 102 mEq/L (98-107) 04/11/19 15:05 Carbon Dioxide 27.6 mEq/L (21.0-31.0) 04/11/19 15:05 Anion Gap 14.5 (7.0-16.0) 04/11/19 15:05 BUN 14 mg/dL (7-25) 04/11/19 15:05 Creatinine 0.9 mg/dL (0.7-1.3) 04/11/19 15:05 Est GFR ( Amer) > 60.0 ml/min (>90) 04/11/19 15:05 Est GFR (Non-Af Amer) > 60.0 ml/min 04/11/19 15:05 BUN/Creatinine Ratio 15.6 04/11/19 15:05 Glucose 97 mg/dL (70-105) 04/11/19 15:05 Calcium 9.9 mg/dL (8.6-10.3) 04/11/19 15:05 Total Bilirubin 0.5 mg/dL (0.3-1.0) 04/11/19 15:05 AST 17 U/L (13-39) 04/11/19 15:05 ALT 15 U/L (7-52) 04/11/19 15:05 Alkaline Phosphatase 78 U/L (34-104) 04/11/19 15:05 Troponin I 0.01 ng/mL (0.01-0.05) 04/11/19 15:05 Total Protein 7.7 gm/dL (6.0-8.3) 04/11/19 15:05 Albumin 4.2 gm/dL (4.2-5.5) 04/11/19 15:05 Globulin 3.5 gm/dL 04/11/19 15:05 Albumin/Globulin Ratio 1.2 (1.0-1.8) 04/11/19 15:05 Triglycerides 192 mg/dL (<150) H 04/11/19 15:07 Cholesterol 152 mg/dL (<200) 04/11/19 15:07 LDL Cholesterol Direct 101 mg/dL (75-193) 04/11/19 15:07 HDL Cholesterol 35 mg/dL (23-92) 04/11/19 15:07 TSH 3.59 uIU/ml (0.34-5.60) 04/11/19 15:05 Urine Source CLEAN C 04/11/19 15:15 Urine Color YELLOW 04/11/19 15:15 Urine Clarity HAZY (CLEAR) 04/11/19 15:15 Urine pH 5.5 (4.6 - 8.0) 04/11/19 15:15 Ur Specific [place] 1.020 (1.005-1.030) 04/11/19 15:15 Urine Protein TRACE mg/dL (NEGATIVE) 04/11/19 15:15 Urine Glucose (UA) NEGATIVE mg/dL (NEGATIVE) 04/11/19 15:15 Urine Ketones NEGATIVE mg/dL (NEGATIVE) 04/11/19 15:15 Urine Blood LARGE (NEGATIVE) H 04/11/19 15:15 Urine Nitrate NEGATIVE (NEGATIVE) 04/11/19 15:15 Urine Bilirubin NEGATIVE (NEGATIVE) 04/11/19 15:15 Urine Urobilinogen 0.2 E.U./dL (0.2 - 1.0) 04/11/19 15:15 Ur Leukocyte Esterase MODERATE (NEGATIVE) H 04/11/19 15:15 Urine RBC 25-50 /hpf (0-5) H 04/11/19 15:15 Urine WBC 10-25 /hpf (0-5) H 04/11/19 15:15 Ur Epithelial Cells NONE SEEN /lpf (FEW) 04/11/19 15:15 Urine Bacteria MODERATE /hpf (NONE SEEN) H 04/11/19 15:15 Salicylates < 25.0 mg/L (30.0-100.0) L 04/11/19 15:05 Urine Opiates Screen NEGATIVE (NEGATIVE) 04/11/19 15:15 Urine Methadone Screen NEGATIVE (NEGATIVE) 04/11/19 15:15 Acetaminophen < 10.0 ug/mL (10.0-30.0) L 04/11/19 15:05 Ur Barbiturates Screen NEGATIVE (NEGATIVE) 04/11/19 15:15 Ur Tricyclics Screen POSITIVE (NEGATIVE) H 04/11/19 15:15 Ur Phencyclidine Scrn NEGATIVE (NEGATIVE) 04/11/19 15:15 Amphetamines Screen NEGATIVE (NEGATIVE) 04/11/19 15:15 U Methamphetamines Scrn NEGATIVE (NEGATIVE) 04/11/19 15:15 U Benzodiazepines Scrn POSITIVE (NEGATIVE) H 04/11/19 15:15 U Cocaine Metab Screen NEGATIVE (NEGATIVE) 04/11/19 15:15 U Cannabinoids Screen NEGATIVE (NEGATIVE) 04/11/19 15:15 Ethyl Alcohol < 10 mg/dL (0-10) 04/11/19 15:05 RPR NONREACTIVE (NONREACTIVE) 04/11/19 15:05 - Physical Exam Vitals and I&O: Vital Signs Temp 98.2 F 04/14/19 14:00 Pulse 64 04/14/19 16:20 Resp 20 04/14/19 14:00 BP 129/76 04/14/19 16:20 Pulse Ox 98 04/14/19 14:00 Intake & Output 04/13/19 04/14/19 04/14/19 18:59 06:59 18:59 Intake Total 120 Balance 120 Intake: Oral 120 Other: # Voids 2 Active Medications: Current Medications Acetaminophen (Tylenol) 650 mg PO Q4HR PRN PRN Reason: Mild Pain / Temp above 100 Stop: 06/10/19 16:23 Acetaminophen (Tylenol) 650 mg PO Q4HR PRN PRN Reason: pain(mild-mod) Stop: 06/10/19 18:58 Al Hydrox/Mg Hydrox/Simethicone (Maalox) 30 ml PO Q4HR PRN PRN Reason: GI DISTRESS Stop: 06/10/19 16:23 Aspirin (Ecotrin) 81 mg PO DAILY [facility] Stop: 06/11/19 08:59 Last Admin: 04/14/19 08:21 Dose: 81 mg Bisacodyl (Dulcolax 10 Mg Supp) 10 mg RC Q48H PRN PRN Reason: Constipation Stop: 06/10/19 18:58 Divalproex Sodium (Depakote Er) 500 mg PO HS [facility]; Protocol Stop: 06/10/19 20:59 Last Admin: 04/13/19 20:16 Dose: 500 mg Docusate Sodium (Colace) 100 mg PO DAILY [facility] Stop: 06/11/19 08:59 Last Admin: 04/14/19 08:22 Dose: 100 mg Finasteride (Proscar) 5 mg PO DAILY [facility]; Protocol Stop: 06/11/19 08:59 Last Admin: 04/14/19 08:21 Dose: 5 mg Folic Acid (Folate) 1 mg PO DAILY [facility] Stop: 06/11/19 08:59 Last Admin: 04/14/19 08:21 Dose: 1 mg Furosemide (Lasix) 20 mg PO DAILY [facility] Stop: 06/11/19 08:59 Last Admin: 04/14/19 08:24 Dose: 20 mg Lorazepam (Ativan) 0.5 mg PO Q4HR PRN; Protocol PRN Reason: Agitation Stop: 05/11/19 16:23 Last Admin: 04/12/19 09:00 Dose: 0.5 mg Magnesium Hydroxide (Milk Of Magnesia) 30 ml PO HS PRN PRN Reason: Constipation Metoprolol Tartrate (Lopressor) 50 mg PO BID [facility] Stop: 06/11/19 08:59 Last Admin: 04/14/19 16:20 Dose: 50 mg Multivitamins/Vitamin C (Theragran) 1 tab PO DAILY [facility] Stop: 06/11/19 08:59 Last Admin: 04/14/19 08:22 Dose: 1 tab Nitroglycerin (Nitrostat) 0.4 mg SL Q5MIN PRN PRN Reason: Chest Pain Stop: 06/10/19 18:59 Quetiapine Fumarate (Seroquel) 100 mg PO BID [facility]; Protocol Stop: 06/11/19 08:59 Last Admin: 04/14/19 16:19 Dose: 100 mg Quetiapine Fumarate (Seroquel) 200 mg PO HS [facility]; Protocol Stop: 06/10/19 20:59 Last Admin: 04/13/19 20:16 Dose: 200 mg Thiamine HCl (Vitamin B1) 100 mg PO DAILY [facility] Stop: 06/11/19 08:59 Last Admin: 04/14/19 08:22 Dose: 100 mg Zolpidem Tartrate (Ambien) 5 mg PO HS PRN PRN Reason: Insomnia Stop: 06/10/19 16:23 General: demented HEENT: NC/AT, PERRLA, EOMI, anicteric sclerae, throat clear Neck: Supple, No JVD, No thyromegaly, +2 carotid pulse wo bruit, No LAD Lungs: CTAB Cardiovascular: RRR, Normal S1, Normal S2, without murmur Abdomen: soft, non-tender, non-distended Extremities: clear Neurological: no change Internal Medicine Assmt/Plan - Assessment Assessment: 1.HTN. 2.HYPERLIPIDEMIA. 3.BPH. 4.PSYCHOSIS - Plan Plan: CONTINUE ON CURRENT MEDICATION AND DIET.
--- NOTE | 2019-04-15 00:57 | Progress Notes ---
DATE: 04/14/2019 SUBJECTIVE: Staff was spoken to. The patient is interviewed. Mood is noted to be irritable. Affect is constricted. The patient's coping skills at this time are noted to be poor. Insight and judgment are also noted to be limited. The patient has been having difficult time to cope with the stress. The patient is isolative and withdrawn. The patient is very confused at this time. ASSESSMENT: The patient is still impulsive. PLAN: To continue the patient with the supportive therapy and followup. [facility]# [id number]
[2019-04-15] MEDS: Multivitamin Tab PO SCH (08:48)
--- NOTE | 2019-04-15 23:38 | Internal Medicine Prog Note ---
Internal Medicine Subjective - Subjective Service Date: 04/15/19 Patient seen and examined:: without staff Patient is:: awake, verbal, in bed, confused Per staff patient has:: no adverse event Internal Medicine Objective - Results Result Diagrams: 04/11/19 15:05 04/11/19 15:05 Recent Labs: Laboratory Last Values WBC 9.1 Th/cmm (4.8-10.8) 04/11/19 15:05 RBC 4.37 Mil/cmm (4.30-5.70) 04/11/19 15:05 Hgb 13.4 gm/dL (12-16) 04/11/19 15:05 Hct 39.8 % (41.0-60) L 04/11/19 15:05 MCV 91.1 fl (80-99) 04/11/19 15:05 MCH 30.6 pg (26.0-30.0) H 04/11/19 15:05 MCHC Differential 33.6 pg (28.0-36.0) 04/11/19 15:05 RDW 14.3 % (11.5-20.0) 04/11/19 15:05 Plt Count 245 Th/cmm (150-400) 04/11/19 15:05 MPV 10.4 fl 04/11/19 15:05 Neutrophils % 52.6 % (40.0-80.0) 04/11/19 15:05 Lymphocytes % 35.9 % (20.0-50.0) 04/11/19 15:05 Monocytes % 6.7 % (2.0-10.0) 04/11/19 15:05 Eosinophils % 3.8 % (0.0-5.0) 04/11/19 15:05 Basophils % 1.0 % (0.0-2.0) 04/11/19 15:05 Sodium 140 mEq/L (136-145) 04/11/19 15:05 Potassium 4.1 mEq/L (3.5-5.1) 04/11/19 15:05 Chloride 102 mEq/L (98-107) 04/11/19 15:05 Carbon Dioxide 27.6 mEq/L (21.0-31.0) 04/11/19 15:05 Anion Gap 14.5 (7.0-16.0) 04/11/19 15:05 BUN 14 mg/dL (7-25) 04/11/19 15:05 Creatinine 0.9 mg/dL (0.7-1.3) 04/11/19 15:05 Est GFR ( Amer) > 60.0 ml/min (>90) 04/11/19 15:05 Est GFR (Non-Af Amer) > 60.0 ml/min 04/11/19 15:05 BUN/Creatinine Ratio 15.6 04/11/19 15:05 Glucose 97 mg/dL (70-105) 04/11/19 15:05 Calcium 9.9 mg/dL (8.6-10.3) 04/11/19 15:05 Total Bilirubin 0.5 mg/dL (0.3-1.0) 04/11/19 15:05 AST 17 U/L (13-39) 04/11/19 15:05 ALT 15 U/L (7-52) 04/11/19 15:05 Alkaline Phosphatase 78 U/L (34-104) 04/11/19 15:05 Troponin I 0.01 ng/mL (0.01-0.05) 04/11/19 15:05 Total Protein 7.7 gm/dL (6.0-8.3) 04/11/19 15:05 Albumin 4.2 gm/dL (4.2-5.5) 04/11/19 15:05 Globulin 3.5 gm/dL 04/11/19 15:05 Albumin/Globulin Ratio 1.2 (1.0-1.8) 04/11/19 15:05 Triglycerides 192 mg/dL (<150) H 04/11/19 15:07 Cholesterol 152 mg/dL (<200) 04/11/19 15:07 LDL Cholesterol Direct 101 mg/dL (75-193) 04/11/19 15:07 HDL Cholesterol 35 mg/dL (23-92) 04/11/19 15:07 TSH 3.59 uIU/ml (0.34-5.60) 04/11/19 15:05 Urine Source CLEAN C 04/11/19 15:15 Urine Color YELLOW 04/11/19 15:15 Urine Clarity HAZY (CLEAR) 04/11/19 15:15 Urine pH 5.5 (4.6 - 8.0) 04/11/19 15:15 Ur Specific [place] 1.020 (1.005-1.030) 04/11/19 15:15 Urine Protein TRACE mg/dL (NEGATIVE) 04/11/19 15:15 Urine Glucose (UA) NEGATIVE mg/dL (NEGATIVE) 04/11/19 15:15 Urine Ketones NEGATIVE mg/dL (NEGATIVE) 04/11/19 15:15 Urine Blood LARGE (NEGATIVE) H 04/11/19 15:15 Urine Nitrate NEGATIVE (NEGATIVE) 04/11/19 15:15 Urine Bilirubin NEGATIVE (NEGATIVE) 04/11/19 15:15 Urine Urobilinogen 0.2 E.U./dL (0.2 - 1.0) 04/11/19 15:15 Ur Leukocyte Esterase MODERATE (NEGATIVE) H 04/11/19 15:15 Urine RBC 25-50 /hpf (0-5) H 04/11/19 15:15 Urine WBC 10-25 /hpf (0-5) H 04/11/19 15:15 Ur Epithelial Cells NONE SEEN /lpf (FEW) 04/11/19 15:15 Urine Bacteria MODERATE /hpf (NONE SEEN) H 04/11/19 15:15 Salicylates < 25.0 mg/L (30.0-100.0) L 04/11/19 15:05 Urine Opiates Screen NEGATIVE (NEGATIVE) 04/11/19 15:15 Urine Methadone Screen NEGATIVE (NEGATIVE) 04/11/19 15:15 Acetaminophen < 10.0 ug/mL (10.0-30.0) L 04/11/19 15:05 Ur Barbiturates Screen NEGATIVE (NEGATIVE) 04/11/19 15:15 Ur Tricyclics Screen POSITIVE (NEGATIVE) H 04/11/19 15:15 Ur Phencyclidine Scrn NEGATIVE (NEGATIVE) 04/11/19 15:15 Amphetamines Screen NEGATIVE (NEGATIVE) 04/11/19 15:15 U Methamphetamines Scrn NEGATIVE (NEGATIVE) 04/11/19 15:15 U Benzodiazepines Scrn POSITIVE (NEGATIVE) H 04/11/19 15:15 U Cocaine Metab Screen NEGATIVE (NEGATIVE) 04/11/19 15:15 U Cannabinoids Screen NEGATIVE (NEGATIVE) 04/11/19 15:15 Ethyl Alcohol < 10 mg/dL (0-10) 04/11/19 15:05 RPR NONREACTIVE (NONREACTIVE) 04/11/19 15:05 - Physical Exam Vitals and I&O: Vital Signs Temp 97.4 F 04/15/19 14:04 Pulse 79 04/15/19 16:36 Resp 19 04/15/19 14:04 BP 122/70 04/15/19 16:36 Pulse Ox 98 04/15/19 14:04 Intake & Output 04/15/19 04/15/19 04/16/19 06:59 18:59 06:59 Intake Total 480 1000 Balance 480 1000 Intake: Oral 480 1000 Other: # Voids 2 4 # Bowel Movements 1 Active Medications: Current Medications Acetaminophen (Tylenol) 650 mg PO Q4HR PRN PRN Reason: Mild Pain / Temp above 100 Stop: 06/10/19 16:23 Acetaminophen (Tylenol) 650 mg PO Q4HR PRN PRN Reason: pain(mild-mod) Stop: 06/10/19 18:58 Al Hydrox/Mg Hydrox/Simethicone (Maalox) 30 ml PO Q4HR PRN PRN Reason: GI DISTRESS Stop: 06/10/19 16:23 Aspirin (Ecotrin) 81 mg PO DAILY COUNTS INCLUDE 234 BEDS AT THE [facility] Stop: 06/11/19 08:59 Last Admin: 04/15/19 08:46 Dose: 81 mg Bisacodyl (Dulcolax 10 Mg Supp) 10 mg RC Q48H PRN PRN Reason: Constipation Stop: 06/10/19 18:58 Divalproex Sodium (Depakote Er) 500 mg PO HS COUNTS INCLUDE 234 BEDS AT THE [facility]; Protocol Stop: 06/10/19 20:59 Last Admin: 04/15/19 21:26 Dose: 500 mg Docusate Sodium (Colace) 100 mg PO DAILY COUNTS INCLUDE 234 BEDS AT THE [facility] Stop: 06/11/19 08:59 Last Admin: 04/15/19 08:46 Dose: 100 mg Finasteride (Proscar) 5 mg PO DAILY COUNTS INCLUDE 234 BEDS AT THE [facility]; Protocol Stop: 06/11/19 08:59 Last Admin: 04/15/19 08:46 Dose: 5 mg Folic Acid (Folate) 1 mg PO DAILY COUNTS INCLUDE 234 BEDS AT THE [facility] Stop: 06/11/19 08:59 Last Admin: 04/15/19 08:47 Dose: 1 mg Furosemide (Lasix) 20 mg PO DAILY COUNTS INCLUDE 234 BEDS AT THE [facility] Stop: 06/11/19 08:59 Last Admin: 04/15/19 08:47 Dose: 20 mg Lorazepam (Ativan) 0.5 mg PO Q4HR PRN; Protocol PRN Reason: Agitation Stop: 05/11/19 16:23 Last Admin: 04/15/19 21:25 Dose: 0.5 mg Magnesium Hydroxide (Milk Of Magnesia) 30 ml PO HS PRN PRN Reason: Constipation Metoprolol Tartrate (Lopressor) 50 mg PO BID [facility] Stop: 06/11/19 08:59 Last Admin: 04/15/19 16:36 Dose: 50 mg Multivitamins/Vitamin C (Theragran) 1 tab PO DAILY [facility] Stop: 06/11/19 08:59 Last Admin: 04/15/19 08:48 Dose: 1 tab Nitroglycerin (Nitrostat) 0.4 mg SL Q5MIN PRN PRN Reason: Chest Pain Stop: 06/10/19 18:59 Quetiapine Fumarate (Seroquel) 100 mg PO BID COUNTS INCLUDE 234 BEDS AT THE [facility]; Protocol Stop: 06/11/19 08:59 Last Admin: 04/15/19 16:36 Dose: 100 mg Quetiapine Fumarate (Seroquel) 200 mg PO HS [facility]; Protocol Stop: 06/10/19 20:59 Last Admin: 04/15/19 21:26 Dose: 200 mg Thiamine HCl (Vitamin B1) 100 mg PO DAILY [facility] Stop: 06/11/19 08:59 Last Admin: 04/15/19 08:57 Dose: 100 mg Zolpidem Tartrate (Ambien) 5 mg PO HS PRN PRN Reason: Insomnia Stop: 06/10/19 16:23 Last Admin: 04/15/19 21:26 Dose: 5 mg General: demented HEENT: NC/AT, PERRLA, EOMI, anicteric sclerae, throat clear Neck: Supple, No JVD, No thyromegaly, +2 carotid pulse wo bruit, No LAD Lungs: CTAB Cardiovascular: RRR, Normal S1, Normal S2, without murmur Abdomen: soft, non-tender, non-distended Extremities: clear Neurological: no change Internal Medicine Assmt/Plan - Assessment Assessment: 1.HTN. 2.HYPERLIPIDEMIA. 3.BPH. 4.PSYCHOSIS - Plan Plan: CONTINUE ON CURRENT MEDICATION AND DIET.
--- NOTE | 2019-04-16 02:57 | Progress Notes ---
DATE: 04/15/2019 SUBJECTIVE: Staff was spoken to. The patient is interviewed. Mood is noted to be irritable. Affect is constricted. The patient's insight and judgment at this time are noted to be still impaired. Impulse control is noted to be limited. The patient's coping skills are noted to be limited. The patient has been having difficult time to cope with the stress. No side effects to the medications are noted. The patient is being closely monitored for his urinary tract infection and the patient has been referred to Dr. Alves for further evaluation with regard to his urinary tract infection. ASSESSMENT: The patient is still having mood swings. PLAN: To continue the patient with the Seroquel. We encouraged the patient to verbalize the concerns rather than to act out. [facility]# [id number]
[2019-04-16] MEDS: Multivitamin Tab PO SCH (08:31)
--- NOTE | 2019-04-16 15:15 | Internal Medicine Prog Note ---
Internal Medicine Subjective - Subjective Service Date: 04/16/19 Patient seen and examined:: with staff (HE DENIES FEVER) Patient is:: awake, verbal, in bed, confused Per staff patient has:: no adverse event Internal Medicine Objective - Results Result Diagrams: 04/11/19 15:05 04/11/19 15:05 Recent Labs: Laboratory Last Values WBC 9.1 Th/cmm (4.8-10.8) 04/11/19 15:05 RBC 4.37 Mil/cmm (4.30-5.70) 04/11/19 15:05 Hgb 13.4 gm/dL (12-16) 04/11/19 15:05 Hct 39.8 % (41.0-60) L 04/11/19 15:05 MCV 91.1 fl (80-99) 04/11/19 15:05 MCH 30.6 pg (26.0-30.0) H 04/11/19 15:05 MCHC Differential 33.6 pg (28.0-36.0) 04/11/19 15:05 RDW 14.3 % (11.5-20.0) 04/11/19 15:05 Plt Count 245 Th/cmm (150-400) 04/11/19 15:05 MPV 10.4 fl 04/11/19 15:05 Neutrophils % 52.6 % (40.0-80.0) 04/11/19 15:05 Lymphocytes % 35.9 % (20.0-50.0) 04/11/19 15:05 Monocytes % 6.7 % (2.0-10.0) 04/11/19 15:05 Eosinophils % 3.8 % (0.0-5.0) 04/11/19 15:05 Basophils % 1.0 % (0.0-2.0) 04/11/19 15:05 Sodium 140 mEq/L (136-145) 04/11/19 15:05 Potassium 4.1 mEq/L (3.5-5.1) 04/11/19 15:05 Chloride 102 mEq/L (98-107) 04/11/19 15:05 Carbon Dioxide 27.6 mEq/L (21.0-31.0) 04/11/19 15:05 Anion Gap 14.5 (7.0-16.0) 04/11/19 15:05 BUN 14 mg/dL (7-25) 04/11/19 15:05 Creatinine 0.9 mg/dL (0.7-1.3) 04/11/19 15:05 Est GFR ( Amer) > 60.0 ml/min (>90) 04/11/19 15:05 Est GFR (Non-Af Amer) > 60.0 ml/min 04/11/19 15:05 BUN/Creatinine Ratio 15.6 04/11/19 15:05 Glucose 97 mg/dL (70-105) 04/11/19 15:05 Calcium 9.9 mg/dL (8.6-10.3) 04/11/19 15:05 Total Bilirubin 0.5 mg/dL (0.3-1.0) 04/11/19 15:05 AST 17 U/L (13-39) 04/11/19 15:05 ALT 15 U/L (7-52) 04/11/19 15:05 Alkaline Phosphatase 78 U/L (34-104) 04/11/19 15:05 Troponin I 0.01 ng/mL (0.01-0.05) 04/11/19 15:05 Total Protein 7.7 gm/dL (6.0-8.3) 04/11/19 15:05 Albumin 4.2 gm/dL (4.2-5.5) 04/11/19 15:05 Globulin 3.5 gm/dL 04/11/19 15:05 Albumin/Globulin Ratio 1.2 (1.0-1.8) 04/11/19 15:05 Triglycerides 192 mg/dL (<150) H 04/11/19 15:07 Cholesterol 152 mg/dL (<200) 04/11/19 15:07 LDL Cholesterol Direct 101 mg/dL (75-193) 04/11/19 15:07 HDL Cholesterol 35 mg/dL (23-92) 04/11/19 15:07 TSH 3.59 uIU/ml (0.34-5.60) 04/11/19 15:05 Urine Source CLEAN C 04/11/19 15:15 Urine Color YELLOW 04/11/19 15:15 Urine Clarity HAZY (CLEAR) 04/11/19 15:15 Urine pH 5.5 (4.6 - 8.0) 04/11/19 15:15 Ur Specific [place] 1.020 (1.005-1.030) 04/11/19 15:15 Urine Protein TRACE mg/dL (NEGATIVE) 04/11/19 15:15 Urine Glucose (UA) NEGATIVE mg/dL (NEGATIVE) 04/11/19 15:15 Urine Ketones NEGATIVE mg/dL (NEGATIVE) 04/11/19 15:15 Urine Blood LARGE (NEGATIVE) H 04/11/19 15:15 Urine Nitrate NEGATIVE (NEGATIVE) 04/11/19 15:15 Urine Bilirubin NEGATIVE (NEGATIVE) 04/11/19 15:15 Urine Urobilinogen 0.2 E.U./dL (0.2 - 1.0) 04/11/19 15:15 Ur Leukocyte Esterase MODERATE (NEGATIVE) H 04/11/19 15:15 Urine RBC 25-50 /hpf (0-5) H 04/11/19 15:15 Urine WBC 10-25 /hpf (0-5) H 04/11/19 15:15 Ur Epithelial Cells NONE SEEN /lpf (FEW) 04/11/19 15:15 Urine Bacteria MODERATE /hpf (NONE SEEN) H 04/11/19 15:15 Salicylates < 25.0 mg/L (30.0-100.0) L 04/11/19 15:05 Urine Opiates Screen NEGATIVE (NEGATIVE) 04/11/19 15:15 Urine Methadone Screen NEGATIVE (NEGATIVE) 04/11/19 15:15 Acetaminophen < 10.0 ug/mL (10.0-30.0) L 04/11/19 15:05 Ur Barbiturates Screen NEGATIVE (NEGATIVE) 04/11/19 15:15 Ur Tricyclics Screen POSITIVE (NEGATIVE) H 04/11/19 15:15 Ur Phencyclidine Scrn NEGATIVE (NEGATIVE) 04/11/19 15:15 Amphetamines Screen NEGATIVE (NEGATIVE) 04/11/19 15:15 U Methamphetamines Scrn NEGATIVE (NEGATIVE) 04/11/19 15:15 U Benzodiazepines Scrn POSITIVE (NEGATIVE) H 04/11/19 15:15 U Cocaine Metab Screen NEGATIVE (NEGATIVE) 04/11/19 15:15 U Cannabinoids Screen NEGATIVE (NEGATIVE) 04/11/19 15:15 Ethyl Alcohol < 10 mg/dL (0-10) 04/11/19 15:05 RPR NONREACTIVE (NONREACTIVE) 04/11/19 15:05 - Physical Exam Vitals and I&O: Vital Signs Temp 97.4 F 04/15/19 14:04 Pulse 78 04/16/19 08:31 Resp 19 04/15/19 14:04 BP 151/76 04/16/19 08:31 Pulse Ox 98 04/15/19 14:04 Intake & Output 04/15/19 04/16/19 04/16/19 18:59 06:59 18:59 Intake Total 1000 Balance 1000 Intake: Oral 1000 Other: # Voids 4 # Bowel Movements 1 Active Medications: Current Medications Acetaminophen (Tylenol) 650 mg PO Q4HR PRN PRN Reason: Mild Pain / Temp above 100 Stop: 06/10/19 16:23 Acetaminophen (Tylenol) 650 mg PO Q4HR PRN PRN Reason: pain(mild-mod) Stop: 06/10/19 18:58 Al Hydrox/Mg Hydrox/Simethicone (Maalox) 30 ml PO Q4HR PRN PRN Reason: GI DISTRESS Stop: 06/10/19 16:23 Aspirin (Ecotrin) 81 mg PO DAILY [facility] Stop: 06/11/19 08:59 Last Admin: 04/16/19 08:31 Dose: 81 mg Bisacodyl (Dulcolax 10 Mg Supp) 10 mg RC Q48H PRN PRN Reason: Constipation Stop: 06/10/19 18:58 Divalproex Sodium (Depakote Er) 500 mg PO HS [facility]; Protocol Stop: 06/10/19 20:59 Last Admin: 04/15/19 21:26 Dose: 500 mg Docusate Sodium (Colace) 100 mg PO DAILY [facility] Stop: 06/11/19 08:59 Last Admin: 04/16/19 08:31 Dose: 100 mg Finasteride (Proscar) 5 mg PO DAILY [facility]; Protocol Stop: 06/11/19 08:59 Last Admin: 04/16/19 08:33 Dose: 5 mg Folic Acid (Folate) 1 mg PO DAILY [facility] Stop: 06/11/19 08:59 Last Admin: 04/16/19 08:33 Dose: 1 mg Furosemide (Lasix) 20 mg PO DAILY [facility] Stop: 06/11/19 08:59 Last Admin: 04/16/19 08:31 Dose: 20 mg Lorazepam (Ativan) 0.5 mg PO Q4HR PRN; Protocol PRN Reason: Agitation Stop: 05/11/19 16:23 Last Admin: 04/15/19 21:25 Dose: 0.5 mg Magnesium Hydroxide (Milk Of Magnesia) 30 ml PO HS PRN PRN Reason: Constipation Metoprolol Tartrate (Lopressor) 50 mg PO BID [facility] Stop: 06/11/19 08:59 Last Admin: 04/16/19 08:31 Dose: 50 mg Multivitamins/Vitamin C (Theragran) 1 tab PO DAILY [facility] Stop: 06/11/19 08:59 Last Admin: 04/16/19 08:31 Dose: 1 tab Nitroglycerin (Nitrostat) 0.4 mg SL Q5MIN PRN PRN Reason: Chest Pain Stop: 06/10/19 18:59 Quetiapine Fumarate (Seroquel) 100 mg PO BID [facility]; Protocol Stop: 06/11/19 08:59 Last Admin: 04/16/19 08:32 Dose: 100 mg Quetiapine Fumarate (Seroquel) 200 mg PO HS [facility]; Protocol Stop: 06/10/19 20:59 Last Admin: 04/15/19 21:26 Dose: 200 mg Thiamine HCl (Vitamin B1) 100 mg PO DAILY [facility] Stop: 06/11/19 08:59 Last Admin: 04/16/19 08:31 Dose: 100 mg Zolpidem Tartrate (Ambien) 5 mg PO HS PRN PRN Reason: Insomnia Stop: 06/10/19 16:23 Last Admin: 04/15/19 21:26 Dose: 5 mg General: demented HEENT: NC/AT, PERRLA, EOMI, anicteric sclerae, throat clear Neck: Supple, No JVD, No thyromegaly, +2 carotid pulse wo bruit, No LAD Lungs: CTAB Cardiovascular: RRR, Normal S1, Normal S2, without murmur Abdomen: soft, non-tender, non-distended Extremities: clear Neurological: no change Internal Medicine Assmt/Plan - Assessment Assessment: 1.UTI 2.HTN 3.BPH. 4.PSYCHOSIS - Plan Plan: CONTINUE ON CURRENT MEDICATION AND DIET.CIPRO 500 MG PO BID FOR 5 DAYS. Nutritional Asmnt/Malnutr-PDOC - Dietary Evaluation Malnutrition Findings (Please click <Entered> for more info): Nutritional Asmnt/Malnutrition Start: 04/16/19 11: 26 Text: Status: Complete Freq: Protocol: Document 04/16/19 11:26 MOUSTAPHAJOJO (Rec: 04/16/19 11:43 MOUSTAPHAJOJO FLETCHER- [id number]) Nutritional Asmnt/Malnutrition Patient General Information Nutritional Screening Low Risk Diagnosis Psychosis Pertinent Medical Hx/Surgical Hx HTN, benign prostatic hypertrophy, hyperlipidemia, psychosis, dementia Subjective Information Patient in bed at time of visit; tolerating current diet . Current Diet Order/ Nutrition Support Regular Patient / S.O Not Indicated Pertinent Medications maalox, dulcolax, colace, folate, lasix, MOM, Theragran, Vitamin B1 Pertinent Labs (04/11) TAG 192 Nutritional Hx/Data Height 1.75 m Height (Calculated Centimeters) 175.3 Current Weight (lbs) 127.006 kg Weight (Calculated Kilograms) 127.0 Weight (Calculated Grams) 844239.9 [place] Body Weight 160 % [place] Body Weight 175 Body Mass Index (BMI) 41.3 Recent Weight Change No Weight Status Morbidly Obese GI Symptoms GI Symptoms None Last BM 04/15x 1 Difficult in: None Food Allergies No Cultural/Ethnic/Islam Belief none indicated Usual diet at home unknown Skin Integrity/Comment: Esdras 22, intact Current %PO Good (75-100%) Estimated Nutritional Goals BEE in Kcals: Adj wt of IBW Calories/Kcals/Kg Adj wt 86.3kg 25-30 kcal/kg Kcals Calculated ~7274-9952 kcal/day Protein: Adj wt of IBW Protein g/k-1.2 gm/kg Protein Calculated ~85-105 gm/day Fluid: ml ~5831-1589 ml/day Nutritional Problem No current Nutrition Prob Problem No nutrition diagnosis at this time Intervention/Recommendation Comments 1. Continue with regular diet as tolerated by patient. Expected Outcomes/Goals Expected Outcomes/Goals PO intake to meet >75% of nutritional needs, weight stability or trend toward ideal body weight, skin intact , nutrition related labs to approach WNL. F/U LR 04/23
--- NOTE | 2019-04-16 23:27 | Progress Notes ---
DATE: 04/16/2019 SUBJECTIVE: Staff was spoken to. The patient is interviewed. Mood is noted to be dysphoric. Affect is constricted. Insight and judgment are noted to be improving. Impulse control seems to be fair. No major behavioral problems are noted. The patient seems to be responding to internal stimuli and keeps to himself most of the time as the patient is going on a tangent. ASSESSMENT: The patient is still paranoid. PLAN: To continue the patient with the current medications. I encouraged the patient to verbalize the concerns. The patient's urinalysis is showing some abnormalities and Dr. Alves has been informed of it. Plan to continue the patient with the supportive therapy. I encouraged the patient to verbalize the concerns rather than to act out. JOB# [id number]
--- NOTE | 2019-04-17 03:17 | Progress Notes ---
DATE: 04/15/2019 DATE OF SERVICE: 04/15/2019 PSYCHOLOGY PROGRESS NOTE SUBJECTIVE: The patient is seen and is interviewed. Case is discussed with staff. The patient presents as easily irritated. The patient's affect is incongruent to mood and is broad and animated. The patient is smiling, yet angry. The staff reports that the patient is having difficulty following through with staff direction. The patient continues to be monitored for his UTI. OBJECTIVE: Mood is fluctuating and irritable. Affect is mood incongruent. Thought process shows to be superficial as well as impoverished. Eye contact is fair. Speech is loud. The patient denied any delusions or hallucinations. The patient's behavior has been difficult to redirect at times. The patient is somewhat dismissive and indifferent. However, the patient is taking his p.o. medications. ASSESSMENT AND PLAN: The patient's mood is still fluctuating and the patient became easily irritated. We provided anger management and limit setting. We provided remotivation for the patient to become compliant and to stay compliant with all aspects of his care and treatment. We provided reality testing to include reality integration. We encouraged the patient to verbalize his concerns versus verbally acting out and to demonstrate emotional and self-regulation. We provided a review of goal setting for placement and coping strategies for phase of life issues. We will follow up in 2 days to continue the present treatment if the patient remains admitted on the unit. JOB# [id number] MTDD
[2019-04-17] MEDS: Multivitamin Tab PO SCH (08:46)
--- NOTE | 2019-04-17 18:45 | Internal Medicine Prog Note ---
Internal Medicine Subjective - Subjective Service Date: 04/17/19 Patient seen and examined:: without staff Patient is:: awake, verbal, in bed, confused Per staff patient has:: no adverse event Internal Medicine Objective - Results Result Diagrams: 04/11/19 15:05 04/11/19 15:05 Recent Labs: Laboratory Last Values WBC 9.1 Th/cmm (4.8-10.8) 04/11/19 15:05 RBC 4.37 Mil/cmm (4.30-5.70) 04/11/19 15:05 Hgb 13.4 gm/dL (12-16) 04/11/19 15:05 Hct 39.8 % (41.0-60) L 04/11/19 15:05 MCV 91.1 fl (80-99) 04/11/19 15:05 MCH 30.6 pg (26.0-30.0) H 04/11/19 15:05 MCHC Differential 33.6 pg (28.0-36.0) 04/11/19 15:05 RDW 14.3 % (11.5-20.0) 04/11/19 15:05 Plt Count 245 Th/cmm (150-400) 04/11/19 15:05 MPV 10.4 fl 04/11/19 15:05 Neutrophils % 52.6 % (40.0-80.0) 04/11/19 15:05 Lymphocytes % 35.9 % (20.0-50.0) 04/11/19 15:05 Monocytes % 6.7 % (2.0-10.0) 04/11/19 15:05 Eosinophils % 3.8 % (0.0-5.0) 04/11/19 15:05 Basophils % 1.0 % (0.0-2.0) 04/11/19 15:05 Sodium 140 mEq/L (136-145) 04/11/19 15:05 Potassium 4.1 mEq/L (3.5-5.1) 04/11/19 15:05 Chloride 102 mEq/L (98-107) 04/11/19 15:05 Carbon Dioxide 27.6 mEq/L (21.0-31.0) 04/11/19 15:05 Anion Gap 14.5 (7.0-16.0) 04/11/19 15:05 BUN 14 mg/dL (7-25) 04/11/19 15:05 Creatinine 0.9 mg/dL (0.7-1.3) 04/11/19 15:05 Est GFR ( Amer) > 60.0 ml/min (>90) 04/11/19 15:05 Est GFR (Non-Af Amer) > 60.0 ml/min 04/11/19 15:05 BUN/Creatinine Ratio 15.6 04/11/19 15:05 Glucose 97 mg/dL (70-105) 04/11/19 15:05 Calcium 9.9 mg/dL (8.6-10.3) 04/11/19 15:05 Total Bilirubin 0.5 mg/dL (0.3-1.0) 04/11/19 15:05 AST 17 U/L (13-39) 04/11/19 15:05 ALT 15 U/L (7-52) 04/11/19 15:05 Alkaline Phosphatase 78 U/L (34-104) 04/11/19 15:05 Troponin I 0.01 ng/mL (0.01-0.05) 04/11/19 15:05 Total Protein 7.7 gm/dL (6.0-8.3) 04/11/19 15:05 Albumin 4.2 gm/dL (4.2-5.5) 04/11/19 15:05 Globulin 3.5 gm/dL 04/11/19 15:05 Albumin/Globulin Ratio 1.2 (1.0-1.8) 04/11/19 15:05 Triglycerides 192 mg/dL (<150) H 04/11/19 15:07 Cholesterol 152 mg/dL (<200) 04/11/19 15:07 LDL Cholesterol Direct 101 mg/dL (75-193) 04/11/19 15:07 HDL Cholesterol 35 mg/dL (23-92) 04/11/19 15:07 TSH 3.59 uIU/ml (0.34-5.60) 04/11/19 15:05 Urine Source CLEAN C 04/11/19 15:15 Urine Color YELLOW 04/11/19 15:15 Urine Clarity HAZY (CLEAR) 04/11/19 15:15 Urine pH 5.5 (4.6 - 8.0) 04/11/19 15:15 Ur Specific [place] 1.020 (1.005-1.030) 04/11/19 15:15 Urine Protein TRACE mg/dL (NEGATIVE) 04/11/19 15:15 Urine Glucose (UA) NEGATIVE mg/dL (NEGATIVE) 04/11/19 15:15 Urine Ketones NEGATIVE mg/dL (NEGATIVE) 04/11/19 15:15 Urine Blood LARGE (NEGATIVE) H 04/11/19 15:15 Urine Nitrate NEGATIVE (NEGATIVE) 04/11/19 15:15 Urine Bilirubin NEGATIVE (NEGATIVE) 04/11/19 15:15 Urine Urobilinogen 0.2 E.U./dL (0.2 - 1.0) 04/11/19 15:15 Ur Leukocyte Esterase MODERATE (NEGATIVE) H 04/11/19 15:15 Urine RBC 25-50 /hpf (0-5) H 04/11/19 15:15 Urine WBC 10-25 /hpf (0-5) H 04/11/19 15:15 Ur Epithelial Cells NONE SEEN /lpf (FEW) 04/11/19 15:15 Urine Bacteria MODERATE /hpf (NONE SEEN) H 04/11/19 15:15 Salicylates < 25.0 mg/L (30.0-100.0) L 04/11/19 15:05 Urine Opiates Screen NEGATIVE (NEGATIVE) 04/11/19 15:15 Urine Methadone Screen NEGATIVE (NEGATIVE) 04/11/19 15:15 Acetaminophen < 10.0 ug/mL (10.0-30.0) L 04/11/19 15:05 Ur Barbiturates Screen NEGATIVE (NEGATIVE) 04/11/19 15:15 Ur Tricyclics Screen POSITIVE (NEGATIVE) H 04/11/19 15:15 Ur Phencyclidine Scrn NEGATIVE (NEGATIVE) 04/11/19 15:15 Amphetamines Screen NEGATIVE (NEGATIVE) 04/11/19 15:15 U Methamphetamines Scrn NEGATIVE (NEGATIVE) 04/11/19 15:15 U Benzodiazepines Scrn POSITIVE (NEGATIVE) H 04/11/19 15:15 U Cocaine Metab Screen NEGATIVE (NEGATIVE) 04/11/19 15:15 U Cannabinoids Screen NEGATIVE (NEGATIVE) 04/11/19 15:15 Ethyl Alcohol < 10 mg/dL (0-10) 04/11/19 15:05 RPR NONREACTIVE (NONREACTIVE) 04/11/19 15:05 - Physical Exam Vitals and I&O: Vital Signs Temp 97 F 04/17/19 14:00 Pulse 69 04/17/19 17:38 Resp 20 04/17/19 14:00 BP 146/92 04/17/19 17:38 Pulse Ox 100 04/17/19 14:00 Intake & Output 04/16/19 04/17/19 04/17/19 18:59 06:59 18:59 Intake Total 1200 1600 Balance 1200 1600 Intake: Oral 1200 1600 Other: # Voids 4 5 # Bowel Movements 0 1 Active Medications: Current Medications Acetaminophen (Tylenol) 650 mg PO Q4HR PRN PRN Reason: Mild Pain / Temp above 100 Stop: 06/10/19 16:23 Acetaminophen (Tylenol) 650 mg PO Q4HR PRN PRN Reason: pain(mild-mod) Stop: 06/10/19 18:58 Al Hydrox/Mg Hydrox/Simethicone (Maalox) 30 ml PO Q4HR PRN PRN Reason: GI DISTRESS Stop: 06/10/19 16:23 Aspirin (Ecotrin) 81 mg PO DAILY [facility] Stop: 06/11/19 08:59 Last Admin: 04/17/19 08:46 Dose: 81 mg Bisacodyl (Dulcolax 10 Mg Supp) 10 mg RC Q48H PRN PRN Reason: Constipation Stop: 06/10/19 18:58 Ciprofloxacin (Cipro) 500 mg PO BID [facility] Stop: 04/21/19 09:01 Last Admin: 04/17/19 17:37 Dose: 500 mg Divalproex Sodium (Depakote Er) 500 mg PO HS [facility]; Protocol Stop: 06/10/19 20:59 Last Admin: 04/16/19 21:45 Dose: 500 mg Docusate Sodium (Colace) 100 mg PO DAILY [facility] Stop: 06/11/19 08:59 Last Admin: 04/17/19 08:45 Dose: 100 mg Finasteride (Proscar) 5 mg PO DAILY [facility]; Protocol Stop: 06/11/19 08:59 Last Admin: 04/17/19 08:46 Dose: 5 mg Folic Acid (Folate) 1 mg PO DAILY [facility] Stop: 06/11/19 08:59 Last Admin: 04/17/19 08:44 Dose: 1 mg Furosemide (Lasix) 20 mg PO DAILY [facility] Stop: 06/11/19 08:59 Last Admin: 04/17/19 08:44 Dose: 20 mg Lorazepam (Ativan) 0.5 mg PO Q4HR PRN; Protocol PRN Reason: Agitation Stop: 05/11/19 16:23 Last Admin: 04/15/19 21:25 Dose: 0.5 mg Magnesium Hydroxide (Milk Of Magnesia) 30 ml PO HS PRN PRN Reason: Constipation Metoprolol Tartrate (Lopressor) 50 mg PO BID [facility] Stop: 06/11/19 08:59 Last Admin: 04/17/19 17:38 Dose: 50 mg Multivitamins/Vitamin C (Theragran) 1 tab PO DAILY [facility] Stop: 06/11/19 08:59 Last Admin: 04/17/19 08:46 Dose: 1 tab Nitroglycerin (Nitrostat) 0.4 mg SL Q5MIN PRN PRN Reason: Chest Pain Stop: 06/10/19 18:59 Quetiapine Fumarate (Seroquel) 100 mg PO BID [facility]; Protocol Stop: 06/11/19 08:59 Last Admin: 04/17/19 17:39 Dose: 100 mg Quetiapine Fumarate (Seroquel) 200 mg PO HS [facility]; Protocol Stop: 06/10/19 20:59 Last Admin: 04/16/19 21:45 Dose: 200 mg Thiamine HCl (Vitamin B1) 100 mg PO DAILY [facility] Stop: 06/11/19 08:59 Last Admin: 04/17/19 08:45 Dose: 100 mg Zolpidem Tartrate (Ambien) 5 mg PO HS PRN PRN Reason: Insomnia Stop: 06/10/19 16:23 Last Admin: 04/16/19 21:46 Dose: 5 mg General: demented HEENT: NC/AT, PERRLA, EOMI, anicteric sclerae, throat clear Neck: Supple, No JVD, No thyromegaly, +2 carotid pulse wo bruit, No LAD Lungs: CTAB Cardiovascular: RRR, Normal S1, Normal S2, without murmur Abdomen: soft, non-tender, non-distended Extremities: clear Neurological: no change Internal Medicine Assmt/Plan - Assessment Assessment: 1.UTI 2.HTN 3.BPH. 4.PSYCHOSIS - Plan Plan: CONTINUE ON CURRENT MEDICATION AND DIET. Nutritional Asmnt/Malnutr-PDOC - Dietary Evaluation Malnutrition Findings (Please click <Entered> for more info): Nutritional Asmnt/Malnutrition Start: 04/16/19 11: 26 Text: Status: Complete Freq: Protocol: Document 04/16/19 11:26 ANKUR (Rec: 04/16/19 11:43 MOUSTAPHAJOJO WALKERN- [email or web address]) Nutritional Asmnt/Malnutrition Patient General Information Nutritional Screening Low Risk Diagnosis Psychosis Pertinent Medical Hx/Surgical Hx HTN, benign prostatic hypertrophy, hyperlipidemia, psychosis, dementia Subjective Information Patient in bed at time of visit; tolerating current diet . Current Diet Order/ Nutrition Support Regular Patient / S.O Not Indicated Pertinent Medications maalox, dulcolax, colace, folate, lasix, MOM, Theragran, Vitamin B1 Pertinent Labs (04/11) TAG 192 Nutritional Hx/Data Height 1.75 m Height (Calculated Centimeters) 175.3 Current Weight (lbs) 127.006 kg Weight (Calculated Kilograms) 127.0 Weight (Calculated Grams) 256587.9 Exeter Body Weight 160 % Exeter Body Weight 175 Body Mass Index (BMI) 41.3 Recent Weight Change No Weight Status Morbidly Obese GI Symptoms GI Symptoms None Last BM 04/15x 1 Difficult in: None Food Allergies No Cultural/Ethnic/Islam Belief none indicated Usual diet at home unknown Skin Integrity/Comment: Esdras 22, intact Current %PO Good (75-100%) Estimated Nutritional Goals BEE in Kcals: Adj wt of IBW Calories/Kcals/Kg Adj wt 86.3kg 25-30 kcal/kg Kcals Calculated ~7863-9600 kcal/day Protein: Adj wt of IBW Protein g/k-1.2 gm/kg Protein Calculated ~85-105 gm/day Fluid: ml ~6306-9004 ml/day Nutritional Problem No current Nutrition Prob Problem No nutrition diagnosis at this time Intervention/Recommendation Comments 1. Continue with regular diet as tolerated by patient. Expected Outcomes/Goals Expected Outcomes/Goals PO intake to meet >75% of nutritional needs, weight stability or trend toward ideal body weight, skin intact , nutrition related labs to approach WNL. F/U LR 04/23
--- NOTE | 2019-04-18 01:33 | Progress Notes ---
DATE: 04/17/2019 PSYCHIATRIC PROGRESS NOTE SUBJECTIVE: Staff was spoken to. The patient is interviewed. Mood is noted to be anxious. The patient has been placed on Cipro because of his urinary tract infection. The patient is able to tolerate the medications. No side effects to the medications are noted. He continues to be paranoid, but denies any command hallucinations. The patient has to be redirected at this time. No side effects to the medications are noted. ASSESSMENT: The patient's psychosis is resolving. PLAN: To continue the patient with the supportive therapy and follow up. JOB# [id number]
[2019-04-18] MEDS: Multivitamin Tab PO SCH (08:28)
--- NOTE | 2019-04-18 20:35 | Progress Notes ---
DATE: 04/18/2019 PSYCHOLOGY PROGRESS NOTE SUBJECTIVE: The patient is seen and is interviewed. Case is discussed with staff. The patient is sitting up on the edge of his bed, eating lunch. The patient presents as anxious and somewhat restless. Staff reports the patient's UTI is responding well to the medications. The patient states that he feels he needs to be discharged today. There is some evidence of suspiciousness still present. The patient is stating that he needs to be discharged to a facility or placement near his mother. Case management has been advised. OBJECTIVE: Mood is anxious. Affect is broad and animated. Thought process indicates perseveration on discharge and the unrealistic expectation and/or goal of being placed near his mother's home or at his mother's home. There is some evidence of paranoid ideation. The patient denied any hallucinations. The patient has been taking his p.o. medications. ASSESSMENT AND PLAN: The patient's psychosis appears to be resolving. The patient has been compliant with his care. We provided positive reinforcement for the patient to continue to be compliant with his care and treatment. We provided coping strategies for phase of life issues. We provided reality integration and realistic goal setting review with respect to the patient's placement and discharge. The patient is scheduled to discharge today. We will follow up only if the patient remains on the unit. The patient will be followed by Psychiatry and Psychology service at his placement. JOB# [id number] MTDJuanita
== END 2019-04-18 15:14 | DRG 885 ==
LOC: ER 14:27 → GERO2 15:48
PROVIDERS: ADMIT Psychiatry & Neurology Psychiatry; ATTEND Psychiatry & Neurology Psychiatry
DX: F29 Unspecified psychosis not due to a substance or known physiological condition (principal); N39.0 Urinary tract infection, site not specified; I10 Essential (primary) hypertension; E78.5 Hyperlipidemia, unspecified; R56.9 Unspecified convulsions; F31.9 Bipolar disorder, unspecified; N40.0 Benign prostatic hyperplasia without lower urinary tract symptoms
CPT/HCPCS: 36415-UA; 80053-TC; 80061-TC; 80307; 80320-TC; 80329-TC; 81001-TC; 83036-90; 84443-TC; 84484-TC; 85025-TC; 86592-TC; 87086-90; 93005; G0410; Z7610

== ENCOUNTER 2020-04-30 19:12 | Inpatient (IN) | payer MEDICARE, MEDICAID ==
[2020-05-01 02:17] VITALS: BP 152/82
[2020-05-01] MEDS ORDERED: Magnesium Hydroxide (MOM) 30 mL UDC PO PRN (03:33)
[2020-05-01] MEDS ORDERED: Maalox 30 mL Cup PO PRN (03:34)
[2020-05-01] MEDS: Multivitamin Tab PO SCH (10:00)
--- NOTE | 2020-05-01 12:49 | Psychiatric Evaluation ---
DATE OF SERVICE: 05/01/2020 IDENTIFYING DATA: The patient is a 60-year-old male, resident of [place] [facility] [place]. Information obtained by directly interviewing the patient as well as talking to the staff members and is reliable. JUSTIFICATION OF HOSPITALIZATION: The patient is admitted on a voluntary basis in view of his aggressive behavior and agitated behavior and outbursts. CHIEF COMPLAINT: "I could not believe that they got me in here for no reason." HISTORY OF PRESENT ILLNESS: This is one of multiple psychiatric hospitalizations for this patient who is known to me from the previous hospitalization in 2019 and the patient is reported to have been followed up on an outpatient basis. He states that he has been doing fairly well, but could not fair to out that he has to be here. DIAGNOSTIC IMPRESSION: The patient at this time is cooperative and has been able to verbalize the concerns. The patient is reported to have been stating that after being in there for 3 months his mother came by to visit and then got some snacks and on the same day they got to get him in here. The patient is noted to be irritable, angry and getting agitated. Sleep and appetite prior to the hospitalization are reported to be fair. PAST PSYCHIATRIC HISTORY: The patient was hospitalized under my care in 2019. MEDICAL HISTORY AND PHYSICAL EXAMINATION: Requested by Dr. Roy. SUBSTANCE ABUSE HISTORY: The patient has a history of alcohol use. PHYSICAL OR SEXUAL ABUSE HISTORY: None. LEGAL PROBLEMS: None at this time. MENTAL STATUS EXAMINATION: The patient is a 60-year-old well built, superficially cooperative. Speech is noted to be irrelevant and the patient, however, speaks loudly. The patient is very attention seeking at this time. The patient is reported to be very aggressive and he is not getting his ways. The patient denies active hallucinations or delusions are noted. Insight and judgment are much impaired. The patient's attention span and concentration are noted to be fair. Short and long-term are noted to be intact. The patient's behavior is likely danger to others. The patient is not suicidal at this time. DIAGNOSTIC IMPRESSION AXIS I: Schizoaffective disorder by history. AXIS II: None. AXIS III: As per Dr. Roy. IMMEDIATE TREATMENT PLAN: The patient is going to be continued on the Seroquel and will be looking into adding the Depakote for mood stabilization. ESTIMATED LENGTH OF STAY: 5-7 days. DISCHARGE CRITERIA: When he no longer a threat to self or others and be able to cope up with the stress. [facility]# [id number]
--- NOTE | 2020-05-01 14:56 | History & Physical ---
ADMIT DATE: 05/01/2020 CHIEF COMPLAINT: Confusion. HISTORY OF PRESENT ILLNESS: We have a 60-year-old patient who is transferred here for aggressive behavior. The patient resides in a fpc, has been in nursing home multiple times and has been transferred here for aggressive behavior. No chest pain, shortness of breath, no nausea, vomiting, abdominal pain, diarrhea. PAST MEDICAL HISTORY: 1. Hypertension. 2. BPH. PAST SURGICAL HISTORY: Unobtainable. MEDICATIONS: List reviewed. ALLERGIES: None. SOCIAL HISTORY: The patient is noncooperative. PHYSICAL EXAMINATION: VITAL SIGNS: Temperature is 98.6, pulse 63, respirations 18, blood pressure is 152/82. HEENT: Normocephalic, atraumatic head exam. NECK: Supple. CARDIOVASCULAR: Regular rate and rhythm. LUNGS: Decreased breath sounds. ABDOMEN: Soft, nontender. EXTREMITIES: No edema, cyanosis or clubbing. ASSESSMENT AND PLAN: 1. Confusion. 2. Dementia. 3. Hypertension. The patient will continue with supportive care. Continue with same medications. [facility]# [id number]
[2020-05-02] MEDS: Multivitamin Tab PO SCH (08:50)
--- NOTE | 2020-05-02 12:03 | Consultation ---
DATE OF CONSULTATION: 05/02/2020 TYPE OF CONSULTATION: Psychology consult. HISTORY OF PRESENT ILLNESS: The patient is a 60-year-old male. The patient is known to this typewriter operator automatic from previous hospitalizations here. The following is by review of the medical record as well as by the patient's self-report. The patient is being admitted due to aggressive and agitated behavior as well as anger outbursts. The staff at the patient's facility report that the patient had become irritable and angry and getting easily agitated and therefore was admitted here for stabilization. The patient is stating that he does not understand why he is being admitted into the hospital and stated that he felt that this was very unfair. The patient denied acting out or causing problems. The patient denies any suicidal or homicidal ideation, plan or intention at the time of this clinical interview. The patient verbalized a threat to harm staff if his "mother dies while he is in here". Nursing staff is informed. PAST MEDICAL HISTORY: Please see history and physical by Dr. Roy. PAST PSYCHIATRIC HISTORY: The patient has multiple previous psychiatric hospitalizations. The patient was also seen by this typewriter operator automatic here in 2019. The patient is under the care of a psychiatrist at his placement. The patient has a history of schizoaffective disorder. SUBSTANCE ABUSE HISTORY: The patient has a history of alcohol use. BRIEF PSYCHOSOCIAL HISTORY: The patient is a resident of [facility]. The patient reports that his biological mother is involved in his care and visits him at his placement. The patient states he has a legal guardian named Yossi. Case management is aware of this. The patient did not answer questions about occupational history and only stated that he is disabled. The patient did not answer questions about educational history. He states no specific sabianist affiliation. The patient is single and never . The patient denied any history of physical or sexual abuse or any current legal problems. He is demanding to be discharged immediately and stated he has been in various different hospitals for 19 months. MENTAL STATUS EXAMINATION: The patient appears to be his stated age. The patient's attitude is superficially cooperative. Eye contact is fair. Speech is loud. The patient is answering clinical questions relevantly. Mood is irritable, angry. Affect is mood congruent and reactive. Thought process shows to be linear and confused. The patient denied any hallucinations or delusions. The patient denies any suicidal or homicidal ideation, plan or intention. The patient's behavior includes verbal aggression with threats of harm to others and becoming easily agitated with difficulty to be redirected. Impulse control is impaired and inadequate. Concentration is fair. T he patient's immediate short term and long-term memory appeared to be grossly intact. Sensorium is alert and oriented x 2. The patient did not participate in the interpretation of proverbs. Insight is poor. Judgment is impaired. DIAGNOSTIC IMPRESSION: AXIS I: Schizoaffective disorder by history. AXIS II: Deferred. AXIS III: Per Dr. Roy. TREATMENT PLAN: The patient has been seen by Dr. Franklin for psychiatric evaluation and for the management of the patient's psychotropic medications. We will provide supportive psychotherapy to include reality, differentiation and integration. We will provide motivational enhancement for the patient to become compliant and stay compliant with all aspects of his care and treatment. The attending psychiatrist is continuing the patient on Seroquel and considering adding Depakote for mood stabilization. We will provide de-escalation and limit -setting as well as anger management and stress management to assist the patient in increasing his frustration tolerance and more appropriately interact with staff and follow through with staff direction. We will encourage the patient to verbalize his concerns appropriately versus acting out. We will provide coping strategies for phase of life issues as well as for chronic severe mental illness. We will provide daily opportunities for the patient o agree to no harm to others. It is recommended that this patient be observed 1:1 if the verbal threats for harm to staff persist. We will follow up in 2-3 days to continue the present treatment if the patient remains admitted on the unit and is able to demonstrate the willingness to participate and the capacity to benefit from psychology services. Thank you, Dr. Franklin for this consult and the opportunity to participate with you in this patient's care. JOB# [id number] DANIEL
--- NOTE | 2020-05-02 23:43 | Progress Notes ---
DATE: 05/02/2020 SUBJECTIVE: Staff was spoken to. The patient is interviewed. Mood is noted to be irritable. Affect is constricted. The patient is screaming and yelling at the top of his lungs. Insight and judgment at this time are noted to be still impaired. Impulse control is noted to be poor. The patient is reporting that he has been having difficult time to sleep. The patient is very abusive and has been difficult to redirect the patient in view of this patient's paranoia and aggressive behavior, it is decided to increase the quetiapine dose to 200 mg 3 times a day and follow the patient up with the supportive therapy. ASSESSMENT: The patient is still impulsive and aggressive. PLAN: To continue the patient with the supportive therapy and followup. JOB# [id number]
[2020-05-03] MEDS: Multivitamin Tab PO SCH (08:58)
--- NOTE | 2020-05-03 11:13 | Progress Notes ---
DATE: 05/03/2020 PSYCHIATRIC PROGRESS NOTE SUBJECTIVE: Staff was spoken to. The patient is interviewed. Mood is noted to be less irritable today. Insight and judgment are noted to be still impaired. Impulse control is noted to be poor. The patient gets easily irritable when he does not get his way. The patient has been increased of his Seroquel to 200 mg 3 times a day. The patient is being closely monitored. The patient has no insight into his illness. The patient tends to scream and yell and curse people. ASSESSMENT: The patient is still having mood swings. PLAN: To continue the patient with the current medications and followup. JOB# [id number]
[2020-05-04] MEDS: Multivitamin Tab PO SCH (08:38)
--- NOTE | 2020-05-04 10:58 | Progress Notes ---
DATE: 05/04/2020 PSYCHIATRIC PROGRESS NOTE SUBJECTIVE: Staff was spoken to. The patient is interviewed. Mood is noted to be irritable. Affect is constricted. The patient is less irritable today. The patient continues to be very paranoid. Insight and judgment at this time are noted to be still impaired. Impulse control seems to be a little bit improving. No side effects to the medications are noted. ASSESSMENT: The patient is still having problem with the impulsivity. PLAN: To continue the patient with the current medications and follow up. [facility]# [id number]
[2020-05-05] MEDS: Multivitamin Tab PO SCH (08:21)
--- NOTE | 2020-05-05 13:41 | Progress Notes ---
DATE: 05/05/2020 PSYCHIATRIC PROGRESS NOTE SUBJECTIVE: Staff was spoken to. The patient is interviewed. Mood is noted to be irritable. Affect is constricted. The patient is hyperverbal. Insight and judgment at this time are noted to be still impaired. Impulse control seems to be limited. The patient has been willing to comply with the treatment so far. The patient continues to be very paranoid. ASSESSMENT: The patient is still having difficult time to cope with the stress. PLAN: To continue the patient with the supportive therapy, encouraged the patient to verbalize the concerns rather than to act out. The patient since being very paranoid and impulsive, it is decided to increase the dose on the Seroquel to 400 mg twice a day and follow the patient up. JOB# [id number]
[2020-05-06] MEDS: Multivitamin Tab PO SCH (08:05)
--- NOTE | 2020-05-06 11:03 | Progress Notes ---
DATE: 05/05/2020 PSYCHOLOGY PROGRESS NOTE SUBJECTIVE: The patient is seen, sitting up in a chair against the wall in the activity room. The patient presents as dismissive. The patient stated he did not want to speak with this instructional writer unless he was being discharged. The patient is irritable and defensive. Staff reports the patient has made implied threats verbally towards the staff regarding his continued admission on the unit connected to his mother's health and his need to be available to her. OBJECTIVE: Mood is irritable. Affect is constricted. Thought process includes paranoid ideation and is illogical and concrete. The patient's attitude is guarded. Impulse control is limited. The patient denied any suicidal or homicidal ideation, plan or intention. However, the patient has been making vague verbal threats to the staff. ASSESSMENT: The patient's psychosis persists. PLAN: We provided supportive psychotherapy and included de-escalation as well as limit setting. We provided remotivation for the patient to become compliant and stay compliant with all aspects of his care and treatment. We encouraged the patient to verbalize his concerns versus acting out. We reviewed the patient's statements with him regarding verbal threats to the staff. We provided reality, orientation, differentiation and integration. The patient did not verbally contract for safety, i.e., no harm to others. Record review indicates the attending psychiatrist has increased the patient's Seroquel to 400 mg twice a day. We will follow up in 2-3 days to continue the present treatment if the patient remains on the unit to provide behavioral management and motivational enhancement along with coping strategies for phase of life issues and chronic severe mental illness. We will provide daily opportunities for the patient to verbally contract for safety. [facility]# [id number] DANIEL
--- NOTE | 2020-05-06 11:06 | Progress Notes ---
DATE: 05/06/2020 SUBJECTIVE: Staff was spoken to. The patient is interviewed. Mood is noted to be less irritable today. Insight and judgment are noted to be improving. The patient is loud at times, but he is redirectable compared to before. No side effects to the medications are noted. ASSESSMENT: The patient's impulsivity is coming under control. PLAN: To continue the patient with the supportive therapy and followup. [facility]# [id number]
[2020-05-07] MEDS: Multivitamin Tab PO SCH (08:34)
--- NOTE | 2020-05-07 12:48 | Progress Notes ---
DATE: 05/07/2020 SUBJECTIVE: Staff was spoken to. The patient is interviewed. Mood is noted to be anxious. The patient's insight and judgment are noted to be improving. Impulse control seems to be fair. The patient is not presenting with any threats to harm self or others. The patient has been able to tolerate the higher dose of the Seroquel. No side effects are noted. ASSESSMENT: The patient is stabilizing. PLAN: I talked to the case managers with regards to the patient being transferred back to the facility. JOB# [id number]
[2020-05-08] MEDS: Multivitamin Tab PO SCH (09:28)
--- NOTE | 2020-05-08 11:21 | Discharge Summary ---
DATE OF DISCHARGE: 05/08/2020 PSYCHIATRIC DISCHARGE SUMMARY IDENTIFYING DATA: The patient is a 60-year-old male, resident of a retirement facility. JUSTIFICATION OF HOSPITALIZATION: The patient is admitted on a voluntary basis in view of his aggressive behavior, agitated behavior and outbursts. CHIEF COMPLAINT: "I could not believe that they got me in here for no reason." DIAGNOSES AT THE TIME OF ADMISSION: AXIS I: Schizoaffective disorder. AXIS II: None. AXIS III: As per Dr. Roy. DISCHARGE DIAGNOSES: AXIS I: Schizoaffective disorder. AXIS II: None. AXIS III: Significant for hypertension and obesity. HOSPITAL COURSE AND RESPONSE TO TREATMENT: The patient has been started on the Seroquel that was gradually increased to 400 mg twice a day. The patient's blood work has been reviewed by Dr. Roy and is noted to be within normal limits. No major interventions were needed. The patient has been closely monitored. Initially, he was a little bit aggressive, screaming and yelling, using profanities, but later, he calmed down once the dose of the Seroquel was increased. The patient started to do fairly well, and hence, was discharged on 05/08/2020 with the recommendation that he is going to be seeking treatment on outpatient basis. MENTAL STATUS EXAMINATION AT THE TIME OF DISCHARGE: The patient is noted to be less irritable. Affect is appropriate. Speech is coherent and relevant. The patient denies auditory hallucinations. No delusions are noted. Insight and judgment are noted to be improving. Impulse control is noted to be fair. Attention span is noted to be fair. The patient is of average intelligence. No major behavioral problems are noted. The patient is presenting with an idea that he is going to be seeking treatment on an outpatient basis. DIAGNOSES AT THE TIME OF DISCHARGE: AXIS I: Schizoaffective disorder. AXIS II: None. AXIS III: Hypertension. AFTERCARE PLAN: The patient is discharged to a retirement facility for further followup. JOB# [id number]
== END 2020-05-08 16:05 | DRG 885 ==
LOC: UNDOADMIN 19:12 → GERO 19:12
PROVIDERS: ADMIT Psychiatry & Neurology Psychiatry; ATTEND Psychiatry & Neurology Psychiatry
DX: F25.9 Schizoaffective disorder, unspecified (principal); I10 Essential (primary) hypertension; N40.0 Benign prostatic hyperplasia without lower urinary tract symptoms; F03.90 Unspecified dementia, unspecified severity, without behavioral disturbance, psychotic disturbance, mood disturbance, and anxiety; Z88.8 Allergy status to other drugs, medicaments and biological substances
CPT/HCPCS: 83036-90; 90899; G0410; Z7610